=== PATIENT | male | born 1985 | race Caucasian/White ===

== ENCOUNTER 2016-06-25 13:06 | Emergency (ER) | payer MEDICAID ==
[~2016-06-25] VITALS: Ht 185.4 cm; Wt 127.0 kg
[~2016-06-25 13:06] MED LIST: AZIT-21 PO; CEFD300C3 PO; CEFP250T2 PO; CIPR-225 PO; CIPR500T78 PO; CODE-54 PO; CPR500T PO; DOXY-13 PO; DOXY100C2 PO; DOXY100T2 PO; HCPR10FM RC; HYDR1TAB PO; KETO75CA PO; LISI10TA2; NAPR-243 PO; NAPR500T PO; OMEP20CA12; ONDA-42 SL; ONDA8TAB13 PO; OXYC-12 PO; PHEN100T17 PO; PHEN200T27 PO; PRCD5U PO; PRD20T PO; PRD5T PO; PROM25TA14 PO; RT-ALBUINH IH; SUCR1TAB; TRAM50TA2 PO; TRM50T PO; VANC250C4 PO
--- OUTSIDE RECORDS SUMMARY | 2016-06-25 13:12 | XMS REPORT | Continuity of Care Document ---
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 Name Role Phone NO, LOCAL PHYSICIAN PCP Unavailable Insurance Providers Payer Name Policy Number Subscriber Name Relationship Medicaid [place] [id number] Demarco Andrade 19 Self / Same As Patient Advance Directives Directive Response Recorded Date/Time Advance Directives No 12/21/13 8:37pm Health Care Power of Collateral Clerk No 12/21/13 8:37pm Organ Donor No 12/21/13 8:37pm Resuscitation Status Full Code 12/21/13 8:37pm Problems Medical Problems Problem Onset Date Status Upper respiratory infection Unknown Active Forearm pain Unknown Active Forearm pain Unknown Active Medications Medication Dose Route Sig Days/Qty Instructions Order Date Discontinued Date Status Tramadol HCl 1 Tab PO FOUR TIMES DAILY 40 Qty 12/21/08 02/16/11 Discontinued Prednisone 5 Mg PO DIRECTED 78 Qty TAKE 12 PILLS DAY 1, THEN DECREASE BY 1 PILL A DAY UNTIL GONE FOR RASH 10/18/09 02/16/11 Discontinued Azithromycin (Zpak) 0 PO Z-EDER 6 Qty 07/11/10 02/16/11 Discontinued Acetaminophen/Hydrocodone Bitart 1 - 2 Each PO Q4HR PRN 14 Qty 02/16/11 Discontinued Prednisone 5 Mg PO DIRECTED 78 Qty 01/24/11 02/16/11 Discontinued Acetaminophen/Codeine Phosphate 1 Tab PO EVERY 3 HOURS PRN 0 Qty 02/20/11 Discontinued Ciprofloxacin 1 Tab PO TWICE A DAY 03/03/11 12/12/11 Discontinued Ciprofloxacin 2 Tab PO X 1 03/03/11 03/03/11 Discontinued Oxycodone Hcl/Acetaminophen 1 - 2 Each PO 4-6 hours PRN 03/03/1113/05 Discontinued Doxycycline Hyclate 1 Each PO GIVE EVERY 12 HRS ON SCHEDULE 14 Qty 07/0511/24/12 Discontinued Promethazine HCl/Codeine 0 PO EVERY 4HRS 1 Qty 5 - 10 ML 01/06/12 Discontinued Naproxen 1 Each PO TWICE A DAY PRN PAIN 20 Qty 12/21/13 Active Social History Social History Problem Response Recorded Date/Time Alcohol Use Regular Use 12/21/2013 8:37pm Recreational Drug Use No 12/21/2013 8:37pm Smoking Status Current Everyday Smoker 12/21/2013 8:37pm Do you dip or chew tobacco? Yes 12/21/2013 8:37pm Query Response Start Date Stop Date Smoking Status Current Everyday Smoker Hospital Discharge Instructions No hospital discharge instructions. Plan of Care No plan of care. Functional Status No functional status results. Allergies, Adverse Reactions, Alerts Allergen Type Severity Reaction Status Last Updated morphine Adverse Reaction Intermediate Active 12/21/13 Immunizations Name Given Type Date of Pneumonia Vaccine 07/26/11 Historical Tetanus Booster (TDap) Unknown Historical Vital Signs Acute Vital Signs Vital Response Date/Time Temperature (Fahrenheit) 99.0 degrees F (97.6 - 99.5) Temperature (Calculated Celsius) 37.45758 degrees C (36.4 - 37.5) Temperature Source Temporal Pulse Rate (adult) 83 bpm (60 - 90) Respiratory Rate 18 bpm (12 - 24) O2 Sat by Pulse Oximetry 98 % (88 - 100) Blood Pressure 165/96 mm Hg Pain Pain Intensity 7 Height (Feet) 5 feet Height (Inches) 10 inches Height (Calculated Centimeters) 177.454124 cm Weight (Pounds) 255 pounds Weight (Calculated Kilograms) 115.289741 kilograms Calculated BMI 36.58 Results Test Source Date Result Interp. Ref. Range Comments Acetaminophen Screen February 17, 2011 1:30am NEGATIVE - APAP= ACETAMINOPHEN/PARACETAMOL Alanine Aminotransferase (ALT/SGPT) November 26, 2012 5:35am 39 U/L N 30-65 Albumin November 26, 2012 5:35am 3.0 G/DL L 3.4-5.0 Alkaline Phosphatase November 26, 2012 5:35am 120 U/L N 50-136 Miguel Angel Test February 21, 2011 5:20am YES-POS - Puncture site: R Radial arteryAllen's Test: POSITIVE Temperature: 100.3 Room Air: N Liters of O2: 35% Ventilator: Y Amylase Level November 25, 2012 5:50am 22 U/L L 25-115 Arterial Blood Base Excess February 21, 2011 5:20am 1.2 MMOL/L N -2.5- 2.5 Puncture site: R Radial arteryAllen's Test: POSITIVE Temperature: 100.3 Room Air: N Liters of O2: 35% Ventilator: Y Arterial Blood HCO3 February 21, 2011 5:20am 25 MMOL/L N 23-27 Puncture site: R Radial arteryAllen's Test: POSITIVE Temperature: 100.3 Room Air: N Liters of O2: 35% Ventilator: Y Arterial Blood Oxygen Saturation February 21, 2011 5:20am 98 % N 94-100 Puncture site: R Radial arteryAllen's Test: POSITIVE Temperature: 100.3 Room Air: N Liters of O2: 35% Ventilator: Y Arterial Blood Partial Pressure CO2 February 21, 2011 5:20am 38 MMHG N 35 -45 Puncture site: R Radial arteryAllen's Test: POSITIVE Temperature: 100.3 Room Air: N Liters of O2: 35% Ventilator: Y Arterial Blood Partial Pressure O2 February 21, 2011 5:20am 103 MMHG H 79 -93 Puncture site: R Radial arteryAllen's Test: POSITIVE Temperature: 100.3 Room Air: N Liters of O2: 35% Ventilator: Y Arterial Blood Total CO2 February 21, 2011 5:20am 26.1 MMOL/L N 21.0- 31.0 Puncture site: R Radial arteryAllen's Test: POSITIVE Temperature: 100.3 Room Air: N Liters of O2: 35% Ventilator: Y Arterial Blood pH February 21, 2011 5:20am 7.44 H 7.37-7.43 Puncture site: R Radial arteryAllen's Test: POSITIVE Temperature: 100.3 Room Air: N Liters of O2: 35% Ventilator: Y Aspartate Amino Transf (AST/SGOT) November 26, 2012 5:35am 27 U/L N 15-37 BUN/Creatinine Ratio November 26, 2012 5:35am 7 - Band Neutrophils November 24, 2012 5:50pm 11 % - Basophils # (Auto) November 25, 2012 5:50am 0.0 10^3/uL N 0.0-0.1 Basophils (%) (Auto) November 25, 2012 5:50am 0 % N 0-10 Blood Gas Inspired Oxygen February 21, 2011 5:20am 35% - Puncture site : R Radial arteryAllen's Test: POSITIVE Temperature: 100.3 Room Air: N Liters of O2: 35% Ventilator: Y Blood Gas Patient Temperature February 21, 2011 5:20am 100.3 - Puncture site: R Radial arteryAllen's Test: POSITIVE Temperature: 100.3 Room Air: N Liters of O2: 35% Ventilator: Y Blood Gas Puncture Site February 21, 2011 5:20am RT RAD - Puncture site: R Radial arteryAllen's Test: POSITIVE Temperature: 100.3 Room Air: N Liters of O2: 35% Ventilator: Y Blood Gas Ventilator Setting February 21, 2011 5:20am YES - Puncture site: R Radial arteryAllen's Test: POSITIVE Temperature: 100.3 Room Air: N Liters of O2: 35% Ventilator: Y Blood Urea Nitrogen November 26, 2012 5:35am 8 MG/DL N 7-18 [place] Cells November 24, 2012 5:50pm SLIGHT - Calcium Level November 26, 2012 5:35am 8.2 MG/DL L 8.5-10.1 Carbon Dioxide Level November 26, 2012 5:35am 30 MMOL/L N 21-32 Chloride Level November 26, 2012 5:35am 104 MMOL/L N 101-110 Clumped Platelets November 24, 2012 5:50pm OCCASIONAL - Creatinine November 26, 2012 5:35am 1.2 MG/DL N 0.6-1.3 Eosinophils # (Auto) November 25, 2012 5:50am 0.0 10^3/uL N 0.0-0.3 Eosinophils % (Manual) November 24, 2012 5:50pm 1 % - Eosinophils (%) (Auto) November 25, 2012 5:50am 0 % N 0-10 Glucose Level November 26, 2012 5:35am 100 MG/DL N 74-106 Hematocrit November 26, 2012 5:35am 43 % N 40-54 Hemoglobin November 26, 2012 5:35am 14.2 G/DL N 13.3-17.7 Hemoglobin A1c February 17, 2011 5:50am 6.1 % H 4.8-6.0 Lipase November 25, 2012 5:50am 100 U/L N 73-393 Lymphocytes # (Auto) November 25, 2012 5:50am 1.5 X 10^3 N 1.0-4.0 Lymphocytes % (Manual) November 24, 2012 5:50pm 7 % - Lymphocytes (%) (Auto) November 25, 2012 5:50am 8 % L 12-44 Magnesium Level February 27, 2011 6:15am 2.1 MG/DL N 1.8-2.4 Mean Corpuscular Hemoglobin November 26, 2012 5:35am 31 PG N 25-34 Mean Corpuscular Hemoglobin Concent November 26, 2012 5:35am 33 G/DL N 32- 36 Mean Corpuscular Volume November 26, 2012 5:35am 93 FL N 80-99 Mean Platelet Volume November 26, 2012 5:35am 9.7 FL N 7.4-10.4 Monocytes # (Auto) November 25, 2012 5:50am 1.1 X 10^3 H 0.0-1.0 Monocytes % (Manual) November 24, 2012 5:50pm 6 % - Monocytes (%) (Auto) November 25, 2012 5:50am 6 % N 0-12 Neutrophils # (Auto) November 25, 2012 5:50am 15.8 X 10^3 H 1.8-7.8 Neutrophils % (Manual) November 24, 2012 5:50pm 75 % - Neutrophils (%) (Auto) November 25, 2012 5:50am 86 % H 42-75 Platelet Count November 26, 2012 5:35am 333 10^3/uL N 130-400 Poikilocytosis November 24, 2012 5:50pm SLIGHT - Potassium Level November 26, 2012 5:35am 3.9 MMOL/L N 3.6-5.0 Red Blood Count November 26, 2012 5:35am 4.62 10^6/uL N 4.35-5.85 Red Cell Distribution Width November 26, 2012 5:35am 14.2 % N 10.0-14.5 Sodium Level November 26, 2012 5:35am 139 MMOL/L N 135-145 Total Bilirubin November 26, 2012 5:35am 0.3 MG/DL N 0.0-1.0 Total Protein November 26, 2012 5:35am 6.7 G/DL N 6.4-8.2 Ur Tricyclic Antidepressants Screen November 24, 2012 5:55pm NEGATIVE - Urine Amorphous Sediment February 23, 2011 10:05am RARE WANG URATES H - Has specimen been collected/obtained? YSpecimen Description CLEAN CATCH Urine Amphetamines Screen November 24, 2012 5:55pm NEGATIVE - Urine Bacteria November 25, 2012 5:07pm NEGATIVE /HPF - Has specimen been collected/obtained? Y Urine Barbiturates Screen November 24, 2012 5:55pm NEGATIVE - Urine Benzodiazepines Screen November 24, 2012 5:55pm NEGATIVE - Urine Bilirubin November 25, 2012 5:07pm NEGATIVE - Has specimen been collected/obtained? Y Urine Calcium Oxalate Crystals December 23, 2010 3:23am FEW H - Has specimen been collected/obtained? YSpecimen Description CLEAN CATCH Urine Casts November 25, 2012 5:07pm NONE /LPF - Has specimen been collected/obtained? Y Urine Clarity November 25, 2012 5:07pm CLEAR - Has specimen been collected/obtained? Y Urine Cocaine Screen November 24, 2012 5:55pm NEGATIVE - Urine Color November 25, 2012 5:07pm YELLOW - Has specimen been collected /obtained? Y Urine Crystals November 25, 2012 5:07pm NONE /LPF - Has specimen been collected/obtained? Y Urine Culture Indicated November 25, 2012 5:07pm YES - Has specimen been collected/obtained? Y Urine Eosinophils February 23, 2011 10:05am NONE - Urine Glucose (UA) November 25, 2012 5:07pm NEGATIVE - Has specimen been collected/obtained? Y Urine Hyaline Casts November 24, 2012 5:55pm 0-2 /LPF H - Has specimen been collected/obtained? YSpecimen Description CLEAN CATCH Urine Ketones November 25, 2012 5:07pm NEGATIVE - Has specimen been collected/obtained? Y Urine Leukocyte Esterase November 25, 2012 5:07pm 2+ H - Has specimen been collected/obtained? Y Urine Methamphetamines Screen November 24, 2012 5:55pm NEGATIVE - Urine Mucus November 25, 2012 5:07pm TRACE /LPF - Has specimen been collected/obtained? Y Urine Nitrate June 27, 2005 6:32am Negative - Has specimen been collected/obtained? Y Urine Nitrite November 25, 2012 5:07pm NEGATIVE - Has specimen been collected/obtained? Y Urine Opiates Screen November 24, 2012 5:55pm NEGATIVE - Urine Phencyclidine Screen November 24, 2012 5:55pm NEGATIVE - Urine Propoxyphene Screen November 24, 2012 5:55pm NEGATIVE - Urine Protein November 25, 2012 5:07pm NEGATIVE - Has specimen been collected/obtained? Y Urine RBC November 25, 2012 5:07pm NONE /HPF - Has specimen been collected/obtained? Y Urine Random Potassium February 23, 2011 10:05am 13 MMOL/L L 25-125 Urine Random Sodium February 23, 2011 10:05am 29 MMOL/L L 50-200 Urine Specific [place] November 25, 2012 5:07pm 1.015 L - Has specimen been collected/obtained? Y Urine Squamous Epithelial Cells November 25, 2012 5:07pm RARE /HPF - Has specimen been collected/obtained? Y Urine Urobilinogen November 25, 2012 5:07pm NORMAL MG/DL - Has specimen been collected/obtained? Y Urine WBC November 25, 2012 5:07pm 5-10 /HPF H - Has specimen been collected/obtained? Y Urine pH November 25, 2012 5:07pm 6.5 - Has specimen been collected/ obtained? Y Vancomycin Level Trough February 24, 2011 6:08am 18 UG/ML N 15-20 VANCOMYCIN TROUGH THERAPEUTIC LEVELS: 15-20 UG/ML ELEVATED LEVELS : 20-25 UG/ML CRITICAL LEVEL : >25 UG/ML White Blood Count November 26, 2012 5:35am 10.9 10^3/uL N 4.3-11.0 Glucometer February 22, 2011 8:45pm 138 MG/DL H 70-110 Lab Scanned Report March 04, 2011 9:57am Transfusion Reaction Form [id number] - Estimat Glomerular Filtration Rate November 24, 2012 5:50pm > 60 - GFR INTERPRETIVE DATA UNITS FOR ESTIMATED GFR (eGFR): mL/min/1.73 M2 REFERENCE RANGE FOR ESTIMATED GFR (eGFR) eGFR NORMAL eGFR >60 MODERATELY DECREASED eGFR 30-59 SEVERLY DECREASED eGFR 15-29 KIDNEY FAILURE <15 (OR DIALYSIS) Urine Oxycodone Screen November 24, 2012 5:55pm NEGATIVE - Urine Methadone Screen November 24, 2012 5:55pm NEGATIVE - Urine Cannabinoids Screen November 24, 2012 5:55pm NEGATIVE - Urine Buprenorphine November 24, 2012 5:55pm NEGATIVE - Urine RBC (Auto) November 25, 2012 5:07pm NEGATIVE - Has specimen been collected/obtained? Y Blood Culture Peripheral-Rt Hand February 21, 2011 3:00am No growth Ova and Parasites Stool November 24, 2012 9:30pm Gram Stain Sputum-Expectorated February 23, 2011 10:00am Urine Culture Urine-Clean Catch November 25, 2012 5:07pm Procedures No known history of procedures. Encounters Encounter Location Date/Time Departed Emergency Room [facility] 12/21/13 7:43pm Recent Diagnosis
[2016-06-25] MEDS ORDERED: IBUPROFEN 800 MG (MOTRIN) TAB PO STA (13:18)
[2016-06-25] MEDS ORDERED: ONDANSETRON 4 MG (ZOFRAN) ORAL DISSOLVE TAB SL STA (13:18)
[2016-06-25] MEDS ORDERED: METF500T4 (13:25)
--- NOTE | 2016-06-25 13:29 | ED Cough/URI ---
General Chief Complaint: Cough/Cold/Flu Symptoms Stated Complaint: NAUSEA/LOWER BACK PAIN/COUGH Nursing Triage Note: PT CO OF COLD COUGH SINCE MONDAY Source: patient Exam Limitations: no limitations History of Present Illness Time seen by provider: 13:12 Initial Comments 31-year-old male patient presents to the emergency department complains of cough , chest congestion, body aches beginning . Today reports having a fever. Timing/Duration: getting worse, other (06/23/16) Severity/Quality: moderate Prior Episodes/Possible Cause: no prior episodes Modifying Factors: Worse With Coughing Allergies and Home Medications Allergies Coded Allergies: morphine (Verified Adverse Reaction, Intermediate, 12/21/13) MAKES HIM AGGRESSIVE Home Medications Hydrocortisone/Pramoxine 10 Gm Foam #1 10 GM RC Q6H PRN PRN HEMORRHOIDS Prescribed by: JIGAR ANN on 03/09/16 0605 Lisinopril 10 Mg Tablet #30 (Reported) Metformin HCl 500 Mg Tablet #60 (Reported) Omeprazole 20 Mg Capsule. #30 (Reported) Oseltamivir Phosphate 75 Mg Cap #10 75 MG PO BID Prescribed by: EMERSON CARBAJAL on 06/25/16 1350 Sucralfate 1 Gm Tablet #60 (Reported) Constitutional: chillsNo diaphoresis, No dizziness, fever malaise EENTM: ear pain ((ear pain with coughing only)) nose congestion throat painNo eye pain, No mouth pain, No tearing, No throat swelling Respiratory: see HPI coughNo orthopnea, No short of breath, No wheezing Cardiovascular: no symptoms reported Gastrointestinal: No abdominal pain, No constipation, No diarrhea, nauseaNo vomiting Genitourinary: no symptoms reported Musculoskeletal: see HPI other (generalized body aches) Skin: no symptoms reported Psychiatric/Neurological: Headache (occipital headache)Denies Numbness, Denies Paresthesia, Denies Seizure, Denies Tingling, Denies Weakness All Other Systems Reviewed Negative Unless Noted: Yes (Negative excepted noted.) Past Cmecyaj-Psinsi-Elrbgu Hx Patient Social History Alcohol Use: Regular Use Recreational Drug Use: No Smoking Status: Never a Smoker Former Smoker/When Quit: Nov 24, 2005 Recent Foreign Travel: No Contact w/Someone Who Travel: No Recent Infectious Disease Expo: No Recent Hopitalizations: No Immunizations Up To Date Tetanus Booster (TDap): Unknown Date of Pneumonia Vaccine: Jul 26, 2011 Seasonal Allergies Seasonal Allergies: No Surgeries HX Surgeries: Yes (SPLENECTOMY AND LEFT CHEST TUBE SECONDARY TO TRAUMA) Surgeries: Ear Surgery, Orthopedic Respiratory Hx Respiratory Disorders: No Cardiovascular Hx Cardiac Disorders: No Neurological Hx Neurological Disorders: No Reproductive System Hx Reproductive Disorders: No Genitourinary Hx Genitourinary Disorders: Yes Genitourinary Disorders: Bladder Infection Gastrointestinal Hx Gastrointestinal Disorders: Yes (S/P SPLENECTOMY SECONDARY TO TRAUMA) Gastrointestinal Disorders: Hemorrhoids Musculoskeletal Hx Musculoskeletal Disorders: No Endocrine Hx Endocrine Disorders: No HEENT HX ENT Disorders: No Cancer Hx Cancer: No Psychosocial Hx Psychiatric Problems: No Integumentary HX Skin/Integumentary Disorder: No Blood Transfusions Hx Blood Disorders: No Reviewed Nursing Assessment Reviewed/Agree w Nursing PMH: Yes Family Medical History Significant Family History: No Pertinent Family Hx Physical Exam Vital Signs Vital Sign - Last 12Hours 06/25/16 13:10 Temp 101.0 Pulse 130 Resp 18 B/P 133/97 Pulse Ox 99 Capillary Refill : Less Than 3 Seconds General Appearance: WD/WN no apparent distress HEENT: PERRL/EOMI pharyngeal erythema other ((+) nasal congestion and clear drainage. ) Neck: non-tender full range of motion supple lymphadenopathy (R) (anterior cervical.) lymphadenopathy (L) (anterior cervical. ) Respiratory: lungs clear normal breath sounds no respiratory distress Cardiovascular: no murmur tachycardia Gastrointestinal: normal bowel sounds non tender softNo distended Neurologic/Psychiatric: alert normal mood/affect oriented x 3 Skin: normal color warm/dry (increased warmth.) Progress/Results/Core Measures Results/Orders Micro Results Microbiology 06/25/16 Influenza Types A,B Antigen (JOHNNY) - Final, Complete My Orders Orders-EMERSON CARBAJAL Influenza A And B Antigens (06/25/16 13:12) Ibuprofen Tablet (Motrin Tablet) (06/25/16 13:18) Ondansetron Oral Dissolve Tab (Zofran (06/25/16 13:18) Chest Pa/Lat (2 View) (06/25/16 13:19) Vital Signs/I&O Vital Sign - Last 12Hours 06/25/16 13:10 Temp 101.0 Pulse 130 Resp 18 B/P 133/97 Pulse Ox 99 Blood Pressure Mean: 109 Diagnostic Imaging Diagonstic Imaging: Xray Plain Films/CT/US/NM/MRI: chest Comments FINDINGS: Frontal and lateral views of the chest demonstrate clear lungs bilaterally. The heart size is normal. There is no pneumothorax. The osseous structures are normal. IMPRESSION: Negative chest. Dictated on workstation # [id number] Reviewed: Reviewed by Me (radiology report reviewed by me. ) Departure Communication Progress Notes All laboratory and diagnostic findings discussed with the patient. In light of a negative influenza test, patient's symptoms are very suspicious for influenza. Therefore, we will plan for discharge to home with a prescription for Tamiflu. All return precautions were discussed with the patient as described in the discharge instructions of this report. Patient voices understanding and agrees with the treatment plan. Impression Impression: Primary Impression: Influenza-like symptoms Disposition: HOME, SELF-CARE Condition: Improved Departure-Patient Inst. Decision time for Depature: 13:48 Referrals: [facility] (PCP/Family) Primary Care Physician Patient Instructions: Flu, Adult (DC) Add. Discharge Instructions: All discharge instructions reviewed with patient and/or family. Voiced understanding. Medications as instructed. Tylenol extra strength over-the- counter as directed for pain or fever. Ibuprofen 800 mg by mouth every 8 hours as needed for pain or fever. Push fluids. Cool humidifier if needed. Over-the -counter decongestants and antihistamines as instructed. Saline nasal spray and Afrin [id number] as directed for nasal congestion. Follow-up with her family practitioner for recheck if no improvement in symptoms. Return to the emergency department for worsened pain, fever, vomiting, shortness of air, difficulty swallowing, decreased urination, or any other concerns. Scripts Oseltamivir Phosphate (Tamiflu)75 Mg Cap75 Mg PO BID #10 CAP Ref 0 Prov:EMERSON CARBAJAL 06/25/16 EMERSON CARBAJAL Jun 25, 2016 13:29
--- NOTE | 2016-06-25 13:35 | Diagnostic Imaging Report ---
INDICATION: Cough, congestion. COMPARISON: 12/28/15. FINDINGS: Frontal and lateral views of the chest demonstrate clear lungs bilaterally. The heart size is normal. There is no pneumothorax. The osseous structures are normal. IMPRESSION: Negative chest. Dictated by: Dictated on workstation # [id number]
[2016-06-25] MEDS ORDERED: OSLT75C PO (13:50)
[2016-06-25 13:52] VITALS: BP 128/88
[2016-06-25] MEDS ORDERED: ONDA8TAB13 PO (13:56)
[2016-06-25] MEDS ORDERED: BENZ200C51 PO (13:56)
== END 2016-06-25 13:55 | disposition home or self-care (01) ==
LOC: EDUNIT# 13:06 → ER 13:07
DX: J11.1 Influenza due to unidentified influenza virus with other respiratory manifestations (principal); M54.5 Low back pain; Z79.84 Long term (current) use of oral hypoglycemic drugs; Z79.899 Other long term (current) drug therapy
CPT/HCPCS: 71020; 87804; 99282

== ENCOUNTER 2016-09-13 05:57 | Emergency (ER) | payer MEDICAID ==
[~2016-09-13] VITALS: Ht 185.4 cm; Wt 102.1 kg
[~2016-09-13 05:57] MED LIST changes: +BENZ200C51 PO; +METF500T4; +OSLT75C PO
--- NOTE | 2016-09-13 06:27 | ED Neurological Problem ---
General Chief Complaint: General Problems/Pain Stated Complaint: DIZZY,NAUSEA Source: patient, RN notes reviewed Exam Limitations: no limitations History of Present Illness Time seen by provider: 06:18 Initial Comments As above and below. Hasn't felt well since Monday. Feels better laying down , worse when up. Has some left ear discomfort. Not aware of any fever. Can't recall any previous similar episodes. Timing/Duration: other (3 days) Severity: moderate Associated Symptoms: No fever/chills, other (dizzy and nausea) Allergies and Home Medications Allergies Coded Allergies: morphine (Verified Adverse Reaction, Intermediate, 09/13/16) MAKES HIM AGGRESSIVE Home Medications Benzonatate 200 Mg Capsule, 200 MG PO Q8H PRN for COUGH, #30 Ref 0 Prescribed by: EMERSON CARBAJAL on 06/25/16 1356 Meclizine HCl 25 Mg Tablet, 25 MG PO Q6H PRN for DIZZINESS, #20 Ref 0 Prescribed by: YINKA HIDALGO on 09/13/16 0716 Metformin HCl 500 Mg Tablet, #60 (Reported) Constitutional: see HPI, dizziness Gastrointestinal: see HPI, nausea All Other Systems Reviewed Negative Unless Noted: Yes (Negative excepted noted.) Past Eytrfjl-Nvzxfs-Bgcwfr Hx Patient Social History Alcohol Use: Regular Use Recreational Drug Use: No Smoking Status: Former Smoker Former Smoker/When Quit: Nov 24, 2005 Recent Foreign Travel: No Contact w/Someone Who Travel: No Recent Hopitalizations: No Immunizations Up To Date Tetanus Booster (TDap): Unknown Date of Pneumonia Vaccine: Jul 26, 2011 Seasonal Allergies Seasonal Allergies: No Surgeries HX Surgeries: Yes (SPLENECTOMY AND LEFT CHEST TUBE SECONDARY TO TRAUMA) Surgeries: Ear Surgery, Orthopedic Respiratory Hx Respiratory Disorders: No Cardiovascular Hx Cardiac Disorders: No Neurological Hx Neurological Disorders: No Reproductive System Hx Reproductive Disorders: No Genitourinary Hx Genitourinary Disorders: Yes Genitourinary Disorders: Bladder Infection Gastrointestinal Hx Gastrointestinal Disorders: Yes (S/P SPLENECTOMY SECONDARY TO TRAUMA) Gastrointestinal Disorders: Hemorrhoids Musculoskeletal Hx Musculoskeletal Disorders: No Endocrine Hx Endocrine Disorders: No HEENT HX ENT Disorders: No Cancer Hx Cancer: No Psychosocial Hx Psychiatric Problems: No Integumentary HX Skin/Integumentary Disorder: No Blood Transfusions Hx Blood Disorders: No Family Medical History Significant Family History: No Pertinent Family Hx Physical Exam Vital Signs Vital Sign - Last 12Hours 09/13/16 06:18 Temp 98.0 Pulse 98 Resp 14 B/P (MAP) 148/99 Pulse Ox 96 O2 Delivery Room Air Capillary Refill : General Appearance: WD/WN, no apparent distress HEENT: PERRL/EOMI, normal ENT inspection, TMs normal, pharynx normal Neck: normal inspection Respiratory: lungs clear, no respiratory distress Cardiovascular: regular rate, rhythm Neurologic/Psychiatric: no motor/sensory deficits, alert, normal mood/affect, oriented x 3 Crainal Nerves: normal hearing, normal speech, PERRL Motor/Sensory: no motor deficit, no sensory deficit Skin: warm/dry Progress/Results/Core Measures Results/Orders Lab Results Laboratory Tests Test 09/13/16 06:35 Range/Units White Blood Count 9.1 4.3-11.0 10^3/uL Red Blood Count 4.88 4.35-5.85 10^6/uL Hemoglobin 15.0 13.3-17.7 G/DL Hematocrit 45 40-54 % Mean Corpuscular Volume 91 80-99 FL Mean Corpuscular Hemoglobin 31 25-34 PG Mean Corpuscular Hemoglobin Concent 34 32-36 G/DL Red Cell Distribution Width 13.7 10.0-14.5 % Platelet Count 340 130-400 10^3/uL Mean Platelet Volume 10.2 7.4-10.4 FL Neutrophils (%) (Auto) 46 42-75 % Lymphocytes (%) (Auto) 35 12-44 % Monocytes (%) (Auto) 13 H 0-12 % Eosinophils (%) (Auto) 6 0-10 % Basophils (%) (Auto) 0 0-10 % Neutrophils # (Auto) 4.2 1.8-7.8 X 10^3 Lymphocytes # (Auto) 3.2 1.0-4.0 X 10^3 Monocytes # (Auto) 1.1 H 0.0-1.0 X 10^3 Eosinophils # (Auto) 0.5 H 0.0-0.3 10^3/uL Basophils # (Auto) 0.0 0.0-0.1 10^3/uL Sodium Level 138 135-145 MMOL/L Potassium Level 4.1 3.6-5.0 MMOL/L Chloride Level 103 98-107 MMOL/L Carbon Dioxide Level 23 21-32 MMOL/L Anion Gap 12 5-14 MMOL/L Blood Urea Nitrogen 12 7-18 MG/DL Creatinine 0.87 0.60-1.30 MG/DL Estimat Glomerular Filtration Rate > 60 BUN/Creatinine Ratio 14 Glucose Level 175 H 70-105 MG/DL Calcium Level 9.3 8.5-10.1 MG/DL Total Bilirubin 0.3 0.1-1.0 MG/DL Aspartate Amino Transf (AST/SGOT) 55 H 5-34 U/L Alanine Aminotransferase (ALT/SGPT) 77 H 0-55 U/L Alkaline Phosphatase 87 40-136 U/L Total Protein 7.1 6.4-8.2 G/DL Albumin 4.3 3.2-4.5 G/DL My Orders Orders - YINKA HIDALGO DO Cbc With Automated Diff (09/13/16 06:22) Comprehensive Metabolic Panel (09/13/16 06:22) Meclizine Tablet (Antivert Tablet) (09/13/16 06:30) Medications Given in ED Current Medications Medications Dose Ordered Sig/Radha Route Start Time Stop Time Status Last Admin Dose Admin Meclizine HCl 25 mg ONCE ONCE PO 09/13/16 06:30 09/13/16 06:42 DC 09/13/16 06:34 25 MG Vital Signs/I&O Vital Sign - Last 12Hours 09/13/16 09/13/16 06:18 07:24 Temp 98.0 Pulse 98 81 Resp 14 16 B/P (MAP) 148/99 Pulse Ox 96 98 O2 Delivery Room Air Departure Impression Impression: Primary Impression: BPV (benign positional vertigo) Disposition: 01 HOME, SELF-CARE Condition: Stable Departure-Patient Inst. Decision time for Depature: 07:14 Referrals: [facility] (PCP/Family) Primary Care Physician Patient Instructions: Vertigo (a Type of Dizziness) (DC) Add. Discharge Instructions: All discharge instructions reviewed with patient and/or family. Voiced understanding. RECOMMEND FOLLOW UP WITH YOUR PCP REGARDING YOUR ELEVATED BLOOD SUGAR AND TO HAVE YOUR LIVER ENZYMES RECHECKED IN THE NEAR FURTHER. Scripts Meclizine HCl (Meclizine HCl) 25 Mg Tablet 25 MG PO Q6H Y for DIZZINESS, #20 TAB 0 Refills Prov: YINKA HIDALGO DO 09/13/16 Work/School Note: Work Release Form Date Seen in the Emergency Department: Sep 13, 2016 Return to Work: Sep 14, 2016 Restrictions: No Restrictions YINKA HIDALGO DO Sep 13, 2016 06:27
[2016-09-13] MEDS ORDERED: MECLIZINE 25 MG (ANTIVERT) TAB PO ONE (06:30)
[2016-09-13 06:44] LABS: BASOPHILS % (AUTO) 0 % (0-10); EOSINOPHILS # (AUTO) 0.5 10^3/uL (0.0-0.3); EOSINOPHILS % (AUTO) 6 % (0-10); LYMPHOCYTES # (AUTO) 3.2 X 10^3 (1.0-4.0); LYMPHOCYTES % (AUTO) 35 % (12-44); MEAN CORPUSCULAR HEMOGLOBIN 31 PG (25-34); MEAN CORPUSCULAR HGB CONC 34 G/DL (32-36); MEAN CORPUSCULAR VOLUME 91 FL (80-99); MEAN PLATELET VOLUME 10.2 FL (7.4-10.4); MONOCYTES # (AUTO) 1.1 X 10^3 (0.0-1.0); MONOCYTES % (AUTO) 13 % (0-12); NEUTROPHILS # (AUTO) 4.2 X 10^3 (1.8-7.8); NEUTROPHILS % (AUTO) 46 % (42-75); PLATELET COUNT 340 10^3/uL (130-400); RED BLOOD COUNT 4.88 10^6/uL (4.35-5.85); RED CELL DISTRIBUTION WIDTH 13.7 % (10.0-14.5); WHITE BLOOD COUNT 9.1 10^3/uL (4.3-11.0)
[2016-09-13 07:02] LABS: ALANINE AMINOTRANSFERASE 77 U/L (0-55); ALBUMIN 4.3 G/DL (3.2-4.5); ANION GAP 12 MMOL/L (5-14); ASPARTATE AMINO TRANSFERASE 55 U/L (5-34); BILIRUBIN,TOTAL 0.3 MG/DL (0.1-1.0); BLOOD UREA NITROGEN 12 MG/DL (7-18); BUN/CREATININE RATIO 14; CALCIUM 9.3 MG/DL (8.5-10.1); CARBON DIOXIDE 23 MMOL/L (21-32); CHLORIDE 103 MMOL/L (98-107); CREATININE SERUM 0.87 MG/DL (0.60-1.30); GFR ESTIMATED > 60; GLUCOSE 175 MG/DL (70-105); POTASSIUM 4.1 MMOL/L (3.6-5.0); SODIUM 138 MMOL/L (135-145); TOTAL PROTEIN 7.1 G/DL (6.4-8.2)
[2016-09-13] MEDS ORDERED: MECL-106 PO (07:16)
[2016-09-13 07:24] VITALS: BP 139/94
== END 2016-09-13 07:24 | disposition home or self-care (01) ==
LOC: EDUNIT# 05:57 → ER 05:59
DX: H81.12 Benign paroxysmal vertigo, left ear (principal); E11.9 Type 2 diabetes mellitus without complications; Z79.84 Long term (current) use of oral hypoglycemic drugs; Z87.891 Personal history of nicotine dependence
CPT/HCPCS: 36415; 80053; 85025; 99283

== ENCOUNTER 2017-01-02 02:17 | Emergency (ER) | payer MEDICAID ==
[~2017-01-02] VITALS: Ht 185.4 cm; Wt 102.2 kg
[~2017-01-02 02:17] MED LIST changes: +MECL-106 PO
--- NOTE | 2017-01-02 02:41 | ED GU-Male ---
General Chief Complaint: -Male Stated Complaint: POSS BLADDER INFECT Source: patient Exam Limitations: no limitations History of Present Illness Time seen by provider: 02:33 Initial Comments Patient has ER with a chief complaint of approximately one day progressively worsening hesitancy of urine as well as pain and dysuria on micturition. He has no discharge. Says he gets urinary tract infections quite frequently and has been followed by Raffi at [facility] for this. He denies any fevers chills nausea vomiting or sweats or weakness or incontinence of urine. He is having no constipation or diarrhea. Patient states he is sexually active in a monogamous relation with his only. Allergies and Home Medications Allergies Coded Allergies: morphine (Verified Adverse Reaction, Intermediate, 09/13/16) MAKES HIM AGGRESSIVE Home Medications Benzonatate 200 Mg Capsule, 200 MG PO Q8H PRN for COUGH, #30 Ref 0 Prescribed by: EMERSON CARBAJAL on 06/25/16 1356 Meclizine HCl 25 Mg Tablet, 25 MG PO Q6H PRN for DIZZINESS, #20 Ref 0 Prescribed by: YINKA HIDALGO on 09/13/16 0716 Metformin HCl 500 Mg Tablet, #60 (Reported) Sulfamethoxazole/Trimethoprim 1 Each Tablet, 1 EACH PO BID for 10 Days, #19 Ref 0 Prescribed by: FRACISCO LORA on 01/02/17 0308 Constitutional: No chills, No diaphoresis, No fever, No malaise Respiratory: No dyspnea on exertion, No short of breath Cardiovascular: No chest pain, No palpitations Gastrointestinal: No diarrhea, No nausea, No vomiting Genitourinary: burning, denies discharge, dysuria, frequency (hesitancy), denies incontinence Musculoskeletal: No back pain, No joint pain Skin: No pruritus, No rash Psychiatric/Neurological: Denies Headache, Denies Numbness Past Zyhadfj-Ahrwsk-Mungou Hx Patient Social History Alcohol Use: Occasionally Uses Recreational Drug Use: No Smoking Status: Never a Smoker Former Smoker/When Quit: Nov 24, 2005 Recent Foreign Travel: No Contact w/Someone Who Travel: No Recent Hopitalizations: No Immunizations Up To Date Tetanus Booster (TDap): Unknown Date of Pneumonia Vaccine: Jul 26, 2011 Seasonal Allergies Seasonal Allergies: No Surgeries HX Surgeries: Yes (SPLENECTOMY AND LEFT CHEST TUBE SECONDARY TO TRAUMA) Surgeries: Ear Surgery, Orthopedic Respiratory Hx Respiratory Disorders: No Cardiovascular Hx Cardiac Disorders: No Neurological Hx Neurological Disorders: No Reproductive System Hx Reproductive Disorders: No Genitourinary Hx Genitourinary Disorders: Yes Genitourinary Disorders: Bladder Infection Gastrointestinal Hx Gastrointestinal Disorders: Yes (S/P SPLENECTOMY SECONDARY TO TRAUMA) Gastrointestinal Disorders: Hemorrhoids Musculoskeletal Hx Musculoskeletal Disorders: No Endocrine Hx Endocrine Disorders: No HEENT HX ENT Disorders: No Cancer Hx Cancer: No Psychosocial Hx Psychiatric Problems: No Integumentary HX Skin/Integumentary Disorder: No Blood Transfusions Hx Blood Disorders: No Family Medical History Significant Family History: No Pertinent Family Hx Physical Exam Vital Signs Vital Sign - Last 12Hours 01/02/17 02:34 Pulse 64 Resp 18 B/P (MAP) 144/90 Pulse Ox 99 O2 Delivery Room Air Capillary Refill : Less than 3 seconds General Appearance: WD/WN, no apparent distress HEENT: PERRL/EOMI, pharynx normal Neck: non-tender, normal inspection Cardiovascular: normal peripheral pulses, regular rate, rhythm Respiratory: lungs clear, normal breath sounds Gastrointestinal: non tender, soft Back: no CVA tenderness, no vertebral tenderness Extremities: non-tender, normal capillary refill Neurologic/Psychiatric: alert, oriented x 3 Skin: normal color, warm/dry Progress/Results/Core Measures Results/Orders Lab Results Laboratory Tests Test 01/02/17 02:45 Range/Units Urine Color YELLOW Urine Clarity CLEAR Urine pH 6 5-9 Urine Specific [place] 1.020 1.016-1.022 Urine Protein 2+ H NEGATIVE Urine Glucose (UA) 3+ H NEGATIVE Urine Ketones NEGATIVE NEGATIVE Urine Nitrite NEGATIVE NEGATIVE Urine Bilirubin NEGATIVE NEGATIVE Urine Urobilinogen NORMAL NORMAL MG/DL Urine Leukocyte Esterase 3+ H NEGATIVE Urine RBC (Auto) 1+ H NEGATIVE Urine RBC 5-10 H /HPF Urine WBC 25-50 H /HPF Urine Squamous Epithelial Cells 5-10 /HPF Urine Crystals NONE /LPF Urine Bacteria FEW H /HPF Urine Casts NONE /LPF Urine Mucus SMALL H /LPF Urine Culture Indicated YES My Orders Orders - FRACISCO LORA Ua Culture If Indicated (01/02/17 02:35) Urine Culture (01/02/17 02:45) Sulfamethoxazole/Trimet Ds Tab (Bactrim (01/02/17 03:15) Vital Signs/I&O Vital Sign - Last 12Hours 01/02/17 02:34 Pulse 64 Resp 18 B/P (MAP) 144/90 Pulse Ox 99 O2 Delivery Room Air Progress Note : Time: 03:05 Progress Note 2016 he had a staph UTI that was resistant to most beta lactams and Levaquin. We will try Bactrim. Departure Impression Impression: Primary Impression: Urinary tract infection Qualified Codes: N30.01 - Acute cystitis with hematuria Disposition: HOME, SELF-CARE Condition: Stable Departure-Patient Inst. Decision time for Depature: 03:04 Referrals: [facility] (PCP/Family) Primary Care Physician Patient Instructions: Urinary Tract Infection, Adult (DC) Add. Discharge Instructions: Follow-up next 1-2 weeks with your primary care physician for your recurrent UTIs and to follow the culture result. There may be further workup needed to be done if you are having this many urinary tract infections. If your symptoms are not improving by day 3 or 4 then you should follow-up with her primary care physician to determine if you need to be on a different antibiotic. Take your antibiotics as directed with food and you may also use probiotics one capsule twice a day to reduce the risk of loose stools caused by all antibiotics. Drink lots of fluids. All discharge instructions reviewed with patient and/or family. Voiced understanding. Scripts Sulfamethoxazole/Trimethoprim (Bactrim Ds Tablet) 1 Each Tablet 1 EACH PO BID for 10 Days, #19 TAB 0 Refills Prov: FRACISCO LORA 01/02/17 Work/School Note: Work Release Form Date Seen in the Emergency Department: Jan 02, 2017 Return to Work: Jan 03, 2017 Restrictions: No Restrictions Copy Copies To 1: REGI HOLT TITUS J Jan 02, 2017 02:41
[2017-01-02 02:51] LABS: BILIRUBIN,URINE NEGATIVE (NEGATIVE); KETONES,URINE NEGATIVE (NEGATIVE); LEUKOCYTE ESTERASE ,URINE 3+ (NEGATIVE); NITRITE,URINE NEGATIVE (NEGATIVE); PH,URINE 6 (5-9); PROTEIN,URINE 2+ (NEGATIVE); UROBILINOGEN,URINE NORMAL (NORMAL)
[2017-01-02 03:01] LABS: WBC,URINE 25-50 /HPF
[2017-01-02] MEDS ORDERED: SULF1TAB35 PO (03:08)
[2017-01-02] MEDS ORDERED: TRIM/SULFAMETH 160/800 (SEPTRA DS) TAB PO ONE (03:15)
[2017-01-02 03:23] VITALS: BP 144/90
== END 2017-01-02 03:23 | disposition home or self-care (01) ==
LOC: EDUNIT# 02:17 → ER 02:20
DX: N39.0 Urinary tract infection, site not specified (principal); Z79.84 Long term (current) use of oral hypoglycemic drugs; Z90.81 Acquired absence of spleen; Z87.448 Personal history of other diseases of urinary system
CPT/HCPCS: 81000; 87088; 87186; 99283

== ENCOUNTER 2017-02-15 20:32 | Emergency (ER) | payer MEDICAID ==
[~2017-02-15] VITALS: Ht 185.4 cm; Wt 127.0 kg
[~2017-02-15 20:32] MED LIST changes: +SULF1TAB35 PO
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
--- OUTSIDE RECORDS SUMMARY | 2017-02-15 20:37 | XMS REPORT ---
Author Author YINKA MADRIGAL [facility] Address [address] [place] [address] Care Team Providers Care Wastewater Treatment Operator Name Role Phone YINKA MADRIGAL Unavailable PROBLEMS Type Condition ICD9-CM Code [id number] Code Onset Dates Condition Status SNOMED Code Problem Obesity due to excess calories, unspecified obesity severity E66.09 Active 189089070 Problem Hypertension, benign I10 Active 48880050 Problem Essential hypertension I10 Active 56800448 Problem Alcohol use F10.99 Active 994092 Problem FH: hypertension Z82.49 Active 428948261 Problem FH: diabetes mellitus Z83.3 Active 817563852 Problem Uncontrolled type 2 diabetes mellitus without complication, without long-term current use of insulin E11.65 Active 290418117 Problem Other chronic pain G89.29 Active 58269046 Problem Other chronic pain G89.29 Active 50018545 Problem Polydipsia R63.1 Active 33691109 Problem Type 2 diabetes mellitus without complication, without long-term current use of insulin E11.9 Active 494661590 Problem Lumbago with sciatica, left side M54.42 Active 694874595 ALLERGIES Substance Reaction Event Type Date Status Morphine Sulfate Becomes hostile Drug Allergy Apr, Active SOCIAL HISTORY No smoking Hx information available PLAN OF CARE VITAL SIGNS Height 71 in 2016-05-11 Weight 293.2 lbs 2016-05-11 Temperature 99.2 degrees Fahrenheit 2016-05-11 Heart Rate 88 bpm 2016-05-11 Respiratory Rate 20 2016-05-11 BMI 40.89 kg/m2 2016-05-11 Blood pressure systolic 136 mmHg 2016-05-11 Blood pressure diastolic 80 mmHg 2016-05-11 MEDICATIONS Medication Instructions Dosage Frequency Start Date End Date Duration Status Tylenol/Codeine #3 300-30 MG Orally every 6 hrs 1 tablet as needed 6h Apr, Active Ventolin HFA 90 mcg/actuation inhale 2 puff by Inhalation route as needed every 6 hours PRN for cough or wheeze Apr, Active Metformin HCl 500 MG Orally Twice a day 1 tablet with meals 12h Apr, 30 day(s) Active Omeprazole 20 mg Orally Once a day 1 capsules 24h Jan, 30 day(s ) Active Carafate 1 GM Orally Twice a day 1 tablet on an empty stomach 12h Jan, Apr, 30 day(s) Active Promethazine-Codeine 6.25-10 MG/5ML Orally every 6 hrs 5 ml as needed 6h Apr, Active Lisinopril 20 mg Orally Once a day 1 tablet 24h Jan, Active RESULTS No Results PROCEDURES Procedure Date Ordered Related Diagnosis Body Site Office Visit, Est Pt., Level 3 May 11, 2016 IMMUNIZATIONS No Known Immunizations
--- OUTSIDE RECORDS SUMMARY | 2017-02-15 20:39 | XMS REPORT ---
Author Author YINKA MADRIGAL [facility] Address [address] [place] [address] Care Team Providers Care Metal Fabricator Name Role Phone YINKA MADRIGAL Unavailable PROBLEMS Type Condition ICD9-CM Code [id number] Code Onset Dates Condition Status SNOMED Code Problem FH: diabetes mellitus Z83.3 Active 570569060 Problem Hypertension, benign I10 Active 35752559 Problem Obesity due to excess calories, unspecified obesity severity E66.09 Active 544615587 Problem Essential hypertension I10 Active 09761106 Problem Alcohol use F10.99 Active 191839 Problem FH: hypertension Z82.49 Active 145349805 Problem Uncontrolled type 2 diabetes mellitus without complication, without long-term current use of insulin E11.65 Active 652899611 Problem Type 2 diabetes mellitus without complication, without long-term current use of insulin E11.9 Active 648836026 Problem Lumbago with sciatica, left side M54.42 Active 462776571 Problem Polydipsia R63.1 Active 85923002 Problem Other chronic pain G89.29 Active 64593644 Problem Other chronic pain G89.29 Active 30259562 ALLERGIES Substance Reaction Event Type Date Status Morphine Sulfate Becomes hostile Drug Allergy May, Active SOCIAL HISTORY No smoking Hx information available PLAN OF CARE Activity Details Follow Up 4 Weeks Reason:blood sugar and blood pressure VITAL SIGNS Height 71 in 2016-06-02 Weight 290.9 lbs 2016-06-02 Temperature 98.1 degrees Fahrenheit 2016-06-02 Heart Rate 82 bpm 2016-06-02 Respiratory Rate 20 2016-06-02 BMI 40.57 kg/m2 2016-06-02 Blood pressure systolic 154 mmHg 2016-06-02 Blood pressure diastolic 96 mmHg 2016-06-02 MEDICATIONS Medication Instructions Dosage Frequency Start Date End Date Duration Status Metformin HCl 500 MG Orally Twice a day 1 tablet with meals 12h Apr, 30 day(s) Active Omeprazole 20 mg Orally Once a day 1 capsules 24h Jan, 30 day(s ) Active Lisinopril 40 MG Orally Once a day 1 tablet 24h Jan, 30 days Active Tylenol/Codeine #3 300-30 MG Orally every 6 hrs 1 tablet as needed 6h Apr, Active Carafate 1 GM Orally Twice a day 1 tablet on an empty stomach 12h 30 Active Promethazine-Codeine 6.25-10 MG/5ML Orally every 6 hrs 5 ml as needed 6h Apr, Active RESULTS No Results PROCEDURES Procedure Date Ordered Related Diagnosis Body Site Office Visit, Est Pt., Level 3 Jun 02, 2016 IMMUNIZATIONS No Known Immunizations
[2017-02-15] MEDS ORDERED: SUCR1TAB PO (21:41)
[2017-02-15] MEDS ORDERED: LISI40TA PO (21:41)
[2017-02-15] MEDS ORDERED: METF500T PO (21:42)
[2017-02-15 21:51] LABS: BILIRUBIN,URINE NEGATIVE (NEGATIVE); KETONES,URINE NEGATIVE (NEGATIVE); LEUKOCYTE ESTERASE ,URINE 3+ (NEGATIVE); NITRITE,URINE NEGATIVE (NEGATIVE); PH,URINE 6 (5-9); PROTEIN,URINE 2+ (NEGATIVE); UROBILINOGEN,URINE NORMAL (NORMAL)
[2017-02-15 21:57] LABS: WBC,URINE 25-50 /HPF
[2017-02-15 21:58] LABS: SQUAMOUS EPITHELIAL CELL,UR 0-2 /HPF
[2017-02-15] MEDS ORDERED: CIPROFLOXACIN 500 MG (CIPRO) TABLET PO ONE ×2 (23:24→23:45)
--- NOTE | 2017-02-15 23:35 | ED GU-Male ---
General Chief Complaint: -Male Stated Complaint: BLADDER INFECTION Nursing Triage Note: pt reports possible bladder infection. reports stabbing pain after urination starting monday. denies fevers, back pain, or any other symptoms Source: patient Exam Limitations: no limitations History of Present Illness Time seen by provider: 23:05 Initial Comments 31-year-old male patient presents to the emergency department complains of possible bladder infection. Patient reports dysuria, frequency beginning on Monday. Timing/Duration: getting worse, other (3 days) Severity/Quality: burning Location: urethral Prior Genitourinary Problems: similar symptoms Modifying Factors: Worsens With Urinating Allergies and Home Medications Allergies Coded Allergies: morphine (Verified Adverse Reaction, Intermediate, 09/13/16) MAKES HIM AGGRESSIVE Home Medications Lisinopril 40 Mg Tablet, 40 MG PO HS, (Reported) Meclizine HCl 25 Mg Tablet, 25 MG PO Q6H PRN for DIZZINESS, #20 Ref 0 Prescribed by: YINKA HIDALGO on 09/13/16 0716 Metformin HCl 500 Mg Tablet, 500 MG PO BID WITH MEALS, (Reported) Sucralfate 1 Gm Tablet, 1 GM PO BID, (Reported) Constitutional: No chills, No fever Respiratory: No cough, No short of breath Cardiovascular: No chest pain, No palpitations Gastrointestinal: No abdominal pain, No constipation, No diarrhea, No nausea, No vomiting Genitourinary: see HPI, dysuria, frequency, denies flank pain, denies hematuria Musculoskeletal: No back pain Skin: no symptoms reported Psychiatric/Neurological: No Symptoms Reported All Other Systemes Reviewed Negative Unless Noted: Yes (Negative excepted noted.) Past Jicwknv-Tvtbkq-Qdxzze Hx Patient Social History Alcohol Use: Regular Use Number of Drinks Today: AA Alcohol Beverage of Choice: Beer Recreational Drug Use: No Smoking Status: Former Smoker Former Smoker, Quit: May 22, 2005 2nd Hand Smoke Exposure: No Recent Foreign Travel: No Contact w/Someone Who Travel: No Recent Infectious Disease Expo: No Recent Hopitalizations: No Immunizations Up To Date Tetanus Booster (TDap): More than 5yrs Date of Pneumonia Vaccine: Jul 26, 2011 Seasonal Allergies Seasonal Allergies: No Surgeries History of Surgeries: Yes (SPLENECTOMY AND LEFT CHEST TUBE SECONDARY TO TRAUMA) Surgeries: Ear Surgery, Orthopedic Respiratory History of Respiratory Disorde: No Cardiovascular History of Cardiac Disorders: Yes Cardiac Disorders: Hypertension Neurological History of Neurological Disord: No Reproductive System Hx Reproductive Disorders: No Genitourinary Genitourinary Disorders: Bladder Infection Gastrointestinal History of Gastrointestinal Di: Yes (S/P SPLENECTOMY SECONDARY TO TRAUMA) Gastrointestinal Disorders: Hemorrhoids Musculoskeletal History of Musculoskeletal Dis: No Endocrine History of Endocrine Disorders: Yes Endocrine Disorders: Diabetes, Non-Insulin dep HEENT History of HEENT Disorders: No Cancer History of Cancer: No Psychosocial History of Psychiatric Problem: No Integumentary History of Skin or Integumenta: No Blood Transfusions History of Blood Disorders: No Reviewed Nursing Assessment Reviewed/Agree w Nursing PMH: Yes Family Medical History Significant Family History: No Pertinent Family Hx Physical Exam Vital Signs Vital Sign - Last 12Hours 02/15/17 21:31 Temp 98.0 Pulse 82 Resp 18 B/P (MAP) 149/84 Pulse Ox 97 O2 Delivery Room Air Capillary Refill : Less Than 3 Seconds General Appearance: WD/WN, no apparent distress HEENT: PERRL/EOMI, pharynx normal Neck: supple, normal inspection Cardiovascular: regular rate, rhythm, no murmur Respiratory: lungs clear, normal breath sounds, no respiratory distress, no accessory muscle use Gastrointestinal: normal bowel sounds, non tender, soft, no organomegaly, No distended Back: normal inspection, no CVA tenderness Extremities: no pedal edema, normal capillary refill Neurologic/Psychiatric: alert, normal mood/affect, oriented x 3 Skin: normal color, warm/dry Progress/Results/Core Measures Results/Orders Lab Results Laboratory Tests Test 02/15/17 21:42 Range/Units Urine Color YELLOW Urine Clarity SLIGHTLY CLOUDY Urine pH 6 5-9 Urine Specific [place] 1.020 1.016-1.022 Urine Protein 2+ H NEGATIVE Urine Glucose (UA) 1+ H NEGATIVE Urine Ketones NEGATIVE NEGATIVE Urine Nitrite NEGATIVE NEGATIVE Urine Bilirubin NEGATIVE NEGATIVE Urine Urobilinogen NORMAL NORMAL MG/DL Urine Leukocyte Esterase 3+ H NEGATIVE Urine RBC (Auto) 1+ H NEGATIVE Urine RBC 2-5 H /HPF Urine WBC 25-50 H /HPF Urine Squamous Epithelial Cells 0-2 /HPF Urine Crystals NONE /LPF Urine Bacteria TRACE /HPF Urine Casts NONE /LPF Urine Mucus NEGATIVE /LPF Urine Culture Indicated NO My Orders Orders - EMERSON CARBAJAL Ua Culture If Indicated (02/15/17 21:37) Ciprofloxacin Tablet (Cipro Tablet) (02/15/17 23:45) Vital Signs/I&O Vital Sign - Last 12Hours 02/15/17 02/15/17 21:31 23:36 Temp 98.0 98.0 Pulse 82 82 Resp 18 18 B/P (MAP) 149/84 Pulse Ox 97 97 O2 Delivery Room Air Room Air Blood Pressure Mean: 105 Departure Communication (Admissions) Progress Notes Laboratory findings discussed with the patient. Patient was given up-to-date patient instructions on urinary tract infections. Discharge instructions handwritten. Patient to follow-up with his primary care physician as an outpatient for recheck. Impression Impression: Primary Impression: Urinary tract infection Disposition: HOME, SELF-CARE Condition: Improved Departure-Patient Inst. Decision time for Depature: 23:25 Referrals: [facility] (PCP/Family) Primary Care Physician EMERSON CARBAJAL Feb 15, 2017 23:35
[2017-02-15 23:36] VITALS: BP 149/84
== END 2017-02-15 23:36 | disposition home or self-care (01) ==
LOC: EDUNIT# 20:32 → ER 20:33
DX: I10 Essential (primary) hypertension (principal); E11.9 Type 2 diabetes mellitus without complications; Z87.448 Personal history of other diseases of urinary system; Z79.84 Long term (current) use of oral hypoglycemic drugs; Z87.891 Personal history of nicotine dependence; Z90.81 Acquired absence of spleen
CPT/HCPCS: 81000; 99283

== ENCOUNTER 2018-01-18 18:26 | Emergency (ER) | payer SELFPAY ==
[~2018-01-18] VITALS: Ht 182.9 cm; Wt 127.0 kg
[~2018-01-18 18:26] MED LIST changes: +CYCL10TA9 PO; +LISI40TA PO; +METF-397; +METF500T PO; -METF500T4; +NAPR-1071 PO; +NAPR-915 PO; -NAPR500T PO; +SUCR1TAB PO
[2018-01-18] MEDS ORDERED: ACHD5005 PO (18:51)
--- NOTE | 2018-01-18 18:51 | ED Integumentary General ---
General Chief Complaint: Skin/Wound Problems Stated Complaint: BACK PAIN Nursing Triage Note: PT AMB TO ROOM #10 W/O DIFFICULTY. A&OX4. CO CYST ON BACK THAT PT HAS HAD "FOR 5 YEARS" THAT "HURTS SO BAD [HE] COULDNT WALK THIS AM. PT REPORTS HE WAS SEEN AT [facility] THIS AM WHERE THEY SCHEDULED AN APPT TO HAVE CYST OPENED AND REMOVED ON 01/30/18 BY MARICARMEN RIVERA. PT REPORTS HE HAS TRIED TYLENOL AND IBUPROFEN FOR PAIN WITH NO RELIEF. SURROUNDING TISSUE NOTED TO BE INFLAMMED AND WARM TO TOUCH. History of Present Illness Date Seen by Provider: Jan 18, 2018 Time Seen by Provider: 18:35 Initial Comments The patient is a 32 year old male who presents to the emergency room with complaints of a subcutaneous sebaceous cyst in the middle of his back for 5 years. He reports that he was seen at [facility] this morning and he has an appointment to have the cyst removed by Raffi Rivera on 01/30/18. They put him on Bactrim DS BID for 10 days prior to removal. He is needing pain control at this visit. Timing/Duration: other (5 years) Location: torso (back) Possible Cause: no cause identified Associated Symptoms: swelling/mass/lumps Allergies and Home Medications Allergies Coded Allergies: morphine (Verified Adverse Reaction, Intermediate, 09/13/16) MAKES HIM AGGRESSIVE Home Medications Cyclobenzaprine HCl 10 Mg Tablet, 10 MG PO Q8H Prescribed by: TMAERA ALVARENGA on 10/04/17 0554 Hydrocodone Bit/Acetaminophen 1 Tab Tab, 1 EACH PO Q8H PRN for PAIN Prescribed by: LUZ FERNANDEZ on 01/18/18 1851 Lisinopril 40 Mg Tablet, 40 MG PO HS, (Reported) Meclizine HCl 25 Mg Tablet, 25 MG PO Q6H PRN for DIZZINESS Prescribed by: YINKA HIDALGO on 09/13/16 0716 Metformin HCl 500 Mg Tablet, 500 MG PO BID WITH MEALS, (Reported) Naproxen 500 Mg Tablet, 500 MG PO BID Prescribed by: TAMERA ALVARENGA on 10/04/17 0555 Sucralfate 1 Gm Tablet, 1 GM PO BID, (Reported) Patient Home Medication List Home Medication List Reviewed: Yes Review of Systems Review of Systems Constitutional: see HPI; No chills, No fever Skin: lumps (cyst on back) All Other Systems Reviewed Negative Unless Noted: Yes Past Hmhutzp-Mqdgnd-Zocqby Hx Past Med/Social Hx: Reviewed Nursing Past Med/Soc Hx Patient Social History Alcohol Beverage of Choice: Beer Type Used: Cigarettes 2nd Hand Smoke Exposure: No Recent Foreign Travel: No Contact w/Someone Who Travel: No Recent Infectious Disease Expo: No Recent Hopitalizations: No Immunizations Up To Date Tetanus Booster (TDap): More than 5yrs Date of Pneumonia Vaccine: Jul 26, 2011 Seasonal Allergies Seasonal Allergies: No Past Medical History Surgeries: Yes Abdominal, Ear Surgery, Orthopedic Respiratory: Yes (LEFT CHEST TUBES X 2 DUE TO TRAUMA) Cardiac: Yes Hypertension Neurological: No Reproductive Disorders: No Genitourinary: Yes Bladder Infection Gastrointestinal: Yes (S/P SPLENECTOMY SECONDARY TO TRAUMA) Hemorrhoids Musculoskeletal: Yes (LEFT ANKLE FX/ORIF; LEFT FOREARM FX/ORIF) Fractures Endocrine: Yes Diabetes, Non-Insulin dep HEENT: No Cancer: No Psychosocial: No Integumentary: No Blood Disorders: No Family Medical History Reviewed Nursing Family Hx No Pertinent Family Hx Physical Exam Vital Signs Vital Signs - First Documented 01/18/18 18:28 Temp 98.3 Pulse 91 Resp 16 B/P (MAP) 135/81 (99) Pulse Ox 97 O2 Delivery Room Air Capillary Refill : Less Than 3 Seconds General Appearance: WD/WN, no apparent distress Cardiovascular: normal peripheral pulses, regular rate, rhythm, no edema, no gallop, no JVD, no murmur Respiratory: chest non-tender, lungs clear, normal breath sounds, no respiratory distress, no accessory muscle use Back: no CVA tenderness, no vertebral tenderness Neurologic/Psychiatric: alert, normal mood/affect, oriented x 3 Skin: normal color, warm/dry Skin Problem Location: other (back) Skin Problem Character: other (cyst [id number]. Mild erythema. No drainage. No Flucuation. ) Progress/Results/Core Measures Results/Orders Vital Signs/I&O 01/18/18 01/18/18 18:28 18:56 Temp 98.3 98.3 Pulse 91 91 Resp 16 16 B/P (MAP) 135/81 (99) 135/81 (99) Pulse Ox 97 97 O2 Delivery Room Air Blood Pressure Mean: 99 Progress Progress Note : Time: 18:40 Progress Note I Have seen and evaluated the patient. He is on appropriate abx coverage and has an appointment scheduled to have the cyst removed after any antibiotic course. I will be providing pain medication to aid with pain unrelieved by otc pain relief. He agrees with plans for discharge and return precautions were given. Departure Impression Primary Impression: Sebaceous cyst Disposition: HOME, SELF-CARE Condition: Stable/Unchanged Departure-Patient Inst. Decision time for Depature: 18:49 Referrals: [facility] (PCP/Family) Primary Care Physician Patient Instructions: SEBACEOUS CYST Add. Discharge Instructions: Continue antibiotics as previously prescribed. Take medications as directed. Follow up with [facility] as previously scheduled for removal of the cyst. Return back to the emergency room for any worsening symptoms or concerns as needed. All discharge instructions reviewed with patient and/or family. Voiced understanding. Scripts Hydrocodone Bit/Acetaminophen (Hydrocodone/Acetaminophen 5/325mg Tablet) 1 Tab Tab 1 EACH PO Q8H PRN for PAIN, #10 TAB Prov: LUZ FERNANDEZ 01/18/18 LUZ FERNANDEZ Jan 18, 2018 18:51
[2018-01-18 18:56] VITALS: BP 135/81
== END 2018-01-18 18:55 | disposition home or self-care (01) ==
LOC: EDUNIT# 18:26 → ER 18:27
DX: L72.3 Sebaceous cyst (principal); I10 Essential (primary) hypertension; E11.9 Type 2 diabetes mellitus without complications; Z87.19 Personal history of other diseases of the digestive system; Z87.448 Personal history of other diseases of urinary system; Z79.84 Long term (current) use of oral hypoglycemic drugs
CPT/HCPCS: 99282

== ENCOUNTER 2018-02-10 19:40 | Emergency (ER) | payer SELFPAY ==
[~2018-02-10] VITALS: Ht 182.9 cm; Wt 127.2 kg
[~2018-02-10 19:40] MED LIST changes: +ACHD5005 PO
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
--- OUTSIDE RECORDS SUMMARY | 2018-02-10 20:00 | XMS REPORT | Continuity of Care Document ---
Author Author [facility] Address Unknown Phone Unavailable Allergies Active Description Code Type Severity Reaction Onset Reported/Identified Relationship to Patient Clinical Status Yes morphine [id number] Drug Allergy Moderate N/A 09/13/2016 Medications There is no data. Problems Date Dx Coded Attending Type Code Diagnosis Diagnosed By 09/15/2008 465.9 ACUTE UPPER RESPIRATORY INFECTIONS OF UNSPECIFIED SITE 09/15/2008 VINI WILDER APRN 465.9 ACUTE UPPER RESPIRATORY INFECTIONS OF UNSPECIFIED SITE 09/15/2008 VINI WILDER APRN 465.9 ACUTE UPPER RESPIRATORY INFECTIONS OF UNSPECIFIED SITE 12/08/2008 214.0 LIPOMA OF SKIN AND SUBCUTANEOUS TISSUE OF FACE 12/08/2008 VINI WILDER APRN S 214.0 LIPOMA OF SKIN AND SUBCUTANEOUS TISSUE OF FACE 12/08/2008 VINI WILDER APRN 214.0 LIPOMA OF SKIN AND SUBCUTANEOUS TISSUE OF FACE 10/18/2009 Ot 692.6 10/18/2009 Ot 782.1 07/11/2010 Ot 466.0 ACUTE BRONCHITIS 07/11/2010 Ot 786.2 COUGH 12/23/2010 Ot 789.09 ABDOMINAL PAIN, OTHER SPECIFIED SITE 01/24/2011 Ot 692.6 DERMATITIS DUE TO PLANT 01/24/2011 Ot 782.1 NONSPECIF SKIN ERUPT NEC 02/18/2011 Ot 790.29 OTHER ABNORMAL GLUCOSE 02/18/2011 Ot 813.23 FX SHAFT RAD W ULNA-CLOS 02/18/2011 Ot 922.1 CONTUSION OF CHEST WALL 02/18/2011 Ot E000.8 OTHER EXTERNAL CAUSE STATUS 02/18/2011 Ot E814.8 MV ROWENA W PEDES-PERS NEC 02/18/2011 Ot V18.0 FAM HX- DIABETES MELLITUS 03/11/2011 289.59 OTHER DISEASES OF SPLEEN 03/11/2011 782.3 EDEMA 03/11/2011 790.29 ABNORMAL GLUCOSE 03/11/2011 V03.82 PPV23 ( PNEUMOVAX) DX 03/11/2011 V04.81 FLU DX (3 YRS AND ABOVE, IM) 03/11/2011 CHELSI WILDER APRNA S 289.59 OTHER DISEASES OF SPLEEN 03/11/2011 ISAAC WILDER APRNNDA S 782.3 EDEMA 03/11/2011 ISAAC WILDER APRNNDA S 790.29 ABNORMAL GLUCOSE 03/11/2011 ISAAC WILDER APRNNDA S V03.82 PPV23 (PNEUMOVAX) DX 03/11/2011 ISAAC WILDER APRNNDA S V04.81 FLU DX (3 YRS AND ABOVE, IM) 03/11/2011 ISAAC WILDER APRNNDA S 289.59 OTHER DISEASES OF SPLEEN 03/11/2011 ISAAC WILDER APRNNDA S 782.3 EDEMA 03/11/2011 ISAAC WILDER APRNNDA S 790.29 ABNORMAL GLUCOSE 03/11/2011 CHELSI WILDER APRNA S V03.82 PPV23 (PNEUMOVAX) DX 03/11/2011 ISAAC WILDER APRNNDA S V04.81 FLU DX (3 YRS AND ABOVE, IM) 12/12/2011 Ot 719.47 JOINT PAIN- ANKLE 12/12/2011 Ot 845.00 SPRAIN OF ANKLE NOS 12/12/2011 Ot E000.8 OTHER EXTERNAL CAUSE STATUS 12/12/2011 Ot E928.9 ACCIDENT NOS 01/06/2012 Ot 465.9 ACUTE URI NOS 01/06/2012 Ot 786.2 COUGH 10/24/2012 599.0 URINARY TRACT INFECTION 10/24/2012 ISAAC WILDER APRNNDA S 599.0 URINARY TRACT INFECTION 10/24/2012 ISAAC WILDER APRNNDA S 599.0 URINARY TRACT INFECTION 11/27/2012 ISAAC WILDER APRNNDA S V67.59 OTHER FOLLOW-UP EXAMINATION 11/27/2012 ISAAC WILDER APRNNDA S V67.59 OTHER FOLLOW-UP EXAMINATION 07/26/2013 BLANCA BELTRÁN, GAGANDEEP Ibanez Ot 465.9 ACUTE URI NOS 07/26/2013 BLANCA BELTRÁN, GAGANDEEP Ibanez Ot 786.05 SHORTNESS OF BREATH 12/21/2013 PABON, PETER J ACCOUNTANT MANAGER Ot 729.5 PAIN IN LIMB 04/14/2014 EMERSON CHARLTON Ot 599.0 URIN TRACT INFECTION NOS 04/14/2014 EMERSON CHARLTON Ot 786.05 SHORTNESS OF BREATH 04/14/2014 EMERSON CHARLTON Ot 786.52 PAINFUL RESPIRATION 04/23/2014 MEÑO BELCHER, VINI S 786.2 COUGH 04/23/2014 MEÑO BELCHER, VINI S 786.2 COUGH 05/21/2014 LYLE EVANS TAMERA K Ot 578.1 BLOOD IN STOOL 05/21/2014 LYLE EVANS, TAMERA K Ot 599.0 URIN TRACT INFECTION NOS 05/21/2014 TAMERA ALVARENGA DO K Ot 788.1 DYSURIA 07/07/2014 Ot 787.01 NAUSEA WITH VOMITING 07/07/2014 Ot 787.91 DIARRHEA 08/25/2014 YINKA HIDALGO DO Ot 466.0 ACUTE BRONCHITIS 08/25/2014 YINKA HIDALGO DO Ot 599.0 URIN TRACT INFECTION NOS 08/25/2014 YINKA HIDALGO DO Ot 733.6 TIETZE'S DISEASE 08/25/2014 YINKA HIDALGO DO Ot 786.50 CHEST PAIN NOS 08/25/2014 YINKA HIDALGO DO Ot 789.09 ABDOMINAL PAIN, OTHER SPECIFIED SITE 11/17/2014 GAGANDEEP RIOS MD Ot 719.06 JOINT EFFUSION-L/LEG 11/17/2014 GAGANDEEP RIOS MD Ot 959.7 LOWER LEG INJURY NOS 11/17/2014 GAGANDEEP RIOS MD Ot E000.8 OTHER EXTERNAL CAUSE STATUS 11/17/2014 GAGANDEEP RIOS MD Ot E917.4 STAT OB W/O SUB FALL NEC 12/10/2014 JESSICA PABON APRN Ot 786.50 CHEST PAIN NOS 12/10/2014 JESSICA PABON APRN Ot 786.52 PAINFUL RESPIRATION 12/14/2014 EMERSON CHARLTON Ot 599.0 URIN TRACT INFECTION NOS 12/14/2014 EMERSON CHARLTON Ot 788.1 DYSURIA 03/08/2015 Ot J02.9 ACUTE PHARYNGITIS, UNSPECIFIED 03/08/2015 Ot J40 BRONCHITIS, NOT SPECIFIED ACUTE OR CH 03/08/2015 Ot R07.9 CHEST PAIN, UNSPECIFIED 03/08/2015 Ot Z87.891 PERSONAL HISTORY OF NICOTINE DEPENDENCE 04/01/2015 EMERSON CHARLTON Ot F17.211 NICOTINE DEPENDENCE, CIGARETTES, IN DMITRIY 04/01/2015 EMERSON CHARLTON Ot J40 BRONCHITIS, NOT SPECIFIED ACUTE OR CH 05/25/2015 JESSICA PABON APRN Ot M25.532 PAIN IN LEFT WRIST 09/23/2015 ZEE DO ANGELINA Karma Ot N39.0 URINARY TRACT INFECTION, SITE NOT SPECIF 09/23/2015 ZEE DO, ANGELINA L Ot Z87.442 PERSONAL HISTORY OF URINARY CALCULI 12/28/2015 YINKA HIDALGO DO Ot N30.90 CYSTITIS, UNSPECIFIED WITHOUT HEMATURIA 12/28/2015 YINKA HIDALGO DO Ot R11.0 NAUSEA 12/28/2015 ROCKY DO, YINKA Ibanez Ot R42 DIZZINESS AND GIDDINESS 12/28/2015 ROCKY DO, YINKA Ibanez Ot R51 HEADACHE 12/28/2015 YINKA HIDALGO DO Ot R73.9 HYPERGLYCEMIA, UNSPECIFIED 12/29/2015 ROCKY DOYINKA Ot N30.90 CYSTITIS, UNSPECIFIED WITHOUT HEMATURIA 12/29/2015 ROCKY YINKA EVANS Ot R11.0 NAUSEA 12/29/2015 ROCKY DOYINKA Ot R42 DIZZINESS AND GIDDINESS 12/29/2015 ROCKY DO, YINKA Ibanez Ot R51 HEADACHE 12/29/2015 RCOKY DOYINKA Ot R73.9 HYPERGLYCEMIA, UNSPECIFIED 12/29/2015 YINKA HIDALGO DO Ot B95.7 OTH STAPHYLOCOCCUS THE CAUSE OF DISEA 12/29/2015 ROCKY DOYINKA Ot N39.0 URINARY TRACT INFECTION, SITE NOT SPECIF 12/29/2015 ROCKY DO, YINKA Shamar Ot R51 HEADACHE 12/30/2015 ROCKYYINKA SARMIENTO DO Ot B95.7 OTH STAPHYLOCOCCUS THE CAUSE OF DISEA 12/30/2015 ROCKY DOYINKA Ot N39.0 URINARY TRACT INFECTION, SITE NOT SPECIF 12/30/2015 ROCKYGUILLERMINA EVANS YINKA Shamar Ot R51 HEADACHE 03/09/2016 ANILA BELTRÁN, JIGAR Herrera Ot K59.00 CONSTIPATION, UNSPECIFIED 03/09/2016 ANILA BELTRÁN, JIGAR Herrera Ot K64.4 RESIDUAL HEMORRHOIDAL SKIN TAGS 03/10/2016 ANILA BELTRÁN, JIGAR Herrera Ot K59.00 CONSTIPATION, UNSPECIFIED 03/10/2016 ANILA BELTRÁN, JIGAR Herrera Ot K64.4 RESIDUAL HEMORRHOIDAL SKIN TAGS 06/25/2016 EMERSON CHARLTON Ot J11.1 FLU DUE TO UNIDENTIFIED INFLUENZA VIRUS 06/25/2016 EMERSON CHARLTON Ot M54.5 LOW BACK PAIN 06/25/2016 EMERSON CHARLTON Ot R05 COUGH 06/25/2016 EMERSON CHARLTON Ot Z79.84 GROUP HOME (CURRENT) USE OF ORAL HYPOGLYC 06/25/2016 EMERSON CHARLTON Ot Z79.899 OTHER FIRE SERVICES PLUMBER (CURRENT) DRUG THERAPY 06/26/2016 EMERSON CHARLTON Ot J11.1 FLU DUE TO UNIDENTIFIED INFLUENZA VIRUS 06/26/2016 EMERSON CHARLTON Ot M54.5 LOW BACK PAIN 06/26/2016 EMERSON CHARLTON Ot R05 COUGH 06/26/2016 EMERSON CHARLTON Ot Z79.84 FIRE SERVICES PLUMBER (CURRENT) USE OF ORAL HYPOGLYC 06/26/2016 EMERSON CHARLTON Ot Z79.899 OTHER FIRE SERVICES PLUMBER (CURRENT) DRUG THERAPY 06/27/2016 EMERSON CHARLTON Ot J11.1 FLU DUE TO UNIDENTIFIED INFLUENZA VIRUS 06/27/2016 EMERSON CHARLTON Ot M54.5 LOW BACK PAIN 06/27/2016 EMERSON CHARLTON Ot R05 COUGH 06/27/2016 EMERSON CHARLTON Ot Z79.84 GROUP HOME (CURRENT) USE OF ORAL HYPOGLYC 06/27/2016 EMERSON CHARLTON Ot Z79.899 OTHER GROUP HOME (CURRENT) DRUG THERAPY 09/13/2016 YINKA HIDALGO DO Ot E11.9 TYPE 2 DIABETES MELLITUS WITHOUT COMPLIC 09/13/2016 YINKA HIDALGO DO Ot H81.12 BENIGN PAROXYSMAL VERTIGO, LEFT EAR 09/13/2016 YINKA HIDALGO DO Ot R42 DIZZINESS AND GIDDINESS 09/13/2016 YINKA HIDALGO DO, Ot Z79.84 FIRE SERVICES PLUMBER (CURRENT) USE OF ORAL HYPOGLYC 09/13/2016 YINKA HIDALGO DO Ot Z87.891 PERSONAL HISTORY OF NICOTINE DEPENDENCE 09/14/2016 ROCKY EVANSYINKA Ot E11.9 TYPE 2 DIABETES MELLITUS WITHOUT COMPLIC 09/14/2016 ROCKY EVANSYINKA Shamar Ot H81.12 BENIGN PAROXYSMAL VERTIGO, LEFT EAR 09/14/2016 ROCKY EVANSYINKA Ot R42 DIZZINESS AND GIDDINESS 09/14/2016 ROCKY EVANS YINKA Shamar Ot Z79.84 GROUP HOME (CURRENT) USE OF ORAL HYPOGLYC 09/14/2016 ROCKY EVANS YINKA Shamar Ot Z87.891 PERSONAL HISTORY OF NICOTINE DEPENDENCE 09/15/2016 ROCKY EVANSYINKA Ot E11.9 TYPE 2 DIABETES MELLITUS WITHOUT COMPLIC 09/15/2016 ROCKY EVANS YINKA Ibanez Ot H81.12 BENIGN PAROXYSMAL VERTIGO, LEFT EAR 09/15/2016 ROCKY EVANSYINKA Ot R42 DIZZINESS AND GIDDINESS 09/15/2016 ROCKY EVANS YINKA Shamar Ot Z79.84 GROUP HOME (CURRENT) USE OF ORAL HYPOGLYC 09/15/2016 ROCKY EVANSYINKA Ot Z87.891 PERSONAL HISTORY OF NICOTINE DEPENDENCE 01/02/2017 FRACISCO LORA MD Ot N39.0 URINARY TRACT INFECTION, SITE NOT SPECIF 01/02/2017 FRACISCO LORA MD Ot R39.11 HESITANCY OF MICTURITION 01/02/2017 FRACISCO LORA MD Ot Z79.84 FIRE SERVICES PLUMBER (CURRENT) USE OF ORAL HYPOGLYC 01/02/2017 FRACISCO LORA MD Ot Z87.448 PERSONAL HISTORY OF OTHER DISEASES OF UR 01/02/2017 FRACISCO LORA MD Ot 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 01/05/2017 FRACISCO LORA MD Ot N39.0 URINARY TRACT INFECTION, SITE NOT SPECIF 01/05/2017 FRACISCO LORA MD Ot R39.11 HESITANCY OF MICTURITION 01/05/2017 FRACISCO LORA MD Ot Z79.84 FIRE SERVICES PLUMBER (CURRENT) USE OF ORAL HYPOGLYC 01/05/2017 FRACISCO LORA MD Ot Z87.448 PERSONAL HISTORY OF OTHER DISEASES OF UR 01/05/2017 FRACISCO LORA MD Ot 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 02/15/2017 EMERSON CHARLTON Ot E11.9 TYPE 2 DIABETES MELLITUS WITHOUT COMPLIC 02/15/2017 EMERSON CHARLTON Ot I10 ESSENTIAL (PRIMARY) HYPERTENSION 02/15/2017 EMERSON CHARLTON Ot N39.0 URINARY TRACT INFECTION, SITE NOT SPECIF 02/15/2017 EMERSON CHARLTON Ot R30.0 DYSURIA 02/15/2017 EMERSON CHARLTON Ot Z79.84 GROUP HOME (CURRENT) USE OF ORAL HYPOGLYC 02/15/2017 EMERSON CHARLTON Ot Z87.448 PERSONAL HISTORY OF OTHER DISEASES OF UR 02/15/2017 EMERSON CHARLTON Ot Z87.891 PERSONAL HISTORY OF NICOTINE DEPENDENCE 02/15/2017 EMERSON CHARLTON Ot 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 02/21/2017 EMERSON CHARLTON Ot E11.9 TYPE 2 DIABETES MELLITUS WITHOUT COMPLIC 02/21/2017 EMERSON CHARLTON Ot I10 ESSENTIAL (PRIMARY) HYPERTENSION 02/21/2017 EMERSON CHARLTON Ot R30.0 DYSURIA 02/21/2017 EMERSON CHARLTON Ot Z79.84 FIRE SERVICES PLUMBER (CURRENT) USE OF ORAL HYPOGLYC 02/21/2017 EMERSON CHARLTON Ot Z87.448 PERSONAL HISTORY OF OTHER DISEASES OF UR 02/21/2017 EMERSON CHARLTON Ot Z87.891 PERSONAL HISTORY OF NICOTINE DEPENDENCE 02/21/2017 EMERSON CHARLTON Ot 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 10/04/2017 LYLE DO, TAMERA K Ot E11.9 TYPE 2 DIABETES MELLITUS WITHOUT COMPLIC 10/04/2017 LYLE DO, TAMERA K Ot I10 ESSENTIAL (PRIMARY) HYPERTENSION 10/04/2017 LYLE DO, TAMERA K Ot R07.81 PLEURODYNIA 10/04/2017 LYLE DO, TAMERA K Ot R07.89 OTHER CHEST PAIN 10/04/2017 LYLE DO, TAMERA K Ot Z79.84 FIRE SERVICES PLUMBER (CURRENT) USE OF ORAL HYPOGLYC 10/04/2017 LYLE DO, TAMERA K Ot Z87.19 PERSONAL HISTORY OF OTHER DISEASES OF TH 10/04/2017 LYLE DO TAMERA K Ot Z87.448 PERSONAL HISTORY OF OTHER DISEASES OF UR 10/04/2017 LYLE DO, TAMERA K Ot Z87.891 PERSONAL HISTORY OF NICOTINE DEPENDENCE 10/04/2017 LYLE DO TAMERA K Ot Z88.5 ALLERGY STATUS TO NARCOTIC AGENT STATUS 10/04/2017 LYLE GERBER EVANSA K Ot 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 10/09/2017 LYLE , TAMERA K Ot E11.9 TYPE 2 DIABETES MELLITUS WITHOUT COMPLIC 10/09/2017 LYLE DO, TAMERA K Ot I10 ESSENTIAL (PRIMARY) HYPERTENSION 10/09/2017 LYLE DO, TAMERA K Ot R07.81 PLEURODYNIA 10/09/2017 LYLE DO, TAMERA K Ot R07.89 OTHER CHEST PAIN 10/09/2017 LYLE DO, TAMERA K Ot Z79.84 GROUP HOME (CURRENT) USE OF ORAL HYPOGLYC 10/09/2017 LYLE DO TAMERA K Ot Z87.19 PERSONAL HISTORY OF OTHER DISEASES OF TH 10/09/2017 LYLE GERBER EVANSA K Ot Z87.448 PERSONAL HISTORY OF OTHER DISEASES OF UR 10/09/2017 LYLE , TAMERA K Ot Z87.891 PERSONAL HISTORY OF NICOTINE DEPENDENCE 10/09/2017 LYLE GERBER EVANSA K Ot Z88.5 ALLERGY STATUS TO NARCOTIC AGENT STATUS 10/09/2017 LYLE GERBER EVANSA K Ot 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 01/18/2018 BERNOT, LUZ Ot E11.9 TYPE 2 DIABETES MELLITUS WITHOUT COMPLIC 01/18/2018 BERNOT, LUZ Ot I10 ESSENTIAL (PRIMARY) HYPERTENSION 01/18/2018 BERNOT, LUZ Ot L72.3 SEBACEOUS CYST 01/18/2018 BERNOT, LUZ Ot Z79.84 GROUP HOME (CURRENT) USE OF ORAL HYPOGLYC 01/18/2018 BERNOT LUZ Ot Z87.19 PERSONAL HISTORY OF OTHER DISEASES OF TH 01/18/2018 BERNOT LUZ Ot Z87.448 PERSONAL HISTORY OF OTHER DISEASES OF UR 01/24/2018 BERNOT, LUZ Ot E11.9 TYPE 2 DIABETES MELLITUS WITHOUT COMPLIC 01/24/2018 BERNOT, LUZ Ot I10 ESSENTIAL (PRIMARY) HYPERTENSION 01/24/2018 BERNOT, LUZ Ot L72.3 SEBACEOUS CYST 01/24/2018 BERNOT, LUZ Ot Z79.84 GROUP HOME (CURRENT) USE OF ORAL HYPOGLYC 01/24/2018 BERNOT, LUZ Ot Z87.19 PERSONAL HISTORY OF OTHER DISEASES OF 01/24/2018 LUZ FERNANDEZ Ot Z87.448 PERSONAL HISTORY OF OTHER DISEASES OF UR Procedures Code [place] [address] THERAPUTIC INJ SQ/IM 10/24/2012 J2550 PHENERGAN INJECTION UP TO 50 MG 10/24/2012 83044 UA W/ CULTURE IF INDICATED 10/24/2012 16061 CULTURE URINE 10/25/2012 33853 OXIMETRY 04/23/2014 47920 UA W/ CULTURE IF INDICATED 04/23/2014 03697 A1C (IN-HOUSE) 04/23/2014 74436 CULTURE URINE 04/24/2014 85764 UA W/ CULTURE IF INDICATED 04/28/2014 98637 GC/CHLAM URINE (STATE) 04/28/2014 23359 CULTURE URINE 04/29/2014 Results Test Result Range Complete urinalysis with reflex to culture - 12/28/15 06:28 Urine color determination YELLOW NRG Urine clarity determination SLIGHTLY CLOUDY NRG Urine pH measurement by test strip 5 5-9 Specific gravity of urine by test strip 1.025 1.016- 1.022 Urine protein assay by test strip, semi-quantitative 2+ NEGATIVE Urine glucose detection by automated test strip 2+ NEGATIVE Erythrocytes detection in urine sediment by light microscopy 2+ NEGATIVE Urine ketones detection by automated test strip NEGATIVE NEGATIVE Urine nitrite detection by test strip NEGATIVE NEGATIVE Urine total bilirubin detection by test strip NEGATIVE NEGATIVE Urine urobilinogen measurement by automated test strip (mass/volume) NORMAL NORMAL Urine leukocyte esterase detection by dipstick 3+ NEGATIVE Automated urine sediment erythrocyte count by microscopy (number/high power field) [HPF] NRG Automated urine sediment leukocyte count by microscopy (number/high power field ) [HPF] NRG Bacteria detection in urine sediment by light microscopy FEW NRG Squamous epithelial cells detection in urine sediment by light microscopy 2-5 NRG Crystals detection in urine sediment by light microscopy NONE NRG Casts detection in urine sediment by light microscopy NONE NRG Mucus detection in urine sediment by light microscopy MODERATE NRG Complete urinalysis with reflex to culture YES NRG Urine drug screening test - 12/28/15 06:28 Urine acetaminophen detection by screening method POSITIVE NEGATIVE Urine phencyclidine detection by screening method NEGATIVE NEGATIVE Urine benzodiazepines detection by screening method NEGATIVE NEGATIVE Urine cocaine detection NEGATIVE NEGATIVE Urine amphetamines detection by screening method NEGATIVE NEGATIVE Urine methamphetamine detection by screening method NEGATIVE NEGATIVE Urine cannabinoids detection by screening method NEGATIVE NEGATIVE Urine opiates detection by screening method NEGATIVE NEGATIVE Urine barbiturates detection NEGATIVE NEGATIVE Screening urine tricyclic antidepressants detection NEGATIVE NEGATIVE Urine methadone detection by screening method NEGATIVE NEGATIVE Bacterial urine culture - 12/28/15 06:28 Bacterial urine culture [id number] NRG COLONY COUNT <10,000 NRG URINE CULTURE RESULTS <10,000/ML NRG Chlamydia trachomatis DNA detection by probe and signal amplification method - 12/28/15 06:28 Chlamydia trachomatis DNA detection by probe and target amplification method Negative Negative Urine Neisseria gonorrhoeae DNA assay - 12/28/15 06:28 Gonorrhea amp DNA-urine Negative Negative Influenza virus A and B antigen detection - 12/28/15 06:31 FLU RESULT NEGATIVE FOR INFLUENZA A AND B ANTIGENS BY IA NRG Complete blood count (CBC) with automated white blood cell (WBC) differential - 12/28/15 06:41 Blood leukocytes automated count (number/volume) 6.2 10*3/uL 4.3-11.0 Blood erythrocytes automated count (number/volume) 5.08 10*6/uL 4.35-5.85 Venous blood hemoglobin measurement (mass/volume) 15.7 g/dL 13.3-17.7 Blood hematocrit (volume fraction) 47 % 40-54 Automated erythrocyte mean corpuscular volume 93 [foz_us] 80-99 Automated erythrocyte mean corpuscular hemoglobin (mass per erythrocyte) 31 pg 25-34 Automated erythrocyte mean corpuscular hemoglobin concentration measurement ( mass/volume) 33 g/dL 32-36 Automated erythrocyte distribution width ratio 13.9 % 10.0-14.5 Automated blood platelet count (count/volume) 304 10*3/uL 130-400 Automated blood platelet mean volume measurement 10.4 [foz_us] 7.4-10.4 Automated blood neutrophils/100 leukocytes 45 % 42-75 Automated blood lymphocytes/100 leukocytes 29 % 12-44 Blood monocytes/100 leukocytes 24 % 0-12 Automated blood eosinophils/100 leukocytes 1 % 0-10 Automated blood basophils/100 leukocytes 1 % 0-10 Blood neutrophils automated count (number/volume) 2.8 10*3 1.8-7.8 Blood lymphocytes automated count (number/volume) 1.8 10*3 1.0-4.0 Blood monocytes automated count (number/volume) 1.5 10*3 0.0-1.0 Automated eosinophil count 0.1 10*3/uL 0.0-0.3 Automated blood basophil count (count/volume) 0.0 10*3/uL 0.0-0.1 Comprehensive metabolic panel - 12/28/15 06:41 Serum or plasma sodium measurement (moles/volume) 136 mmol/L 135-145 Serum or plasma potassium measurement (moles/volume) 4.2 mmol/L 3.6-5.0 Serum or plasma chloride measurement (moles/volume) 105 mmol/L 98-107 Carbon dioxide 23 mmol/L 21-32 Serum or plasma anion gap determination (moles/volume) 8 mmol/L 5-14 Serum or plasma urea nitrogen measurement (mass/volume) 11 mg/dL 7-18 Serum or plasma creatinine measurement (mass/volume) 0.94 mg/dL 0.60-1.30 Serum or plasma urea nitrogen/creatinine mass ratio 12 NRG Serum or plasma creatinine measurement with calculation of estimated glomerular filtration rate > NRG Serum or plasma glucose measurement (mass/volume) 204 mg/dL 70-105 Serum or plasma calcium measurement (mass/volume) 8.6 mg/dL 8.5-10.1 Serum or plasma total bilirubin measurement (mass/volume) 0.3 mg/dL 0.1-1.0 Serum or plasma alkaline phosphatase measurement (enzymatic activity/volume) 105 U/L 40-136 Serum or plasma aspartate aminotransferase measurement (enzymatic activity/ volume) 162 U/L 5-34 Serum or plasma alanine aminotransferase measurement (enzymatic activity/volume ) 162 U/L 0-55 Serum or plasma protein measurement (mass/volume) 6.8 g/dL 6.4-8.2 Serum or plasma albumin measurement (mass/volume) 4.0 g/dL 3.2-4.5 Magnesium - 12/28/15 06:41 Magnesium 2.1 mg/dL 1.8-2.4 Lipase - 12/28/15 06:41 Lipase 25 U/L 8-78 Blood manual differential performed detection - 12/28/15 06:41 Blood monocytes/100 leukocytes 29 % NRG Manual blood segmented neutrophils/100 leukocytes 49 % NRG Blood band neutrophils/100 leukocytes 2 % NRG Manual blood lymphocytes/100 leukocytes 12 % NRG Manual eosinophils/100 leukocytes in nose 0 % NRG Manual blood basophils/100 leukocytes 0 % NRG Blood lymphocytes variant/100 leukocytes 8 % NRG Blood erythrocyte morphology finding identification NORMAL NRG Blood toxic granules detection by light microscopy 1+ NRG Serum or plasma acetaminophen measurement (mass/volume) - 12/28/15 06:41 Serum or plasma acetaminophen measurement (mass/volume) < ug/mL 10-30 Hemoglobin A1c - 12/28/15 06:41 Hemoglobin A1c 7.8 % 4.5-6.2 Tick identification panel - 12/28/15 06:41 Serum Ehrlichia chaffeensis IgG antibody detection 1:16 <1:16 Serum Ehrlichia chaffeensis IgM antibody detection <1:10 <1:10 Serum Rickettsia rickettsii IgG antibody assay (units/volume) <1:16 <1:16 [place] spotted fever panel <1:10 <1:10 Francisella tularensis antibody assay <1:20 NRG Borrelia burgdorferi (Lyme disease) antibody 0.22 0.00- 0.90 Complete blood count (CBC) with automated white blood cell (WBC) differential - 12/29/15 21:25 Blood leukocytes automated count (number/volume) 6.3 10*3/uL 4.3-11.0 Blood erythrocytes automated count (number/volume) 5.03 10*6/uL 4.35-5.85 Venous blood hemoglobin measurement (mass/volume) 15.6 g/dL 13.3-17.7 Blood hematocrit (volume fraction) 47 % 40-54 Automated erythrocyte mean corpuscular volume 93 [foz_us] 80-99 Automated erythrocyte mean corpuscular hemoglobin (mass per erythrocyte) 31 pg 25-34 Automated erythrocyte mean corpuscular hemoglobin concentration measurement ( mass/volume) 33 g/dL 32-36 Automated erythrocyte distribution width ratio 14.1 % 10.0-14.5 Automated blood platelet count (count/volume) 283 10*3/uL 130-400 Automated blood platelet mean volume measurement 10.4 [foz_us] 7.4-10.4 Automated blood neutrophils/100 leukocytes 27 % 42-75 Automated blood lymphocytes/100 leukocytes 55 % 12-44 Blood monocytes/100 leukocytes 15 % 0-12 Automated blood eosinophils/100 leukocytes 2 % 0-10 Automated blood basophils/100 leukocytes 1 % 0-10 Blood neutrophils automated count (number/volume) 1.7 10*3 1.8-7.8 Blood lymphocytes automated count (number/volume) 3.5 10*3 1.0-4.0 Blood monocytes automated count (number/volume) 1.0 10*3 0.0-1.0 Automated eosinophil count 0.1 10*3/uL 0.0-0.3 Automated blood basophil count (count/volume) 0.0 10*3/uL 0.0-0.1 Comprehensive metabolic panel - 12/29/15 21:25 Serum or plasma sodium measurement (moles/volume) 137 mmol/L 135-145 Serum or plasma potassium measurement (moles/volume) 4.4 mmol/L 3.6-5.0 Serum or plasma chloride measurement (moles/volume) 107 mmol/L 98-107 Carbon dioxide 17 mmol/L 21-32 Serum or plasma anion gap determination (moles/volume) 13 mmol/L 5-14 Serum or plasma urea nitrogen measurement (mass/volume) 9 mg/dL 7-18 Serum or plasma creatinine measurement (mass/volume) 0.91 mg/dL 0.60-1.30 Serum or plasma urea nitrogen/creatinine mass ratio 10 NRG Serum or plasma creatinine measurement with calculation of estimated glomerular filtration rate > NRG Serum or plasma glucose measurement (mass/volume) 124 mg/dL 70-105 Serum or plasma calcium measurement (mass/volume) 9.1 mg/dL 8.5-10.1 Serum or plasma total bilirubin measurement (mass/volume) 0.3 mg/dL 0.1-1.0 Serum or plasma alkaline phosphatase measurement (enzymatic activity/volume) 93 U/L 40-136 Serum or plasma aspartate aminotransferase measurement (enzymatic activity/ volume) 137 U/L 5-34 Serum or plasma alanine aminotransferase measurement (enzymatic activity/volume ) 170 U/L 0-55 Serum or plasma protein measurement (mass/volume) 6.8 g/dL 6.4-8.2 Serum or plasma albumin measurement (mass/volume) 4.0 g/dL 3.2-4.5 Magnesium - 12/29/15 21:25 Magnesium 1.9 mg/dL 1.8-2.4 Complete urinalysis with reflex to culture - 12/29/15 21:50 Urine color determination YELLOW NRG Urine clarity determination CLEAR NRG Urine pH measurement by test strip 5 5-9 Specific gravity of urine by test strip 1.025 1.016- 1.022 Urine protein assay by test strip, semi-quantitative 1+ NEGATIVE Urine glucose detection by automated test strip NEGATIVE NEGATIVE Erythrocytes detection in urine sediment by light microscopy 1+ NEGATIVE Urine ketones detection by automated test strip NEGATIVE NEGATIVE Urine nitrite detection by test strip NEGATIVE NEGATIVE Urine total bilirubin detection by test strip NEGATIVE NEGATIVE Urine urobilinogen measurement by automated test strip (mass/volume) NORMAL NORMAL Urine leukocyte esterase detection by dipstick 3+ NEGATIVE Automated urine sediment erythrocyte count by microscopy (number/high power field) [HPF] NRG Automated urine sediment leukocyte count by microscopy (number/high power field ) [HPF] NRG Bacteria detection in urine sediment by light microscopy FEW NRG Squamous epithelial cells detection in urine sediment by light microscopy 2-5 NRG Crystals detection in urine sediment by light microscopy NONE NRG Casts detection in urine sediment by light microscopy NONE NRG Mucus detection in urine sediment by light microscopy SMALL NRG Complete urinalysis with reflex to culture YES NRG Bacterial urine culture - 12/29/15 21:50 URINE CULTURE RESULTS <10,000/ML NRG CBC With Differential/Platelet - 03/17/16 09:37 WBC 9.9 x10E3/uL 3.4-10.8 RBC 5.02 x10E6/uL 4.14-5.80 Hemoglobin 15.6 g/dL 12.6-17.7 Hematocrit 46.2 % 37.5-51.0 MCV 92 fL 79-97 MCH 31.1 pg 26.6-33.0 MCHC 33.8 g/dL 31.5-35.7 RDW 13.7 % 12.3-15.4 Platelets 390 x10E3/uL 150-379 Neutrophils 41 % Lymphs 44 % Monocytes 11 % Eos 2 % Basos 1 % Neutrophils (Absolute) 4.1 x10E3/uL 1.4-7.0 Lymphs (Absolute) 4.4 x10E3/uL 0.7-3.1 Monocytes(Absolute) 1.0 x10E3/uL 0.1-0.9 Eos (Absolute) 0.2 x10E3/uL 0.0-0.4 Baso (Absolute) 0.1 x10E3/uL 0.0-0.2 Immature Granulocytes 1 % Immature Grans (Abs) 0.1 x10E3/uL 0.0-0.1 Comp. Metabolic Panel (14) - 03/17/16 09:37 Glucose, Serum 170 mg/dL 65-99 BUN 9 mg/dL 6-20 Creatinine, Serum 0.79 mg/dL 0.76-1.27 eGFR If NonAfricn Am 121 mL/min/1.73 >59 eGFR If Africn Am 140 mL/min/1.73 >59 BUN/Creatinine Ratio 11 8-19 Sodium, Serum 143 mmol/L 136-144 Potassium, Serum 4.6 mmol/L 3.5-5.2 Chloride, Serum 101 mmol/L 97-106 Carbon Dioxide, Total 23 mmol/L 18-29 Calcium, Serum 9.0 mg/dL 8.7-10.2 Protein, Total, Serum 6.7 g/dL 6.0-8.5 Albumin, Serum 4.0 g/dL 3.5-5.5 Globulin, Total 2.7 g/dL 1.5-4.5 A/G Ratio 1.5 1.1-2.5 Bilirubin, Total 0.4 mg/dL 0.0-1.2 Alkaline Phosphatase, S 99 IU/L 39-117 AST (SGOT) 31 IU/L 0-40 ALT (SGPT) 40 IU/L 0-44 Lipid Panel - 03/17/16 09:37 Cholesterol, Total 176 mg/dL 100-199 Triglycerides 136 mg/dL 0-149 HDL Cholesterol 52 mg/dL >39 VLDL Cholesterol Palomo 27 mg/dL 5-40 LDL Cholesterol Calc 97 mg/dL 0-99 Influenza virus A and B antigen detection - 06/25/16 13:10 FLU RESULT NEGATIVE FOR INFLUENZA A AND B ANTIGENS BY [facility] Complete blood count (CBC) with automated white blood cell (WBC) differential - 09/13/16 06:35 Blood leukocytes automated count (number/volume) 9.1 10*3/uL 4.3-11.0 Blood erythrocytes automated count (number/volume) 4.88 10*6/uL 4.35-5.85 Venous blood hemoglobin measurement (mass/volume) 15.0 g/dL 13.3-17.7 Blood hematocrit (volume fraction) 45 % 40-54 Automated erythrocyte mean corpuscular volume 91 [foz_us] 80-99 Automated erythrocyte mean corpuscular hemoglobin (mass per erythrocyte) 31 pg 25-34 Automated erythrocyte mean corpuscular hemoglobin concentration measurement ( mass/volume) 34 g/dL 32-36 Automated erythrocyte distribution width ratio 13.7 % 10.0-14.5 Automated blood platelet count (count/volume) 340 10*3/uL 130-400 Automated blood platelet mean volume measurement 10.2 [foz_us] 7.4-10.4 Automated blood neutrophils/100 leukocytes 46 % 42-75 Automated blood lymphocytes/100 leukocytes 35 % 12-44 Blood monocytes/100 leukocytes 13 % 0-12 Automated blood eosinophils/100 leukocytes 6 % 0-10 Automated blood basophils/100 leukocytes 0 % 0-10 Blood neutrophils automated count (number/volume) 4.2 10*3 1.8-7.8 Blood lymphocytes automated count (number/volume) 3.2 10*3 1.0-4.0 Blood monocytes automated count (number/volume) 1.1 10*3 0.0-1.0 Automated eosinophil count 0.5 10*3/uL 0.0-0.3 Automated blood basophil count (count/volume) 0.0 10*3/uL 0.0-0.1 Comprehensive metabolic panel - 09/13/16 06:35 Serum or plasma sodium measurement (moles/volume) 138 mmol/L 135-145 Serum or plasma potassium measurement (moles/volume) 4.1 mmol/L 3.6-5.0 Serum or plasma chloride measurement (moles/volume) 103 mmol/L 98-107 Carbon dioxide 23 mmol/L 21-32 Serum or plasma anion gap determination (moles/volume) 12 mmol/L 5-14 Serum or plasma urea nitrogen measurement (mass/volume) 12 mg/dL 7-18 Serum or plasma creatinine measurement (mass/volume) 0.87 mg/dL 0.60-1.30 Serum or plasma urea nitrogen/creatinine mass ratio 14 NRG Serum or plasma creatinine measurement with calculation of estimated glomerular filtration rate > NRG Serum or plasma glucose measurement (mass/volume) 175 mg/dL 70-105 Serum or plasma calcium measurement (mass/volume) 9.3 mg/dL 8.5-10.1 Serum or plasma total bilirubin measurement (mass/volume) 0.3 mg/dL 0.1-1.0 Serum or plasma alkaline phosphatase measurement (enzymatic activity/volume) 87 U/L 40-136 Serum or plasma aspartate aminotransferase measurement (enzymatic activity/ volume) 55 U/L 5-34 Serum or plasma alanine aminotransferase measurement (enzymatic activity/volume ) 77 U/L 0-55 Serum or plasma protein measurement (mass/volume) 7.1 g/dL 6.4-8.2 Serum or plasma albumin measurement (mass/volume) 4.3 g/dL 3.2-4.5 Microalb/Creat Ratio, [facility] - 09/29/16 10:29 Creatinine, Urine 123.5 mg/dL Not Estab. Microalbumin, Urine 21.3 ug/mL Not Estab. Microalb/Creat Ratio 17.2 mg/g creat 0.0-30.0 Complete urinalysis with reflex to culture - 01/02/17 02:45 Urine color determination YELLOW NRG Urine clarity determination CLEAR NRG Urine pH measurement by test strip 6 5-9 Specific gravity of urine by test strip 1.020 1.016- 1.022 Urine protein assay by test strip, semi-quantitative 2+ NEGATIVE Urine glucose detection by automated test strip 3+ NEGATIVE Erythrocytes detection in urine sediment by light microscopy 1+ NEGATIVE Urine ketones detection by automated test strip NEGATIVE NEGATIVE Urine nitrite detection by test strip NEGATIVE NEGATIVE Urine total bilirubin detection by test strip NEGATIVE NEGATIVE Urine urobilinogen measurement by automated test strip (mass/volume) NORMAL NORMAL Urine leukocyte esterase detection by dipstick 3+ NEGATIVE Automated urine sediment erythrocyte count by microscopy (number/high power field) [HPF] NRG Automated urine sediment leukocyte count by microscopy (number/high power field ) [HPF] NRG Bacteria detection in urine sediment by light microscopy FEW NRG Squamous epithelial cells detection in urine sediment by light microscopy 5-10 NRG Crystals detection in urine sediment by light microscopy NONE NRG Casts detection in urine sediment by light microscopy NONE NRG Mucus detection in urine sediment by light microscopy SMALL NRG Complete urinalysis with reflex to culture YES NRG Bacterial urine culture - 01/02/17 02:45 Bacterial urine culture [id number] NRG COLONY COUNT <10,000 NRG FTX;REPORTABLE SENSITIVITY REPORTED 01/05/17 8:45 NRG FREE TEXT ENTRY 3 MIXED GRAM POSITIVE ANTHONY 10-100,000/ML NR Bacterial susceptibility panel - 01/02/17 02:45 Gentamicin susceptibility test by minimum inhibitory concentration < = NRG Trimethoprim/sulfamethoxazole susceptibility test by minimum inhibitoryconcentration <= NRG Ampicillin susceptibility test by minimum inhibitory concentration > = NRG Tobramycin susceptibility test by minimum inhibitory concentration < = NRG Cefazolin susceptibility test by minimum inhibitory concentration > = NRG Ceftriaxone susceptibility test by minimum inhibitory concentration <= NRG Ampicillin/sulbactam susceptibility test by minimum inhibitory concentration 8 NRG Piperacillin/tazobactam susceptibility test by minimum inhibitory concentration <= NRG Ciprofloxacin susceptibility test by minimum inhibitory concentration <= NRG Meropenem susceptibility test by minimum inhibitory concentration < = NRG Nitrofurantoin susceptibility test by minimum inhibitory concentration R NRG Aztreonam susceptibility test by minimum inhibitory concentration < = NRG Complete urinalysis with reflex to culture - 02/15/17 21:42 Urine color determination YELLOW NRG Urine clarity determination SLIGHTLY CLOUDY NRG Urine pH measurement by test strip 6 5-9 Specific gravity of urine by test strip 1.020 1.016- 1.022 Urine protein assay by test strip, semi-quantitative 2+ NEGATIVE Urine glucose detection by automated test strip 1+ NEGATIVE Erythrocytes detection in urine sediment by light microscopy 1+ NEGATIVE Urine ketones detection by automated test strip NEGATIVE NEGATIVE Urine nitrite detection by test strip NEGATIVE NEGATIVE Urine total bilirubin detection by test strip NEGATIVE NEGATIVE Urine urobilinogen measurement by automated test strip (mass/volume) NORMAL NORMAL Urine leukocyte esterase detection by dipstick 3+ NEGATIVE Automated urine sediment erythrocyte count by microscopy (number/high power field) [HPF] NRG Automated urine sediment leukocyte count by microscopy (number/high power field ) [HPF] NRG Bacteria detection in urine sediment by light microscopy TRACE NRG Squamous epithelial cells detection in urine sediment by light microscopy 0-2 NRG Crystals detection in urine sediment by light microscopy NONE NRG Casts detection in urine sediment by light microscopy NONE NRG Mucus detection in urine sediment by light microscopy NEGATIVE NRG Complete urinalysis with reflex to culture NO NRG CULTURE, URINE - 03/05/17 16:27 Urine Culture, Routine Final report NRG Result 1 NRG Urine Culture, Routine - 03/05/17 16:27 Urine Culture, Routine Note Encounters ACCT No. Visit Date/Time Discharge Status Pt. Type Provider Facility Loc./Unit Complaint [id number] 04/23/2014 14:03:00 04/23/2014 23:59:59 CLS Outpatient VINI WILDER APRN [id number] 04/23/2014 14:03:00 04/23/2014 23:59:59 CLS Outpatient VINI WILDER APRN [id number] 10/24/2012 17:53:00 Document Registration [id number] 03/18/2016 08:07:00 Document Registration [id number] 01/18/2018 18:27:00 01/18/2018 18:55:00 DIS Emergency LUZ FERNANDEZ [facility] ER BACK PAIN [id number] 10/04/2017 04:55:00 10/04/2017 05:59:00 DIS Emergency TAMERA ALVARENGA DO [facility] ER RIB PAIN [id number] 02/15/2017 20:33:00 02/15/2017 23:36:00 DIS Emergency EMERSON CHARLTON [facility] ER BLADDER INFECTION [id number] 01/02/2017 02:20:00 01/02/2017 03:23:00 DIS Emergency FRACISCO LORA MD [facility] ER POSS BLADDER INFECT [id number] 09/13/2016 05:59:00 09/13/2016 07:24:00 DIS Emergency YINKA HIDALGO DO [facility] ER DIZZY,NAUSEA [id number] 06/25/2016 13:07:00 06/25/2016 13:55:00 DIS Emergency EMERSON CHARLTON [facility] ER NAUSEA/LOWER BACK PAIN /COUGH [id number] 03/09/2016 05:31:00 03/09/2016 06:11:00 DIS Emergency JIGAR HIGH MD [facility] ER HEMMOROIDS [id number] 12/29/2015 21:02:00 12/29/2015 23:47:00 DIS Emergency YINKA HIDALGO DO [facility] ER BLADDER INFECTION/VOMITING /HEADACHE [id number] 12/28/2015 05:55:00 12/28/2015 08:59:00 DIS Emergency YINKA HIDALGO DO [facility] ER DIZZY, HEADACHE, N/V [id number] 09/23/2015 06:00:00 09/23/2015 07:35:00 DIS Emergency ANGELINA ZEE DO [facility] ER GROIN PAIN [id number] 05/25/2015 19:47:00 05/25/2015 21:28:00 DIS Emergency PABON, PETER J ACCOUNTANT MANAGER [facility] ER L WRIST PAIN [id number] 04/01/2015 18:23:00 04/01/2015 19:56:00 DIS Emergency EMERSON CHARLTON [facility] ER CONGESTION,COUGH [id number] 12/14/2014 10:59:00 12/14/2014 12:04:00 DIS Emergency EMERSON CHARLTON [facility] ER BLADDER INFECTION [id number] 12/10/2014 18:13:00 12/10/2014 19:15:00 DIS Emergency JESSICA PABON ACCOUNTANT MANAGER [facility] ER R RIB PAIN [id number] 11/17/2014 05:44:00 11/17/2014 06:05:00 DIS Emergency GAGANDEEP RIOS MD [facility] ER L KNEE INJ [id number] 08/25/2014 07:03:00 08/25/2014 08:38:00 DIS Emergency YINKA HIDALGO DO [facility] ER RIGHT SIDE/BACK/RIB PAIN [id number] 05/20/2014 23:25:00 05/21/2014 01:13:00 DIS Emergency TAMERA ALVARENGA DO [facility] ER BLOOD IN STOOL [id number] 04/14/2014 18:08:00 04/14/2014 20:36:00 DIS Emergency EMERSON CHARLTON [facility] ER SOA [id number] 12/21/2013 19:43:00 12/21/2013 20:57:00 DIS Emergency JESSICA PABON APRN [facility] ER L ARM PAIN [id number] 07/26/2013 03:42:00 07/26/2013 04:15:00 DIS Emergency GAGANDEEP RIOS MD [facility] ER SOA [id number] 11/24/2012 21:15:00 11/26/2012 14:40:00 DIS Inpatient [id number] 02/10/2018 19:41:00 ACT Emergency GAGANDEEP RIOS MD [facility] ER ABD PAIN [id number] 03/10/2015 19:02:00 Document Registration [id number] 07/07/2014 15:03:00 Document Registration [id number] 01/06/2012 18:48:00 Document Registration [id number] 12/12/2011 17:45:00 Document Registration [id number] 02/16/2011 14:30:00 Document Registration [id number] 01/24/2011 11:44:00 Document Registration [id number] 12/23/2010 03:16:00 Document Registration [id number] 07/11/2010 09:56:00 Document Registration [id number] 10/18/2009 20:35:00 Document Registration [id number] 11/08/2017 18:40:00 11/08/2017 23:59:59 [facility] Outpatient YINKA MADRIGAL APRN [facility] [id number] 03/05/2017 15:40:00 Document Registration [id number] 03/08/2017 00:08:00 Document Registration [id number] 10/01/2016 11:06:00 Document Registration
[2018-02-10 20:57] VITALS: BP 151/85
[2018-02-10] MEDS ORDERED: NS IV 1000 ML 1,000 ML IV STA (21:11)
[2018-02-10] MEDS ORDERED: KETOROLAC 30 MG/ML VIAL IVP STA (21:11)
[2018-02-10] MEDS ORDERED: ONDANSETRON 4 MG/2 ML (SDV) Z0FRAN IVP ONE (21:15)
[2018-02-10 21:16] LABS: BILIRUBIN,URINE NEGATIVE (NEGATIVE); CLARITY,URINE VERY CLOUDY; COLOR,URINE YELLOW; GLUCOSE, URINE (UA) NEGATIVE (NEGATIVE); KETONES,URINE NEGATIVE (NEGATIVE); LEUKOCYTE ESTERASE ,URINE 2+ (NEGATIVE); NITRITE,URINE POSITIVE (NEGATIVE); PH,URINE 5 (5-9); PROTEIN,URINE 3+ (NEGATIVE); UROBILINOGEN,URINE NORMAL (NORMAL)
--- NOTE | 2018-02-10 21:18 | ED Abdominal Pain ---
General Chief Complaint: Abdominal/GI Problems Stated Complaint: ABD PAIN Nursing Triage Note: pt presents to er with complaint of abd pain that started yesterday. states it worsened today. states it hurts to poop and holman when he urinates. Sepsis Screen: No Definite Risk Source of Information: Patient Exam Limitations: No Limitations History of Present Illness Date Seen by Provider: Feb 10, 2018 Time Seen by Provider: 21:05 Initial Comments Here with report of lower abdominal pain that is been going on since yesterday but worse today. Does report pain with defecation and states he is only passing a small amount. He also reports that he is having some burning with urination. Does have history of kidney stones. Had diarrhea earlier this week and that hasn't changed to decreased bowel movements. Denies blood in his urine or stool. Denies fever or chills. Did have nausea and 1 episode of vomiting and still has some nausea. Timing/Duration: 1-2 Days Severity/Quality: Moderate, Aching Location: Suprapubic Radiation: RLQ, LLQ Activities at Onset: None Modifying Factors: Worsens With Defecating Associated Symptoms: No Back Pain, No Chest Pain, No Fever/Chills; Nausea/ Vomiting; No Weakness Allergies and Home Medications Allergies Coded Allergies: morphine (Verified Adverse Reaction, Intermediate, 09/13/16) MAKES HIM AGGRESSIVE Home Medications Cyclobenzaprine HCl 10 Mg Tablet, 10 MG PO Q8H Prescribed by: TAMERA ALVARENGA on 10/04/17 0554 Hydrocodone Bit/Acetaminophen 1 Tab Tab, 1 EACH PO Q8H PRN for PAIN Prescribed by: LUZ FERNANDEZ on 01/18/18 1851 Lisinopril 40 Mg Tablet, 40 MG PO HS, (Reported) Meclizine HCl 25 Mg Tablet, 25 MG PO Q6H PRN for DIZZINESS Prescribed by: YINKA HIDALGO on 09/13/16 0716 Metformin HCl 500 Mg Tablet, 500 MG PO BID WITH MEALS, (Reported) Naproxen 500 Mg Tablet, 500 MG PO BID Prescribed by: TAMERA ALVARENGA on 10/04/17 0555 Sucralfate 1 Gm Tablet, 1 GM PO BID, (Reported) Patient Home Medication List Home Medication List Reviewed: Yes Review of Systems Review of Systems Constitutional: see HPI EENTM: No Symptoms Reported Respiratory: No Symptoms Reported Cardiovascular: No Symptoms Reported Gastrointestinal: Abdominal Pain, Nausea, Vomiting Genitourinary: See HPI, Burning; Denies Frequency Musculoskeletal: no symptoms reported All Other Systems Reviewed Negative Unless Noted: Yes Past Imyxbpl-Klcufg-Yqzobk Hx Past Med/Social Hx: Reviewed Nursing Past Med/Soc Hx Patient Social History Alcohol Use: Denies Use Number of Drinks Today: AA Alcohol Beverage of Choice: Beer Recreational Drug Use: No Smoking Status: Former Smoker Type Used: Cigarettes Former Smoker, Quit: May 22, 2005 2nd Hand Smoke Exposure: No Recent Foreign Travel: No Contact w/Someone Who Travel: No Recent Infectious Disease Expo: No Recent Hopitalizations: No Immunizations Up To Date Tetanus Booster (TDap): More than 5yrs Date of Pneumonia Vaccine: Jul 26, 2011 Seasonal Allergies Seasonal Allergies: No Past Medical History Surgeries: Yes Abdominal, Ear Surgery, Orthopedic Respiratory: Yes (LEFT CHEST TUBES X 2 DUE TO TRAUMA) Cardiac: Yes Hypertension Neurological: No Reproductive Disorders: No Genitourinary: Yes Bladder Infection Gastrointestinal: Yes (S/P SPLENECTOMY SECONDARY TO TRAUMA) Hemorrhoids Musculoskeletal: Yes (LEFT ANKLE FX/ORIF; LEFT FOREARM FX/ORIF) Fractures Endocrine: Yes Diabetes, Non-Insulin dep HEENT: No Cancer: No Psychosocial: No Integumentary: No Blood Disorders: No Family Medical History Reviewed Nursing Family Hx No Pertinent Family Hx Physical Exam Vital Signs Vital Signs - First Documented 02/10/18 20:57 Temp 98.5 Pulse 80 Resp 20 B/P (MAP) 151/85 (107) Pulse Ox 96 O2 Delivery Room Air Capillary Refill : Less Than 3 Seconds Height/Weight/BMI Height: 6'0" Weight: 280lbs. 6.0oz. 127.007333vf; 34.30 BMI Method:Stated General Appearance: WD/WN, no apparent distress HEENT: PERRL/EOMI, pharynx normal Neck: full range of motion, supple Respiratory: lungs clear, normal breath sounds Cardiovascular: regular rate, rhythm, no murmur Peripheral Pulses: 2+ Dorsalis Pedis (R), 2+ Left Dors-Pedis (L), 2+ Radial Pulses (R), 2+ Radial Pulses (L) Gastrointestinal: soft, tenderness (suprapubic) Extremities: non-tender, normal inspection Back: normal inspection, no CVA tenderness, no vertebral tenderness Neurologic/Psychiatric: alert, oriented x 3 Skin: normal color, warm/dry Progress/Results/Core Measures Results/Orders Lab Results Laboratory Tests Test 02/10/18 21:05 02/10/18 21:18 Range/Units Urine Color YELLOW Urine Clarity VERY CLOUDY H Urine pH 5 5-9 Urine Specific Malone 1.025 H 1.016-1.022 Urine Protein 3+ H NEGATIVE Urine Glucose (UA) NEGATIVE NEGATIVE Urine Ketones NEGATIVE NEGATIVE Urine Nitrite POSITIVE H NEGATIVE Urine Bilirubin NEGATIVE NEGATIVE Urine Urobilinogen NORMAL NORMAL MG/DL Urine Leukocyte Esterase 2+ H NEGATIVE Urine RBC (Auto) 4+ H NEGATIVE Urine RBC 10-25 H /HPF Urine WBC >100 H /HPF Urine Squamous Epithelial Cells 2-5 /HPF Urine Renal Epithelial Cells NONE /HPF Urine Crystals NONE /LPF Urine Bacteria LARGE H /HPF Urine Casts NONE /LPF Urine Mucus SMALL H /LPF Urine Culture Indicated YES White Blood Count 13.3 H 4.3-11.0 10^3/uL Red Blood Count 4.34 L 4.35-5.85 10^6/uL Hemoglobin 13.6 13.3-17.7 G/DL Hematocrit 40 40-54 % Mean Corpuscular Volume 92 80-99 FL Mean Corpuscular Hemoglobin 31 25-34 PG Mean Corpuscular Hemoglobin Concent 34 32-36 G/DL Red Cell Distribution Width 13.6 10.0-14.5 % Platelet Count 375 130-400 10^3/uL Mean Platelet Volume 11.2 H 7.4-10.4 FL Neutrophils (%) (Auto) 63 42-75 % Lymphocytes (%) (Auto) 23 12-44 % Monocytes (%) (Auto) 11 0-12 % Eosinophils (%) (Auto) 2 0-10 % Basophils (%) (Auto) 0 0-10 % Neutrophils # (Auto) 8.4 H 1.8-7.8 X 10^3 Lymphocytes # (Auto) 3.1 1.0-4.0 X 10^3 Monocytes # (Auto) 1.5 H 0.0-1.0 X 10^3 Eosinophils # (Auto) 0.3 0.0-0.3 10^3/uL Basophils # (Auto) 0.0 0.0-0.1 10^3/uL Sodium Level 135 135-145 MMOL/L Potassium Level 6.2 H 3.6-5.0 MMOL/L Chloride Level 103 98-107 MMOL/L Carbon Dioxide Level 21 21-32 MMOL/L Anion Gap 11 5-14 MMOL/L Blood Urea Nitrogen 11 7-18 MG/DL Creatinine 0.88 0.60-1.30 MG/DL Estimat Glomerular Filtration Rate > 60 BUN/Creatinine Ratio 13 Glucose Level 185 H 70-105 MG/DL Calcium Level 9.7 8.5-10.1 MG/DL Corrected Calcium 9.7 8.5-10.1 MG/DL Total Bilirubin 0.2 0.1-1.0 MG/DL Aspartate Amino Transf (AST/SGOT) 36 H 5-34 U/L Alanine Aminotransferase (ALT/SGPT) 31 0-55 U/L Alkaline Phosphatase 73 40-136 U/L Total Protein 8.2 6.4-8.2 GM/DL Albumin 4.0 3.2-4.5 GM/DL My Orders Orders - GAGANDEEP RIOS MD Cbc With Automated Diff (02/10/18 21:11) Comprehensive Metabolic Panel (02/10/18 21:11) Ua Culture If Indicated (02/10/18 21:11) Ondansetron Injection (Zofran Injectio (02/10/18 21:15) Ns Iv 1000 Ml (Sodium Chloride 0.9%) (02/10/18 21:11) Ketorolac Injection (Toradol Injection) (02/10/18 21:11) Urine Culture (02/10/18 21:05) Medications Given in ED Current Medications Medications Dose Ordered Sig/Radha Route Start Time Stop Time Status Last Admin Dose Admin Ondansetron HCl 4 mg ONCE ONCE IVP 02/10/18 21:15 02/10/18 21:16 DC 02/10/18 21:50 4 MG Vital Signs/I&O 02/10/18 20:57 Temp 98.5 Pulse 80 Resp 20 B/P (MAP) 151/85 (107) Pulse Ox 96 O2 Delivery Room Air Blood Pressure Mean: 107 Progress Progress Note : Progress Note Seen and evaluated. IV, labs and UA ordered. Normal saline 1 L bolus. Zofran 4 mg IV and Toradol 30 mg IV ordered. Anticipate CT abdomen and pelvis. Monitor patient. 2200: UTI noted. Rocephin 1 g IV ordered. Patient feeling better. Discharged home after with return precautions. Patient verbalize understanding instructions and agreement with plan. Departure Impression Primary Impression: UTI (urinary tract infection) Qualified Codes: N30.00 - Acute cystitis without hematuria Disposition: HOME, SELF-CARE Condition: Improved Departure-Patient Inst. Decision time for Depature: 22:09 Referrals: [facility] (PCP/Family) Primary Care Physician Patient Instructions: Urinary Tract Infection, Adult (DC) Add. Discharge Instructions: All discharge instructions reviewed with patient and/or family. Voiced understanding. Drink plenty of fluids. Follow up with your Dr. in a few days for recheck. Return for worse pain, fever, vomiting, weakness, breathing problems or other concerns as needed. You may continue naproxen/Naprosyn per package directions. You may take Tylenol/acetaminophen 1000 mg every 8 hours as needed for pain as well. Scripts Cephalexin (Cephalexin) 500 Mg Tablet 500 MG PO BID, #12 TAB 0 Refills Prov: GAGANDEEP RIOS MD 02/10/18 GAGANDEEP RIOS MD Feb 10, 2018 21:18
[2018-02-10 21:43] LABS: BACTERIA,URINE LARGE /HPF; WBC,URINE >100 /HPF
[2018-02-10 21:45] LABS: BASOPHILS % (AUTO) 0 % (0-10); EOSINOPHILS # (AUTO) 0.3 10^3/uL (0.0-0.3); EOSINOPHILS % (AUTO) 2 % (0-10); HEMATOCRIT 40 % (40-54); HEMOGLOBIN 13.6 G/DL (13.3-17.7); LYMPHOCYTES # (AUTO) 3.1 X 10^3 (1.0-4.0); LYMPHOCYTES % (AUTO) 23 % (12-44); MEAN CORPUSCULAR HEMOGLOBIN 31 PG (25-34); MEAN CORPUSCULAR HGB CONC 34 G/DL (32-36); MEAN CORPUSCULAR VOLUME 92 FL (80-99); MEAN PLATELET VOLUME 11.2 FL (7.4-10.4); MONOCYTES # (AUTO) 1.5 X 10^3 (0.0-1.0); MONOCYTES % (AUTO) 11 % (0-12); NEUTROPHILS # (AUTO) 8.4 X 10^3 (1.8-7.8); NEUTROPHILS % (AUTO) 63 % (42-75); PLATELET COUNT 375 10^3/uL (130-400); RED BLOOD COUNT 4.34 10^6/uL (4.35-5.85); RED CELL DISTRIBUTION WIDTH 13.6 % (10.0-14.5); WHITE BLOOD COUNT 13.3 10^3/uL (4.3-11.0)
[2018-02-10 22:02] LABS: ALANINE AMINOTRANSFERASE 31 U/L (0-55); ALKALINE PHOSPHATASE 73 U/L (40-136); BILIRUBIN,TOTAL 0.2 MG/DL (0.1-1.0); BUN/CREATININE RATIO 13; CALCIUM 9.7 MG/DL (8.5-10.1); CARBON DIOXIDE 21 MMOL/L (21-32); CHLORIDE 103 MMOL/L (98-107); CREATININE SERUM 0.88 MG/DL (0.60-1.30); GFR ESTIMATED > 60; GLUCOSE 185 MG/DL (70-105); POTASSIUM 6.2 MMOL/L (3.6-5.0); SODIUM 135 MMOL/L (135-145); TOTAL PROTEIN 8.2 GM/DL (6.4-8.2)
[2018-02-10] MEDS ORDERED: CEPH500T PO (22:11)
[2018-02-10] MEDS ORDERED: cefTRIAXone FOR IV USE 1,000 MG in NS (IVPB) 50 ML IV ONE (22:15)
== END 2018-02-10 23:01 | disposition home or self-care (01) ==
LOC: EDUNIT# 19:40 → ER 19:41
DX: N39.0 Urinary tract infection, site not specified (principal); I10 Essential (primary) hypertension; E11.9 Type 2 diabetes mellitus without complications; Z87.19 Personal history of other diseases of the digestive system; Z90.81 Acquired absence of spleen; Z87.448 Personal history of other diseases of urinary system; Z88.5 Allergy status to narcotic agent; Z79.84 Long term (current) use of oral hypoglycemic drugs; Z87.891 Personal history of nicotine dependence
CPT/HCPCS: 36415; 80053; 81000; 85025; 87077; 87088; 87186; 96361; 96365; 96375; 99282

== ENCOUNTER 2018-02-17 18:50 | Emergency (ER) | payer SELFPAY ==
[~2018-02-17] VITALS: Ht 182.9 cm; Wt 127.0 kg
[~2018-02-17 18:50] MED LIST changes: +CEPH500T PO
[2018-02-17 19:27] LABS: BILIRUBIN,URINE NEGATIVE (NEGATIVE); CLARITY,URINE BLOODY; COLOR,URINE RED; GLUCOSE, URINE (UA) NEGATIVE (NEGATIVE); KETONES,URINE NEGATIVE (NEGATIVE); LEUKOCYTE ESTERASE ,URINE 3+ (NEGATIVE); NITRITE,URINE POSITIVE (NEGATIVE); PH,URINE 6.5 (5-9); PROTEIN,URINE 4+ (NEGATIVE); UROBILINOGEN,URINE NORMAL (NORMAL)
[2018-02-17 19:42] LABS: BACTERIA,URINE TRACE /HPF; RBC,URINE TNTC /HPF; WBC,URINE 25-50 /HPF
[2018-02-17] MEDS ORDERED: KETOROLAC 30 MG/ML VIAL IVP ONE (19:45)
[2018-02-17] MEDS ORDERED: AZITHROMYCIN 250 MG TAB (ZITHROMAX) PO SCH (19:45)
[2018-02-17] MEDS ORDERED: cefTRIAXone FOR IV USE 1,000 MG in NS (IVPB) 50 ML IV ONE (19:45)
[2018-02-17] MEDS ORDERED: NS IV 1000 ML 1,000 ML IV SCH (19:45)
--- NOTE | 2018-02-17 19:46 | ED GU-Male ---
General Chief Complaint: -Male Stated Complaint: "BLADDER INFECTION" Nursing Triage Note: Pt c/o hematuria that began today. Pt vomited at 1750 this evening. Pt states pain began in L flank area a couple of days ago and is now radiating to the groin area. Pt has hx of kidney stones. Source: patient Exam Limitations: no limitations History of Present Illness Date Seen by Provider: Feb 17, 2018 Time Seen by Provider: 19:44 Initial Comments To ER per private vehicle with reports of left-sided low back pain that began about 4 days ago. He has since developed some hematuria, burning on urination and the pain has wrapped around to the left side of the low abdomen. He has a history of kidney stones and is concerned he may have another. Timing/Duration: week Severity/Quality: moderate Location: left flank Radiation: none Activities at Onset: none Associated Symptoms: dysuria (no) Allergies and Home Medications Allergies Coded Allergies: morphine (Verified Adverse Reaction, Intermediate, 09/13/16) MAKES HIM AGGRESSIVE Home Medications Cephalexin 500 Mg Tablet, 500 MG PO BID Prescribed by: GAGANDEEP RIOS on 02/10/18 2211 Cyclobenzaprine HCl 10 Mg Tablet, 10 MG PO Q8H Prescribed by: TAMERA ALVARENGA on 10/04/17 0554 Hydrocodone Bit/Acetaminophen 1 Tab Tab, 1 EACH PO Q8H PRN for PAIN Prescribed by: LUZ FERNANDEZ on 01/18/18 1851 Lisinopril 40 Mg Tablet, 40 MG PO HS, (Reported) Meclizine HCl 25 Mg Tablet, 25 MG PO Q6H PRN for DIZZINESS Prescribed by: YINKA HIDALGO on 09/13/16 0716 Metformin HCl 500 Mg Tablet, 500 MG PO BID WITH MEALS, (Reported) Naproxen 500 Mg Tablet, 500 MG PO BID Prescribed by: TAMERA ALVARENGA on 10/04/17 0555 Sucralfate 1 Gm Tablet, 1 GM PO BID, (Reported) Sulfamethoxazole/Trimethoprim 1 Each Tablet, 1 EACH PO BID Prescribed by: JESSICA PABON on 02/17/182009 Patient Home Medication List Home Medication List Reviewed: Yes Review of Systems Review of Systems Constitutional: see HPI; No chills, No fever EENTM: see HPI Respiratory: no symptoms reported Cardiovascular: no symptoms reported Genitourinary: see HPI, burning Musculoskeletal: no symptoms reported Skin: no symptoms reported Psychiatric/Neurological: No Symptoms Reported Endocrine: No Symptoms Reported Past Vqpfqnu-Osyliz-Gjjtyj Hx Patient Social History Alcohol Use: Denies Use Number of Drinks Today: AA Alcohol Beverage of Choice: Beer Recreational Drug Use: No Type Used: Cigarettes Former Smoker, Quit: May 22, 2005 2nd Hand Smoke Exposure: No Recent Foreign Travel: No Contact w/Someone Who Travel: No Recent Infectious Disease Expo: No Recent Hopitalizations: No Immunizations Up To Date Tetanus Booster (TDap): More than 5yrs Date of Pneumonia Vaccine: Jul 26, 2011 Seasonal Allergies Seasonal Allergies: No Past Medical History Surgeries: Yes Abdominal, Ear Surgery, Orthopedic Respiratory: Yes (LEFT CHEST TUBES X 2 DUE TO TRAUMA) Cardiac: Yes Hypertension Neurological: No Reproductive Disorders: No Genitourinary: Yes Bladder Infection Gastrointestinal: Yes (S/P SPLENECTOMY SECONDARY TO TRAUMA) Hemorrhoids Musculoskeletal: Yes (LEFT ANKLE FX/ORIF; LEFT FOREARM FX/ORIF) Fractures Endocrine: Yes Diabetes, Non-Insulin dep HEENT: No Cancer: No Psychosocial: No Integumentary: No Blood Disorders: No Adverse Reaction/Blood Tranf: No Family Medical History No Pertinent Family Hx Physical Exam Vital Signs Vital Signs - First Documented 02/17/18 19:06 Temp 99.1 Pulse 87 Resp 14 B/P (MAP) 147/94 (111) Pulse Ox 97 O2 Delivery Room Air Capillary Refill : Less Than 3 Seconds Height, Weight, BMI Height: 6'0" Weight: 280lbs. 6.0oz. 127.445512az; 34.30 BMI Method:Stated General Appearance: WD/WN, no apparent distress HEENT: PERRL/EOMI, normal ENT inspection Neck: non-tender, full range of motion Respiratory: no respiratory distress, no accessory muscle use Gastrointestinal: normal bowel sounds, non tender Extremities: normal range of motion, non-tender Neurologic/Psychiatric: alert, normal mood/affect, oriented x 3 Skin: normal color, warm/dry Progress/Results/Core Measures Suspected Sepsis Recent Fever Within 48 Hours: No Infection Criteria Present: None New/Unexplained Altered Menta: No Sepsis Screen: No Definite Risk SIRS Temperature:99.1 Pulse: 87 Respiratory Rate: 14 Laboratory Tests 02/17/18 19:55: White Blood Count 16.1H Blood Pressure 147 /94 Mean: 111 Laboratory Tests 9/29/18 19:55: Creatinine 0.93, Platelet Count 447H Results/Orders Lab Results Laboratory Tests Test 02/17/18 19:06 02/17/18 19:55 Range/Units Urine Color RED H Urine Clarity BLOODY H Urine pH 6.5 5-9 Urine Specific Fraser 1.015 L 1.016-1.022 Urine Protein 4+ NEGATIVE Urine Glucose (UA) NEGATIVE NEGATIVE Urine Ketones NEGATIVE NEGATIVE Urine Nitrite POSITIVE H NEGATIVE Urine Bilirubin NEGATIVE NEGATIVE Urine Urobilinogen NORMAL NORMAL MG/DL Urine Leukocyte Esterase 3+ H NEGATIVE Urine RBC (Auto) 5+ H NEGATIVE Urine RBC TNTC H /HPF Urine WBC 25-50 H /HPF Urine Crystals NONE /LPF Urine Bacteria TRACE /HPF Urine Casts NONE /LPF Urine Mucus NEGATIVE /LPF Urine Culture Indicated YES White Blood Count 16.1 H 4.3-11.0 10^3/uL Red Blood Count 4.78 4.35-5.85 10^6/uL Hemoglobin 14.5 13.3-17.7 G/DL Hematocrit 44 40-54 % Mean Corpuscular Volume 91 80-99 FL Mean Corpuscular Hemoglobin 30 25-34 PG Mean Corpuscular Hemoglobin Concent 33 32-36 G/DL Red Cell Distribution Width 13.9 10.0-14.5 % Platelet Count 447 H 130-400 10^3/uL Mean Platelet Volume 9.8 7.4-10.4 FL Neutrophils (%) (Auto) 66 42-75 % Lymphocytes (%) (Auto) 24 12-44 % Monocytes (%) (Auto) 8 0-12 % Eosinophils (%) (Auto) 2 0-10 % Basophils (%) (Auto) 0 0-10 % Neutrophils # (Auto) 10.6 H 1.8-7.8 X 10^3 Lymphocytes # (Auto) 3.8 1.0-4.0 X 10^3 Monocytes # (Auto) 1.4 H 0.0-1.0 X 10^3 Eosinophils # (Auto) 0.3 0.0-0.3 10^3/uL Basophils # (Auto) 0.0 0.0-0.1 10^3/uL Neutrophils % (Manual) 68 % Lymphocytes % (Manual) 27 % Monocytes % (Manual) 4 % Eosinophils % (Manual) 1 % Basophils % (Manual) 0 % Band Neutrophils 0 % Blood Morphology Comment NORMAL Sodium Level 137 135-145 MMOL/L Potassium Level 4.1 3.6-5.0 MMOL/L Chloride Level 105 98-107 MMOL/L Carbon Dioxide Level 19 L 21-32 MMOL/L Anion Gap 13 5-14 MMOL/L Blood Urea Nitrogen 11 7-18 MG/DL Creatinine 0.93 0.60-1.30 MG/DL Estimat Glomerular Filtration Rate > 60 BUN/Creatinine Ratio 12 Glucose Level 163 H 70-105 MG/DL Calcium Level 10.0 8.5-10.1 MG/DL My Orders Orders - JESSICA PABON APRN Ua Culture If Indicated (02/17/18 19:18) Neis Guillermo Dna Urine Test (02/17/18 19:18) Chlamydia Trachomatis Urine (02/17/18 19:18) Ct Abd/Pelvis Wo(Kidney Stone) (02/17/18 19:19) Cbc With Automated Diff (02/17/18 19:19) Basic Metabolic Panel (02/17/18 19:19) Iv Heplock-Insert (Order) (02/17/18 19:32) Ketorolac Injection (Toradol Injection) (02/17/18 19:45) Ns Iv 1000 Ml (Sodium Chloride 0.9%) (02/17/18 19:45) Urine Culture (02/17/18 19:06) Ceftriaxone For Iv Use (Rocephin For I (02/17/18 19:45) Azithromycin Tablet (Zithromax Tablet) (02/17/18 19:45) Manual Differential (02/17/18 19:55) Phenazopyridine Tablet (Pyridium Tablet) (02/17/18 20:45) Medications Given in ED Current Medications Medications Dose Ordered Sig/Radha Route Start Time Stop Time Status Last Admin Dose Admin Ceftriaxone Sodium 1000 mg/ Sodium Chloride 50 ml @ 100 mls/hr ONCE ONCE IV 02/17/18 19:45 02/17/18 20:14 DC 02/17/18 20:22 100 MLS/HR Ketorolac Tromethamine 30 mg ONCE ONCE IVP 02/17/18 19:45 02/17/18 19:46 DC 02/17/18 20:20 30 MG Vital Signs/I&O 02/17/18 19:06 Temp 99.1 Pulse 87 Resp 14 B/P (MAP) 147/94 (111) Pulse Ox 97 O2 Delivery Room Air Capillary Refill : Less Than 3 Seconds Blood Pressure Mean: 111 Departure Impression Primary Impression: Urinary tract infection Disposition: 01 HOME, SELF-CARE Condition: Stable Departure-Patient Inst. Decision time for Depature: 20:08 Referrals: YINKA MADRIGAL (PCP/Family) Primary Care Physician Patient Instructions: Urinary Tract Infection, Adult (DC) Add. Discharge Instructions: 1. Antibiotics as directed 2. Return to ER for any concerns 3. Follow-up with your doctor next week. We have tested U for gonorrhea and chlamydia. The medications given in the emergency room tonight will take care of this if you do test positive. 2. All discharge instructions reviewed with patient and/or family. Voiced understanding. Scripts Sulfamethoxazole/Trimethoprim (Bactrim Ds Tablet) 1 Each Tablet 1 EACH PO BID, #20 TAB Prov: JESSICA PABON APRN 02/17/18 JESSICA PABON APRN Feb 17, 2018 19:46
[2018-02-17 20:02] LABS: BASOPHILS % (AUTO) 0 % (0-10); EOSINOPHILS # (AUTO) 0.3 10^3/uL (0.0-0.3); EOSINOPHILS % (AUTO) 2 % (0-10); HEMATOCRIT 44 % (40-54); HEMOGLOBIN 14.5 G/DL (13.3-17.7); LYMPHOCYTES # (AUTO) 3.8 X 10^3 (1.0-4.0); LYMPHOCYTES % (AUTO) 24 % (12-44); MEAN CORPUSCULAR HEMOGLOBIN 30 PG (25-34); MEAN CORPUSCULAR HGB CONC 33 G/DL (32-36); MEAN CORPUSCULAR VOLUME 91 FL (80-99); MEAN PLATELET VOLUME 9.8 FL (7.4-10.4); MONOCYTES # (AUTO) 1.4 X 10^3 (0.0-1.0); MONOCYTES % (AUTO) 8 % (0-12); NEUTROPHILS # (AUTO) 10.6 X 10^3 (1.8-7.8); NEUTROPHILS % (AUTO) 66 % (42-75); PLATELET COUNT 447 10^3/uL (130-400); RED BLOOD COUNT 4.78 10^6/uL (4.35-5.85); RED CELL DISTRIBUTION WIDTH 13.9 % (10.0-14.5); WHITE BLOOD COUNT 16.1 10^3/uL (4.3-11.0)
[2018-02-17] MEDS ORDERED: SULF1TAB35 PO (20:10)
[2018-02-17 20:20] LABS: BUN/CREATININE RATIO 12; CARBON DIOXIDE 19 MMOL/L (21-32); CHLORIDE 105 MMOL/L (98-107); CREATININE SERUM 0.93 MG/DL (0.60-1.30); GFR ESTIMATED > 60; GLUCOSE 163 MG/DL (70-105); POTASSIUM 4.1 MMOL/L (3.6-5.0); SODIUM 137 MMOL/L (135-145)
[2018-02-17 20:23] LABS: BAND NEUTROPHILS 0 %; BASOPHILS % (MANUAL) 0 %; EOSINOPHILS % (MANUAL) 1 %; LYMPHOCYTES % (MANUAL) 27 %; MONOCYTES % (MANUAL) 4 %; NEUTROPHILS % (MANUAL) 68 %; RBC MORPH NORMAL
--- NOTE | 2018-02-17 20:27 | Diagnostic Imaging Report ---
PROCEDURE: CT urinary tract, rule out kidney stone. TECHNIQUE: Multiple contiguous axial images were obtained through the abdomen and pelvis without the use of intravenous contrast. INDICATION: Groin pain and hematuria with history of renal stones. COMPARISON: Prior examination from December 28, 2015 FINDINGS: The lung bases appear clear without infiltrate or effusion. Hepatic steatosis is present without focal intrahepatic abnormality. The gallbladder is nondistended. There is no radiodense gallstone. There is no biliary dilatation. The pancreas appears unremarkable. The spleen appears absent with some soft tissue nodules in the left upper quadrant, unchanged from prior examination, most likely reflecting small splenules. There is no adrenal mass. There is no evidence of an intrarenal calculus. There is no significant hydronephrosis. There is some very slight prominence demonstrated of the right ureter which could reflect a recently passed stone but there is no current stone evident within the ureters. There does, however, appear to be an abnormally thickened appearance of the urinary bladder wall which can be seen in the setting of a cystitis. Small and large bowel are normal in caliber without evidence of obstruction. There is no focal abnormal bowel thickening. The appendix appears normal There is no focal inflammation within the omentum or mesentery. There is no free air, free fluid or abscess. There are no pathologically enlarged lymph nodes. There are small fat-containing inguinal hernias. There are calcifications within the prostate. The aorta is normal in caliber. There is no acute or suspicious osseous abnormality demonstrated. IMPRESSION: 1. There is no current evidence of a radiodense stone within the kidneys or within the collecting system. There is minimal prominence of the right ureter which may be physiologic but a recently passed stone cannot be excluded. There does however appear to be abnormally thickened appearance of the urinary bladder wall which may reflect cystitis. Correlation with urinalysis appreciated. 2. Small bilateral fat containing inguinal wall hernias. 3. Hepatic steatosis. 4. No focal inflammation within the omentum or mesentery. There is no free fluid. Dictated by: Dictated on workstation # [id number]
[2018-02-17] MEDS ORDERED: PHENAZOPYRIDINE 100 MG (PYRIDIUM) TABLET PO ONE (20:45)
[2018-02-17 20:59] VITALS: BP 147/94
== END 2018-02-17 20:59 | disposition home or self-care (01) ==
LOC: EDUNIT# 18:50 → ER 18:51
DX: N39.0 Urinary tract infection, site not specified (principal); I10 Essential (primary) hypertension; E11.9 Type 2 diabetes mellitus without complications; Z90.81 Acquired absence of spleen; Z87.19 Personal history of other diseases of the digestive system; Z88.5 Allergy status to narcotic agent; Z87.442 Personal history of urinary calculi; Z79.84 Long term (current) use of oral hypoglycemic drugs; Z87.891 Personal history of nicotine dependence
CPT/HCPCS: 36415; 74176; 80048; 81000; 85007; 85027; 87077; 87088; 87186; 87491; 87591

== ENCOUNTER 2018-03-16 22:13 | Emergency (ER) | payer SELFPAY ==
[~2018-03-16] VITALS: Ht 182.9 cm; Wt 129.3 kg
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
--- OUTSIDE RECORDS SUMMARY | 2018-03-16 22:20 | XMS REPORT ---
Author Author YINKA MADRIGAL Organization [facility] Address [address] [place] [address] Care Team Providers Care Ball Warper Tender Name Role Phone YINKA MADRIGAL Unavailable PROBLEMS Type Condition ICD9-CM Code HCR35-FJ Code Onset Dates Condition Status SNOMED Code Problem Obesity due to excess calories, unspecified obesity severity E66.09 Active 135955027 Problem Polydipsia R63.1 Active 01059654 Problem Hypertension, benign I10 Active 29123608 Problem Essential hypertension I10 Active 39563211 Problem Alcohol use F10.99 Active 603479 Problem FH: hypertension Z82.49 Active 110181978 Problem FH: diabetes mellitus Z83.3 Active 897112045 Problem Controlled type 2 diabetes mellitus without complication, without long -term current use of insulin E11.9 Active 799812515 Problem Uncontrolled type 2 diabetes mellitus without complication, without long-term current use of insulin E11.65 Active 493388656 Problem Other chronic pain G89.29 Active 75458029 Problem Lumbago with sciatica, left side M54.42 Active 956857657 Problem Type 2 diabetes mellitus without complication, without long-term current use of insulin E11.9 Active 182949309 Problem Other chronic pain G89.29 Active 68959929 ALLERGIES Substance Reaction Event Type Date Status Morphine Sulfate Becomes hostile Drug Allergy Jan, Active ENCOUNTERS Encounter Location Date Diagnosis [facility] [id number], [place] [address] Mar, [facility] [address], [place] [address] Feb, [facility] [address], [place] [address] Jan, Sebaceous cyst L72.3 [facility] [id number], [place] [address] 15 Jan, 2018 [facility] [address] [address] 15 Jan, 2018 Abscess of back L02.212 [place] [address] [address] 9[address] 13 Jan, 2018 Sebaceous cyst L72.3 [place] [address] 8[address]- 2593 11 Jan, 2018 Essential hypertension I10 and Sebaceous cyst L72.3 [facility] [place] [address] [address] Jan, Cellulitis of back except buttock L03.312 [place] [address] 9[address]18- 9047 Dec, Sebaceous cyst L72.3 [place] [address] 60[address] Oct, Acute suppurative otitis media of left ear without spontaneous rupture of tympanic membrane, recurrence not specified H66.002 and Type 2 diabetes mellitus without complication, without long-term current use of insulin E11.9 [place] [address] [address] Jun, [place] [address] [address] Jun, [place] [address] [address]35- 9569 Jun, Acute pain of left shoulder M25.512 [place] [address] 69[address]- 2143 May, Acute pain of left shoulder M25.512 [place] [address] 71412- 7001 Apr, Acute pain of left shoulder M25.512 [facility] [address] [address] Mar, Acute non-recurrent frontal sinusitis J01.10 [place] [address] [id number] [place] [address] 57755- 4371 Mar, Controlled type 2 diabetes mellitus without complication, without long-term current use of insulin E11.9 [place] [address] [address] [id number] [place] [address] 78328- 5857 Mar, Acute pain of left shoulder M25.512 [facility] [place] [address] [address] [id number] [place] [address]87 Feb, [facility] [place] [address] [address] Feb, Burning with urination R30.0 and Acute cystitis N30.00 [place] [address] 82552- 9623 Feb, Acute pain of left shoulder M25.512 [place] [address] 7[address]12- 9214 Jan, Acute pain of left shoulder M25.512 [place] [address] 69224- 4314 Dec, Acute pain of left shoulder M25.512 [place] [address] [id number] [place] [address] 11126- 4601 Nov, Essential hypertension I10 and Type 2 diabetes mellitus without complication, without long-term current use of insulin E11.9 [facility] [place] [address] [place] [address] [id number] [place] [address]80 -8908 Nov, Viral rash B09 [facility] [place] [address] 28[address] Nov, Acute pain of left shoulder M25.512 and Cervicalgia M54.2 [place] [address] [place] [id number] [place] [address] 58227- 2418 Oct, Type 2 diabetes mellitus without complication, without long- term current use of insulin E11.9 [facility] [id number] [place] [address]797 [address]9678 Oct, Sore throat J02.9 and Strep throat J02.0 [place] [address] [address] [id number] [place] [address] 39706- 5147 September, Type 2 diabetes mellitus without complication, without long- term current use of insulin E11.9 and Low back pain M54.5 [place] [address] [id number] [place] [address] 39337- 1345 Aug, Uncontrolled type 2 diabetes mellitus without complication, without long-term current use of insulin E11.65 [place] [address] [place] [address] [id number] [place] [address] 13108- 0228 Aug, Dysuria R30.0 [place] [address] [place] [id number] [place] [address] 32532- 9840 Jul, Dysuria R30.0 [place] [address] [place] [address] [id number] [place] [address] 19727- 8163 Jul, Uncontrolled type 2 diabetes mellitus without complication, without long-term current use of insulin E11.65 [place] [address] [address] [id number] [place] [address] 26832- 3948 Jun, Lumbago with sciatica, left side M54.42 ; Essential hypertension I10 ; Other chronic pain G89.29 and Type 2 diabetes mellitus without complication, without long-term current use of insulin E11.9 [place] [address] [place] [address] 79071- 5448 May, Essential hypertension I10 and Type 2 diabetes mellitus without complication, without long-term current use of insulin E11.9 [facility] [id number] [place] [address] 48900 -5902 Apr, Lumbago with sciatica, left side M54.42 and Other chronic pain G89.29 [place] [address] [id number] [place] [address] 00282- 4120 08 Apr, 2016 Polyuria R35.8 ; Polydipsia R63.1 ; Family history of diabetes mellitus Z83.3 and Essential hypertension I10 [facility] [id number] [place] [address] 74168- 1520 Mar, [facility] [id number] [place] [address] 82768- 4855 Feb, Coughing R05 and Hypertension, benign I10 [facility] [address] [address] 164[address] Feb, Hypertension, benign I10 [place] [address] [address]- [address] 29 Jan, 2016 Epigastric pain R10.13 and Hypertension, benign I10 [facility] [id number] [place] [address] 97209 [address]0135 Jan, Essential hypertension I10 ; Other chest pain R07.89 and Gastroesophageal reflux disease, esophagitis presence not specified K21.9 [place] [address] [address] [id number] [place] [address] 16092- 5804 Apr, Essential hypertension I10 ; Cough R05 ; Obesity due to excess calories, unspecified obesity severity E66.09 ; FH: diabetes mellitus Z83.3 ; FH: hypertension Z82.49 and Alcohol use F10.99 [facility] [id number] [place] [address]4492 Mar, Cough R05 [facility] [id number] [place] [address] 08745- 1808 14 Aug, 2014 [place] [address] 17304- 1680 Aug, [facility] [id number] [place] [address] 41539- 5209 Apr, [facility] [id number] [place] [address] 94680- 0853 Apr, [facility] [address] [id number] [place] [address] Apr, [facility] [place] [facility] [address] [id number] [place] [address] 79[address] Apr, [facility] [place] [facility] [address] [id number] [place] [address]- 1044 Apr, [facility] [place] [facility] [address] [id number] [place] [address]- 7185 Apr, [facility] [place] [facility] [address] [id number] [place] [address]- 2425 Apr, [facility] [place] [facility] [address] [id number] [place] [address]- 3766 Apr, [facility] [address] [id number] [place] [address]- 4921 Apr, [facility] [place] [facility] [address] [id number] [place] [address]- 8677 Apr, [facility] [place] [facility] [address] [id number] [place] [address]- 0668 Nov, [facility] [place] [facility] [address] [id number] [place] [address]- 8705 Oct, [facility] [place] [facility] [address] [id number] [place] [address] 3964 Oct, [facility] [place] [facility] [address] [id number] [address] Mar, [facility] [place] [facility] [address] [id number] [place] [address]- 6026 Mar, [facility] [place] [facility] [address] [id number] [place] [address]- 4219 Feb, [facility] [place] [facility] [address] [id number] [place] [address]- 3787 Feb, [facility] [place] [facility] [address] [id number] [place] [address] 6657 Nov, IMMUNIZATIONS No Known Immunizations SOCIAL HISTORY Never Assessed REASON FOR VISIT wound packing to center of back. [email or web address] PLAN OF CARE VITAL SIGNS Height 71 in 2018-02-03 Weight 277.0 lbs 2018-02-03 Temperature 97.9 degrees Fahrenheit 2018-02-03 Heart Rate 80 bpm 2018-02-03 Respiratory Rate 20 2018-02-03 BMI 38.63 kg/m2 2018-02-03 Blood pressure systolic 130 mmHg 2018-02-03 Blood pressure diastolic 80 mmHg 2018-02-03 MEDICATIONS Medication Instructions Dosage Frequency Start Date End Date Duration Status Carafate 1 GM Orally Twice a day 1 tablet on an empty stomach 12h 30 Not-Taking [facility] 5-325 MG Orally every 6 hrs 1 tablet as needed 6h Jan, Active Metformin HCl 500 mg 2 tablets 12h Active Lisinopril 40 mg Orally Once a [...]
--- OUTSIDE RECORDS SUMMARY | 2018-03-16 22:20 | XMS REPORT ---
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 Phone ALEX PENNY Unavailable PROBLEMS Type Condition ICD9-CM Code VWA98-VD Code Onset Dates Condition Status SNOMED Code Problem Obesity due to excess calories, unspecified obesity severity E66.09 Active 804903066 Problem Polydipsia R63.1 Active 44600537 Problem Hypertension, benign I10 Active 63164505 Problem Essential hypertension I10 Active 88248613 Problem Alcohol use F10.99 Active 479396 Problem FH: hypertension Z82.49 Active 405092692 Problem FH: diabetes mellitus Z83.3 Active 682727783 Problem Controlled type 2 diabetes mellitus without complication, without long -term current use of insulin E11.9 Active 897322837 Problem Uncontrolled type 2 diabetes mellitus without complication, without long-term current use of insulin E11.65 Active 407614567 Problem Other chronic pain G89.29 Active 64890295 Problem Lumbago with sciatica, left side M54.42 Active 494483965 Problem Type 2 diabetes mellitus without complication, without long-term current use of insulin E11.9 Active 929999249 Problem Other chronic pain G89.29 Active 97020438 ALLERGIES Substance Reaction Event Type Date Status Morphine Sulfate Becomes hostile Drug Allergy Jan, Active ENCOUNTERS Encounter Location Date Diagnosis [facility] [place] [address], [place] [address] Jan, Sebaceous cyst L72.3 [facility] [id number] [place] [address]206 Jan, [facility] [address] [place] [address] 48409 -2849 Jan, Abscess of back L02.212 [facility] [place] [id number] [place] [address] 53596- 8501 13 Jan, 2018 Sebaceous cyst L72.3 [place] [address] 8[address]11- 9566 11 Jan, 2018 Essential hypertension I10 and Sebaceous cyst L72.3 [facility] [address] 30[address] Jan, Cellulitis of back except buttock L03.312 [place] [address] 08780- 9536 Dec, Sebaceous cyst L72.3 [place] [address] 98675- 4776 Oct, Acute suppurative otitis media of left ear without spontaneous rupture of tympanic membrane, recurrence not specified H66.002 and Type 2 diabetes mellitus without complication, without long-term current use of insulin E11.9 [place] [id number] [place] [address] 80561- 3298 07 Jun, 2017 [place] [address] [address]82- [address] Jun, [place] [id number] [place] [address] 04950- 2838 Jun, Acute pain of left shoulder M25.512 [place] [id number] [place] [address] 64085- 4028 May, Acute pain of left shoulder M25.512 [place] [id number] [place] [address] 71834- 9056 Apr, Acute pain of left shoulder M25.512 [facility] [id number] [place] [address] 12018 -6338 Mar, Acute non-recurrent frontal sinusitis J01.10 [place] [id number] [place] [address] 60401- 5825 Mar, Controlled type 2 diabetes mellitus without complication, without long-term current use of insulin E11.9 [place] [id number] [place] [address] 66094- 0062 Mar, Acute pain of left shoulder M25.512 [facility] [place] [id number] [place] [address] 69153 -9019 Feb, [facility] [place] [address] 25655 -8746 Feb, Burning with urination R30.0 and Acute cystitis N30.00 [place] [address] 08519- 3830 Feb, Acute pain of left shoulder M25.512 [place] [address] 81748- 8675 Jan, Acute pain of left shoulder M25.512 [place] [address] 53315- 6936 Dec, Acute pain of left shoulder M25.512 [place] [address] 34120- 6002 Nov, Essential hypertension I10 and Type 2 diabetes mellitus without complication, without long-term current use of insulin E11.9 [facility] [place] [address] 51749 -6215 Nov, Viral rash B09 [facility] [place] [address] 99225 -4481 Nov, Acute pain of left shoulder M25.512 and Cervicalgia M54.2 [place] [address] 28454- 1508 Oct, Type 2 diabetes mellitus without complication, without long- term current use of insulin E11.9 [facility] [place] [id number] [place] [address] 93732 -1151 Oct, Sore throat J02.9 and Strep throat J02.0 [place] [id number] [place] [address] 62964- 3598 September, Type 2 diabetes mellitus without complication, without long- term current use of insulin E11.9 and Low back pain M54.5 [place] [id number] [place] [address] 09859- 7275 Aug, Uncontrolled type 2 diabetes mellitus without complication, without long-term current use of insulin E11.65 [place] [id number] [place] [address] 90441- 0444 Aug, Dysuria R30.0 [place] [address] 51377- 2716 Jul, Dysuria R30.0 [place] [address] 87552- 3519 Jul, Uncontrolled type 2 diabetes mellitus without complication, without long-term current use of insulin E11.65 [place] [id number] [place] [address] 21108- 1269 Jun, Lumbago with sciatica, left side M54.42 ; Essential hypertension I10 ; Other chronic pain G89.29 and Type 2 diabetes mellitus without complication, without long-term current use of insulin E11.9 [place] [id number] [place] [address] 09549- 9977 May, Essential hypertension I10 and Type 2 diabetes mellitus without complication, without long-term current use of insulin E11.9 [facility] [address] [place] [address] 40079 -4287 Apr, Lumbago with sciatica, left side M54.42 and Other chronic pain G89.29 [place] [id number] [place] [address] 68711- 8643 Apr, Polyuria R35.8 ; Polydipsia R63.1 ; Family history of diabetes mellitus Z83.3 and Essential hypertension I10 [place] [address] [place] [address]- 9787 10 Mar, 2016 [facility] [place] [id number] [place] [address] 08609- 0741 Feb, Coughing R05 and Hypertension, benign I10 [facility] [place] [id number] [place] [address] 17420- 3470 27 Feb, 2016 Hypertension, benign I10 [facility] [place] [address] 05672- 4008 29 Jan, 2016 Epigastric pain R10.13 and Hypertension, benign I10 [facility] [address] 57997 -3784 26 Jan, 2016 Essential hypertension I10 ; Other chest pain R07.89 and Gastroesophageal reflux disease, esophagitis presence not specified K21.9 [facility] [place] [address] 17814- 8087 04 Apr, 2015 Essential hypertension I10 ; Cough R05 ; Obesity due to excess calories, unspecified obesity severity E66.09 ; FH: diabetes mellitus Z83.3 ; FH: hypertension Z82.49 and Alcohol use F10.99 [facility] [id number] [place] [address] 60284 -9742 Mar, Cough R05 [facility] [place] [id number] [place] [address] 60602- 9849 14 Aug, 2014 [facility] [place] [id number] [place] [address] 98101- 7913 Aug, [facility] [place] [id number] [place] [address] 52910- 7698 Apr, [facility] [place] [address] 51526- 6890 Apr, [facility] [place] [id number] [place] [address] 84614- 6242 09 Apr, 2014 [facility] [place] [address] 56547- 8711 Apr, [facility] [place] [address] [facility] [id number], [place] [address]- 1546 Apr, [facility] [place] [address] [facility] [id number], [place] [address]- 2546 Apr, [facility] [place] [address] [facility] [id number], [place] [address] 2546 Apr, [facility] [place] [address] [facility] [id number], [place] [address]- 2546 Apr, [facility] [place] [address] [facility] [id number], [place] [address]- 4246 Apr, [facility] [place] [address] [facility] [id number], [place] [address]- 0996 Apr, [facility] [place] [id number], [place] [address]- 8788 Nov, [facility] [place] [address] [facility] [id number], [place] [address]- 0088 Oct, [facility] [place] [address] [facility] [id number], [place] [address]- 0724 Oct, [facility] [place] [address] [facility] [id number], [place] [address]- 2079 Mar, [facility] [place] [id number], [place] [address]- 5882 Mar, [facility] [place] [address] [facility] [id number], [place] [address] 2543 Feb, [facility] [place] [address] [facility] [id number], [place] [address]- 0616 Feb, [facility] [place] [id number] [address]- 1134 Nov, IMMUNIZATIONS No Known Immunizations SOCIAL HISTORY Never Assessed REASON FOR VISIT cyst on back that has been there for 5-6 years. been bothering him since this past . saw gabe peña last . was started on antibiotics et is still taking them. then he went to the ER et was given pain medication. appt to get it removed on 01/30. ermias PLAN OF CARE Activity Details Follow Up prn Reason: VITAL SIGNS Height 71 in 2018-01-20 Weight 278.6 lbs 2018-01-20 Temperature 98.0 degrees Fahrenheit 2018-01-20 Heart Rate 88 bpm 2018-01-20 Respiratory Rate 20 2018-01-20 BMI 38.85 kg/m2 2018-01-20 Blood pressure systolic 136 mmHg 2018-01-20 Blood pressure diastolic 84 mmHg 2018-01-20 MEDICATIONS Medication Instructions Dosage Frequency Start Date End Date Duration Status Lisinopril 40 mg Orally Once a day 1 tablet 24h Jan, 30 days Active Carafate 1 GM Orally Twice a day 1 tablet on an empty stomach 12h 30 Not-Taking Metformin HCl 500 mg TAKE TWO TABLETS BY MOUTH TWICE DAILY 90 days Active Strong 5-325 MG 1 tablet as needed Active Bactrim DS 800-160 MG Orally Twice a day 1 tablet 12h 30 Dec, 2017 Jan, 10 day(s) Active RESULTS No Results PROCEDURES [...]
--- OUTSIDE RECORDS SUMMARY | 2018-03-16 22:20 | XMS REPORT ---
Author Author YINKA MADRIGAL Organization 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 Name Role Phone YINKA MADRIGAL Unavailable PROBLEMS Type Condition ICD9-CM Code LNE09-EA Code Onset Dates Condition Status SNOMED Code Problem Obesity due to excess calories, unspecified obesity severity E66.09 Active 062693777 Problem Polydipsia R63.1 Active 65083330 Problem Hypertension, benign I10 Active 58071517 Problem Essential hypertension I10 Active 72121874 Problem Alcohol use F10.99 Active 131252 Problem FH: hypertension Z82.49 Active 110027676 Problem FH: diabetes mellitus Z83.3 Active 781025533 Problem Controlled type 2 diabetes mellitus without complication, without long -term current use of insulin E11.9 Active 551516111 Problem Uncontrolled type 2 diabetes mellitus without complication, without long-term current use of insulin E11.65 Active 730096698 Problem Other chronic pain G89.29 Active 23596557 Problem Lumbago with sciatica, left side M54.42 Active 287233287 Problem Type 2 diabetes mellitus without complication, without long-term current use of insulin E11.9 Active 403499516 Problem Other chronic pain G89.29 Active 08442096 ALLERGIES Substance Reaction Event Type Date Status Morphine Sulfate Becomes hostile Drug Allergy Jan, Active ENCOUNTERS Encounter Location Date Diagnosis [facility] [id number] [place] [address] 54765- 2653 17 Jan, 2018 Sebaceous cyst L72.3 [facility] [id number] [place] [address] 64281 -5524 Jan, [facility] [id number] [place] [address] 07718 -5052 Jan, Abscess of back L02.212 [facility] [id number] [place] [address] 61814- 3785 Jan, Sebaceous cyst L72.3 [place] [id number] [place] [address] 93416- 4632 Jan, Essential hypertension I10 and Sebaceous cyst L72.3 [facility] [id number] [place] [address] 70929 -7554 Jan, Cellulitis of back except buttock L03.312 [place] [address] 59585- 4353 Dec, Sebaceous cyst L72.3 [place] [address] 52203- 9717 Oct, Acute suppurative otitis media of left ear without spontaneous rupture of tympanic membrane, recurrence not specified H66.002 and Type 2 diabetes mellitus without complication, without long-term current use of insulin E11.9 [place] [id number] [place] [address] 81476- 3123 Jun, [place] [id number] [place] [address] 07223- 9213 Jun, [place] [id number] [place] [address] 44661- 3910 Jun, Acute pain of left shoulder M25.512 [place] [id number] [place] [address] 47128- 6035 May, Acute pain of left shoulder M25.512 [place] [id number] [place] [address] 99668- 3234 Apr, Acute pain of left shoulder M25.512 [facility] [id number] [place] [address] 35226 -4818 Mar, Acute non-recurrent frontal sinusitis J01.10 [place] [id number] [place] [address] 04230- 3725 Mar, Controlled type 2 diabetes mellitus without complication, without long-term current use of insulin E11.9 [place] [id number] [place] [address] 00708- 1659 Mar, Acute pain of left shoulder M25.512 [facility] [place] [id number] [place] [address] 64208 -4215 Feb, [facility] [place] [address] 64106 -8209 Feb, Burning with urination R30.0 and Acute cystitis N30.00 [place] [address] 93172- 6254 Feb, Acute pain of left shoulder M25.512 [place] [address] 08374- 8392 Jan, Acute pain of left shoulder M25.512 [place] [address] 59947- 5058 Dec, Acute pain of left shoulder M25.512 [place] [address] 02292- 9362 Nov, Essential hypertension I10 and Type 2 diabetes mellitus without complication, without long-term current use of insulin E11.9 [facility] [place] [address] 20573 -7758 Nov, Viral rash B09 [facility] [place] [address] 48805 -5702 Nov, Acute pain of left shoulder M25.512 and Cervicalgia M54.2 [place] [address] 20888- 0589 Oct, Type 2 diabetes mellitus without complication, without long- term current use of insulin E11.9 [facility] [place] [address] 75733 -1401 Oct, Sore throat J02.9 and Strep throat J02.0 [place] [id number] [place] [address] 16627- 1380 September, Type 2 diabetes mellitus without complication, without long- term current use of insulin E11.9 and Low back pain M54.5 [place] [id number] [place] [address] 69788- 1422 Aug, Uncontrolled type 2 diabetes mellitus without complication, without long-term current use of insulin E11.65 [place] [id number] [place] [address] 56683- 8917 Aug, Dysuria R30.0 [place] [address] 95507- 1848 Jul, Dysuria R30.0 [place] [id number] [place] [address] 17447- 2043 Jul, Uncontrolled type 2 diabetes mellitus without complication, without long-term current use of insulin E11.65 [place] [id number] [place] [address] 71053- 7860 Jun, Lumbago with sciatica, left side M54.42 ; Essential hypertension I10 ; Other chronic pain G89.29 and Type 2 diabetes mellitus without complication, without long-term current use of insulin E11.9 [place] [id number] [place] [address] 00455- 8917 May, Essential hypertension I10 and Type 2 diabetes mellitus without complication, without long-term current use of insulin E11.9 [facility] [id number] [place] [address] 79565 -9772 Apr, Lumbago with sciatica, left side M54.42 and Other chronic pain G89.29 [place] [id number] [place] [address] 77408- 4690 Apr, Polyuria R35.8 ; Polydipsia R63.1 ; Family history of diabetes mellitus Z83.3 and Essential hypertension I10 [place] [address] 14218- 8037 Mar, [facility] [id number] [place] [address] 76622- 7597 Feb, Coughing R05 and Hypertension, benign I10 [facility] [id number] [place] [address] 81063- 3126 27 Feb, 2016 Hypertension, benign I10 [facility] [address] 10521- 0924 29 Jan, 2016 Epigastric pain R10.13 and Hypertension, benign I10 [facility] [id number] [place] [address] 31818 -7226 26 Jan, 2016 Essential hypertension I10 ; Other chest pain R07.89 and Gastroesophageal reflux disease, esophagitis presence not specified K21.9 [facility] [id number] [place] [address] 89792- 7199 04 Apr, 2015 Essential hypertension I10 ; Cough R05 ; Obesity due to excess calories, unspecified obesity severity E66.09 ; FH: diabetes mellitus Z83.3 ; FH: hypertension Z82.49 and Alcohol use F10.99 [facility] [id number] [place] [address] 23744 -7436 Mar, Cough R05 [facility] [id number] [place] [address] 35456- 4516 14 Aug, 2014 [facility] [id number] [place] [address] 26506- 2850 Aug, [facility] [id number] [place] [address] 57479- 1843 Apr, [facility] [id number] [place] [address] 18568- 5192 Apr, [facility] [id number] [place] [address] 71527- 4077 Apr, [facility] [id number] [place] [address] 18897- 8750 Apr, [facility] [address] [id number] [address] 2546 Apr, [facility] [address] [facility] [id number] [address] 2546 Apr, [facility] [address] [facility] [id number] [place] [address]- 2546 Apr, [facility] [address] [facility] [id number] [address] 2546 Apr, [facility] [address] [id number] [place] [address] 254 Apr, [facility] [address] [id number] [place] [address] 2546 Apr, [facility] [address] [place] [id number] [address] 2541 Nov, [facility] [address] [facility] [id number] [place] [address] 2546 Oct, [facility] [address] [facility] [id number] [place] [address] 2545 Oct, [facility] [address] [address] [id number] [address]- 6028 Mar, [facility] [address] [id number] [address]- 2546 Mar, [facility] [address] [id number] [address]- 1826 Feb, [facility] [address] [facility] [id number] [place] [address]- 1790 Feb, [facility] [address] [place] [address] [id number] [address]- 1252 Nov, IMMUNIZATIONS No Known Immunizations SOCIAL HISTORY Never Assessed REASON FOR VISIT Cyst removal, In the middle of his back on his spine. PT reports that he was on allen the other weekend and had to go to [facility] due to not being able to walk. PT notes they attempted to drain it which caused more swelling. Pt had to go back on Monday to have it removed. -[facility] PLAN OF CARE Activity Details Follow Up 2 days Reason:wound repacking. VITAL SIGNS Height 71 in 2018-01-30 Weight 291.7 lbs 2018-01-30 Temperature 98.5 degrees Fahrenheit 2018-01-30 Heart Rate 76 bpm 2018-01-30 Respiratory Rate 20 2018-01-30 BMI 40.68 kg/m2 2018-01-30 MEDICATIONS Medication Instructions Dosage Frequency Start Date End Date Duration Status Lisinopril 40 mg Orally Once a day 1 tablet 24h Jan, 30 days Active [place] 5-325 MG Orally every 6 hrs 1 tablet as needed 6h Jan, Active Carafate 1 GM Orally Twice a day 1 tablet on an empty stomach 12h 30 Not-Taking Metformin HCl 500 mg 2 tablets 12h Active RESULTS No Results PROCEDURES No Known [...]
--- OUTSIDE RECORDS SUMMARY | 2018-03-16 22:21 | XMS REPORT ---
Author Author GEORGIANA MESSER Organization [facility] Address [address] [place] [address] Care Team Providers Care Environmental Engineering Aide Name Role Phone GEORGIANA MESSER Unavailable PROBLEMS Type Condition ICD9-CM Code JWW44-UR Code Onset Dates Condition Status SNOMED Code Problem Obesity due to excess calories, unspecified obesity severity E66.09 Active 635763570 Problem Polydipsia R63.1 Active 77387216 Problem Hypertension, benign I10 Active 50957424 Problem Essential hypertension I10 Active 45737211 Problem Alcohol use F10.99 Active 607180 Problem FH: hypertension Z82.49 Active 979360435 Problem FH: diabetes mellitus Z83.3 Active 219349167 Problem Controlled type 2 diabetes mellitus without complication, without long -term current use of insulin E11.9 Active 617010383 Problem Uncontrolled type 2 diabetes mellitus without complication, without long-term current use of insulin E11.65 Active 420624862 Problem Other chronic pain G89.29 Active 72260820 Problem Lumbago with sciatica, left side M54.42 Active 406498329 Problem Type 2 diabetes mellitus without complication, without long-term current use of insulin E11.9 Active 591368929 Problem Other chronic pain G89.29 Active 67100454 ALLERGIES Substance Reaction Event Type Date Status Morphine Sulfate Becomes hostile Drug Allergy Dec, Active ENCOUNTERS Encounter Location Date Diagnosis [facility] [id number] [place] [address] 59743- 9637 17 Jan, 2018 Sebaceous cyst L72.3 [facility] [id number] [place] [address] 39397 -9285 Jan, [facility] [id number] [place] [address] 89743 -1849 15 Jan, 2018 Abscess of back L02.212 [facility] [address] 04787- 6593 13 Jan, 2018 Sebaceous cyst L72.3 [place] [address] 62382- 2360 11 Jan, 2018 Essential hypertension I10 and Sebaceous cyst L72.3 [facility] [address] 83734 -3265 Jan, Cellulitis of back except buttock L03.312 [place] [address] 06306- 3241 Dec, Sebaceous cyst L72.3 [place] [address] 14101- 3796 Oct, Acute suppurative otitis media of left ear without spontaneous rupture of tympanic membrane, recurrence not specified H66.002 and Type 2 diabetes mellitus without complication, without long-term current use of insulin E11.9 [place] [address] 82326- 3675 Jun, [place] [address] 51954- 8565 Jun, [place] [address] 79626- 4673 Jun, Acute pain of left shoulder M25.512 [place] [address] 70661- 0793 May, Acute pain of left shoulder M25.512 [place] [id number] [place] [address] 03978- 8319 Apr, Acute pain of left shoulder M25.512 [facility] [address] 27130 -8543 Mar, Acute non-recurrent frontal sinusitis J01.10 [place] [address] 74783- 7038 Mar, Controlled type 2 diabetes mellitus without complication, without long-term current use of insulin E11.9 [place] [id number] [place] [address] 79511- 5444 Mar, Acute pain of left shoulder M25.512 [facility] [place] [id number] [place] [address] 91593 -0816 18 Feb, 2017 [facility] [place] [address] 76218 -3890 Feb, Burning with urination R30.0 and Acute cystitis N30.00 [place] [address] 27864- 4998 Feb, Acute pain of left shoulder M25.512 [place] [address] 42813- 5889 Jan, Acute pain of left shoulder M25.512 [place] [address] 43603- 0163 Dec, Acute pain of left shoulder M25.512 [place] [address] 65224- 6119 Nov, Essential hypertension I10 and Type 2 diabetes mellitus without complication, without long-term current use of insulin E11.9 [facility] [place] [id number] [place] [address] 39206 -2987 Nov, Viral rash B09 [facility] [place] [address] 58980 -5929 Nov, Acute pain of left shoulder M25.512 and Cervicalgia M54.2 [place] [address] 14826- 0211 Oct, Type 2 diabetes mellitus without complication, without long- term current use of insulin E11.9 [facility] [place] [id number] [place] [address] 08804 -4042 Oct, Sore throat J02.9 and Strep throat J02.0 [place] [address] [place] [address] 45666- 1960 September, Type 2 diabetes mellitus without complication, without long- term current use of insulin E11.9 and Low back pain M54.5 [place] [id number] [place] [address] 82067- 4641 Aug, Uncontrolled type 2 diabetes mellitus without complication, without long-term current use of insulin E11.65 [place] [id number] [place] [address] 04673- 6508 Aug, Dysuria R30.0 [place] [id number] [place] [address] 24135- 6993 Jul, Dysuria R30.0 [place] [id number] [place] [address] 99298- 9163 Jul, Uncontrolled type 2 diabetes mellitus without complication, without long-term current use of insulin E11.65 [place] [id number] [place] [address] 07653- 8446 Jun, Lumbago with sciatica, left side M54.42 ; Essential hypertension I10 ; Other chronic pain G89.29 and Type 2 diabetes mellitus without complication, without long-term current use of insulin E11.9 [place] [id number] [place] [address] 30236- 7039 May, Essential hypertension I10 and Type 2 diabetes mellitus without complication, without long-term current use of insulin E11.9 [facility] [address] [place] [address] 32531 -8005 Apr, Lumbago with sciatica, left side M54.42 and Other chronic pain G89.29 [place] [id number] [place] [address] 58337- 5761 Apr, Polyuria R35.8 ; Polydipsia R63.1 ; Family history of diabetes mellitus Z83.3 and Essential hypertension I10 [place] [id number] [place] [address] 43060- 6776 Mar, [facility] [id number] [place] [address] 10242- 3502 Feb, Coughing R05 and Hypertension, benign I10 [facility] [id number] [place] [address] 52299- 8521 27 Feb, 2016 Hypertension, benign I10 [facility] [id number] [place] [address] 05111- 6766 29 Jan, 2016 Epigastric pain R10.13 and Hypertension, benign I10 [facility] [id number] [place] [address] 45963 -2287 26 Jan, 2016 Essential hypertension I10 ; Other chest pain R07.89 and Gastroesophageal reflux disease, esophagitis presence not specified K21.9 [facility] [id number] [place] [address] 67956- 9275 04 Apr, 2015 Essential hypertension I10 ; Cough R05 ; Obesity due to excess calories, unspecified obesity severity E66.09 ; FH: diabetes mellitus Z83.3 ; FH: hypertension Z82.49 and Alcohol use F10.99 [facility] [id number] [place] [address] 12345 -1364 Mar, Cough R05 [facility] [id number] [place] [address] 29100- 0778 14 Aug, 2014 [facility] [id number] [place] [address] 50422- 6688 Aug, [facility] [id number] [place] [address] 37480- 2280 Apr, [facility] [address] 96632- 1906 Apr, [facility] [id number] [place] [address] 26429- 8127 Apr, [facility] [id number] [place] [address] 34051- 1292 Apr, [facility] [address] [facility] [id number], [place] [address]- 0453 Apr, [facility] [address] [facility] [id number], [place] [address]- 9586 Apr, [facility] [address] [facility] [id number], [place] [address]- 9887 Apr, [facility] [address] [facility] [id number], [place] [address]- 1648 Apr, [facility] [address] [facility] [id number], [place] [address]- 2406 Apr, [facility] [address] [facility] [id number], [place] [address]- 7111 Apr, [facility] [address] [facility] [id number], [place] [address]- 7610 Nov, [facility] [address] [facility] [id number], [place] [address]- 6723 Oct, [facility] [address] [facility] [id number], [place] [address]- 1315 Oct, [facility] [address] [id number], [place] [address]- 2675 Mar, [facility] [address] [id number], [place] [address]- 3948 Mar, [facility] [address] [facility] [id number], [place] [address]- 1737 Feb, [facility] [address] [facility] [id number][place]- 3895 Feb, [facility] [address] [facility] [id number], [place] [address]- 5632 Nov, IMMUNIZATIONS No Known Immunizations SOCIAL HISTORY Never Assessed REASON FOR VISIT bruising and knot on back, PT denies known injury but reports that it appeared 5 years ago and the pain just recently started gettign worse to the point he struggles to get up -[facility] PLAN OF CARE Activity Details Follow Up prn Reason: VITAL SIGNS Height 71 in 2018-01-18 Weight 283.3 lbs 2018-01-18 Temperature 98.4 degrees Fahrenheit 2018-01-18 Heart Rate 100 bpm 2018-01-18 Respiratory Rate 20 2018-01-18 Oximetry 97 % 2018-01-18 BMI 39.51 kg/m2 2018-01-18 Blood pressure systolic 152 mmHg 2018-01-18 Blood pressure diastolic 90 mmHg 2018-01-18 MEDICATIONS Medication Instructions Dosage Frequency Start Date End Date Duration Status Carafate 1 GM Orally Twice a day 1 tablet on an empty stomach 12h 30 Active Bactrim DS 800-160 MG Orally Twice a day 1 tablet 12h 30 Dec, 2017 Jan, 10 day(s) Active Lisinopril 40 mg Orally Once a day 1 tablet 24h 26 Jan, 2016 30 days Active Metformin HCl 500 mg TAKE [...]
--- OUTSIDE RECORDS SUMMARY | 2018-03-16 22:29 | XMS REPORT | Continuity of Care Document ---
Author Author [facility] Address Unknown Phone Unavailable Allergies Active Description Code Type Severity Reaction Onset Reported/Identified Relationship to Patient Clinical Status Yes morphine [id number] Drug Allergy Moderate N/A 09/13/2016 Medications There [...] SHORTNESS OF BREATH 12/21/2013 PABON, PETER J PROGRAM PROPOSALS COORDINATOR Ot 729.5 PAIN IN LIMB 04/14/2014 EMERSON [...] R42 DIZZINESS AND GIDDINESS 12/28/2015 ROCKY DO, YNIKA Ibanez Ot R51 HEADACHE 12/28/2015 YINKA HIDALGO DO Ot R73.9 HYPERGLYCEMIA, UNSPECIFIED 12/29/2015 ROCKY DOYINKA Ot N30.90 CYSTITIS, UNSPECIFIED WITHOUT HEMATURIA 12/29/2015 ROCKY YINKA EVANS Ot R11.0 NAUSEA 12/29/2015 ROCKY DOYINKA Ot R42 DIZZINESS AND GIDDINESS 12/29/2015 ROCKY DO, YINKA Ibanez Ot R51 HEADACHE 12/29/2015 ROCKY DOYINKA Ot R73.9 HYPERGLYCEMIA, UNSPECIFIED 12/29/2015 YINKA [...] R05 COUGH 06/25/2016 EMERSON CHARLTON Ot Z79.84 [facility] (CURRENT) USE OF ORAL HYPOGLYC 06/25/2016 EMERSON CHARLTON Ot Z79.899 OTHER OUTSOLE TACKER (CURRENT) DRUG THERAPY 06/26/2016 EMERSON CHARLTON Ot J11.1 FLU DUE TO UNIDENTIFIED INFLUENZA VIRUS 06/26/2016 EMERSON CHARLTON Ot M54.5 LOW BACK PAIN 06/26/2016 EMERSON CHARLTON Ot R05 COUGH 06/26/2016 EMERSON CHARLTON Ot Z79.84 OUTSOLE TACKER (CURRENT) USE OF ORAL HYPOGLYC 06/26/2016 EMERSON CHARLTON Ot Z79.899 OTHER OUTSOLE TACKER (CURRENT) DRUG THERAPY 06/27/2016 EMERSON CHARLTON Ot J11.1 FLU DUE TO UNIDENTIFIED INFLUENZA VIRUS 06/27/2016 EMERSON CHARLTON Ot M54.5 LOW BACK PAIN 06/27/2016 EMERSON CHARLTON Ot R05 COUGH 06/27/2016 EMERSON CHARLTON Ot Z79.84 [facility] (CURRENT) USE OF ORAL HYPOGLYC 06/27/2016 EMERSON CHARLTON Ot Z79.899 OTHER [facility] (CURRENT) DRUG THERAPY 09/13/2016 YINKA HIDALGO DO Ot E11.9 TYPE 2 DIABETES MELLITUS WITHOUT COMPLIC 09/13/2016 YINKA HIDALGO DO Ot H81.12 BENIGN PAROXYSMAL VERTIGO, LEFT EAR 09/13/2016 YINKA HIDALGO DO Ot R42 DIZZINESS AND GIDDINESS 09/13/2016 YINKA HIDALGO DO, Ot Z79.84 OUTSOLE TACKER (CURRENT) USE OF ORAL HYPOGLYC 09/13/2016 YINKA HIDALGO DO Ot Z87.891 PERSONAL HISTORY OF NICOTINE DEPENDENCE 09/14/2016 ROCKY EVANSYINKA Ot E11.9 TYPE 2 DIABETES MELLITUS WITHOUT COMPLIC 09/14/2016 ROCKY EVANSYINKA Shamar Ot H81.12 BENIGN PAROXYSMAL VERTIGO, LEFT EAR 09/14/2016 ROCKY EVANSYINKA Ot R42 DIZZINESS AND GIDDINESS 09/14/2016 ROCKY EVANS YINKA Shamar Ot Z79.84 [facility] (CURRENT) USE OF ORAL HYPOGLYC 09/14/2016 ROCKY EVANS YINKA Shamar Ot Z87.891 PERSONAL HISTORY OF NICOTINE DEPENDENCE 09/15/2016 ROCKY EVANSYINKA Ot E11.9 TYPE 2 DIABETES MELLITUS WITHOUT COMPLIC 09/15/2016 ROCKY EVANS YINKA Ibanez Ot H81.12 BENIGN PAROXYSMAL VERTIGO, LEFT EAR 09/15/2016 ROCKY EVANSYINKA Ot R42 DIZZINESS AND GIDDINESS 09/15/2016 ROCKY EVANS YINKA Shamar Ot Z79.84 [facility] (CURRENT) USE OF ORAL HYPOGLYC 09/15/2016 ROCKY EVANSYINKA Ot Z87.891 PERSONAL HISTORY OF NICOTINE DEPENDENCE 01/02/2017 FRACISCO LORA MD Ot N39.0 URINARY TRACT INFECTION, SITE NOT SPECIF 01/02/2017 FRACISCO LORA MD Ot R39.11 HESITANCY OF MICTURITION 01/02/2017 FRACISCO LORA MD Ot Z79.84 OUTSOLE TACKER (CURRENT) USE OF ORAL HYPOGLYC 01/02/2017 FRACISCO LORA MD Ot Z87.448 PERSONAL HISTORY OF OTHER DISEASES OF UR 01/02/2017 FRACISCO LORA MD Ot 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 01/05/2017 FRACISCO LORA MD Ot N39.0 URINARY TRACT INFECTION, SITE NOT SPECIF 01/05/2017 FRACISCO LORA MD Ot R39.11 HESITANCY OF MICTURITION 01/05/2017 FRACISCO LORA MD Ot Z79.84 OUTSOLE TACKER (CURRENT) USE OF ORAL HYPOGLYC 01/05/2017 FRACISCO [...] R30.0 DYSURIA 02/15/2017 EMERSON CHARLTON Ot Z79.84 [facility] (CURRENT) USE OF ORAL HYPOGLYC 02/15/2017 EMERSON [...] R30.0 DYSURIA 02/21/2017 EMERSON CHARLTON Ot Z79.84 OUTSOLE TACKER (CURRENT) USE OF ORAL HYPOGLYC 02/21/2017 EMERSON [...] 10/04/2017 LYLE DO, TAMERA K Ot Z79.84 OUTSOLE TACKER (CURRENT) USE OF ORAL HYPOGLYC 10/04/2017 LYLE [...] 10/09/2017 LYLE DO, TAMERA K Ot Z79.84 [facility] (CURRENT) USE OF ORAL HYPOGLYC 10/09/2017 LYLE [...] Ot I10 ESSENTIAL (PRIMARY) HYPERTENSION 01/18/2018 BERNOT, ULZ Ot L72.3 SEBACEOUS CYST 01/18/2018 BERNOT, LUZ Ot Z79.84 [facility] (CURRENT) USE OF ORAL HYPOGLYC 01/18/2018 BERNOT LUZ Ot Z87.19 PERSONAL HISTORY OF OTHER DISEASES OF TH 01/18/2018 BERNOT LUZ Ot Z87.448 PERSONAL HISTORY OF OTHER DISEASES OF UR 01/24/2018 BERNOT, LUZ Ot E11.9 TYPE 2 DIABETES MELLITUS WITHOUT COMPLIC 01/24/2018 BERNOT, LUZ Ot I10 ESSENTIAL (PRIMARY) HYPERTENSION 01/24/2018 BERNOT, LUZ Ot L72.3 SEBACEOUS CYST 01/24/2018 BERNOT, LUZ Ot Z79.84 [facility] (CURRENT) USE OF ORAL HYPOGLYC 01/24/2018 BERNOT, LUZ Ot Z87.19 PERSONAL HISTORY OF OTHER DISEASES OF 01/24/2018 LUZ FERNANDEZ Ot Z87.448 PERSONAL HISTORY OF OTHER DISEASES OF UR 02/12/2018 GAGANDEEP RIOS MD, Ot E11.9 TYPE 2 DIABETES MELLITUS WITHOUT COMPLIC 02/12/2018 GAGANDEEP RIOS MD Ot I10 ESSENTIAL (PRIMARY) HYPERTENSION 02/12/2018 GAGANDEEP RIOS MD Ot N39.0 URINARY TRACT INFECTION, SITE NOT SPECIF 02/12/2018 GAGANDEEP RIOS MD Ot R10.31 RIGHT LOWER QUADRANT PAIN 02/12/2018 GAGANDEEP RIOS MD Ot Z79.84 [facility] (CURRENT) USE OF ORAL HYPOGLYC 02/12/2018 GAGANDEEP RIOS MD Ot Z87.19 PERSONAL HISTORY OF OTHER DISEASES OF TH 02/12/2018 GAGANDEEP RIOS MD, Ot Z87.448 PERSONAL HISTORY OF OTHER DISEASES OF UR 02/12/2018 GAGANDEEP RIOS MD Ot Z87.891 PERSONAL HISTORY OF NICOTINE DEPENDENCE 02/12/2018 GAGANDEEP RIOS MD, Ot Z88.5 ALLERGY STATUS TO NARCOTIC AGENT STATUS 02/12/2018 GAGANDEEP RIOS MD Ot 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 02/16/2018 GAGANEDEP RIOS MD Ot E11.9 TYPE 2 DIABETES MELLITUS WITHOUT COMPLIC 02/16/2018 GAGANDEEP RIOS MD Ot I10 ESSENTIAL (PRIMARY) HYPERTENSION 02/16/2018 GAGANDEEP RIOS MD Ot N39.0 URINARY TRACT INFECTION, SITE NOT SPECIF 02/16/2018 GAGANDEEP RIOS MD Ot R10.31 RIGHT LOWER QUADRANT PAIN 02/16/2018 GAGANDEEP RIOS MD Ot Z79.84 [facility] (CURRENT) USE OF ORAL HYPOGLYC 02/16/2018 GAGANDEEP RIOS MD Ot Z87.19 PERSONAL HISTORY OF OTHER DISEASES OF TH 02/16/2018 GAGANDEEP RIOS MD, Ot Z87.448 PERSONAL HISTORY OF OTHER DISEASES OF UR 02/16/2018 GAGANDEEP RIOS MD Ot Z87.891 PERSONAL HISTORY OF NICOTINE DEPENDENCE 02/16/2018 GAGANDEEP RIOS MD Ot Z88.5 ALLERGY STATUS TO NARCOTIC AGENT STATUS 02/16/2018 GAGANDEEP RIOS MD Ot 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 02/19/2018 JESSICA PABON APRN Ot E11.9 TYPE 2 DIABETES MELLITUS WITHOUT COMPLIC 02/19/2018 JESSICA PABON APRN Ot I10 ESSENTIAL (PRIMARY) HYPERTENSION 02/19/2018 JESSICA PABON APRN Ot M54.5 LOW BACK PAIN 02/19/2018 JESSICA PABON APRN Ot N39.0 URINARY TRACT INFECTION, SITE NOT SPECIF 02/19/2018 JESSICA PABON APRN Ot Z79.84 [facility] (CURRENT) USE OF ORAL HYPOGLYC 02/19/2018 JESSICA PABON APRN Ot Z87.19 PERSONAL HISTORY OF OTHER DISEASES OF TH 02/19/2018 JESSICA PABON APRN Ot Z87.442 PERSONAL HISTORY OF URINARY CALCULI 02/19/2018 JESSICA PABON APRN Ot Z87.891 PERSONAL HISTORY OF NICOTINE DEPENDENCE 02/19/2018 JESSICA PABON APRN Ot Z88.5 ALLERGY STATUS TO NARCOTIC AGENT STATUS 02/19/2018 JESSICA PABON APRN Ot 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..] rickettsii IgG antibody assay (units/volume) <1:16 <1:16 [place] spotted fever panel <1:10 <1:10 Francisella tularensis [...] FOR INFLUENZA A AND B ANTIGENS BY [facility] Complete blood count (CBC) with automated white [...] measurement (mass/volume) 4.3 g/dL 3.2-4.5 Microalb/Creat Ratio, Rand Ur - 09/29/16 10:29 Creatinine, Urine 123.5 [...] culture - 01/02/17 02:45 Bacterial urine culture [id number] NRG COLONY COUNT <10,000 NRG FTX;REPORTABLE SENSITIVITY REPORTED 01/05/17 8:45 NRG FREE TEXT ENTRY 3 MIXED GRAM POSITIVE ANTHONY 10-100,000/ML NRG Bacterial susceptibility panel - 01/02/17 02:45 Gentamicin [...] - 03/05/17 16:27 Urine Culture, Routine Note Complete urinalysis with reflex to culture - 02/10/18 21:05 Urine color determination YELLOW NRG Urine clarity determination VERY CLOUDY NRG Urine pH measurement by test strip 5 5-9 Specific gravity of urine by test strip 1.025 1.016- 1.022 Urine protein assay by test strip, semi-quantitative 3+ NEGATIVE Urine glucose detection by automated test strip NEGATIVE NEGATIVE Erythrocytes detection in urine sediment by light microscopy 4+ NEGATIVE Urine ketones detection by automated test strip NEGATIVE NEGATIVE Urine nitrite detection by test strip POSITIVE NEGATIVE Urine total bilirubin detection by test strip NEGATIVE NEGATIVE Urine urobilinogen measurement by automated test strip (mass/volume) NORMAL NORMAL Urine leukocyte esterase detection by dipstick 2+ NEGATIVE Automated urine sediment erythrocyte count by microscopy (number/high power field) [HPF] NRG Automated urine sediment leukocyte count by microscopy (number/high power field ) > [HPF] NRG Bacteria detection in urine sediment by light microscopy LARGE NRG Squamous epithelial cells detection in urine sediment by light microscopy 2-5 NRG Crystals detection in urine sediment by light microscopy NONE NRG Casts detection in urine sediment by light microscopy NONE NRG Mucus detection in urine sediment by light microscopy SMALL NRG Complete urinalysis with reflex to culture YES NRG Renal epithelial cells detection in urine sediment by light microscopy NONE NRG Bacterial urine culture - 02/10/18 21:05 Bacterial urine culture [id number] NRG COLONY COUNT >100,000/ML NRG FTX;REPORTABLE RML SENT FINAL REPORT 02/12 11:05 NRG RML Sensitivity Panel - 02/10/18 21:05 Gentamicin susceptibility test by minimum inhibitory concentration < = NRG Trimethoprim/sulfamethoxazole susceptibility test by minimum inhibitoryconcentration <= NRG Levofloxacin susceptibility test by minimum inhibitory concentration <= NRG Ampicillin susceptibility test by minimum inhibitory concentration R NRG Cefazolin susceptibility test by minimum inhibitory concentration 2 NRG Ceftriaxone susceptibility test by minimum inhibitory concentration <= NRG Ciprofloxacin susceptibility test by minimum inhibitory concentration <= NRG Meropenem susceptibility test by minimum inhibitory concentration < = NRG Nitrofurantoin susceptibility test by minimum inhibitory concentration > NRG Amoxicillin and clavulanate potassium susc JOHNNY <= NRG Complete blood count (CBC) with automated white blood cell (WBC) differential - 02/10/18 21:18 Blood leukocytes automated count (number/volume) 13.3 10*3/uL 4.3-11.0 Blood erythrocytes automated count (number/volume) 4.34 10*6/uL 4.35-5.85 Venous blood hemoglobin measurement (mass/volume) 13.6 g/dL 13.3-17.7 Blood hematocrit (volume fraction) 40 % 40-54 Automated erythrocyte mean corpuscular volume 92 [foz_us] 80-99 Automated erythrocyte mean corpuscular hemoglobin (mass per erythrocyte) 31 pg 25-34 Automated erythrocyte mean corpuscular hemoglobin concentration measurement ( mass/volume) 34 g/dL 32-36 Automated erythrocyte distribution width ratio 13.6 % 10.0-14.5 Automated blood platelet count (count/volume) 375 10*3/uL 130-400 Automated blood platelet mean volume measurement 11.2 [foz_us] 7.4-10.4 Automated blood neutrophils/100 leukocytes 63 % 42-75 Automated blood lymphocytes/100 leukocytes 23 % 12-44 Blood monocytes/100 leukocytes 11 % 0-12 Automated blood eosinophils/100 leukocytes 2 % 0-10 Automated blood basophils/100 leukocytes 0 % 0-10 Blood neutrophils automated count (number/volume) 8.4 10*3 1.8-7.8 Blood lymphocytes automated count (number/volume) 3.1 10*3 1.0-4.0 Blood monocytes automated count (number/volume) 1.5 10*3 0.0-1.0 Automated eosinophil count 0.3 10*3/uL 0.0-0.3 Automated blood basophil count (count/volume) 0.0 10*3/uL 0.0-0.1 Comprehensive metabolic panel - 02/10/18 21:18 Serum or plasma sodium measurement (moles/volume) 135 mmol/L 135-145 Serum or plasma potassium measurement (moles/volume) 6.2 mmol/L 3.6-5.0 Serum or plasma chloride measurement (moles/volume) 103 mmol/L 98-107 Carbon dioxide 21 mmol/L 21-32 Serum or plasma anion gap determination (moles/volume) 11 mmol/L 5-14 Serum or plasma urea nitrogen measurement (mass/volume) 11 mg/dL 7-18 Serum or plasma creatinine measurement (mass/volume) 0.88 mg/dL 0.60-1.30 Serum or plasma urea nitrogen/creatinine mass ratio 13 NRG Serum or plasma creatinine measurement with calculation of estimated glomerular filtration rate > NRG Serum or plasma glucose measurement (mass/volume) 185 mg/dL 70-105 Serum or plasma calcium measurement (mass/volume) 9.7 mg/dL 8.5-10.1 Serum or plasma total bilirubin measurement (mass/volume) 0.2 mg/dL 0.1-1.0 Serum or plasma alkaline phosphatase measurement (enzymatic activity/volume) 73 U/L 40-136 Serum or plasma aspartate aminotransferase measurement (enzymatic activity/ volume) 36 U/L 5-34 Serum or plasma alanine aminotransferase measurement (enzymatic activity/volume ) 31 U/L 0-55 Serum or plasma protein measurement (mass/volume) 8.2 g/dL 6.4-8.2 Serum or plasma albumin measurement (mass/volume) 4.0 g/dL 3.2-4.5 CALCIUM CORRECTED 9.7 mg/dL 8.5-10.1 Complete urinalysis with reflex to culture - 02/17/18 19:06 Urine color determination RED NRG Urine clarity determination BLOODY NRG Urine pH measurement by test strip 6.5 5-9 Specific gravity of urine by test strip 1.015 1.016- 1.022 Urine protein assay by test strip, semi-quantitative 4+ NEGATIVE Urine glucose detection by automated test strip NEGATIVE NEGATIVE Erythrocytes detection in urine sediment by light microscopy 5+ NEGATIVE Urine ketones detection by automated test strip NEGATIVE NEGATIVE Urine nitrite detection by test strip POSITIVE NEGATIVE Urine total bilirubin detection by test strip NEGATIVE NEGATIVE Urine urobilinogen measurement by automated test strip (mass/volume) NORMAL NORMAL Urine leukocyte esterase detection by dipstick 3+ NEGATIVE Automated urine sediment erythrocyte count by microscopy (number/high power field) TNTC NRG Automated urine sediment leukocyte count by microscopy (number/high power field ) [HPF] NRG Bacteria detection in urine sediment by light microscopy TRACE NRG Crystals detection in urine sediment by light microscopy NONE NRG Casts detection in urine sediment by light microscopy NONE NRG Mucus detection in urine sediment by light microscopy NEGATIVE NRG Complete urinalysis with reflex to culture YES NRG Bacterial urine culture - 02/17/18 19:06 Bacterial urine culture [id number] NRG COLONY COUNT >100,000/ML NRG FTX;REPORTABLE FINAL REPORT WITH SENSITIVITY REPORTED NRG FREE TEXT ENTRY 2 02/19/18 12:05 NRG RML Sensitivity Panel - 02/17/18 19:06 Gentamicin susceptibility test by minimum inhibitory concentration < = NRG Trimethoprim/sulfamethoxazole susceptibility test by minimum inhibitoryconcentration <= NRG Levofloxacin susceptibility test by minimum inhibitory concentration <= NRG Ampicillin susceptibility test by minimum inhibitory concentration R NRG Cefazolin susceptibility test by minimum inhibitory concentration 2 NRG Ceftriaxone susceptibility test by minimum inhibitory concentration <= NRG Ciprofloxacin susceptibility test by minimum inhibitory concentration <= NRG Meropenem susceptibility test by minimum inhibitory concentration < = NRG Nitrofurantoin susceptibility test by minimum inhibitory concentration > NRG Amoxicillin and clavulanate potassium susc JOHNNY <= NRG Chlamydia DNA amp probe, urine - 02/17/18 19:10 Chlamydia DNA amp probe, urine Detected Not Detected Urine Neisseria gonorrhoeae DNA assay - 02/17/18 19:10 Gonorrhea amp DNA-urine Not Detected Not Detected Complete blood count (CBC) with automated white blood cell (WBC) differential - 02/17/18 19:55 Blood leukocytes automated count (number/volume) 16.1 10*3/uL 4.3-11.0 Blood erythrocytes automated count (number/volume) 4.78 10*6/uL 4.35-5.85 Venous blood hemoglobin measurement (mass/volume) 14.5 g/dL 13.3-17.7 Blood hematocrit (volume fraction) 44 % 40-54 Automated erythrocyte mean corpuscular volume 91 [foz_us] 80-99 Automated erythrocyte mean corpuscular hemoglobin (mass per erythrocyte) 30 pg 25-34 Automated erythrocyte mean corpuscular hemoglobin concentration measurement ( mass/volume) 33 g/dL 32-36 Automated erythrocyte distribution width ratio 13.9 % 10.0-14.5 Automated blood platelet count (count/volume) 447 10*3/uL 130-400 Automated blood platelet mean volume measurement 9.8 [foz_us] 7.4-10.4 Automated blood neutrophils/100 leukocytes 66 % 42-75 Automated blood lymphocytes/100 leukocytes 24 % 12-44 Blood monocytes/100 leukocytes 8 % 0-12 Automated blood eosinophils/100 leukocytes 2 % 0-10 Automated blood basophils/100 leukocytes 0 % 0-10 Blood neutrophils automated count (number/volume) 10.6 10*3 1.8-7.8 Blood lymphocytes automated count (number/volume) 3.8 10*3 1.0-4.0 Blood monocytes automated count (number/volume) 1.4 10*3 0.0-1.0 Automated eosinophil count 0.3 10*3/uL 0.0-0.3 Automated blood basophil count (count/volume) 0.0 10*3/uL 0.0-0.1 Whole blood basic metabolic panel - 02/17/18 19:55 Serum or plasma sodium measurement (moles/volume) 137 mmol/L 135-145 Serum or plasma potassium measurement (moles/volume) 4.1 mmol/L 3.6-5.0 Serum or plasma chloride measurement (moles/volume) 105 mmol/L 98-107 Carbon dioxide 19 mmol/L 21-32 Serum or plasma anion gap determination (moles/volume) 13 mmol/L 5-14 Serum or plasma urea nitrogen measurement (mass/volume) 11 mg/dL 7-18 Serum or plasma creatinine measurement (mass/volume) 0.93 mg/dL 0.60-1.30 Serum or plasma urea nitrogen/creatinine mass ratio 12 NRG Serum or plasma creatinine measurement with calculation of estimated glomerular filtration rate > NRG Serum or plasma glucose measurement (mass/volume) 163 mg/dL 70-105 Serum or plasma calcium measurement (mass/volume) 10.0 mg/dL 8.5-10.1 Blood manual differential performed detection - 02/17/18 19:55 Blood monocytes/100 leukocytes 4 % NRG Manual blood segmented neutrophils/100 leukocytes 68 % NRG Blood band neutrophils/100 leukocytes 0 % NRG Manual blood lymphocytes/100 leukocytes 27 % NRG Manual eosinophils/100 leukocytes in nose 1 % NRG Manual blood basophils/100 leukocytes 0 % NRG Blood erythrocyte morphology finding identification NORMAL NRG Encounters ACCT No. Visit Date/Time Discharge Status Pt. Type Provider Facility Loc./Unit Complaint [id number] 04/23/2014 14:03:00 04/23/2014 23:59:59 CLS Outpatient ISAAC WILDER APRNNDTorin Garcia [id number] 04/23/2014 14:03:00 04/23/2014 23:59:59 CLS Outpatient MEÑO MIGUELNCHELSITorin Garcia [id number] 10/24/2012 17:53:00 Document Registration [id number] 03/18/2016 08:07:00 Document Registration [id number] 02/17/2018 18:51:00 02/17/2018 20:59:00 DIS Outpatient JESSICA PABON APRN [facility] ER "BLADDER INFECTION" [id number] 02/10/2018 19:41:00 02/10/2018 23:01:00 DIS Outpatient GAGANDEEP RIOS MD [facility] ER ABD PAIN [id number] 01/18/2018 18:27:00 01/18/2018 18:55:00 DIS Emergency LUZ FERNANDEZ [facility] ER BACK PAIN [id number] 10/04/2017 04:55:00 10/04/2017 05:59:00 DIS Emergency TAMERA ALVARENGA DO [facility] ER RIB PAIN [id number] 02/15/2017 20:33:00 02/15/2017 23:36:00 DIS Emergency EMERSON CHARLTON [facility] ER BLADDER INFECTION [id number] 01/02/2017 02:20:00 01/02/2017 03:23:00 DIS Emergency FRACISCO LORA MD [facility] ER POSS BLADDER INFECT [id number] 09/13/2016 05:59:00 09/13/2016 07:24:00 DIS Emergency YINKA HIDALGO DO [facility] ER DIZZY,NAUSEA [id number] 06/25/2016 13:07:00 06/25/2016 13:55:00 DIS Emergency EMERSON CHARLTON [facility] ER NAUSEA/LOWER BACK PAIN /COUGH [id number] 03/09/2016 05:31:00 03/09/2016 06:11:00 DIS Emergency JIGAR HIGH MD [facility] ER HEMMOROIDS [id number] 12/29/2015 21:02:00 12/29/2015 23:47:00 DIS Emergency YINKA HIDALGO DO [facility] ER BLADDER INFECTION/VOMITING /HEADACHE [id number] 12/28/2015 05:55:00 12/28/2015 08:59:00 DIS Emergency YINKA HIDALGO DO [facility] ER DIZZY, HEADACHE, N/V [id number] 09/23/2015 06:00:00 09/23/2015 07:35:00 DIS Emergency ANGELINA ZEE DO [facility] ER GROIN PAIN [id number] 05/25/2015 19:47:00 05/25/2015 21:28:00 DIS Emergency JESSICA PABON APRN [facility] ER L WRIST PAIN [id number] 04/01/2015 18:23:00 04/01/2015 19:56:00 DIS Emergency EMERSON CHARLTON [facility] ER CONGESTION,COUGH [id number] 12/14/2014 10:59:00 12/14/2014 12:04:00 DIS Emergency EMERSON CHARLTON [facility] ER BLADDER INFECTION [id number] 12/10/2014 18:13:00 12/10/2014 19:15:00 DIS Emergency JESSICA PABON APRN [facility] ER R RIB PAIN [id number] 11/17/2014 05:44:00 11/17/2014 06:05:00 DIS Emergency GAGANDEEP RIOS MD [facility] ER L KNEE INJ [id number] 08/25/2014 07:03:00 08/25/2014 08:38:00 DIS Emergency YINKA HIDALGO DO [facility] ER RIGHT SIDE/BACK/RIB PAIN [id number] 05/20/2014 23:25:00 05/21/2014 01:13:00 DIS Emergency TAMERA ALVARENGA DO [facility] ER BLOOD IN STOOL [id number] 04/14/2014 18:08:00 04/14/2014 20:36:00 DIS Emergency EMERSON CHARLTON [facility] ER SOA [id number] 12/21/2013 19:43:00 12/21/2013 20:57:00 DIS Emergency JESSICA PABON APRN [facility] ER L ARM PAIN [id number] 07/26/2013 03:42:00 07/26/2013 04:15:00 DIS Emergency BLANCA BELTRÁN, GAGANDEEP Ibanez [facility] ER SOA [id number] 11/24/2012 21:15:00 11/26/2012 14:40:00 DIS Inpatient [id number] 03/10/2015 19:02:00 Document Registration [id number] 07/07/2014 15:03:00 Document Registration [id number] 01/06/2012 18:48:00 Document Registration [id number] 12/12/2011 17:45:00 Document Registration [id number] 02/16/2011 14:30:00 Document Registration [id number] 01/24/2011 11:44:00 Document Registration [id number] 12/23/2010 03:16:00 Document Registration [id number] 07/11/2010 09:56:00 Document Registration [id number] 10/18/2009 20:35:00 Document Registration [id number] 11/08/2017 18:40:00 11/08/2017 23:59:59 [facility] Outpatient YINKA MADRIGAL APRN [facility] [id number] 03/05/2017 15:40:00 Document Registration [id number] 03/08/2017 00:08:00 Document Registration [id number] 10/01/2016 11:06:00 Document Registration
--- NOTE | 2018-03-16 22:48 | ED Cough/URI ---
General Chief Complaint: Cough/Cold/Flu Symptoms Stated Complaint: NAUSEA/HEADACHE/BODY ACHES Nursing Triage Note: nonproductive cough, bodyache, n/vx1 Source: patient Exam Limitations: no limitations History of Present Illness Date Seen by Provider: Mar 16, 2018 Time Seen by Provider: 23:30 Initial Comments PT ARRIVES VIA POV--STATES HE LEFT WORK EARLY ( [employer] ) AND CAME HERE STATES HE BEGAN GETTING SICK TODAY C/O HEADACHE C/O FEELING "DROWSY AND WOOZY" C/O "REALLY BAD COUGH" WITH OCCASIONAL YELLOW/GREEN SPUTUM NO SHORTNESS OF BREATH OR CHEST PAIN/PAINFUL BREATHING, BUT OCCASIONALLY HAS WHEEZING C/O NASAL CONGESTION C/O BODY ACHES C/O NAUSEA AND VOMITED X 1 STATES HE HAS NOT HAD FEVER TODAY, BUT FOR THE LAST COUPLE OF WEEKS HE HAS BEEN HAVING SUBJECTIVE FEVERS AT NIGHT AND WILL TAKE A TYLENOL AND WHEN IT COMES DOWN , HE WILL START HAVING SWEATS STATES ALL OF HIS FAMILY HAS BEEN PASSING THIS AROUND--STATES " I STARTED IT, AND PASSED IT AROUND TO EVERYONE AND NOW I'VE GOT IT BACK AGAIN" STATES HE HAD EXACT SAME SYMPTOMS 3 WEEKS AGO, AND CAME TO ER AND WAS GIVEN RX FOR ANTIBIOTIC--STATES THOSE SYMPTOMS WENT AWAY AND CAME BACK TODAY. STATES HE ALSO HAD A KIDNEY STONE AT THAT TIME--ON REVIEW OF OLD CHART, PT WAS DX WITH UTI AND PLACED ON BACTRIM--NO KIDNEY STONE AT THAT TIME AND NO C/O COLD SYMPTOMS HAS NOT FOLLOWED UP WITH ANYONE SINCE ER VISIT. STATES HE HAS AN APPOINTMENT 06/08 WITH [employer] [facility] ESTELITA MADRIGAL AT [facility] STATES HE TOOK [address] TODAY AT 1330 OTHERWISE HAS NOT TAKEN ANYTHING FOR SYMPTOMS PCP: [facility] Allergies and Home Medications Allergies Coded Allergies: morphine (Verified Adverse Reaction, Intermediate, 09/13/16) MAKES HIM AGGRESSIVE Home Medications Lisinopril 40 Mg Tablet, 40 MG PO HS, (Reported) Metformin HCl 500 Mg Tablet, 500 MG PO BID WITH MEALS, (Reported) Patient Home Medication List Home Medication List Reviewed: Yes Review of Systems Review of Systems Constitutional: see HPI, diaphoresis, dizziness, fever, malaise, weakness EENTM: see HPI, nose congestion Respiratory: see HPI, cough; No short of breath; wheezing (OCCASIONAL) Cardiovascular: no symptoms reported; No chest pain Gastrointestinal: see HPI; No abdominal pain; nausea, vomiting Genitourinary: no symptoms reported Musculoskeletal: see HPI (BODY ACHES) Skin: no symptoms reported Psychiatric/Neurological: See HPI, Headache Past Citjdfy-Ebmwgq-Oafjaz Hx Patient Social History Alcohol Use: Regular Use Number of Drinks Today: AA Alcohol Beverage of Choice: Beer Recreational Drug Use: No Type Used: Cigarettes, Smokeless Tobacco Former Smoker, Quit: May 22, 2005 2nd Hand Smoke Exposure: No Recent Foreign Travel: No Contact w/Someone Who Travel: No Recent Infectious Disease Expo: No Recent Hopitalizations: No Immunizations Up To Date Tetanus Booster (TDap): More than 5yrs Date of Pneumonia Vaccine: Jul 26, 2011 Seasonal Allergies Seasonal Allergies: No Past Medical History Surgeries: Yes (spleenectomy) Abdominal, Ear Surgery, Orthopedic Respiratory: No Cardiac: Yes Hypertension Neurological: No Reproductive Disorders: No Genitourinary: Yes Bladder Infection Gastrointestinal: Yes Hemorrhoids Musculoskeletal: Yes (LEFT ANKLE FX/ORIF; LEFT FOREARM FX/ORIF) Fractures Endocrine: Yes Diabetes, Non-Insulin dep HEENT: No Cancer: No Psychosocial: No Integumentary: No Blood Disorders: No Adverse Reaction/Blood Tranf: No Family Medical History No Pertinent Family Hx Physical Exam Vital Signs - First Documented 03/16/18 22:20 Temp 98.6 Pulse 95 Resp 16 B/P (MAP) 147/83 (104) Pulse Ox 97 O2 Delivery Room Air Capillary Refill : Less Than 3 Seconds Height: 6'0" Weight: 285lbs. 0oz. 129.714674sc; 34.30 BMI Method:Stated General Appearance: WD/WN, no apparent distress HEENT: PERRL/EOMI, other (NASAL MUCOSAL EDEMA AND CLEAR POST NASAL DRAINAGE. 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 tested, no motor/sensory deficits, alert, normal mood/affect, oriented x 3 Skin: normal color, warm/dry Progress/Results/Core Measures Suspected Sepsis Recent Fever Within 48 Hours: No Infection Criteria Present: None New/Unexplained Altered Menta: No Sepsis Screen: No Definite Risk SIRS Temperature:98.6 Pulse: 95 Respiratory Rate: 16 Blood Pressure 147 /83 Mean: 104 Results/Orders Micro Results Microbiology 03/16/18 Influenza Types A,B Antigen (JOHNNY) - Final, Complete My Orders Orders - TAMERA ALVARENGA DO Influenza A And B Antigens (03/16/18 22:30) Chest Pa/Lat (2 View) (03/16/18 22:40) Vital Signs/I&O 03/16/18 22:20 Temp 98.6 Pulse 95 Resp 16 B/P (MAP) 147/83 (104) Pulse Ox 97 O2 Delivery Room Air Capillary Refill : Less Than 3 Seconds Blood Pressure Mean: 104 Progress Note : Progress Note NO COUGH AT ANY TIME DURING ER STAY Diagnostic Imaging Comments CXR--NO ACUTE PROCESS, PENDING RADIOLOGIST REVIEW Reviewed: Reviewed by Me Departure Impression Primary Impression: Upper respiratory infection Additional Impression: Bronchitis Disposition: 01 HOME, SELF-CARE Condition: Stable Departure-Patient Inst. Referrals: [facility] (PCP) Primary Care Physician YINKA MADRIGAL (Family) Primary Care Physician Patient Instructions: Acute Bronchitis, Adult (DC), Bacterial Upper Respiratory Infection, Adult (DC) Add. Discharge Instructions: LOTS OF CLEAR LIQUIDS YOU MAY TAKE TYLENOL ( ACETOMINOPHEN ) 1 GRAM, MOTRIN ( IBUPROFEN) 800 MG 4 TIMES A DAY FOR PAIN OR FEVER FOLLOW UP WITH [facility] NEXT WEEK SCHEDULED. All discharge instructions reviewed with patient and/or family. Voiced understanding. Scripts Benzonatate (TESSALON PERLES) 100 Mg Capsule 1-2 TAB PO TID for Cough, #30 CAP Prov: TAMERA ALVARENGA DO 03/16/18 Guaifenesin/Dextromethorphan (Mucinex Dm ER 1,200-60 mg Tab) 1 Each Tbmp.12hr 1 EACH PO BID for 10 Days, #20 EA Prov: TAMERA ALVARENGA DO 03/16/18 Doxycycline Monohydrate (Doxycycline Monohydrate) 100 Mg Capsule 100 MG PO BID, #20 CAP Prov: TAMERA ALVARENGA DO 03/16/18 TAMERA ALVARENGA DO Mar 16, 2018 22:48
[2018-03-16] MEDS ORDERED: BENZ100C18 PO (23:11)
[2018-03-16] MEDS ORDERED: GUAI1TBM19 PO (23:11)
[2018-03-16] MEDS ORDERED: DOXY100C42 PO (23:11)
[2018-03-16] MEDS ORDERED: RX-DOXYCYCLINE 100 MG (VIBRAMYCIN) TAB PPK#2 PO STA (23:15)
[2018-03-16 23:20] VITALS: BP 147/83
--- NOTE | 2018-03-17 06:15 | Diagnostic Imaging Report ---
Indication: Dyspnea with cough and congestion for one week. Comparison: 10/04/2017. Discussion: Two views of the chest were obtained. Normal heart size. No focal consolidation, pleural fluid, or pneumothorax. No osseous abnormality. Impression: 1. Stable negative chest. Dictated by: Dictated on workstation # [id number]
== END 2018-03-16 23:20 | disposition home or self-care (01) ==
LOC: EDUNIT# 22:13 → ER 22:15
DX: J06.9 Acute upper respiratory infection, unspecified (principal); J40 Bronchitis, not specified as acute or chronic; I10 Essential (primary) hypertension; E11.9 Type 2 diabetes mellitus without complications; Z90.81 Acquired absence of spleen; Z87.448 Personal history of other diseases of urinary system; Z87.19 Personal history of other diseases of the digestive system; Z87.442 Personal history of urinary calculi; Z88.5 Allergy status to narcotic agent; Z79.84 Long term (current) use of oral hypoglycemic drugs; Z87.891 Personal history of nicotine dependence
CPT/HCPCS: 71046; 87804

== ENCOUNTER 2018-04-16 23:31 | Emergency (ER) | payer SELFPAY ==
[~2018-04-16] VITALS: Ht 182.9 cm; Wt 129.3 kg
[~2018-04-16 23:31] MED LIST changes: +BENZ100C18 PO; +DOXY100C42 PO; +GUAI1TBM19 PO
[2018-04-17 00:24] LABS: BILIRUBIN,URINE NEGATIVE (NEGATIVE); CLARITY,URINE VERY CLOUDY; COLOR,URINE YELLOW; GLUCOSE, URINE (UA) 1+ (NEGATIVE); KETONES,URINE NEGATIVE (NEGATIVE); LEUKOCYTE ESTERASE ,URINE 3+ (NEGATIVE); NITRITE,URINE POSITIVE (NEGATIVE); PH,URINE 7 (5-9); PROTEIN,URINE 1+ (NEGATIVE); UROBILINOGEN,URINE NORMAL (NORMAL)
[2018-04-17 00:30] LABS: BASOPHILS % (AUTO) 0 % (0-10); EOSINOPHILS # (AUTO) 0.4 10^3/uL (0.0-0.3); EOSINOPHILS % (AUTO) 3 % (0-10); HEMATOCRIT 41 % (40-54); HEMOGLOBIN 13.3 G/DL (13.3-17.7); LYMPHOCYTES # (AUTO) 4.1 X 10^3 (1.0-4.0); LYMPHOCYTES % (AUTO) 30 % (12-44); MEAN CORPUSCULAR HEMOGLOBIN 30 PG (25-34); MEAN CORPUSCULAR HGB CONC 32 G/DL (32-36); MEAN CORPUSCULAR VOLUME 93 FL (80-99); MEAN PLATELET VOLUME 9.8 FL (7.4-10.4); MONOCYTES # (AUTO) 1.5 X 10^3 (0.0-1.0); MONOCYTES % (AUTO) 11 % (0-12); NEUTROPHILS # (AUTO) 7.7 X 10^3 (1.8-7.8); NEUTROPHILS % (AUTO) 56 % (42-75); PLATELET COUNT 391 10^3/uL (130-400); RED BLOOD COUNT 4.45 10^6/uL (4.35-5.85); RED CELL DISTRIBUTION WIDTH 14.7 % (10.0-14.5); WHITE BLOOD COUNT 13.6 10^3/uL (4.3-11.0)
[2018-04-17 00:33] LABS: BACTERIA,URINE LARGE /HPF; SQUAMOUS EPITHELIAL CELL,UR 0-2 /HPF; WBC,URINE TNTC /HPF
[2018-04-17 00:38] LABS: AMPHETAMINE SCREEN, URINE NEGATIVE (NEGATIVE); BARBITURATE SCREEN URINE NEGATIVE (NEGATIVE); BENZODIAZEPINES SCREEN URINE NEGATIVE (NEGATIVE); CANNABINOID SCREEN, URINE NEGATIVE (NEGATIVE); COCAINE SCREEN URINE NEGATIVE (NEGATIVE); METHADONE STAT NEGATIVE (NEGATIVE); METHAMPHETAMINE SCREEN URINE S NEGATIVE (NEGATIVE); OPIATE SCREEN URINE NEGATIVE (NEGATIVE); OXYCODONE STAT NEGATIVE (NEGATIVE); PROPOXYPHENE STAT NEGATIVE (NEGATIVE); TRICYCLIC ANTIDEPRESSANTS SCRE NEGATIVE (NEGATIVE)
[2018-04-17 00:48] LABS: ALANINE AMINOTRANSFERASE 36 U/L (0-55); ALBUMIN 4.5 GM/DL (3.2-4.5); ALKALINE PHOSPHATASE 71 U/L (40-136); AMYLASE 31 U/L (25-125); BILIRUBIN,TOTAL 0.3 MG/DL (0.1-1.0); BUN/CREATININE RATIO 14; CALCIUM 9.9 MG/DL (8.5-10.1); CARBON DIOXIDE 24 MMOL/L (21-32); CHLORIDE 105 MMOL/L (98-107); CREATININE SERUM 0.91 MG/DL (0.60-1.30); GFR ESTIMATED > 60; GLUCOSE 204 MG/DL (70-105); LIPASE 28 U/L (8-78); SODIUM 142 MMOL/L (135-145); TOTAL PROTEIN 7.7 GM/DL (6.4-8.2)
--- NOTE | 2018-04-17 01:09 | ED GU-Male ---
General Chief Complaint: -Male Stated Complaint: ABD PAIN Nursing Triage Note: AMBULATORY TO ED WITH TESTICULAR PAIN. Source: patient History of Present Illness Date Seen by Provider: Apr 17, 2018 Time Seen by Provider: 00:05 Initial Comments C/O RIGHT TESTICULAR PAIN FOR 1 1/2 - 2 WEEKS PAIN OCCASIONALLY RADIATES TO RIGHT GROIN AND RLQ HAD TEMP OF 99.1 ON 04/12/18, AND NAUSEA, BUT NONE SINCE HAD DIARRHEA FROM MONDAY UNTIL TUESDAY 04/10-04/14. HAD NORMAL BM TODAY HAS HAD SOME PAIN/ BURNING ON URINATION, HESITANCY, URGENCY AND FREQUENCY, SMALL AMOUNTS NO PENILE DISCHARGE. TREATED FOR UTI THE END OF WITH BACTRIM. HAS HISTORY OF UTI'S AND KIDNEY STONES. DENIES HISTORY OF SIMILAR SYMPTOMS NO DIFFERENT TODAY HAS NOT SOUGHT CARE UNTIL TONIGHT HAS NOT TAKEN ANYTHING FOR SYMPTOMS PT WITH MULTIPLE ER VISITS. PCP: [facility] Allergies and Home Medications Allergies Coded Allergies: morphine (Verified Adverse Reaction, Intermediate, 09/13/16) MAKES HIM AGGRESSIVE Home Medications Benzonatate 100 Mg Capsule, 1-2 TAB PO TID Prescribed by: TAMERA ALVARENGA on 03/16/182310 Ciprofloxacin HCl 500 Mg Tablet, 500 MG PO BID Prescribed by: TAMERA ALVARENGA on 04/17/18 0136 Doxycycline Monohydrate 100 Mg Capsule, 100 MG PO BID Prescribed by: TAMERA ALVARENGA on 03/16/182310 Guaifenesin/Dextromethorphan 1 Each Tbmp.12hr, 1 EACH PO BID Prescribed by: TAMERA ALVARENGA on 03/16/182310 Lisinopril 40 Mg Tablet, 40 MG PO HS, (Reported) Metformin HCl 500 Mg Tablet, 500 MG PO BID WITH MEALS, (Reported) Patient Home Medication List Home Medication List Reviewed: Yes Review of Systems Review of Systems Constitutional: see HPI Respiratory: no symptoms reported Cardiovascular: no symptoms reported Gastrointestinal: see HPI, abdominal pain, diarrhea, nausea Genitourinary: see HPI Musculoskeletal: no symptoms reported Skin: no symptoms reported Psychiatric/Neurological: No Symptoms Reported Endocrine: No Symptoms Reported Past Mrkluxe-Ulgmok-Bvhmhw Hx Patient Social History Alcohol Use: Regular Use Number of Drinks Today: AA Alcohol Beverage of Choice: Beer Recreational Drug Use: No Smoking Status: Former Smoker Type Used: Cigarettes, Smokeless Tobacco Former Smoker, Quit: May 22, 2007 2nd Hand Smoke Exposure: No Recent Foreign Travel: No Contact w/Someone Who Travel: No Recent Infectious Disease Expo: No Recent Hopitalizations: No Immunizations Up To Date Tetanus Booster (TDap): More than 5yrs Date of Pneumonia Vaccine: Jul 26, 2011 Seasonal Allergies Seasonal Allergies: No Past Medical History Surgeries: Yes (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 ) Abdominal, Ear Surgery, Orthopedic Respiratory: Yes (LEFT CHEST TUBES X 2 SECONDARY TO TRAUMA) Cardiac: Yes Hypertension Neurological: No Reproductive Disorders: No Sexually Transmitted Disease: No HIV/AIDS: No Genitourinary: Yes Bladder Infection, Kidney Stones Gastrointestinal: Yes (SPELECTOMY SECONDARY TO TRAUMA. FATTY LIVER) Liver Disease/Jaundice, Hemorrhoids Musculoskeletal: Yes (LEFT ANKLE FX/ORIF; LEFT FOREARM FX/ORIF) Fractures Endocrine: Yes (OBESITY) Diabetes, Non-Insulin dep HEENT: No Cancer: No Psychosocial: No Integumentary: No Blood Disorders: No Adverse Reaction/Blood Tranf: No Family Medical History No Pertinent Family Hx Physical Exam Vital Signs Vital Signs - First Documented 04/17/18 00:00 Temp 98.6 Pulse 88 Resp 19 B/P (MAP) 153/100 (117) O2 Delivery Room Air Capillary Refill : Less Than 3 Seconds Height, Weight, BMI Height: 6'0" Weight: 285lbs. 0oz. 129.282328il; 34.30 BMI Method:Stated General Appearance: no apparent distress, obese, other (DIRTY/UNKEMPT, MALODOROUS. WALKS UPRIGHT AND MOVES WITHOUT DIFFICULTY. THEN LAYS COMPLETELY OUTSTRETCHED WITH LEGS CROSSED AT ANKLES. DOES NOT APPEAR TO BE IN ANY DISCOMFORT WHATSOEVER. 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 nml as tested, no motor/sensory deficits, alert, normal mood/affect, oriented x 3 Skin: normal color, warm/dry, tattoos/piercings (TATTOOS) Progress/Results/Core Measures Suspected Sepsis Recent Fever Within 48 Hours: No Infection Criteria Present: Suspected New Infection New/Unexplained Altered Menta: No Sepsis Screen: No Definite Risk SIRS Temperature:98.6 Pulse: 88 Respiratory Rate: 19 Laboratory Tests 04/17/18 00:20: White Blood Count 13.6H Blood Pressure 153 /100 Mean: 117 Laboratory Tests 04/17/18 00:20: Creatinine 0.91, Platelet Count 391, Total Bilirubin 0.3 Results/Orders Lab Results Laboratory Tests Test 04/17/18 00:10 04/17/18 00:20 04/17/18 00:48 Range/Units Urine Color YELLOW Urine Clarity VERY CLOUDY H Urine pH 7 5-9 Urine Specific [place] 1.015 L 1.016-1.022 Urine Protein 1+ H NEGATIVE Urine Glucose (UA) 1+ H NEGATIVE Urine Ketones NEGATIVE NEGATIVE Urine Nitrite POSITIVE H NEGATIVE Urine Bilirubin NEGATIVE NEGATIVE Urine Urobilinogen NORMAL NORMAL MG/DL Urine Leukocyte Esterase 3+ H NEGATIVE Urine RBC (Auto) 2+ H NEGATIVE Urine RBC 2-5 H /HPF Urine WBC TNTC H /HPF Urine Squamous Epithelial Cells 0-2 /HPF Urine Crystals N /LPF Urine Bacteria LARGE H /HPF Urine Casts NONE /LPF Urine Mucus NEGATIVE /LPF Urine Culture Indicated YES Urine Opiates Screen NEGATIVE NEGATIVE Urine Oxycodone Screen NEGATIVE NEGATIVE Urine Methadone Screen NEGATIVE NEGATIVE Urine Propoxyphene Screen NEGATIVE NEGATIVE Urine Barbiturates Screen NEGATIVE NEGATIVE Ur Tricyclic Antidepressants Screen NEGATIVE NEGATIVE Urine Phencyclidine Screen NEGATIVE NEGATIVE Urine Amphetamines Screen NEGATIVE NEGATIVE Urine Methamphetamines Screen NEGATIVE NEGATIVE Urine Benzodiazepines Screen NEGATIVE NEGATIVE Urine Cocaine Screen NEGATIVE NEGATIVE Urine Cannabinoids Screen NEGATIVE NEGATIVE White Blood Count 13.6 H 4.3-11.0 10^3/uL Red Blood Count 4.45 4.35-5.85 10^6/uL Hemoglobin 13.3 13.3-17.7 G/DL Hematocrit 41 40-54 % Mean Corpuscular Volume 93 80-99 FL Mean Corpuscular Hemoglobin 30 25-34 PG Mean Corpuscular Hemoglobin Concent 32 32-36 G/DL Red Cell Distribution Width 14.7 H 10.0-14.5 % Platelet Count 391 130-400 10^3/uL Mean Platelet Volume 9.8 7.4-10.4 FL Neutrophils (%) (Auto) 56 42-75 % Lymphocytes (%) (Auto) 30 12-44 % Monocytes (%) (Auto) 11 0-12 % Eosinophils (%) (Auto) 3 0-10 % Basophils (%) (Auto) 0 0-10 % Neutrophils # (Auto) 7.7 1.8-7.8 X 10^3 Lymphocytes # (Auto) 4.1 H 1.0-4.0 X 10^3 Monocytes # (Auto) 1.5 H 0.0-1.0 X 10^3 Eosinophils # (Auto) 0.4 H 0.0-0.3 10^3/uL Basophils # (Auto) 0.0 0.0-0.1 10^3/uL Sodium Level 142 135-145 MMOL/L Potassium Level 4.0 3.6-5.0 MMOL/L Chloride Level 105 98-107 MMOL/L Carbon Dioxide Level 24 21-32 MMOL/L Anion Gap 13 5-14 MMOL/L Blood Urea Nitrogen 13 7-18 MG/DL Creatinine 0.91 0.60-1.30 MG/DL Estimat Glomerular Filtration Rate > 60 BUN/Creatinine Ratio 14 Glucose Level 204 H 70-105 MG/DL Calcium Level 9.9 8.5-10.1 MG/DL Corrected Calcium 9.5 8.5-10.1 MG/DL Total Bilirubin 0.3 0.1-1.0 MG/DL Aspartate Amino Transf (AST/SGOT) 22 5-34 U/L Alanine Aminotransferase (ALT/SGPT) 36 0-55 U/L Alkaline Phosphatase 71 40-136 U/L Total Protein 7.7 6.4-8.2 GM/DL Albumin 4.5 3.2-4.5 GM/DL Amylase Level 31 25-125 U/L Lipase 28 8-78 U/L My Orders Orders - LYLEGERBERA K DO Saline Lock/Iv-Start (04/17/18 00:06) Amylase (04/17/18 00:06) Cbc With Automated Diff (04/17/18 00:06) Comprehensive Metabolic Panel (04/17/18 00:06) Drug Screen Stat (Urine) (04/17/18 00:06) Lipase (04/17/18 00:06) Ua Culture If Indicated (04/17/18 00:06) Ct Abd/Pelvis Wo(Kidney Stone) (04/17/18 00:06) Abdomen/Kub 1view (04/17/18 00:06) Genital Culture (04/17/18 00:08) Neisseria Gonorrhea Swab (04/17/18 00:08) Chlam Dna Probe (04/17/18 00:08) Urine Culture (04/17/18 00:10) Ceftriaxone For Iv Use (Rocephin For I (04/17/18 01:15) Azithromycin Tablet (Zithromax Tablet) (04/17/18 01:15) Ketorolac Injection (Toradol Injection) (04/17/18 01:15) Medications Given in ED Current Medications Medications Dose Ordered Sig/Radha Route Start Time Stop Time Status Last Admin Dose Admin Azithromycin 1,000 mg ONCE ONCE PO 04/17/18 01:15 04/17/18 01:16 DC 04/17/18 01:12 1,000 MG Ceftriaxone Sodium 1000 mg/ Sodium Chloride 50 ml @ 100 mls/hr ONCE ONCE IV 04/17/18 01:15 04/17/18 01:44 04/17/18 01:12 100 MLS/HR Ketorolac Tromethamine 30 mg ONCE ONCE IVP 04/17/18 01:15 04/17/18 01:16 DC 04/17/18 01:12 30 MG Vital Signs/I&O 04/17/18 00:00 Temp 98.6 Pulse 88 Resp 19 B/P (MAP) 153/100 (117) O2 Delivery Room Air Capillary Refill : Less Than 3 Seconds Blood Pressure Mean: 117 Progress Note : Progress Note NO ULTRASOUND SERVICES AVAILABLE AFTER HOURS. Diagnostic Imaging Comments KUB--NO ACUTE PROCESS, PENDING RADIOLOGIST REVIEW CT ABDOMEN/PELVIS--MARKED FATTY LIVER. NON-OBSTRUCTING 3-4 MM STONE IN LEFT KIDNEY WITH NO RIGHT STONE OR HYDRONEPHROSIS; MILDLY THICKENED URINARY BLADDER WALL UP TO 9 MM--CORRELATE WITH SIGNS OF UTI. PER [facility] VIA FAX AT 0132 Reviewed: Reviewed by Me Departure Impression Primary Impression: Right epididymitis Additional Impressions: UTI (urinary tract infection) NIDDM Disposition: HOME, SELF-CARE Condition: Stable Departure-Patient Inst. Referrals: [facility]IEL[facility] (PCP) Primary Care Physician YINKA MADRIGAL (Family) Primary Care Physician Patient Instructions: Diabetes Type 2 (DC), Epididymitis (DC), Urinary Tract Infection, Adult (DC) Add. Discharge Instructions: LOTS OF CLEAR LIQUIDS--NO COFFEE, POP OR TEA TYLENOL AND MOTRIN NEEDED FOR PAIN OR FEVER FOLLOW UP WITH [facility] IN 2-3 DAYS FOR FURTHER CARE All discharge instructions reviewed with patient and/or family. Voiced understanding. Scripts Ciprofloxacin HCl (Cipro) 500 Mg Tablet 500 MG PO BID, #20 TAB Prov: TAMERA ALVARENGA DO 04/17/18 TAMERA ALVARENGA DO Apr 17, 2018 01:09
[2018-04-17] MEDS ORDERED: KETOROLAC 30 MG/ML VIAL IVP ONE (01:15)
[2018-04-17] MEDS ORDERED: cefTRIAXone FOR IV USE 1,000 MG in NS (IVPB) 50 ML IV ONE (01:15)
[2018-04-17] MEDS ORDERED: AZITHROMYCIN 250 MG TAB (ZITHROMAX) PO ONE (01:15)
[2018-04-17] MEDS ORDERED: CIPR-225 PO (01:36)
[2018-04-17 01:42] VITALS: BP 153/100
--- NOTE | 2018-04-17 07:12 | Diagnostic Imaging Report ---
PROCEDURE: CT urinary tract, rule out kidney stone. TECHNIQUE: Multiple contiguous axial images were obtained through the abdomen and pelvis without the use of intravenous contrast. INDICATION: Right groin pain. History of kidney stones and splenectomy. COMPARISON: CT abdomen and pelvis 02/17/2018. FINDINGS: The lung bases are clear. Diffuse fatty infiltration of the liver. Splenectomy. A 0.3 cm nonobstructing calyceal tip renal stone in the lower pole of the left kidney. No other renal stones within either kidney or the ureters. No hydronephrosis. Diffuse bladder wall thickening versus underdistention. Enlarged prostate containing multiple calcifications. The gallbladder, pancreas, adrenals and appendix are negative. No free intraperitoneal air or fluid. No lymphadenopathy. No evidence of bowel obstruction. Osseous structures are intact. IMPRESSION: 1. Hepatic steatosis. 2. 0.3 cm nonobstructing calyceal tip renal stone in lower pole of the left kidney. No ureteral stones or hydronephrosis. 3. Diffuse bladder wall thickening versus underdistention. There are marked calcifications in the enlarged prostate. Dictated by: Dictated on workstation # [id number]
--- NOTE | 2018-04-17 07:33 | Diagnostic Imaging Report ---
EXAM: ABDOMEN/KUB 1VIEW INDICATION: Abdominal pain. COMPARISON: CT abdomen without contrast 04/17/2018. FINDINGS: Nonspecific bowel gas pattern. No large stool burden. No free intraperitoneal air. No acute osseous findings. IMPRESSION: No acute radiographic findings in the abdomen. Dictated by: Dictated on workstation # [id number]
== END 2018-04-17 01:43 | disposition home or self-care (01) ==
LOC: EDUNIT# 23:31 → ER 23:33
DX: N45.1 Epididymitis (principal); N39.0 Urinary tract infection, site not specified; E11.9 Type 2 diabetes mellitus without complications; I10 Essential (primary) hypertension; E66.9 Obesity, unspecified; Z68.34 Body mass index [BMI] 34.0-34.9, adult; Z87.19 Personal history of other diseases of the digestive system; Z87.442 Personal history of urinary calculi; Z79.84 Long term (current) use of oral hypoglycemic drugs; Z87.891 Personal history of nicotine dependence; Z98.890 Other specified postprocedural states; Z90.81 Acquired absence of spleen
CPT/HCPCS: 36415; 74018; 74176; 80053; 80306; 81000; 82150; 83690; 85025; 87070; 87077; 87088; 87205; 87491; 87591

== ENCOUNTER 2018-06-19 20:01 | Emergency (ER) | payer OTHER, MEDICAID ==
[~2018-06-19] VITALS: Ht 182.9 cm; Wt 127.0 kg
[2018-06-19] MEDS ORDERED: KETOROLAC 30 MG/ML VIAL IVP STA (20:56)
[2018-06-19] MEDS ORDERED: NS IV 1000 ML 1,000 ML IV SCH ×2 (20:56→21:30)
[2018-06-19] MEDS ORDERED: ONDANSETRON 4 MG/2 ML (SDV) Z0FRAN IVP ONE (21:00)
[2018-06-19 21:02] LABS: BASOPHILS % (AUTO) 0 % (0-10); EOSINOPHILS # (AUTO) 0.1 10^3/uL (0.0-0.3); EOSINOPHILS % (AUTO) 0 % (0-10); HEMATOCRIT 46 % (40-54); HEMOGLOBIN 15.5 G/DL (13.3-17.7); LYMPHOCYTES # (AUTO) 2.5 X 10^3 (1.0-4.0); LYMPHOCYTES % (AUTO) 14 % (12-44); MEAN CORPUSCULAR HEMOGLOBIN 31 PG (25-34); MEAN CORPUSCULAR HGB CONC 34 G/DL (32-36); MEAN CORPUSCULAR VOLUME 90 FL (80-99); MEAN PLATELET VOLUME 10.3 FL (7.4-10.4); MONOCYTES # (AUTO) 1.6 X 10^3 (0.0-1.0); MONOCYTES % (AUTO) 9 % (0-12); NEUTROPHILS # (AUTO) 13.6 X 10^3 (1.8-7.8); NEUTROPHILS % (AUTO) 77 % (42-75); PLATELET COUNT 331 10^3/uL (130-400); RED CELL DISTRIBUTION WIDTH 13.8 % (10.0-14.5); WHITE BLOOD COUNT 17.8 10^3/uL (4.3-11.0)
[2018-06-19 21:21] LABS: ALANINE AMINOTRANSFERASE 36 U/L (0-55); ALBUMIN 4.4 GM/DL (3.2-4.5); ALKALINE PHOSPHATASE 87 U/L (40-136); BILIRUBIN,TOTAL 0.3 MG/DL (0.1-1.0); BUN/CREATININE RATIO 12; CALCIUM 9.9 MG/DL (8.5-10.1); CARBON DIOXIDE 21 MMOL/L (21-32); CHLORIDE 99 MMOL/L (98-107); CREATININE SERUM 1.22 MG/DL (0.60-1.30); GFR ESTIMATED > 60; GLUCOSE 255 MG/DL (70-105); LIPASE 33 U/L (8-78); POTASSIUM 3.7 MMOL/L (3.6-5.0); SODIUM 135 MMOL/L (135-145); TOTAL PROTEIN 8.1 GM/DL (6.4-8.2)
[2018-06-19] MEDS ORDERED: RX-ONDANSETRON 4 MG ODT (ZOFRAN) PPK #4 PO STA (21:29)
[2018-06-19] MEDS ORDERED: ONDA8TAB13 PO (21:29)
[2018-06-19] MEDS ORDERED: AMOX500C2 PO (21:29)
--- NOTE | 2018-06-19 21:29 | ED EENT ---
History of Present Illness General Chief Complaint: sore throat, fever, cough, nausea and vomiting Stated Complaint: LIGHTHEADED,SORE THROAT,FEVER Nursing Triage Note: Sore throat, fever, cough, nausea, vomiting, diarrhea beginning today. Source: patient, family Exam Limitations: no limitations History of Present Illness Date Seen by Provider: Jun 19, 2018 Time Seen by Provider: 20:55 Initial Comments 33-year-old male patient presents to the emergency department with sore throat, fever of 101F, cough, rhinorrhea, nausea, vomiting, and diarrhea beginning today. Patient did take Tylenol at 1700 with improvement in fever and body aches. Timing/Duration: abrupt Location: throat Prearrival Treatment: over the counter meds (Tylenol at 1700 today.) Modifying Factors: Improves With Other (improved with Tylenol.) Allergies and Home Medications Allergies Coded Allergies: morphine (Verified Adverse Reaction, Intermediate, 09/13/16) MAKES HIM AGGRESSIVE Home Medications Amoxicillin 500 Mg Capsule, 1,000 MG PO TID Prescribed by: EMERSON CARBAJAL on 06/19/182128 Benzonatate 100 Mg Capsule, 1-2 TAB PO TID Prescribed by: TAMERA ALVARENGA on 03/16/182310 Ciprofloxacin HCl 500 Mg Tablet, 500 MG PO BID Prescribed by: TAMERA ALVARENGA on 04/17/18135 Doxycycline Monohydrate 100 Mg Capsule, 100 MG PO BID Prescribed by: TAMERA ALVARENGA on 03/16/182310 Guaifenesin/Dextromethorphan 1 Each Tbmp.12hr, 1 EACH PO BID Prescribed by: TAMERA ALVARENGA on 03/16/182310 Lisinopril 40 Mg Tablet, 40 MG PO HS, (Reported) Metformin HCl 500 Mg Tablet, 500 MG PO BID WITH MEALS, (Reported) Ondansetron 8 Mg Tab.rapdis, 8 MG PO Q6H PRN for NAUSEA/VOMITING Prescribed by: EMERSON CARBAJAL on 06/19/182128 Patient Home Medication List Home Medication List Reviewed: Yes Review of Systems Review of Systems Constitutional: see HPI, chills, fever, malaise Eyes: No Symptoms Reported Ears: Denies Pain, Denies Tinnitus Nose: congestion; denies pain; clear discharge Mouth: no symptoms reported Throat: see HPI, pain; denies swelling, denies neck stiffness, denies hoarse, denies aphonia, denies muffled; painful swallowing; denies difficulty with fluids Respiratory: see HPI, cough; No phlegm, No short of breath, No stridor, No wheezing Cardiovascular: no symptoms reported Gastrointestinal: No abdominal pain, No constipation; diarrhea; No hematemesis ; loss of appetite; No melena; nausea, vomiting Musculoskeletal: other (generalized body aches) Skin: no symptoms reported Neurological: No Symptoms Reported All Other Systems Reviewed Negative Unless Noted: Yes (Negative excepted noted.) Past Rivzltt-Wpolwz-Anpugn Hx Past Med/Social Hx: Reviewed Nursing Past Med/Soc Hx Patient Social History Alcohol Beverage of Choice: Beer Type Used: Cigarettes, Smokeless Tobacco Former Smoker, Quit: May 22, 2007 2nd Hand Smoke Exposure: No Recent Foreign Travel: No Contact w/Someone Who Travel: No Recent Hopitalizations: No Immunizations Up To Date Tetanus Booster (TDap): More than 5yrs Date of Pneumonia Vaccine: Jul 26, 2011 Seasonal Allergies Seasonal Allergies: No Past Medical History Surgeries: Yes Abdominal, Ear Surgery, Orthopedic Respiratory: Yes (LEFT CHEST TUBES X 2 SECONDARY TO TRAUMA) Cardiac: Yes Hypertension Neurological: No Reproductive Disorders: No Sexually Transmitted Disease: No HIV/AIDS: No Genitourinary: Yes Bladder Infection, Kidney Stones Gastrointestinal: Yes (SPELECTOMY SECONDARY TO TRAUMA. FATTY LIVER) Liver Disease/Jaundice, Hemorrhoids Musculoskeletal: Yes (LEFT ANKLE FX/ORIF; LEFT FOREARM FX/ORIF) Fractures Endocrine: Yes (OBESITY) Diabetes, Non-Insulin dep HEENT: No Cancer: No Psychosocial: No Integumentary: No Blood Disorders: No Adverse Reaction/Blood Tranf: No Family Medical History Reviewed Nursing Family Hx No Pertinent Family Hx Physical Exam Vital Signs Vital Signs - First Documented 06/19/18 20:35 Temp 100.1 Pulse 121 Resp 29 B/P (MAP) 146/95 (112) Pulse Ox 97 O2 Delivery Room Air Height, Weight, BMI Height: 6'0" Weight: 285lbs. 0oz. 129.583406uv; 34.30 BMI Method:Stated General Appearance: WD/WN, no apparent distress Eyes: bilateral eye normal inspection, bilateral eye PERRL, bilateral eye EOMI Ears: bilateral ear auricle normal, bilateral ear canal normal, bilateral ear TM normal Nose: No sinus tenderness; other (positive sinus congestion and rhinorrhea.) Mouth/Throat: No excessive drooling, No tonsillar exudate; tonsillar swelling; No trismus, No uvula swelling; other (positive pharyngeal erythema) Neck: non-tender, full range of motion, supple, lymphadenopathy (R), lymphadenopathy (L) Cardiovascular: normal peripheral pulses, no edema, no murmur, tachycardia Respiratory: lungs clear, normal breath sounds, no respiratory distress, no accessory muscle use Gastrointestinal: normal bowel sounds, non tender, soft, no organomegaly; No distended Neurologic/Psychiatric: alert, normal mood/affect, oriented x 3 Skin: normal color, warm/dry Progress/Results/Core Measures Results/Orders Lab Results Laboratory Tests Test 06/19/18 20:50 06/19/18 20:56 Range/Units White Blood Count 17.8 H 4.3-11.0 10^3/uL Red Blood Count 5.09 4.35-5.85 10^6/uL Hemoglobin 15.5 13.3-17.7 G/DL Hematocrit 46 40-54 % Mean Corpuscular Volume 90 80-99 FL Mean Corpuscular Hemoglobin 31 25-34 PG Mean Corpuscular Hemoglobin Concent 34 32-36 G/DL Red Cell Distribution Width 13.8 10.0-14.5 % Platelet Count 331 130-400 10^3/uL Mean Platelet Volume 10.3 7.4-10.4 FL Neutrophils (%) (Auto) 77 H 42-75 % Lymphocytes (%) (Auto) 14 12-44 % Monocytes (%) (Auto) 9 0-12 % Eosinophils (%) (Auto) 0 0-10 % Basophils (%) (Auto) 0 0-10 % Neutrophils # (Auto) 13.6 H 1.8-7.8 X 10^3 Lymphocytes # (Auto) 2.5 1.0-4.0 X 10^3 Monocytes # (Auto) 1.6 H 0.0-1.0 X 10^3 Eosinophils # (Auto) 0.1 0.0-0.3 10^3/uL Basophils # (Auto) 0.0 0.0-0.1 10^3/uL Neutrophils % (Manual) 78 % Lymphocytes % (Manual) 12 % Monocytes % (Manual) 7 % Eosinophils % (Manual) 1 % Reactive Lymphocytes 2 % Sodium Level 135 135-145 MMOL/L Potassium Level 3.7 3.6-5.0 MMOL/L Chloride Level 99 98-107 MMOL/L Carbon Dioxide Level 21 21-32 MMOL/L Anion Gap 15 H 5-14 MMOL/L Blood Urea Nitrogen 15 7-18 MG/DL Creatinine 1.22 0.60-1.30 MG/DL Estimat Glomerular Filtration Rate > 60 BUN/Creatinine Ratio 12 Glucose Level 255 H 70-105 MG/DL Calcium Level 9.9 8.5-10.1 MG/DL Corrected Calcium 9.6 8.5-10.1 MG/DL Total Bilirubin 0.3 0.1-1.0 MG/DL Aspartate Amino Transf (AST/SGOT) 27 5-34 U/L Alanine Aminotransferase (ALT/SGPT) 36 0-55 U/L Alkaline Phosphatase 87 40-136 U/L Total Protein 8.1 6.4-8.2 GM/DL Albumin 4.4 3.2-4.5 GM/DL Lipase 33 8-78 U/L Group A Streptococcus Screen POSITIVE H NEGATIVE Micro Results Microbiology 06/19/18 Influenza Types A,B Antigen (JOHNNY) - Final, Complete My Orders Orders - EMERSON CARBAJAL Rapid Strep A Screen (06/19/18 20:50) Influenza A And B Antigens (06/19/18 20:50) Saline Lock/Iv-Start (06/19/18 20:56) Cbc With Automated Diff (06/19/18 20:56) Comprehensive Metabolic Panel (06/19/18 20:56) Lipase (06/19/18 20:56) Saline Lock/Iv-Start (06/19/18 20:56) Ns Iv 1000 Ml (Sodium Chloride 0.9%) (06/19/18 20:56) Ondansetron Injection (Zofran Injectio (06/19/18 21:00) Ketorolac Injection (Toradol Injection) (06/19/18 20:56) Manual Differential (06/19/18 20:50) Ceftriaxone For Iv Use (Rocephin For I (06/19/18 21:30) Rx-Ondansetron Po (Rx-Zofran Po) (06/19/18 21:29) Saline Lock/Iv-Start (06/19/18 21:30) Ns Iv 1000 Ml (Sodium Chloride 0.9%) (06/19/18 21:30) Medications Given in ED Current Medications Medications Dose Ordered Sig/Radha Route Start Time Stop Time Status Last Admin Dose Admin Ceftriaxone Sodium 1000 mg/ Sodium Chloride 60 ml @ 100 mls/hr ONCE ONCE IV 06/19/18 21:30 06/19/18 22:05 DC 06/19/18 21:56 100 MLS/HR Ondansetron HCl 4 mg ONCE ONCE IVP 06/19/18 21:00 06/19/18 21:01 DC 06/19/18 21:12 4 MG Vital Signs/I&O 06/19/18 06/19/18 06/19/18 20:35 20:35 22:59 Temp 100.1 99.8 Pulse 121 109 Resp 29 20 B/P (MAP) 146/95 (112) 146/92 (110) Pulse Ox 97 97 O2 Delivery Room Air Room Air Room Air Departure Communication (Admissions) All laboratory and diagnostic findings discussed with the patient. Patient reports feeling much better with IV fluids and medications. Plan for discharge to home. Patient was given Rocephin 1 g IV prior to discharge. Impression Primary Impression: Strep throat Additional Impression: Nausea, vomiting, and diarrhea Disposition: HOME, SELF-CARE Condition: Improved Departure-Patient Inst. Decision time for Depature: 21:27 Referrals: [facility] (PCP) Primary Care Physician YINKA MADRIGAL (Family) Primary Care Physician Patient Instructions: Nausea and Vomiting, Adult (DC), Strep Throat (DC) Add. Discharge Instructions: Medications as instructed. Tylenol Extra Strength 1000 mg by mouth every 6 hours as needed for pain or fever. Ibuprofen 800 mg by mouth every 8 hours as needed for pain or fever. Push fluids. Throat lozenges and sprays over-the- counter as needed for throat pain. All up with her family practitioner for recheck as an outpatient if needed. Return the emergency department for worsened symptoms or any other concerns. Scripts Ondansetron (Ondansetron Odt) 8 Mg Tab.rapdis 8 MG PO Q6H PRN for NAUSEA/VOMITING, #10 TAB 0 Refills Prov: EMERSON CARBAJAL 06/19/18 Amoxicillin (Amoxicillin) 500 Mg Capsule 1000 MG PO TID, #60 CAP 0 Refills Prov: EMERSON CARBAJAL 06/19/18 Work/School Note: Work Release Form Date Seen in the Emergency Department: Jun 19, 2018 Return to Work: Jun 21, 2018 Restrictions: Return-No Fever (24hrs), Return-No Vomiting(24hrs) EMERSON CARBAJAL Jun 19, 2018 21:29
[2018-06-19] MEDS ORDERED: cefTRIAXone FOR IV USE 1,000 MG in NS (IVPB) 50 ML IV ONE (21:30)
[2018-06-19 21:55] LABS: EOSINOPHILS % (MANUAL) 1 %; LYMPHOCYTES % (MANUAL) 12 %; MONOCYTES % (MANUAL) 7 %; NEUTROPHILS % (MANUAL) 78 %; REACTIVE LYMPHOCYTES 2 %
[2018-06-19 22:59] VITALS: BP 146/92
== END 2018-06-19 22:59 | disposition home or self-care (01) ==
LOC: EDUNIT# 20:01 → ER 20:03
DX: J02.0 Streptococcal pharyngitis (principal); R11.2 Nausea with vomiting, unspecified; R19.7 Diarrhea, unspecified; I10 Essential (primary) hypertension; E11.9 Type 2 diabetes mellitus without complications; E66.9 Obesity, unspecified; Z68.34 Body mass index [BMI] 34.0-34.9, adult; Z87.448 Personal history of other diseases of urinary system; Z87.442 Personal history of urinary calculi; Z87.19 Personal history of other diseases of the digestive system; Z90.81 Acquired absence of spleen; Z88.5 Allergy status to narcotic agent; Z79.84 Long term (current) use of oral hypoglycemic drugs; Z87.891 Personal history of nicotine dependence; Z98.890 Other specified postprocedural states
CPT/HCPCS: 36415; 80053; 83690; 85007; 85027; 87040; 87430; 87804

== ENCOUNTER 2019-06-09 19:53 | Emergency (ER) | payer BC, MEDICAID, OTHER ==
[~2019-06-09] VITALS: Ht 185.4 cm; Wt 131.8 kg
[~2019-06-09 19:53] MED LIST changes: +AMOX500C2 PO; +OMEP-280; -OMEP20CA12; -VANC250C4 PO; +VANC250C5 PO
[2019-06-09] MEDS ORDERED: ACETAMINOPHEN 500 MG TAB (TYLENOL) PO STA (20:20)
[2019-06-09] MEDS ORDERED: KETOROLAC 30 MG/ML VIAL IVP STA (20:20)
[2019-06-09] MEDS ORDERED: LACTATED RINGERS 1,000 ML IV ONE (20:20)
[2019-06-09 20:22] LABS: BASOPHILS % (AUTO) 0 % (0-10); EOSINOPHILS # (AUTO) 0.3 10^3/uL (0.0-0.3); EOSINOPHILS % (AUTO) 3 % (0-10); HEMATOCRIT 44 % (40-54); HEMOGLOBIN 14.4 G/DL (13.3-17.7); LYMPHOCYTES # (AUTO) 1.7 X 10^3 (1.0-4.0); LYMPHOCYTES % (AUTO) 18 % (12-44); MEAN CORPUSCULAR HEMOGLOBIN 30 PG (25-34); MEAN CORPUSCULAR HGB CONC 33 G/DL (32-36); MEAN CORPUSCULAR VOLUME 92 FL (80-99); MEAN PLATELET VOLUME 10.5 FL (7.4-10.4); MONOCYTES # (AUTO) 0.9 X 10^3 (0.0-1.0); MONOCYTES % (AUTO) 9 % (0-12); NEUTROPHILS # (AUTO) 6.5 X 10^3 (1.8-7.8); NEUTROPHILS % (AUTO) 69 % (42-75); PLATELET COUNT 351 10^3/uL (130-400); RED CELL DISTRIBUTION WIDTH 13.6 % (10.0-14.5); WHITE BLOOD COUNT 9.3 10^3/uL (4.3-11.0)
[2019-06-09 20:23] LABS: BILIRUBIN,URINE NEGATIVE (NEGATIVE); CLARITY,URINE SL CLOUDY; COLOR,URINE YELLOW; GLUCOSE, URINE (UA) 3+ (NEGATIVE); KETONES,URINE NEGATIVE (NEGATIVE); LEUKOCYTE ESTERASE ,URINE 1+ (NEGATIVE); NITRITE,URINE NEGATIVE (NEGATIVE); PH,URINE 5.5 (5-9); PROTEIN,URINE NEGATIVE (NEGATIVE)
[2019-06-09] MEDS ORDERED: ONDANSETRON 4 MG/2 ML (SDV) Z0FRAN ONE (20:26)
--- NOTE | 2019-06-09 20:28 | ED Cough/URI ---
General Chief Complaint: General Problems/Pain Stated Complaint: ABD,BACK PAIN, Nursing Triage Note: Pt ambulatory to rm 5 with multiple complaints. Pt reports R shoulder and neck pain with sudden onset. Pt denies injury. Pt reports abdominal pain, headache, nausea, and burning with urination that began this afternoon. Sepsis Screen: No Definite Risk Source: patient Exam Limitations: no limitations History of Present Illness Date Seen by Provider: Jun 09, 2019 Time Seen by Provider: 20:13 Initial Comments Here with fever, chills, body aches, cough, runny nose and lower abdominal pain as well as headache that has been going on for 12 hours. Does endorse dysuria a nd burning with urination. Timing/Duration: this morning Severity/Quality: mild, dry cough Prior Episodes/Possible Cause: occasional episodes Modifying Factors: Improves With Rest Associated Symptoms: cough, fever/chills, muscle aches, nasal congestion, nasal drainage, sore throat Allergies and Home Medications Allergies Coded Allergies: morphine (Verified Adverse Reaction, Intermediate, 09/13/16) MAKES HIM AGGRESSIVE Home Medications Amoxicillin 500 Mg Capsule, 1,000 MG PO TID Prescribed by: EMERSON CARBAJAL on 06/19/182128 Benzonatate 100 Mg Capsule, 1-2 TAB PO TID Prescribed by: TAMERA ALVARENGA on 03/16/182310 Ciprofloxacin HCl 500 Mg Tablet, 500 MG PO BID Prescribed by: TAMERA ALVARENGA on 04/17/18 013 Doxycycline Monohydrate 100 Mg Capsule, 100 MG PO BID Prescribed by: TAMERA ALVARENGA on 03/16/182310 Guaifenesin/Dextromethorphan 1 Each Tbmp.12hr, 1 EACH PO BID Prescribed by: TAMERA ALVARENGA on 03/16/182310 Lisinopril 40 Mg Tablet, 40 MG PO HS, (Reported) Metformin HCl 500 Mg Tablet, 500 MG PO BID WITH MEALS, (Reported) Ondansetron 8 Mg Tab.rapdis, 8 MG PO Q6H PRN for NAUSEA/VOMITING Prescribed by: EMERSON CARBAJAL on 06/19/182128 Patient Home Medication List Home Medication List Reviewed: Yes Review of Systems Review of Systems Constitutional: see HPI, chills, fever EENTM: see HPI Respiratory: cough; No short of breath Cardiovascular: No chest pain, No edema Gastrointestinal: abdominal pain, nausea; No vomiting Genitourinary: dysuria Musculoskeletal: joint pain (especially in the shoulders and back), muscle pain Skin: no symptoms reported Psychiatric/Neurological: No Symptoms Reported All Other Systems Reviewed Negative Unless Noted: Yes Past Zzwdmjo-Dexlpu-Etminr Hx Past Med/Social Hx: Reviewed Nursing Past Med/Soc Hx Patient Social History Alcohol Use: Occasionally Uses Number of Drinks Today: AA Alcohol Beverage of Choice: Beer Recreational Drug Use: No Type Used: Smokeless Tobacco Former Smoker, Quit: May 22, 2007 2nd Hand Smoke Exposure: No Recent Foreign Travel: No Contact w/Someone Who Travel: No Recent Infectious Disease Expo: No Recent Hopitalizations: No Immunizations Up To Date Tetanus Booster (TDap): More than 5yrs Date of Pneumonia Vaccine: Jul 26, 2011 Seasonal Allergies Seasonal Allergies: No Past Medical History Surgeries: Yes Abdominal, Ear Surgery, Orthopedic Respiratory: Yes (LEFT CHEST TUBES X 2 SECONDARY TO TRAUMA) Cardiac: Yes Hypertension Neurological: No Reproductive Disorders: No Sexually Transmitted Disease: No HIV/AIDS: No Genitourinary: Yes Bladder Infection, Kidney Stones Gastrointestinal: Yes (SPELECTOMY SECONDARY TO TRAUMA. FATTY LIVER) Liver Disease/Jaundice, Hemorrhoids Musculoskeletal: Yes (LEFT ANKLE FX/ORIF; LEFT FOREARM FX/ORIF) Fractures Endocrine: Yes (OBESITY) Diabetes, Non-Insulin dep HEENT: No Cancer: No Psychosocial: No Integumentary: No Blood Disorders: No Adverse Reaction/Blood Tranf: No Family Medical History Reviewed Nursing Family Hx No Pertinent Family Hx Physical Exam Vital Signs - First Documented 06/09/19 19:59 Temp 37.3 Pulse 100 Resp 15 B/P (MAP) 150/110 (123) Pulse Ox 98 O2 Delivery Room Air Capillary Refill : Less Than 3 Seconds Height: 6'0" Weight: 280lbs. 0oz. 127.170747tf; 38.00 BMI Method:Stated General Appearance: WD/WN, no apparent distress, severe distress HEENT: PERRL/EOMI, pharyngeal erythema, other (bilateral nasal congestion) Neck: full range of motion, supple, normal inspection Respiratory: lungs clear, normal breath sounds Cardiovascular: no murmur, tachycardia Gastrointestinal: soft, tenderness (suprapubic and bilateral lower quadrants) Extremities: non-tender, normal inspection Neurologic/Psychiatric: alert, oriented x 3 Skin: normal color, warm/dry Progress/Results/Core Measures Suspected Sepsis Recent Fever Within 48 Hours: No Infection Criteria Present: None New/Unexplained Altered Menta: No Sepsis Screen: No Definite Risk SIRS Temperature: Pulse: 100 Respiratory Rate: 15 Laboratory Tests 06/09/19 20:05: White Blood Count 9.3 Blood Pressure 150 /110 Mean: 123 Laboratory Tests 06/09/19 20:05: Creatinine 1.11, Platelet Count 351, Total Bilirubin 0.2 Results/Orders Lab Results Laboratory Tests Test 06/09/19 20:05 06/09/19 20:10 Range/Units White Blood Count 9.3 4.3-11.0 10^3/uL Red Blood Count 4.75 4.35-5.85 10^6/uL Hemoglobin 14.4 13.3-17.7 G/DL Hematocrit 44 40-54 % Mean Corpuscular Volume 92 80-99 FL Mean Corpuscular Hemoglobin 30 25-34 PG Mean Corpuscular Hemoglobin Concent 33 32-36 G/DL Red Cell Distribution Width 13.6 10.0-14.5 % Platelet Count 351 130-400 10^3/uL Mean Platelet Volume 10.5 H 7.4-10.4 FL Neutrophils (%) (Auto) 69 42-75 % Lymphocytes (%) (Auto) 18 12-44 % Monocytes (%) (Auto) 9 0-12 % Eosinophils (%) (Auto) 3 0-10 % Basophils (%) (Auto) 0 0-10 % Neutrophils # (Auto) 6.5 1.8-7.8 X 10^3 Lymphocytes # (Auto) 1.7 1.0-4.0 X 10^3 Monocytes # (Auto) 0.9 0.0-1.0 X 10^3 Eosinophils # (Auto) 0.3 0.0-0.3 10^3/uL Basophils # (Auto) 0.0 0.0-0.1 10^3/uL Sodium Level 135 135-145 MMOL/L Potassium Level 3.9 3.6-5.0 MMOL/L Chloride Level 102 98-107 MMOL/L Carbon Dioxide Level 19 L 21-32 MMOL/L Anion Gap 14 5-14 MMOL/L Blood Urea Nitrogen 9 7-18 MG/DL Creatinine 1.11 0.60-1.30 MG/DL Estimat Glomerular Filtration Rate > 60 BUN/Creatinine Ratio 8 Glucose Level 331 H 70-105 MG/DL Calcium Level 9.2 8.5-10.1 MG/DL Corrected Calcium 9.0 8.5-10.1 MG/DL Total Bilirubin 0.2 0.1-1.0 MG/DL Aspartate Amino Transf (AST/SGOT) 24 5-34 U/L Alanine Aminotransferase (ALT/SGPT) 45 0-55 U/L Alkaline Phosphatase 107 40-136 U/L Total Protein 7.6 6.4-8.2 GM/DL Albumin 4.3 3.2-4.5 GM/DL Urine Color YELLOW Urine Clarity SL CLOUDY Urine pH 5.5 5-9 Urine Specific [place] 1.020 1.016-1.022 Urine Protein NEGATIVE NEGATIVE Urine Glucose (UA) 3+ H NEGATIVE Urine Ketones NEGATIVE NEGATIVE Urine Nitrite NEGATIVE NEGATIVE Urine Bilirubin NEGATIVE NEGATIVE Urine Urobilinogen 0.2 < = 1.0 MG/DL Urine Leukocyte Esterase 1+ H NEGATIVE Urine RBC (Auto) TRACE-I NEGATIVE Urine RBC 0-2 /HPF Urine WBC 10-25 H /HPF Urine Squamous Epithelial Cells RARE /HPF Urine Crystals NONE /LPF Urine Bacteria FEW H /HPF Urine Casts NONE /LPF Urine Mucus NEGATIVE /LPF Urine Culture Indicated YES Micro Results Microbiology 06/09/19 Influenza Types A,B Antigen (JOHNNY) - Final, Complete My Orders Orders - GAGANDEEP RIOS MD Ondansetron Injection (Zofran Injectio (06/09/19 20:30) Ondansetron Injection (Zofran Injectio (06/09/19 20:26) Ceftriaxone For Iv Use (Rocephin For I (06/09/19 21:45) Medications Given in ED Current Medications Medications Dose Ordered Sig/Radha Route Start Time Stop Time Status Last Admin Dose Admin Ceftriaxone Sodium 1000 mg/ Sterile Water 10 ml @ 200 mls/hr ONCE ONCE IV 06/09/19 21:45 06/09/19 21:47 DC 06/09/19 21:45 200 MLS/HR Lactated Ringer's 1,000 ml @ 0 mls/hr Q0M ONCE IV 06/09/19 20:20 06/09/19 20:22 DC 06/09/19 20:27 999 MLS/HR Ondansetron HCl 8 mg ONCE ONCE IVP 06/09/19 20:30 06/09/19 20:31 DC 06/09/19 20:30 8 MG Vital Signs/I&O 06/09/19 19:59 Temp 37.3 Pulse 100 Resp 15 B/P (MAP) 150/110 (123) Pulse Ox 98 O2 Delivery Room Air Capillary Refill : Less Than 3 Seconds Blood Pressure Mean: 123 Progress Note : Progress Note Seen and evaluated. IV, labs, UA, LR 1 L bolus, influenza screen, Tylenol 1 g by mouth and Toradol 30 mg IV ordered. Monitor patient. 2149: Patient was found to have urinary tract infection. Flu negative. Rocephin 1 g IV given after looking at historical records in noting, Enterococcus faecalis that is resistant to first generation cephalosporins but sensitive to third generation cephalosporins. Discharged home with return precautions. Patient verbalize understanding of instructions and agreement with plan. Overall is feeling better currently. Departure Impression Primary Impression: UTI (urinary tract infection) Qualified Codes: N30.00 - Acute cystitis without hematuria Additional Impression: Hyperglycemia Disposition: HOME, SELF-CARE Condition: Improved Departure-Patient Inst. Decision time for Depature: 21:52 Referrals: [facility] [place] (PCP) Primary Care Physician YINKA MADRIGAL (Family) Primary Care Physician Patient Instructions: Hyperglycemia, Adult (DC), Urinary Tract Infection, Adult (DC) Add. Discharge Instructions: All discharge instructions reviewed with patient and/or family. Voiced understanding. Take medications as directed. Follow-up with your doctor in 2-3 days for recheck and further evaluation. Discussed with them regarding her diabetes as well. You may take Tylenol/acetaminophen 1000 mg every 8 hours as needed for fever or pain. You may take ibuprofen 600 mg every 8 hours as needed for fever or pain. Drink plenty of fluids. Scripts Ondansetron (Ondansetron Odt) 4 Mg Tab.rapdis 4 MG PO Q6H PRN for NAUSEA/VOMITING, #8 TAB 0 Refills Prov: GAGANDEEP RIOS MD 06/09/19 Cefdinir (Cefdinir) 300 Mg Capsule 300 MG PO BID, #12 CAP 0 Refills Prov: GAGANDEEP RIOS MD 06/09/19 Copy Copies To 1: REGI HOLT TIMOTHY D MD Jun 09, 2019 20:28
[2019-06-09] MEDS ORDERED: ONDANSETRON 4 MG/2 ML (SDV) Z0FRAN IVP ONE (20:30)
[2019-06-09 20:33] LABS: BACTERIA,URINE FEW /HPF; RBC,URINE 0-2 /HPF; SQUAMOUS EPITHELIAL CELL,UR RARE /HPF
[2019-06-09 20:39] LABS: ALANINE AMINOTRANSFERASE 45 U/L (0-55); ALBUMIN 4.3 GM/DL (3.2-4.5); ALKALINE PHOSPHATASE 107 U/L (40-136); BILIRUBIN,TOTAL 0.2 MG/DL (0.1-1.0); BUN/CREATININE RATIO 8; CALCIUM 9.2 MG/DL (8.5-10.1); CARBON DIOXIDE 19 MMOL/L (21-32); CHLORIDE 102 MMOL/L (98-107); CREATININE SERUM 1.11 MG/DL (0.60-1.30); GFR ESTIMATED > 60; GLUCOSE 331 MG/DL (70-105); POTASSIUM 3.9 MMOL/L (3.6-5.0); SODIUM 135 MMOL/L (135-145); TOTAL PROTEIN 7.6 GM/DL (6.4-8.2)
--- NOTE | 2019-06-09 21:02 | NUR ---
Report given to TALAT Mendieta.
[2019-06-09] MEDS ORDERED: cefTRIAXone FOR IV USE 1,000 MG in WATER (STERILE) FOR INJECTION 10 ML IV ONE (21:45)
[2019-06-09] MEDS ORDERED: CEFD300C3 PO (21:54)
[2019-06-09] MEDS ORDERED: ONDA4TAB11 PO (21:54)
[2019-06-09 22:15] VITALS: BP 132/68
== END 2019-06-09 22:17 | disposition home or self-care (01) ==
LOC: EDUNIT# 19:53 → ER 19:55
DX: N39.0 Urinary tract infection, site not specified (principal); E11.65 Type 2 diabetes mellitus with hyperglycemia; I10 Essential (primary) hypertension; E66.9 Obesity, unspecified; Z90.81 Acquired absence of spleen; Z87.442 Personal history of urinary calculi; Z88.5 Allergy status to narcotic agent; Z79.84 Long term (current) use of oral hypoglycemic drugs; Z87.891 Personal history of nicotine dependence; Z68.38 Body mass index [BMI] 38.0-38.9, adult
CPT/HCPCS: 36415; 80053; 81000; 85025; 87088; 87804; 96361; 96374; 96375

== ENCOUNTER 2019-06-11 07:55 | Emergency (ER) | payer BC ==
[~2019-06-11] VITALS: Ht 175 cm; Wt 131.8 kg
[~2019-06-11 07:55] MED LIST changes: +ONDA4TAB11 PO
[2019-06-11 08:27] LABS: BASOPHILS % (AUTO) 0 % (0-10); EOSINOPHILS % (AUTO) 0 % (0-10); HEMATOCRIT 45 % (40-54); HEMOGLOBIN 14.6 G/DL (13.3-17.7); LYMPHOCYTES % (AUTO) 25 % (12-44); MEAN CORPUSCULAR HEMOGLOBIN 30 PG (25-34); MEAN CORPUSCULAR HGB CONC 33 G/DL (32-36); MEAN CORPUSCULAR VOLUME 93 FL (80-99); MEAN PLATELET VOLUME 10.6 FL (7.4-10.4); MONOCYTES # (AUTO) 1.5 X 10^3 (0.0-1.0); MONOCYTES % (AUTO) 18 % (0-12); NEUTROPHILS # (AUTO) 4.6 X 10^3 (1.8-7.8); NEUTROPHILS % (AUTO) 57 % (42-75); PLATELET COUNT 300 10^3/uL (130-400); WHITE BLOOD COUNT 8.2 10^3/uL (4.3-11.0)
--- NOTE | 2019-06-11 08:32 | Diagnostic Imaging Report ---
PROCEDURE: CT head wo r/o stroke. TECHNIQUE: Multiple contiguous axial images were obtained through the brain without the use of intravenous contrast. Auto Exposure Controls were utilized during the CT exam to meet ALARA standards for radiation dose reduction. INDICATION: Left-sided weakness. Correlation is made with prior head CT from 12/28/2015. FINDINGS: Ventricles and sulci are within normal limits. No sulcal effacement or midline shift is identified. No acute intra-axial or extra-axial hemorrhage is detected. Cisterns are patent. The visualized paranasal sinuses are clear. IMPRESSION: No acute intracranial process is detected. Dictated by: Dictated on workstation # [id number]
[2019-06-11 08:33] LABS: FIBRIN DEGRADATION PRODUCTS 1.46 UG/ML (0.00-0.49); PROTHROMBIN TIME PATIENT 14.1 SEC (12.2-14.7)
[2019-06-11 08:40] LABS: ALANINE AMINOTRANSFERASE 51 U/L (0-55); ALBUMIN 4.2 GM/DL (3.2-4.5); ALKALINE PHOSPHATASE 94 U/L (40-136); BILIRUBIN,TOTAL 0.3 MG/DL (0.1-1.0); BUN/CREATININE RATIO 10; CALCIUM 9.4 MG/DL (8.5-10.1); CARBON DIOXIDE 23 MMOL/L (21-32); CHLORIDE 100 MMOL/L (98-107); CREATININE SERUM 1.26 MG/DL (0.60-1.30); GFR ESTIMATED > 60; GLUCOSE 323 MG/DL (70-105); SODIUM 134 MMOL/L (135-145); TOTAL PROTEIN 7.6 GM/DL (6.4-8.2)
[2019-06-11] MEDS ORDERED: IOHEXOL 350 MG/ML 100 ML (OMNIPAQUE 350) VIAL IV ONE (08:45)
[2019-06-11] MEDS ORDERED: CATHETER FLUSH 10 ML SYR IV PRN (08:45)
[2019-06-11] MEDS ORDERED: NS 100 ML (IVPB) BAG IV ONE (08:45)
[2019-06-11] MEDS ORDERED: HOLD METFORMIN - RECEIVED CONTRAST 20 ML VIAL IV SCH (08:45)
[2019-06-11 08:58] LABS: BAND NEUTROPHILS 0 %; BASOPHILS % (MANUAL) 0 %; EOSINOPHILS % (MANUAL) 0 %; LYMPHOCYTES % (MANUAL) 27 %; MONOCYTES % (MANUAL) 16 %; NEUTROPHILS % (MANUAL) 57 %
[2019-06-11 08:59] LABS: ANISOCYTOSIS SLIGHT
--- NOTE | 2019-06-11 09:08 | Diagnostic Imaging Report ---
CLINICAL INDICATION: Patient with left-sided weakness, stroke-like symptoms. EXAMS: 1. Head CT with IV contrast. Auto Exposure Controls were utilized during the CT exam to meet ALARA standards for radiation dose reduction. 2. CT angiogram of the head and neck performed with 100 cc of Omnipaque 350 IV contrast. Sagittal and coronal MIP reformations were created for better visualization of vascular anatomy. COMPARISON: Head CT without contrast dated 06/11/2019. FINDINGS: HEAD CT: There is no evidence of acute cerebral infarct, intracranial hemorrhage, or gross mass effect. There is no abnormal IV contrast enhancement. The brain parenchymal volume appears appropriate for patient's age. There is normal waite-white matter distinction. There is no significant midline shift or herniation. There is no evidence of hydrocephalus. The basal cisterns are unremarkable. The skull, extracranial soft tissue, and orbits are unremarkable. There is mild mucosal thickening involving both maxillary sinuses, ethmoid sinus, and sphenoid sinus. The temporal bones show no significant abnormality. CT ANGIOGRAM: There is streak artifact obscuring the upper chest and lower neck region due to patient body habitus. There is decreased contrast bolus within the right subclavian vein and superior vena cava which also causes streak artifact obscuring the adjacent regions. A three vessel aortic arch is seen. The right subclavian artery is markedly obscured with some appearance of contrast within it. The brachiocephalic artery is also markedly obscured with some appearance of contrast within it. The mid and distal left subclavian artery is markedly obscured. The proximal left subclavian artery grossly shows contrast within it. The bilateral common carotid arteries are partially obscured but appear grossly patent. The bilateral cervical ICA and bilateral ECA are patent. There is significant artifact involving the petrous and cavernous bilateral ICA regions but these vessels appear patent. The paraclinoid and supraclinoid bilateral ICA are patent. The proximal and mid portions of the bilateral cervical vertebral arteries are significantly obscured by streak artifact. The remainder of the visualized mid and distal cervical vertebral arteries are patent. The intradural bilateral vertebral arteries, basilar artery, bilateral superior cerebellar arteries, and bilateral [employer] are patent. The bilateral MCAs and their distal branches are patent. The bilateral ACAs and their distal branches are patent. The dural venous sinuses are grossly patent. There is no significant neck soft tissue abnormality. The visualized upper lung brooks are clear. The cervical spine is grossly unremarkable as visualized. IMPRESSION: 1. Stable and unremarkable CT scan of the brain with no acute finding. There is no abnormal IV contrast enhancement. 2. There is very limited visualization of the ruby of [place], neck, and aortic arch structures due to patient body habitus and streak artifact limiting vascular anatomical detail. Etiologies such as subtle dissections or minor stenoses may be missed. There is no large vessel occlusion or significant stenosis seen. There is no vascular aneurysm. There is no gross dissection flap seen as visualized. 3. The results of this report were discussed with Dr. Kenny De Jesus via the telephone on 06/11/2019 at 0900 hours. Dictated by: Dictated on workstation # [id number]
[2019-06-11 09:10] LABS: BILIRUBIN,URINE NEGATIVE (NEGATIVE); CLARITY,URINE CLEAR; GLUCOSE, URINE (UA) 3+ (NEGATIVE); KETONES,URINE NEGATIVE (NEGATIVE); LEUKOCYTE ESTERASE ,URINE NEGATIVE (NEGATIVE); NITRITE,URINE NEGATIVE (NEGATIVE); PH,URINE 5.5 (5-9); PROTEIN,URINE TRACE (NEGATIVE)
[2019-06-11 09:14] LABS: COLOR,URINE YELLOW
[2019-06-11 09:17] LABS: BACTERIA,URINE NEGATIVE /HPF; RBC,URINE 0-2 /HPF; SQUAMOUS EPITHELIAL CELL,UR RARE /HPF; WBC,URINE 25-50 /HPF
[2019-06-11] MEDS ORDERED: NS IV 1000 ML 1,000 ML IV ONE (09:21)
[2019-06-11 09:22] LABS: AMPHETAMINE SCREEN, URINE NEGATIVE (NEGATIVE); BARBITURATE SCREEN URINE NEGATIVE (NEGATIVE); BENZODIAZEPINES SCREEN URINE NEGATIVE (NEGATIVE); CANNABINOID SCREEN, URINE NEGATIVE (NEGATIVE); COCAINE SCREEN URINE NEGATIVE (NEGATIVE); METHADONE STAT NEGATIVE (NEGATIVE); METHAMPHETAMINE SCREEN URINE S NEGATIVE (NEGATIVE); OPIATE SCREEN URINE NEGATIVE (NEGATIVE); OXYCODONE STAT NEGATIVE (NEGATIVE); PROPOXYPHENE STAT NEGATIVE (NEGATIVE); TRICYCLIC ANTIDEPRESSANTS SCRE NEGATIVE (NEGATIVE)
[2019-06-11] MEDS ORDERED: cefTRIAXone FOR IV USE 1,000 MG in WATER (STERILE) FOR INJECTION 10 ML IV ONE (09:30)
[2019-06-11] MEDS ORDERED: ONDANSETRON 4 MG/2 ML (SDV) Z0FRAN IVP ONE (09:30)
[2019-06-11] MEDS ORDERED: ACETAMINOPHEN 500 MG TAB (TYLENOL) PO ONE (09:30)
[2019-06-11] MEDS ORDERED: KETOROLAC 30 MG/ML VIAL IVP ONE (09:30)
--- NOTE | 2019-06-11 09:53 | Diagnostic Imaging Report ---
Indication: Fever Portable chest 9:39 AM Heart size and pulmonary vascularity are normal. Lungs are clear. There are no effusions or pneumothoraces. IMPRESSION: Negative chest Dictated by: Dictated on workstation # [id number]
--- NOTE | 2019-06-11 10:43 | NUR ---
CURRENT TEMP 99.9 PT STATES SWEATING A LITTLE
--- NOTE | 2019-06-11 11:12 | ED Neurological Problem ---
General Chief Complaint: Fever-Adult/Adol Stated Complaint: SLURRED SPEECH;FEVER;LEFT SIDE NUMBNESS Nursing Triage Note: PT AMBULATED TO ROOM 3 PT CO OF FEVER, AND NUMBNESS TO L SIDE. PT STATES WAS SEEN IN ED ON MONDAY BUT DID NOT GET MEDS FILLED. PT IS ABLE TO AMBULATE. PT IS ABLE TO ASSIST IN REMOVAL OF CLOTHING, PT STATES HAS BEEN SLEEPING ALOT. PT TEMP 39.0 AXILLARY. STATES NUMBNESS STARTED YESTERDAY AT ABOUT 3:00PM. LAST KNOWN WELL TIME 1500 06/10/2019 Nursing Sepsis Screen: Possible Severe Sepsis Risk Source: patient, old records Exam Limitations: no limitations History of Present Illness Date Seen by Provider: Jun 11, 2019 Time Seen by Provider: 08:00 Initial Comments This 34-year-old man presents to the emergency room with primary complaint of left-sided weakness but he is also febrile, diaphoretic and tachycardic. He was seen in this ER 2 days ago and found to have urinary tract infection. He was pr escribed antibiotics but did not start them. He has been sleeping most of the time since the prior visit. Stroke activation was paged as patient did have detectable weakness on the left side. He scored 2 points on the NIH stroke scale for weakness in the left arm and leg. He does not have significant cough. There is no vomiting or diarrhea. Patient's last known well time was about 00:30 according to the patient. His believes last known well time was actually more like 15:00 yesterday. Allergies and Home Medications Allergies Coded Allergies: morphine (Verified Adverse Reaction, Intermediate, 09/13/16) MAKES HIM AGGRESSIVE Home Medications Amoxicillin 500 Mg Capsule, 1,000 MG PO TID Prescribed by: EMERSON CARBAJAL on 06/19/182128 Benzonatate 100 Mg Capsule, 1-2 TAB PO TID Prescribed by: TAMERA ALVARENGA on 03/16/18 231 Cefdinir 300 Mg Capsule, 300 MG PO BID Prescribed by: GAGANDEEP RIOS on 06/09/192153 Ciprofloxacin HCl 500 Mg Tablet, 500 MG PO BID Prescribed by: TAMERA ALVARENGA on 04/17/18 0136 Doxycycline Monohydrate 100 Mg Capsule, 100 MG PO BID Prescribed by: TAMERA ALVARENGA on 03/16/18 231 Guaifenesin/Dextromethorphan 1 Each Tbmp.12hr, 1 EACH PO BID Prescribed by: TAMERA ALVARENGA on 03/16/18 2311 Lisinopril 40 Mg Tablet, 40 MG PO HS, (Reported) Metformin HCl 500 Mg Tablet, 500 MG PO BID WITH MEALS, (Reported) Ondansetron 8 Mg Tab.rapdis, 8 MG PO Q6H PRN for NAUSEA/VOMITING Prescribed by: EMERSON CARBAJAL on 06/19/182128 Ondansetron 4 Mg Tab.rapdis, 4 MG PO Q6H PRN for NAUSEA/VOMITING Prescribed by: GAGANDEEP RIOS on 06/09/19 215 Oseltamivir Phosphate 75 Mg Cap, 75 MG PO BID Prescribed by: KENNY DE JESUS on 06/11/19 1113 Patient Home Medication List Home Medication List Reviewed: Yes Review of Systems Review of Systems Constitutional: see HPI Eyes: No Symptoms Reported Ears, Nose, Mouth, Throat: no symptoms reported Respiratory: no symptoms reported Cardiovascular: no symptoms reported Gastrointestinal: no symptoms reported Genitourinary: see HPI Musculoskeletal: no symptoms reported Skin: no symptoms reported Psychiatric/Neurological: See HPI Endocrine: No Symptoms Reported Hematologic/Lymphatic: No Symptoms Reported Past Nmcgwzy-Osroyb-Zfbjvy Hx Past Med/Social Hx: Reviewed Nursing Past Med/Soc Hx Patient Social History Alcohol Beverage of Choice: Beer Type Used: Smokeless Tobacco Former Smoker, Quit: May 22, 2007 2nd Hand Smoke Exposure: No Recent Foreign Travel: No Contact w/Someone Who Travel: No Recent Infectious Disease Expo: No Recent Hopitalizations: No Physical Abuse: No Sexual Abuse: No Immunizations Up To Date Tetanus Booster (TDap): More than 5yrs Date of Pneumonia Vaccine: Jul 26, 2011 Seasonal Allergies Seasonal Allergies: No Past Medical History Surgeries: Yes Abdominal, Ear Surgery, Orthopedic Respiratory: Yes (LEFT CHEST TUBES X 2 SECONDARY TO TRAUMA) Cardiac: Yes Hypertension Neurological: No Reproductive Disorders: No Sexually Transmitted Disease: No HIV/AIDS: No Genitourinary: Yes Bladder Infection, Kidney Stones Gastrointestinal: Yes (SPELECTOMY SECONDARY TO TRAUMA. FATTY LIVER) Liver Disease/Jaundice, Hemorrhoids Musculoskeletal: Yes (LEFT ANKLE FX/ORIF; LEFT FOREARM FX/ORIF) Fractures Endocrine: Yes (OBESITY) Diabetes, Non-Insulin dep HEENT: No Cancer: No Psychosocial: No Integumentary: No Blood Disorders: No Adverse Reaction/Blood Tranf: No Family Medical History No Pertinent Family Hx Physical Exam Vital Signs Vital Signs - First Documented 06/11/19 08:50 Temp 39.0 Pulse 122 Resp 28 B/P (MAP) 136/89 (105) Pulse Ox 95 O2 Delivery Room Air Capillary Refill : Less Than 3 Seconds Height, Weight, BMI Height: 6'0" Weight: 280lbs. 0oz. 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, alert, normal mood/affect, oriented x 3, motor weakness (Subtle left arm and leg weakness) Crainal Nerves: normal hearing, normal speech, PERRL Coordination/Gait: normal finger to nose Motor/Sensory: no sensory deficit Skin: normal color, diaphoresis Stroke NIH Stroke Scale Assessment Select: Initial Level of Consciousness: 0=Alert (0), Level of Consciousness- Questions: 0=Answers both month/age (0), LOC Commands: 0=Performs both tasks (0), Visual Alves: 0=No visual loss (0), Facial Movement (Facial Paresis): 0=Normal symmetrical mnt (0), Motor Function-Arms Right: 0=No drift (0), Motor Function-Arms Left: 1=Drift (1), Motor Function-Legs Right: 0=No drift (0), Motor Function-Legs Left: 1=Drift (1), Limb Ataxia: 0=Absent (0), Sensory: 0=Normal:no loss (0), Best Language: 0=No aphasia (0), Dysarthria: 0=Normal (0), Extinction & Inattention: 0=No abnormality (0), Total: 2 Focused Exam Lactate Level 06/11/19 08:00: Lactic Acid Level 2.10*H 06/11/19 10:07: Lactic Acid Level 0.86 Lactic Acid Level Laboratory Tests Test 06/11/19 08:00 06/11/19 10:07 Lactic Acid Level 2.10 MMOL/L (0.50-2.00) *H 0.86 MMOL/L (0.50-2.00) Progress/Results/Core Measures Results/Orders Lab Results Laboratory Tests Test 06/11/19 08:00 06/11/19 09:00 06/11/19 10:07 Range/Units White Blood Count 8.2 4.3-11.0 10^3/uL Red Blood Count 4.84 4.35-5.85 10^6/uL Hemoglobin 14.6 13.3-17.7 G/DL Hematocrit 45 40-54 % Mean Corpuscular Volume 93 80-99 FL Mean Corpuscular Hemoglobin 30 25-34 PG Mean Corpuscular Hemoglobin Concent 33 32-36 G/DL Red Cell Distribution Width 14.0 10.0-14.5 % Platelet Count 300 130-400 10^3/uL Mean Platelet Volume 10.6 H 7.4-10.4 FL Neutrophils (%) (Auto) 57 42-75 % Lymphocytes (%) (Auto) 25 12-44 % Monocytes (%) (Auto) 18 H 0-12 % Eosinophils (%) (Auto) 0 0-10 % Basophils (%) (Auto) 0 0-10 % Neutrophils # (Auto) 4.6 1.8-7.8 X 10^3 Lymphocytes # (Auto) 2.0 1.0-4.0 X 10^3 Monocytes # (Auto) 1.5 H 0.0-1.0 X 10^3 Eosinophils # (Auto) 0.0 0.0-0.3 10^3/uL Basophils # (Auto) 0.0 0.0-0.1 10^3/uL Neutrophils % (Manual) 57 % Lymphocytes % (Manual) 27 % Monocytes % (Manual) 16 % Eosinophils % (Manual) 0 % Basophils % (Manual) 0 % Band Neutrophils 0 % Anisocytosis SLIGHT Prothrombin Time 14.1 12.2-14.7 SEC INR Comment 1.0 0.8-1.4 Activated Partial Thromboplast Time 31 24-35 SEC D-Dimer 1.46 H 0.00-0.49 UG/ML Sodium Level 134 L 135-145 MMOL/L Potassium Level 4.0 3.6-5.0 MMOL/L Chloride Level 100 98-107 MMOL/L Carbon Dioxide Level 23 21-32 MMOL/L Anion Gap 11 5-14 MMOL/L Blood Urea Nitrogen 13 7-18 MG/DL Creatinine 1.26 0.60-1.30 MG/DL Estimat Glomerular Filtration Rate > 60 BUN/Creatinine Ratio 10 Glucose Level 323 H 70-105 MG/DL Lactic Acid Level 2.10 *H 0.86 0.50-2.00 MMOL/L Calcium Level 9.4 8.5-10.1 MG/DL Corrected Calcium 9.2 8.5-10.1 MG/DL Total Bilirubin 0.3 0.1-1.0 MG/DL Aspartate Amino Transf (AST/SGOT) 49 H 5-34 U/L Alanine Aminotransferase (ALT/SGPT) 51 0-55 U/L Alkaline Phosphatase 94 40-136 U/L Troponin I < 0.028 <0.028 NG/ML C-Reactive Protein High Sensitivity 9.92 H 0.00-0.50 MG/DL Total Protein 7.6 6.4-8.2 GM/DL Albumin 4.2 3.2-4.5 GM/DL Urine Color YELLOW Urine Clarity CLEAR Urine pH 5.5 5-9 Urine Specific Parker 1.010 L 1.016-1.022 Urine Protein TRACE NEGATIVE Urine Glucose (UA) 3+ H NEGATIVE Urine Ketones NEGATIVE NEGATIVE Urine Nitrite NEGATIVE NEGATIVE Urine Bilirubin NEGATIVE NEGATIVE Urine Urobilinogen 0.2 < = 1.0 MG/DL Urine Leukocyte Esterase NEGATIVE NEGATIVE Urine RBC (Auto) TRACE-I NEGATIVE Urine RBC 0-2 /HPF Urine WBC 25-50 H /HPF Urine Squamous Epithelial Cells RARE /HPF Urine Crystals NONE /LPF Urine Bacteria NEGATIVE /HPF Urine Casts NONE /LPF Urine Mucus NEGATIVE /LPF Urine Culture Indicated CULTURE PENDING Urine Opiates Screen NEGATIVE NEGATIVE Urine Oxycodone Screen NEGATIVE NEGATIVE Urine Methadone Screen NEGATIVE NEGATIVE Urine Propoxyphene Screen NEGATIVE NEGATIVE Urine Barbiturates Screen NEGATIVE NEGATIVE Ur Tricyclic Antidepressants Screen NEGATIVE NEGATIVE Urine Phencyclidine Screen NEGATIVE NEGATIVE Urine Amphetamines Screen NEGATIVE NEGATIVE Urine Methamphetamines Screen NEGATIVE NEGATIVE Urine Benzodiazepines Screen NEGATIVE NEGATIVE Urine Cocaine Screen NEGATIVE NEGATIVE Urine Cannabinoids Screen NEGATIVE NEGATIVE Micro Results Microbiology 06/11/19 Influenza Types A,B Antigen (JOHNNY) - Final, Complete My Orders Orders - KENNY HIGH MD Cbc With Automated Diff (06/11/19 08:15) Comprehensive Metabolic Panel (06/11/19 08:15) Blood Culture (06/11/19 08:15) Urinalysis (06/11/19 08:15) Urine Culture (06/11/19 08:15) Protime With Inr (06/11/19 08:15) Partial Thromboplastin Time (06/11/19 08:15) Chest 1 View, Ap/Pa Only (06/11/19 08:15) Ed Iv/Invasive Line Start (06/11/19 08:15) Ed Iv/Invasive Line Start (06/11/19 08:15) Vital Signs Adult Sepsis Patie Q15M (06/11/19 08:15) O2 (06/11/19 08:15) Remove Rings In Anticipation O (06/11/19 08:15) Lactic Acid Analyzer (06/11/19 08:15) Influenza A And B Antigens (06/11/19 08:15) Hs C Reactive Protein (06/11/19 08:15) Drug Screen Stat (Urine) (06/11/19 08:15) Fibrin Degradation Products (06/11/19 08:15) Troponin I (06/11/19 08:15) Ekg Tracing (06/11/19 08:15) Nothing By Mouth (06/11/19 Lunch) Accucheck Stat ONCE (06/11/19 08:15) Vital Signs Stroke Patient Q15M (06/11/19 08:15) Ct Head Wo-R/O Stroke (06/11/19 08:15) Intake & Output 06,14,22 (06/11/19 08:15) Monitor-Rhythm Ecg Trace Only (06/11/19 08:15) Dysphagia Screening Tool (06/11/19 08:15) Lipid Panel (06/12/19 06:00) Ct Angio Head/Neck (06/11/19 08:17) Manual Differential (06/11/19 08:00) Iohexol Injection (Omnipaque 350 Mg/Ml 1 (06/11/19 08:45) Received Contrast (Hold Metformin- Contr (06/11/19 08:45) Sodium Chloride Flush (Catheter Flush Sy (06/11/19 08:45) Ns (Ivpb) (Sodium Chloride 0.9% Ivpb Bag (06/11/19 08:45) Acetaminophen Tablet (Tylenol Tablet) (06/11/19 09:30) Ketorolac Injection (Toradol Injection) (06/11/19 09:30) Ondansetron Injection (Zofran Injectio (06/11/19 09:30) Ns Iv 1000 Ml (Sodium Chloride 0.9%) (06/11/19 09:21) Ceftriaxone For Iv Use (Rocephin For I (06/11/19 09:30) Medications Given in ED Current Medications Medications Dose Ordered Sig/Radha Route Start Time Stop Time Status Last Admin Dose Admin Acetaminophen 1,000 mg ONCE ONCE PO 06/11/19 09:30 06/11/19 09:31 DC 06/11/19 09:36 1,000 MG Ceftriaxone Sodium 1000 mg/ Sterile Water 10 ml @ 200 mls/hr ONCE ONCE IV 06/11/19 09:30 06/11/19 09:32 DC 06/11/19 09:36 200 MLS/HR Iohexol 75 ml ONCE ONCE IV 06/11/19 08:45 06/11/19 08:46 DC 06/11/19 08:47 75 ML Ketorolac Tromethamine 15 mg ONCE ONCE IVP 06/11/19 09:30 06/11/19 09:31 DC 06/11/19 09:36 15 MG Ondansetron HCl 8 mg ONCE ONCE IVP 06/11/19 09:30 06/11/19 09:31 DC 06/11/19 09:35 8 MG Sodium Chloride 10 ml NEEDED PRN IV 06/11/19 08:45 06/11/19 11:33 DC 06/11/19 08:47 10 ML Sodium Chloride 100 ml ONCE ONCE IV 06/11/19 08:45 06/11/19 08:46 DC 06/11/19 08:47 80 ML Sodium Chloride 1,000 ml @ 0 mls/hr Q0M ONCE IV 06/11/19 09:21 06/11/19 09:22 DC 06/11/19 09:37 1,000 MLS/HR Vital Signs/I&O 06/11/19 06/11/19 08:50 11:29 Temp 39.0 39.0 Pulse 122 93 Resp 28 20 B/P (MAP) 136/89 (105) 128/64 (105) Pulse Ox 95 95 O2 Delivery Room Air Blood Pressure Mean: 105 iStat Bedside Lab Testing Sodium (Na): 133.00 Potassium (K): 4.10 Chloride (CI): 99.00 TCO2: 26.00 Glucose (Glu): 303.00 Urea Nitrogen (BUN)/Urea: 16.00 Creatinine (Crea): 1.00 Anion Gap*: 12.00 Progress Progress Note : Progress Note Patient had subtle weakness of his left arm and leg upon arrival. Although a subtle, it was clearly different than the right. Stroke activation was paged. NIH stroke score was 2 due to 1 point in each of the left extremities. CT scan revealed no intracranial hemorrhage. This was followed by CT angiogram which likewise showed no specific pathology, specifically no large vessel thrombus. Patient was found to have influenza and a urinary tract infection. He was treated with IV fluids, Tylenol, Toradol, Zofran and Rocephin. He had excellent improvement in his symptoms. Weakness resolved prior to departure. Compliance with medications was stressed with the patient. Diagnostic Imaging Diagonstic Imaging: CT Plain Films/CT/US/NM/MRI: head Comments CT head viewed by me and report reviewed. Discussed with the radiologist. See report below: NAME: KAREN MILAN [facility] REC#: [id number] PT STATUS: DEP ER : 1985 PHYSICIAN: KENNY IHGH MD ADMIT DATE: 06/11/19/ER Signed Date of Exam:06/11/19 CT HEAD WO-R/O STROKE PROCEDURE: CT head wo r/o stroke. TECHNIQUE: Multiple contiguous axial images were obtained through the brain without the use of intravenous contrast. Auto Exposure Controls were utilized during the CT exam to meet ALARA standards for radiation dose reduction. INDICATION: Left-sided weakness. Correlation is made with prior head CT from 12/28/2015. FINDINGS: Ventricles and sulci are within normal limits. No sulcal effacement or midline shift is identified. No acute intra-axial or extra-axial hemorrhage is detected. Cisterns are patent. The visualized paranasal sinuses are clear. IMPRESSION: No acute intracranial process is detected. Dictated by: Dictated on workstation # [id number] Dict: 06/11/19 0829 Trans: 06/11/19 1559 [id number] Interpreted by: NEEL PATEL MD Electronically signed by: NEEL PATEL MD 06/11/19 1559 Diagonstic Imaging: Xray Plain Films/CT/US/NM/MRI: chest Comments NAME: KAREN MILAN [facility] REC#: [id number] PT STATUS: [facility] ER : 1985 PHYSICIAN: KENNY HIGH MD ADMIT DATE: 06/11/19/ER Signed Date of Exam:06/11/19 CHEST 1 VIEW, AP/PA ONLY Indication: Fever Portable chest 9:39 AM Heart size and pulmonary vascularity are normal. Lungs are clear. There are no effusions or pneumothoraces. IMPRESSION: Negative chest Dictated by: Dictated on workstation # [id number] Dict: 06/11/19 0950 Trans: 06/11/19 0951 TB [id number] Interpreted by: GAGANDEEP SAUCEDO MD Electronically signed by: GAGANDEEP SAUCEDO MD 06/11/19 0951 Diagonstic Imaging: CT Plain Films/CT/US/NM/MRI: other (Angiogram head and neck) Comments CT angiogram head and neck discussed with the radiologist and report reviewed. See report below: NAME: KAREN MILAN [facility] REC#: [id number] PT STATUS: [facility] ER : 1985 PHYSICIAN: KENNY HIGH MD ADMIT DATE: 06/11/19/ER Signed Date of Exam:06/11/19 CT ANGIO HEAD/NECK CLINICAL INDICATION: Patient with left-sided weakness, stroke-like symptoms. EXAMS: 1. Head CT with IV contrast. Auto Exposure Controls were utilized during the CT exam to meet ALARA standards for radiation dose reduction. 2. CT angiogram of the head and neck performed with 100 cc of Omnipaque 350 IV contrast. Sagittal and coronal MIP reformations were created for better visualization of vascular anatomy. COMPARISON: Head CT without contrast dated 06/11/2019. FINDINGS: HEAD CT: There is no evidence of acute cerebral infarct, intracranial hemorrhage, or gross mass effect. There is no abnormal IV contrast enhancement. The brain parenchymal volume appears appropriate for patient's age. There is normal waite-white matter distinction. There is no significant midline shift or herniation. There is no evidence of hydrocephalus. The basal cisterns are unremarkable. The skull, extracranial soft tissue, and orbits are unremarkable. There is mild mucosal thickening involving both maxillary sinuses, ethmoid sinus, and sphenoid sinus. The temporal bones show no significant abnormality. CT ANGIOGRAM: There is streak artifact obscuring the upper chest and lower neck region due to patient body habitus. There is decreased contrast bolus within the right subclavian vein and superior vena cava which also causes streak artifact obscuring the adjacent regions. A three vessel aortic arch is seen. The right subclavian artery is markedly obscured with some appearance of contrast within it. The brachiocephalic artery is also markedly obscured with some appearance of contrast within it. The mid and distal left subclavian artery is markedly obscured. The proximal left subclavian artery grossly shows contrast within it. The bilateral common carotid arteries are partially obscured but appear grossly patent. The bilateral cervical ICA and bilateral ECA are patent. There is significant artifact involving the petrous and cavernous bilateral ICA regions but these vessels appear patent. The paraclinoid and supraclinoid bilateral ICA are patent. The proximal and mid portions of the bilateral cervical vertebral arteries are significantly obscured by streak artifact. The remainder of the visualized mid and distal cervical vertebral arteries are patent. The intradural bilateral vertebral arteries, basilar artery, bilateral superior cerebellar arteries, and bilateral BALL WORKER are patent. The bilateral MCAs and their distal branches are patent. The bilateral ACAs and their distal branches are patent. The dural venous sinuses are grossly patent. There is no significant neck soft tissue abnormality. The visualized upper lung alves are clear. The cervical spine is grossly unremarkable as visualized. IMPRESSION: 1. Stable and unremarkable CT scan of the brain with no acute finding. There is no abnormal IV contrast enhancement. 2. There is very limited visualization of the [place], neck, and aortic arch structures due to patient body habitus and streak artifact limiting vascular anatomical detail. Etiologies such as subtle dissections or minor stenoses may be missed. There is no large vessel occlusion or significant stenosis seen. There is no vascular aneurysm. There is no gross dissection flap seen as visualized. 3. The results of this report were discussed with Dr. Kenny De Jesus via the telephone on 06/11/2019 at 0900 hours. Dictated by: Dictated on workstation # [id number] Dict: 06/11/19 0848 Trans: 06/11/19 1207 [id number] Interpreted by: ROLAND BACH MD Electronically signed by: ROLAND BACH MD 06/11/19 1207 Departure Impression Primary Impression: Influenza A Additional Impressions: Urinary tract infection Qualified Codes: N39.0 - Urinary tract infection, site not specified Left-sided weakness Hyperglycemia Disposition: HOME, SELF-CARE Condition: Improved Departure-Patient Inst. Decision time for Depature: 11:10 Referrals: [facility] [place] (PCP) Primary Care Physician YINKA MADRIGAL (Family) Primary Care Physician Patient Instructions: Flu, Adult (DC), Urinary Tract Infections in Adults Add. Discharge Instructions: Drink plenty of clear liquids. You may take ibuprofen up to 600 mg every 6 hours and Tylenol (acetaminophen) up to 1000 mg every 6 hours for fever or pain. Start Tamiflu as soon as possible and complete the entire 10 doses. Complete your antibiotics as prescribed and follow-up on urine culture results with your primary care provider on or Monday. Monitor your blood sugars closely. Continue your prior medications as previously prescribed. Eat a low carbohydrate low sugar diet. Return to the emergency room if you have worsening symptoms despite these measures. All discharge instructions reviewed with patient and/or family. Voiced understanding. Scripts Oseltamivir Phosphate (Tamiflu) 75 Mg Cap 75 MG PO BID, #10 CAP Prov: KENNY HIGH MD 06/11/19 Work/School Note: Work Release Form Date Seen in the Emergency Department: Jun 11, 2019 Return to Work: Jun 13, 2019 Restrictions: Return-No Fever (24hrs) Other Restrictions Listed Below: May not return until fever free without medicines for 24 hours Copy Copies To 1: REGI HOLT JOSHUA T MD Jun 11, 2019 11:12
[2019-06-11] MEDS ORDERED: OSLT75C PO (11:13)
[2019-06-11 11:29] VITALS: BP 128/64
== END 2019-06-11 11:33 | disposition home or self-care (01) ==
LOC: EDUNIT# 07:55 → ER 07:57
DX: J10.1 Influenza due to other identified influenza virus with other respiratory manifestations (principal); N39.0 Urinary tract infection, site not specified; R53.1 Weakness; E11.65 Type 2 diabetes mellitus with hyperglycemia; I10 Essential (primary) hypertension; E66.9 Obesity, unspecified; Z87.442 Personal history of urinary calculi; Z90.81 Acquired absence of spleen; Z88.5 Allergy status to narcotic agent; Z68.41 Body mass index [BMI] 40.0-44.9, adult; Z79.84 Long term (current) use of oral hypoglycemic drugs; Z87.891 Personal history of nicotine dependence
CPT/HCPCS: 36415; 70450; 70496; 70498; 71045; 80053; 80306; 81000; 83605; 84484; 85007; 85027; 85379; 85610; 85730; 86141; 87040; 87077; 87088; 87804; 93005; 93041; 96361; 96374; 96375

== ENCOUNTER 2019-09-20 21:42 | Emergency (ER) | payer BC ==
[~2019-09-20] VITALS: Ht 182.8 cm; Wt 131.4 kg
[~2019-09-20 21:42] MED LIST changes: -MECL-106 PO; +MECL-149 PO; -OMEP-280; +OMEP20CA18
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
--- OUTSIDE RECORDS SUMMARY | 2019-09-20 21:50 | XMS REPORT ---
Author Author Demarco FARIA Organization [facility] Address Unknown Care Team Providers Care Vp Integrity Name Role Phone JEREMIAH FARIA Unavailable PROBLEMS Type Condition ICD9-CM Code FNJ67-SL Code Onset Dates Condition S tatus SNOMED Code Problem FH: hypertension Z82.49 Active 160 077613 Problem Obesity due to excess calories, unspecified obesity severi ty E66.09 Active 635639421 Problem FH: diabetes mellitus Z83.3 Active 741553754 Problem Hypertension, benign I10 Active 05417638 Problem Polydipsia R63.1 Active 86974308 Problem Lumbago with sciatica, left side M54.42 Active 161670974 Problem Controlled type 2 diabetes m ellitus without complication, without long- term current use of insulin E11.9 Active 288088527 Problem Essential hypertension I10 Active 15138381 Problem Nephrolithiasis N20.0 Active 9557 0007 Problem Alcohol use F10.99 Active 764977 Problem Other chronic pain G89.29 Active 8 6024517 Problem Type 2 diabetes mellitus wit hout complication, without long-term current use of insulin E11.9 Active 780632386 Problem Other chronic pain G89.29 Active 8 2905934 Problem Uncontrolled type 2 diabetes mellitus without complication, without long-term current use of insulin E11.65 Active 239537425 ALLERGIES No Information ENCOUNTERS Encounter Location Date Diagnosis [facility] [address] [facility] [id number] [address] [place] [address] Dec, Folliculitis L73.9 [facility] [address] [facility] [id number] [address] [place] [id number] September, [facility] [address] [facility] [id number] [address] [place] [address] September, [facility] [address] [facility] [id number] [address] [place] [address] Aug, [facility] [address] [facility] [id number] [address] [place] [address] Jul, [facility] [address] [facility] [id number] [address] [place] [address] Jun, Other chronic pain G89.29 [facility] [address] [facility] [id number] [address] [place] [address] Jun, Other chronic pain G89.29 [facility] [address] [facility] [id number] [address] [place] [address] Jun, [facility] [address] [facility] [id number] [address] [place] [address] May, [facility] [address] [facility] [id number] [address] [place] [address] Apr, [facility] [address] [place] [id number] [address] [place] [address] Mar, Essential hypertension I10 ; Type 2 diabetes mellitus without complication, without long-term current use of insulin E11.9 and Nephrolithiasis N20.0 [place] [address] [place] [id number] [address] [place] [address] Mar, Controlled type 2 diabetes m ellitus without complication, without long-term current use of insulin E11.9 and Bronchitis J40 [place] [address] [place] [id number] [address] [place] [address] Feb, [facility] [address] [facility] [id number] [address] [place] [address] 17 Jan, 2018 Sebaceous cyst L72.3 [facility] [address] [place] [id number] [address] [place] [address] Jan, [facility] [address] [place] [id number] [address] [place] [address] Jan, Abscess of back L02.212 [place] [address] [place] [id number] [address] [place] [address] Jan, Sebaceous cyst L72.3 [facility] [address] [facility] [id number] [address] [place] [address] Jan, Essential hypertension I10 a nd Sebaceous cyst L72.3 [facility] [address] [place] [id number] [address] [place] [address] Jan, Cellulitis of back except bu ttock L03.312 [place] [address] [place] [id number] [address] [place] [address] Dec, Sebaceous cyst L72.3 [place] [address] [place] [id number] [address] [place] [address] Oct, Acute suppurative otitis med ia of left ear without spontaneous rupture of tympanic membrane, recurrence not specified H66.002 and Type 2 diabetes mellitus without complication, without long-term current use of insulin E11.9 [place] [id number] [place] [address] Jun, [place] [address] [place] [id number] [address] [place] [address] Jun, [place] [address] [address] Jun, Acute pain of left shoulder M25.512 [place] [id number] [place] [address] May, Acute pain of left shoulder M25.512 [place] [address] [place] [id number] [address] [place] [address] Apr, Acute pain of left shoulder M25.512 [facility] WALK IN [facility] [address] [place] [id number] [address] [place] [address] Mar, Acute non-recurrent frontal sinusitis J01.10 [place] [address] [place] [id number] [address] [place] [address] Mar, Controlled type 2 diabetes m ellitus without complication, without long-term current use of insulin E11.9 [facility] [address] [id number] [address] [place] [address] Mar, Acute pain of left shoulder M25.512 [facility] WALK IN [place] [address] [facility] [id number] [address] [place] [address] 18 Feb, 2017 [facility] WALK IN [place] [address] [facility] [id number] [address] [place] [address] Feb, Burning with urination R30.0 and Acute cystitis N30.00 [place] [address] [facility] [id number] [address] [place] [address] Feb, Acute pain of left shoulder M25.512 [place] [address] [facility] [id number] [address] [place] [address] Jan, Acute pain of left shoulder M25.512 [place] [address] [facility] [id number] [address] [place] [address] Dec, Acute pain of left shoulder M25.512 [place] [address] [facility] [id number] [address] [place] [address] Nov, Essential hypertension I10 a nd Type 2 diabetes mellitus without complication, without long-term current use of insulin E11.9 [facility] WALK IN [place] [address] [facility] [id number] [address] [place] [address] Nov, Viral rash B09 [facility] WALK IN [place] [address] [facility] [id number] [address] [place] [address] Nov, Acute pain of left shoulder M25.512 and Cervicalgia M54.2 [place] [address] [facility] [id number] [address] [place] [address] Oct, Type 2 diabetes mellitus wit hout complication, without long-term current use of insulin E11.9 [facility] WALK IN [place] [address] [facility] [id number] [address] [place] [address] Oct, Sore throat J02.9 and Strep throat J02.0 [place] [address] [place] [id number] [address] [place] [address] September, Type 2 diabetes mellitus wit hout complication, without long-term current use of insulin E11.9 and Low back pain M54.5 [facility] [address] [address] Aug, Uncontrolled type 2 diabetes mellitus without complication, without long-term current use of insulin E11.65 [place] [address] [address] Aug, Dysuria R30.0 [place] [address] [address] Jul, Dysuria R30.0 [place] [address] [address] Jul, Uncontrolled type 2 diabetes mellitus without complication, without long-term current use of insulin E11.65 [place] [address] [address] Jun, Lumbago with sciatica, left side M54.42 ; Essential hypertension I10 ; Other chronic pain G89.29 and Type 2 diabetes mellitus without complication, without long-term current use of insulin E11.9 [place] [address] [address] May, Essential hypertension I10 a nd Type 2 diabetes mellitus without complication, without long-term current use of insulin E11.9 [facility] [address] [place] [id number] [address] [place] [address] Apr, Lumbago with sciatica, left side M54.42 and Other chronic pain G89.29 [place] [address] [address] Apr, Polyuria R35.8 ; Polydipsia R63.1 ; Family history of diabetes mellitus Z83.3 and Essential hypertension I10 [place] [address] [place] [address] Mar, [facility] [address] [address] Feb, Coughing R05 and Hypertensio n, benign I10 [facility] [address] [place] [id number] [address] [place] [address] Feb, Hypertension, benign I10 [facility] [address] [place] [id number] [place] [address] 29 Jan, 2016 Epigastric pain R10.13 and H ypertension, benign I10 [facility] WALK IN [facility] [address] [address] 26 Jan, 2016 Essential hypertension I10 ; Other chest pain R07.89 and Gastroesophageal reflux disease, esophagitis presence not specified K21.9 [facility] [address] [address] Apr, Essential hypertension I10 ; Cough R05 ; Obesity due to excess calories, unspecified obesity severity E66.09 ; FH: diabetes mellitus Z83.3 ; FH: hypertension Z82.49 and Alcohol use F10.99 [facility] IN [facility] [address] [address] Mar, Cough R05 [facility] [address] [address] 14 Aug, 2014 [facility] [address] [address] Aug, [facility] [address] [address] Apr, [facility] [address] [address] Apr, [facility] [address] [place] [id number] [address] [place] [address] Apr, [facility] [address] [address] Apr, [facility] [address] [id number] [address] [place] [address] Apr, [facility] [address] [id number] [address] [place] [address] Apr, [facility] [address] [id number] [address] [place] [address] Apr, [facility] [address] [id number] [address] [place] [address] Apr, [facility] [address] [id number] [address] [place] [address] Apr, [facility] [address] [id number] [address] [place] [address] Apr, [facility] [address] [id number] [address] [place] [address] Nov, [facility] [address] [id number] [address] [place] [address] Oct, [facility] [address] [id number] [address] [place] [address] Oct, [facility] [address] [id number] [address] [place] [address] Mar, [facility] [address] [id number] [address] [place] [address] Mar, [facility] [address] [id number] [address] [place] [address] Feb, [facility] [address] [id number] [address] [place] [address] Feb, [facility] [address] [id number] [address] [place] [address] Nov, IMMUNIZATIONS No Known Immunizations SOCIAL HISTORY [...] - Cyst infection/addie sukumar 01/2018 Hospitalization History [facility] ER - UTI 03/2018
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
--- OUTSIDE RECORDS SUMMARY | 2019-09-20 21:50 | XMS REPORT ---
Author Author Demarco MADRIGAL Organization [facility] Address [address] [place] [address] Care Team Providers Care Customer Services Supervisor Name Role Phone YINKA MADRIGAL Unavailable PROBLEMS Type Condition ICD9-CM Code OVH57-PG Code Onset Dates Condition S tatus SNOMED Code Problem FH: hypertension Z82.49 Active 160 754787 Problem Obesity due to excess calories, unspecified obesity severi ty E66.09 Active 283477913 Problem FH: diabetes mellitus Z83.3 Active 932782796 Problem Hypertension, benign I10 Active 33505101 Problem Polydipsia R63.1 Active 52098110 Problem Lumbago with sciatica, left side M54.42 Active 225915284 Problem Controlled type 2 diabetes m ellitus without complication, without long- term current use of insulin E11.9 Active 096406087 Problem Essential hypertension I10 Active 00312331 Problem Nephrolithiasis N20.0 Active 9557 0007 Problem Alcohol use F10.99 Active 703804 Problem Other chronic pain G89.29 Active 8 6932360 Problem Type 2 diabetes mellitus wit hout complication, without long-term current use of insulin E11.9 Active 934538559 Problem Other chronic pain G89.29 Active 8 6643008 Problem Uncontrolled type 2 diabetes mellitus without complication, without long-term current use of insulin E11.65 Active [id number] ALLERGIES No Information ENCOUNTERS Encounter Location Date Diagnosis [facility] [address] [facility] [id number] [address] [place] [address] Dec, Folliculitis L73.9 [facility] [address] [facility] [id number] [address] [place] [phone] 14 Sep, 2018 [facility] [address] [facility] [id number] [address] [place] [id number] September, [facility] [address] [facility] [id number] [address] [place] [phone] Aug, [facility] [address] [facility] [id number] [address] [place] [phone] Jul, [facility] [address] [facility] [id number] [address] [place] [address] Jun, Other chronic pain G89.29 [facility] [address] [place] [id number] [address] [place] [address] Jun, Other chronic pain G89.29 [facility] [address] [facility] [id number] [address] [place] [address] Jun, [facility] [address] [place] [id number] [place] [phone] May, [facility] [address] [address] Apr, [facility] [address] [address] Mar, Essential hypertension I10 ; Type 2 diabetes mellitus without complication, without long-term current use of insulin E11.9 and Nephrolithiasis N20.0 [place] [address] [place] [id number] [address] [place] [address] Mar, Controlled type 2 diabetes m ellitus without complication, without long-term current use of insulin E11.9 and Bronchitis J40 [place] [id number] [place] [address] Feb, [facility] [address] [place] [id number] [address] [place] [address] 17 Jan, 2018 Sebaceous cyst L72.3 [facility] [address] [address] Jan, [facility] [address] [place] [id number] [address] [place] [address] Jan, Abscess of back L02.212 [place] [address] [place] [address] 13 Jan, 2018 Sebaceous cyst L72.3 [facility] [address] [place] [id number] [address] [place] [id number] 11 Jan, 2018 Essential hypertension I10 a nd Sebaceous cyst L72.3 [facility] [address] [place] [id number] [address] [place] [address] Jan, Cellulitis of back except bu ttock L03.312 [facility] [address] [place] [id number] [address] [place] [address] Dec, Sebaceous cyst L72.3 [place] [address] [address] Oct, Acute suppurative otitis med ia of left ear without spontaneous rupture of tympanic membrane, recurrence not specified H66.002 and Type 2 diabetes mellitus without complication, without long-term current use of insulin E11.9 [place] [address] [id number] 07 Jun, 2017 [facility] [address] [address] Jun, [place] [address] [address] Jun, Acute pain of left shoulder M25.512 [place] [address] [address] May, Acute pain of left shoulder M25.512 [place] [address] [place] [id number] [place] [address] Apr, Acute pain of left shoulder M25.512 [facility] [address] [place] [id number] [place] [address] Mar, Acute non-recurrent frontal sinusitis J01.10 [place] [address] [address] Mar, Controlled type 2 diabetes m ellitus without complication, without long-term current use of insulin E11.9 [place] [id number] [facility] [id number] [address] [place] [address] Mar, Acute pain of left shoulder M25.512 [facility] [place] [id number] [facility] [id number] [address] [place] [id number] Feb, [facility] [place] [address] [facility] [id number] [address] [place] [address] Feb, Burning with urination R30.0 and Acute cystitis N30.00 [place] [address] [facility] [id number] [address] [place] [address] Feb, Acute pain of left shoulder M25.512 [place] [address] [place] [id number] [address] [place] [address] Jan, Acute pain of left shoulder M25.512 [place] [address] [facility] [id number] [address] [place] [address] Dec, Acute pain of left shoulder M25.512 [place] [address] [facility] [id number] [address] [place] [address] Nov, Essential hypertension I10 a nd Type 2 diabetes mellitus without complication, without long-term current use of insulin E11.9 [facility] [place] [address] [place] [id number] [address] [place] [address] Nov, Viral rash B09 [facility] [place] [address] [facility] [id number] [address] [place] [address] Nov, Acute pain of left shoulder M25.512 and Cervicalgia M54.2 [place] [address] [place] [id number] [address] [place] [address] Oct, Type 2 diabetes mellitus wit hout complication, without long-term current use of insulin E11.9 [facility] [place] [id number] [facility] [id number] [address] [place] [address] Oct, Sore throat J02.9 and Strep throat J02.0 [place] [address] [place] [id number] [address] [place] [address] September, Type 2 diabetes mellitus wit hout complication, without long-term current use of insulin E11.9 and Low back pain M54.5 [place] [address] [place] [id number] [address] [place] [address] Aug, Uncontrolled type 2 diabetes mellitus without complication, without long-term current use of insulin E11.65 [place] [address] [place] [id number] [address] [place] [address] Aug, Dysuria R30.0 [place] [address] [address] Jul, Dysuria R30.0 [place] [address] [address] Jul, Uncontrolled type 2 diabetes mellitus without complication, without long-term current use of insulin E11.65 [place] [address] [place] [id number] [address] [place] [address] Jun, Lumbago with sciatica, left side M54.42 ; Essential hypertension I10 ; Other chronic pain G89.29 and Type 2 diabetes mellitus without complication, without long-term current use of insulin E11.9 [place] [address] [place] [id number] [address] [place] [address] May, Essential hypertension I10 a nd Type 2 diabetes mellitus without complication, without long-term current use of insulin E11.9 [facility] [address] [place] [id number] [address] [place] [address] Apr, Lumbago with sciatica, left side M54.42 and Other chronic pain G89.29 [place] [address] [place] [id number] [address] [place] [phone] Apr, Polyuria R35.8 ; Polydipsia R63.1 ; Family history of diabetes mellitus Z83.3 and Essential hypertension I10 [place] [address] [place] [id number] [address] [place] [address] Mar, [facility] [address] [place] [id number] [address] [place] [phone] Feb, Coughing R05 and Hypertensio n, benign I10 [facility] [address] [place] [id number] [address] [place] [address] Feb, Hypertension, benign I10 [facility] [address] [place] [id number] [place] [address] 29 Jan, 2016 Epigastric pain R10.13 and H ypertension, benign I10 [facility] [address] [place] [id number] [place] [address] 26 Jan, 2016 Essential hypertension I10 ; Other chest pain R07.89 and Gastroesophageal reflux disease, esophagitis presence not specified K21.9 [facility] [address] [address] Apr, Essential hypertension I10 ; Cough R05 ; Obesity due to excess calories, unspecified obesity severity E66.09 ; FH: diabetes mellitus Z83.3 ; FH: hypertension Z82.49 and Alcohol use F10.99 [facility] [address] [place] [id number] [address] [place] [address] Mar, Cough R05 [facility] [address] [place] [id number] [address] [place] [id number] 14 Aug, 2014 [facility] [address] [address] Aug, [facility] [address] [place] [id number] [address] [place] [address] Apr, [facility] [address] [id number] Apr, [facility] [address] [place] [id number] [address] [place] [address] Apr, [facility] [address] [id number] [address] [place] [id number] Apr, [facility] [address] [id number] [address] [place] [address] Apr, [facility] [address] [id number] [address] [place] [id number] Apr, [facility] [address] [id number] [address] [place] [phone] Apr, [facility] [address] [id number] [address] [place] [address] Apr, [facility] [address] [id number] [address] [place] [address] Apr, [facility] [address] [id number] [address] [place] [phone] Apr, [facility] [address] [id number] [address] [place] [phone] Nov, [facility] [address] [id number] [address] [place] [phone] Oct, [facility] [address] [id number] [address] [place] [phone] Oct, [facility] [address] [id number] [address] [place] [phone] Mar, [facility] [address] [id number] [address] [place] [phone] Mar, [facility] [address] [id number] [address] [place] [phone] Feb, [facility] [address] [id number] [address] [place] [phone] Feb, [facility] [address] [id number] [address] [place] [phone] Nov, IMMUNIZATIONS No Known Immunizations SOCIAL HISTORY Never Assessed REASON FOR VISIT Controlled refill PLAN OF CARE VITAL SIGNS MEDICATIONS Medication Instructions Dosage Frequency Start Date End Date Duration S tatus Cade 5-325 MG Orally every 6 hrs 1 tablet as needed 6h 25 Jul, 201 9 Active RESULTS No Results PROCEDURES No Known [...] - Cyst infection/addie sukumar 01/2018 Hospitalization History [facility] - UTI 03/2018
--- OUTSIDE RECORDS SUMMARY | 2019-09-20 21:51 | XMS REPORT ---
Author Author Demarco MADRIGAL Organization [facility] Address [address] [place] [address] Care Team Providers Care Strategic Intelligence Officer Name Role Phone YINKA MADRIGAL Unavailable PROBLEMS Type Condition ICD9-CM Code [id number] Code Onset Dates Condition S tatus SNOMED Code Problem Hypertension, benign I10 Active 09234952 Problem Lumbago with sciatica, left side M54.42 Active 010712739 Problem Polydipsia R63.1 Active 36118935 Problem Nephrolithiasis N20.0 Active 9557 0007 Problem Controlled type 2 diabetes m ellitus without complication, without long- term current use of insulin E11.9 Active 437954329 Problem Type 2 diabetes mellitus wit hout complication, without long-term current use of insulin E11.9 Active 335766387 Problem Other chronic pain G89.29 Active 8 0705805 Problem Uncontrolled type 2 diabetes mellitus without complication, without long-term current use of insulin E11.65 Active 316359478 Problem Other chronic pain G89.29 Active 8 3907316 Problem FH: diabetes mellitus Z83.3 Active 173115723 Problem Obesity due to excess calories, unspecified obesity severi ty E66.09 Active 852643956 Problem Alcohol use F10.99 Active 469494 Problem FH: hypertension Z82.49 Active 160 853135 Problem Essential hypertension I10 Active 96550311 ALLERGIES Substance Reaction Event Type Date Status Morphine Sulfate Becomes hostile Drug Allergy Mar, Active ENCOUNTERS Encounter Location Date Diagnosis [facility] [address] [facility] [id number] [address] [place] [phone] Apr, [facility] [address] [facility] [id number] [address] [place] [address] Mar, Essential hypertension I10 ; Type 2 diabetes mellitus without complication, without long-term current use of insulin E11.9 and Nephrolithiasis N20.0 [facility] [address] [address] Mar, Controlled type 2 diabetes m ellitus without complication, without long-term current use of insulin E11.9 and Bronchitis J40 [place] [address] [id number] [place] [address] Feb, [place] [address] [address] 17 Jan, 2018 Sebaceous cyst L72.3 [facility] [address] [address] 15 Jan, 2018 [facility] [place] [address] [address] 15 Jan, 2018 Abscess of back L02.212 [place] [address] [address] 13 Jan, 2018 Sebaceous cyst L72.3 [place] [address] [address] Jan, Essential hypertension I10 a nd Sebaceous cyst L72.3 [facility] [place] [address] [address] Jan, Cellulitis of back except bu ttock L03.312 [place] [address] [address] Dec, Sebaceous cyst L72.3 [place] [address] [address] Oct, Acute suppurative otitis med ia of left ear without spontaneous rupture of tympanic membrane, recurrence not specified H66.002 and Type 2 diabetes mellitus without complication, without long-term current use of insulin E11.9 [place] [address] [address] Jun, [place] [address] [address] Jun, [facility] [address] [facility] [id number] [address] [place] [address] Jun, Acute pain of left shoulder M25.512 [facility] [address] [facility] [id number] [address] [place] [address] May, Acute pain of left shoulder M25.512 [facility] [address] [facility] [id number] [address] [place] [address] Apr, Acute pain of left shoulder M25.512 [facility] [address] [facility] [id number] [address] [place] [address] Mar, Acute non-recurrent frontal sinusitis J01.10 [place] [address] [address] [place] [id number] [place] [phone] Mar, Controlled type 2 diabetes m ellitus without complication, without long-term current use of insulin E11.9 [place] [address] [facility] [id number] [address] [place] [address] Mar, Acute pain of left shoulder M25.512 [facility] [address] [facility] [id number] [address] [place] [address] Feb, [facility] [address] [place] [id number] [place] [address] Feb, Burning with urination R30.0 and Acute cystitis N30.00 [place] [address] [address] [facility] [id number] [address] [place] [address] Feb, Acute pain of left shoulder M25.512 [place] [address] [facility] [id number] [address] [place] [address] Jan, Acute pain of left shoulder M25.512 [place] [address] [facility] [id number] [address] [place] [address] Dec, Acute pain of left shoulder M25.512 [place] [address] [facility] [id number] [address] [place] [address] Nov, Essential hypertension I10 a nd Type 2 diabetes mellitus without complication, without long-term current use of insulin E11.9 [facility] [address] [place] [id number] [address] [place] [address] Nov, Viral rash B09 [facility] [address] [facility] [id number] [address] [place] [address] Nov, Acute pain of left shoulder M25.512 and Cervicalgia M54.2 [place] [address] [address] [place] [id number] [address] [place] [address] Oct, Type 2 diabetes mellitus wit hout complication, without long-term current use of insulin E11.9 [facility] [address] [place] [id number] [address] [place] [address] Oct, Sore throat J02.9 and Strep throat J02.0 [place] [address] [address] September, Type 2 diabetes mellitus wit hout complication, without long-term current use of insulin E11.9 and Low back pain M54.5 [place] [address] [place] [id number] [address] [place] [address] Aug, Uncontrolled type 2 diabetes mellitus without complication, without long-term current use of insulin E11.65 [place] [address] [place] [id number] [address] [place] [address] Aug, Dysuria R30.0 [place] [address] [place] [id number] [address] [place] [address] Jul, Dysuria R30.0 [place] [address] [place] [id number] [address] [place] [address] Jul, Uncontrolled type 2 diabetes mellitus without complication, without long-term current use of insulin E11.65 [place] [address] [place] [id number] [address] [place] [address] Jun, Lumbago with sciatica, left side M54.42 ; Essential hypertension I10 ; Other chronic pain G89.29 and Type 2 diabetes mellitus without complication, without long-term current use of insulin E11.9 [place] [address] [address] 12 May, 2016 Essential hypertension I10 a nd Type 2 diabetes mellitus without complication, without long-term current use of insulin E11.9 [facility] [place] [address] [address] Apr, Lumbago with sciatica, left side M54.42 and Other chronic pain G89.29 [place] [address] [address] 08 Apr, 2016 Polyuria R35.8 ; Polydipsia R63.1 ; Family history of diabetes mellitus Z83.3 and Essential hypertension I10 [place] [address] [address] Mar, [place] [address] [address] Feb, Coughing R05 and Hypertensio n, benign I10 [place] [address] [address] Feb, Hypertension, benign I10 [place] [address] [address] Jan, Epigastric pain R10.13 and H ypertension, benign I10 [facility] [place] [address] [address] Jan, Essential hypertension I10 ; Other chest pain R07.89 and Gastroesophageal reflux disease, esophagitis presence not specified K21.9 [place] [address] [address] 04 Apr, 2015 Essential hypertension I10 ; Cough R05 ; Obesity due to excess calories, unspecified obesity severity E66.09 ; FH: diabetes mellitus Z83.3 ; FH: hypertension Z82.49 and Alcohol use F10.99 [facility] [address] [id number] [address] [place] [address], [place] [address] Mar, Cough R05 [facility] [address] [id number] [address] [place] [address], [place] [id number] 14 Aug, 2014 [facility] [address] [id number] [address] [place] [address], [place] [address] 13 Aug, 2014 [facility] [address] [id number] [address] [place] [address], [place] [address] Apr, [facility] [address] [id number] [address] [place] [address], [place] [id number] Apr, [facility] [address] [id number] [address] [place] [address], [place] [address] Apr, [facility] [address] [id number] [address] [place] [address], [place] [address] Apr, [facility] [address] [id number] [address] [place] [address], [place] [id number] Apr, [facility] [address] [id number] [address] [place] [address], [place] [id number] Apr, [facility] [address] [id number] [address] [place] [address], [place] [address] Apr, [facility] [address] [id number] [address] [place] [address], [place] [address] Apr, [facility] [address] [id number] [address] [place] [address], [place] [address] Apr, [facility] [address] [id number] [address] [place] [address], [place] [id number] Apr, [facility] [address] [id number] [address] [place] [address], [place] [address] Nov, [facility] [address] [id number] [address] [place] [address], [place] [id number] Oct, [facility] [address] [id number] [address] [place] [phone] Oct, [facility] [address] [facility] [id number] [address] [place] [phone] Mar, [facility] [address] [facility] [id number] [address] [place] [phone] Mar, [facility] [address] [facility] [id number] [address] [place] [address] Feb, [facility] [address] [id number] [address] [place] [phone] Feb, [facility] [address] [facility] [id number] [address] [place] [phone] Nov, IMMUNIZATIONS No Known Immunizations SOCIAL HISTORY Never Assessed REASON FOR VISIT Medication f/u- PT went to the ER 04/16/18 due to urination pain and was unable to urinate a lot. PT states they q-tipped and treated him IV antibiotics and pre scribed a stronger antibitoics to take at home -Tony SIDHU, PT notes they did a CT scan during the ER visit and saw a kidney stone along with an infection. - Torin gipson MA PLAN OF CARE Activity Details Follow Up 2 Months Reason: VITAL SIGNS Height 71 in 2018-04-20 Weight 276.8 lbs 2018-04-20 Temperature 98.4 degrees Fahrenheit 2018-04-20 Heart Rate 90 bpm 2018-04-20 Respiratory Rate 20 2018-04-20 Oximetry 98 % 2018-04-20 BMI 38.6 kg/m2 2018-04-20 Blood pressure systolic 128 mmHg 2018-04-20 Blood pressure diastolic 70 mmHg 2018-04-20 MEDICATIONS Medication Instructions Dosage Frequency Start Date End Date Duration S tatus [place] 5-325 MG Orally every 6 hrs 1 tablet as needed 6h 11 Jan, 8 Active Metformin HCl 500 mg 2 tablets 12h A ctive Chlorthalidone 25 MG Orally Once a day 1 tablet in the morning with food 24h Mar, 30 day(s) Active Ciprofloxacin HCl 500 MG Orally every 12 hrs for 10 days 1 tablet Mar, 10 day(s) Active RESULTS No Results PROCEDURES [...] - Cyst infection/addie sukumar 01/[address] [facility] ER - UTI 03/2018
--- OUTSIDE RECORDS SUMMARY | 2019-09-20 21:51 | XMS REPORT ---
Author Author Demarco Atwood Doctor Organization [facility] Address Unknown Phone Unavailable Care Team Providers Care Kiln Stoker Name Role Phone Migration, Doctor Unavailable Unavailable PROBLEMS Type Condition ICD9-CM Code NKZ94-SC Code Onset Dates Condition S tatus SNOMED Code Problem FH: hypertension Z82.49 Active 160 228032 Problem Obesity due to excess calories, unspecified obesity severi ty E66.09 Active 967536727 Problem FH: diabetes mellitus Z83.3 Active 629785522 Problem Hypertension, benign I10 Active 30952449 Problem Polydipsia R63.1 Active 40051760 Problem Lumbago with sciatica, left side M54.42 Active 076338697 Problem Controlled type 2 diabetes m ellitus without complication, without long- term current use of insulin E11.9 Active 241900348 Problem Essential hypertension I10 Active 75334662 Problem Nephrolithiasis N20.0 Active 9557 0007 Problem Alcohol use F10.99 Active 528653 Problem Other chronic pain G89.29 Active 8 7158517 Problem Type 2 diabetes mellitus wit hout complication, without long-term current use of insulin E11.9 Active 978050116 Problem Other chronic pain G89.29 Active 8 5177299 Problem Uncontrolled type 2 diabetes mellitus without complication, without long-term current use of insulin E11.65 Active 849102420 ALLERGIES No Information ENCOUNTERS Encounter Location Date Diagnosis [facility] [address] [facility] [id number] [address] [place] [phone] Oct, [facility] [address] [facility] [id number] [address] [place] [phone] September, [facility] [address] [facility] [id number] [address] [place] [phone] September, [facility] [address] [facility] [id number] [address] [place] [phone] Aug, [facility] [address] [id number] [address] [place] [phone] Jul, [facility] [address] [id number] [address] [place] [phone] Jun, Other chronic pain G89.29 [facility] [address] [id number] [address] [place] [phone] Jun, Other chronic pain G89.29 [facility] [address] [facility] [id number] [address] [place] [phone] Jun, [facility] [address] [id number] [address] [place] [phone] May, [facility] [address] [facility] [id number] [address] [place] [phone] Apr, [facility] [address] [facility] [id number] [address] [place] [phone] Mar, Essential hypertension I10 ; Type 2 diabetes mellitus without complication, without long-term current use of insulin E11.9 and Nephrolithiasis N20.0 [facility] [address] [facility] [id number] [address] [place] [phone] Mar, Controlled type 2 diabetes m ellitus without complication, without long-term current use of insulin E11.9 and Bronchitis J40 [place] [address] [address] [facility] [id number] [address] [place] [phone] Feb, [facility] [address] [facility] [id number] [address] [place] [phone] 17 Jan, 2018 Sebaceous cyst L72.3 [facility] [address] [facility] [id number] [address] [place] [phone] Jan, [facility] [address] [facility] [id number] [address] [place] [id number] 15 Jan, 2018 Abscess of back L02.212 [facility] [address] [facility] [id number] [address] [place] [phone] 13 Jan, 2018 Sebaceous cyst L72.3 [place] [address] [address] [facility] [id number] [address] [place] [phone] Jan, Essential hypertension I10 a nd Sebaceous cyst L72.3 [facility] WALK IN [facility] [address] [facility] [id number] [address] [place] [phone] Jan, Cellulitis of back except bu ttock L03.312 [place] [address] [address] [facility] [id number] [address] [place] [phone] Dec, Sebaceous cyst L72.3 [place] [address] [address] [facility] [id number] [address] [place] [phone] Oct, Acute suppurative otitis med ia of left ear without spontaneous rupture of tympanic membrane, recurrence not specified H66.002 and Type 2 diabetes mellitus without complication, without long-term current use of insulin E11.9 [place] [address] [address] [place] [id number] [address] [place] [phone] Jun, [place] [address] [address] [place] [id number] [address] [place] [phone] Jun, [place] [address] [address] [place] [id number] [address] [place] [phone] Jun, Acute pain of left shoulder M25.512 [place] [address] [address] [place] [id number] [address] [place] [phone] May, Acute pain of left shoulder M25.512 [place] [address] [address] [facility] [id number] [address] [place] [phone] Apr, Acute pain of left shoulder M25.512 [facility] WALK IN [facility] [address] [facility] [id number] [address] [place] [phone] Mar, Acute non-recurrent frontal sinusitis J01.10 [place] [address] [address] [facility] [id number] [address] [place] [phone] Mar, Controlled type 2 diabetes m ellitus without complication, without long-term current use of insulin E11.9 [place] [address] [address] [place] [id number] [address] [place] [phone] Mar, Acute pain of left shoulder M25.512 [facility] WALK IN [facility] [address] [place] [id number] [place] [phone] 18 Feb, 2017 [facility] WALK IN [place] [address] [place] [id number] [place] [phone] 15 Feb, 2017 Burning with urination R30.0 and Acute cystitis N30.00 [facility] [address] [phone] Feb, Acute pain of left shoulder M25.512 [place] [address] [id number] 06 Jan, 2017 Acute pain of left shoulder M25.512 [place] [address] [address] Dec, Acute pain of left shoulder M25.512 [place] [address] [address] Nov, Essential hypertension I10 a nd Type 2 diabetes mellitus without complication, without long-term current use of insulin E11.9 [facility] WALK IN [place] [address] [id number] Nov, Viral rash B09 [facility] WALK IN [place] [address] [phone] Nov, Acute pain of left shoulder M25.512 and Cervicalgia M54.2 [place] [address] [address] [place] [id number] [place] [phone] Oct, Type 2 diabetes mellitus wit hout complication, without long-term current use of insulin E11.9 [facility] WALK IN [facility] [address] [place] [id number] [address] [place] [phone] Oct, Sore throat J02.9 and Strep throat J02.0 [place] [address] [phone] September, Type 2 diabetes mellitus wit hout complication, without long-term current use of insulin E11.9 and Low back pain M54.5 [place] [address] [id number] Aug, Uncontrolled type 2 diabetes mellitus without complication, without long-term current use of insulin E11.65 [place] [address] [phone] Aug, Dysuria R30.0 [place] [address] [address] Jul, Dysuria R30.0 [place] [address] [address] Jul, Uncontrolled type 2 diabetes mellitus without complication, without long-term current use of insulin E11.65 [place] [address] [address] Jun, Lumbago with sciatica, left side M54.42 ; Essential hypertension I10 ; Other chronic pain G89.29 and Type 2 diabetes mellitus without complication, without long-term current use of insulin E11.9 [place] [address] [address] May, Essential hypertension I10 a nd Type 2 diabetes mellitus without complication, without long-term current use of insulin E11.9 [facility] [address] [address] Apr, Lumbago with sciatica, left side M54.42 and Other chronic pain G89.29 [place] [address] [address] Apr, Polyuria R35.8 ; Polydipsia R63.1 ; Family history of diabetes mellitus Z83.3 and Essential hypertension I10 [place] [address] [phone] Mar, [place] [address] [address] [facility] [id number] [address] [place] [phone] Feb, Coughing R05 and Hypertensio n, benign I10 [facility] [address] [facility] [id number] [address] [place] [phone] Feb, Hypertension, benign I10 [facility] [address] [facility] [id number] [address] [place] [phone] 29 Jan, 2016 Epigastric pain R10.13 and H ypertension, benign I10 [facility] WALK IN [facility] [address] [facility] [id number] [address] [place] [phone] 26 Jan, 2016 Essential hypertension I10 ; Other chest pain R07.89 and Gastroesophageal reflux disease, esophagitis presence not specified K21.9 [facility] [address] [facility] [id number] [address] [place] [phone] Apr, Essential hypertension I10 ; Cough R05 ; Obesity due to excess calories, unspecified obesity severity E66.09 ; FH: diabetes mellitus Z83.3 ; FH: hypertension Z82.49 and Alcohol use F10.99 [facility] WALK IN [facility] [address] [facility] [id number] [address] [place] [phone] Mar, Cough R05 [facility] [address] [facility] [id number] [address] [place] [phone] 14 Aug, 2014 [facility] [address] [facility] [id number] [address] [place] [phone] Aug, [facility] [address] [place] [id number] [address] [place] [phone] Apr, [facility] [address] [facility] [id number] [address] [place] [phone] Apr, [facility] [address] [place] [id number] [address] [place] [phone] Apr, [facility] [address] [place] [id number] [address] [place] [phone] Apr, [facility] [address] [id number] [address] [place] [phone] Apr, [facility] [address] [id number] [address] [place] [phone] Apr, [facility] [address] [id number] [address] [place] [phone] Apr, [facility] [address] [id number] [address] [place] [phone] Apr, [facility] [address] [id number] [address] [place] [phone] Apr, [facility] [address] [id number] [address] [place] [phone] Apr, [facility] [address] [id number] [address] [place] [phone] Nov, [facility] [address] [id number] [address] [place] [phone] Oct, [facility] [address] [id number] [address] [place] [phone] Oct, [facility] [address] [id number] [address] [place] [phone] Mar, [facility] [address] [id number] [address] [place] [id number] Mar, [facility] [address] [id number] [address] [place] [id number] Feb, [facility] [address] [id number] [address] [place] [phone] Feb, [facility] [address] [id number] [address] [place] [phone] Nov, IMMUNIZATIONS No Known Immunizations SOCIAL HISTORY Never Assessed REASON FOR VISIT EMR[facility] PLAN OF CARE VITAL SIGNS MEDICATIONS Unknown [...]
--- OUTSIDE RECORDS SUMMARY | 2019-09-20 21:51 | XMS REPORT ---
Author Author Demarco MADRIGAL Organization [facility] Address [address] [place] [address] Care Team Providers Care Hot Walker Name Role Phone YINKA MADRIGAL Unavailable PROBLEMS Type Condition ICD9-CM Code RAT59-QM Code Onset Dates Condition S tatus SNOMED Code Problem Hypertension, benign I10 Active 85103002 Problem Lumbago with sciatica, left side M54.42 Active 329931646 Problem Polydipsia R63.1 Active 51159598 Problem Nephrolithiasis N20.0 Active 9557 0007 Problem Controlled type 2 diabetes m ellitus without complication, without long- term current use of insulin E11.9 Active 439298159 Problem Type 2 diabetes mellitus wit hout complication, without long-term current use of insulin E11.9 Active 433503532 Problem Other chronic pain G89.29 Active 8 1582643 Problem Uncontrolled type 2 diabetes mellitus without complication, without long-term current use of insulin E11.65 Active 885941979 Problem Other chronic pain G89.29 Active 8 5209374 Problem FH: diabetes mellitus Z83.3 Active 356286961 Problem Obesity due to excess calories, unspecified obesity severi ty E66.09 Active 376105302 Problem Alcohol use F10.99 Active 599079 Problem FH: hypertension Z82.49 Active 160 868107 Problem Essential hypertension I10 Active 27850382 ALLERGIES No Information ENCOUNTERS Encounter Location Date Diagnosis [facility] [address] [facility] [id number] [address] [place] [address] Apr, [facility] [address] [facility] [id number] [address] [place] [address] Mar, Essential hypertension I10 ; Type 2 diabetes mellitus without complication, without long-term current use of insulin E11.9 and Nephrolithiasis N20.0 [facility] [address] [facility] [id number] [address] [place] [address] Mar, Controlled type 2 diabetes m ellitus without complication, without long-term current use of insulin E11.9 and Bronchitis J40 [place] [id number] [facility] [id number] [address] [place] [address] Feb, [facility] [address] [facility] [id number] [address] [place] [address] 17 Jan, 2018 Sebaceous cyst L72.3 [facility] [address] [place] [id number] [address] [place] [address] 15 Jan, 2018 [facility] WALK IN [facility] [address] [facility] [id number] [address] [place] [address] 15 Jan, 2018 Abscess of back L02.212 [place] [address] [place] [id number] [place] [address] 13 Jan, 2018 Sebaceous cyst L72.3 [place] [address] [place] [id number] [address] [place] [address] Jan, Essential hypertension I10 a nd Sebaceous cyst L72.3 [facility] WALK IN [facility] [address] [facility] [id number] [address] [place] [address] Jan, Cellulitis of back except bu ttock L03.312 [place] [address] [place] [id number] [address] [place] [address] Dec, Sebaceous cyst L72.3 [place] [address] [place] [id number] [address] [place] [address] Oct, Acute suppurative otitis med ia of left ear without spontaneous rupture of tympanic membrane, recurrence not specified H66.002 and Type 2 diabetes mellitus without complication, without long-term current use of insulin E11.9 [place] [address] [place] [id number] [address] [place] [address] Jun, [place] [address] [place] [id number] [address] [place] [address] Jun, [place] [address] [place] [address] Jun, Acute pain of left shoulder M25.512 [place] [address] [place] [id number] [address] [place] [address] May, Acute pain of left shoulder M25.512 [place] [address] [place] [id number] [address] [place] [address] Apr, Acute pain of left shoulder M25.512 [facility] WALK IN [facility] [address] [place] [id number] [place] [address] Mar, Acute non-recurrent frontal sinusitis J01.10 [place] [address] [address] Mar, Controlled type 2 diabetes m ellitus without complication, without long-term current use of insulin E11.9 [place] [address] [address] Mar, Acute pain of left shoulder M25.512 [facility] WALK IN [facility] [address] [address] Feb, [facility] WALK IN [facility] [address] [address] Feb, Burning with urination R30.0 and Acute cystitis N30.00 [place] [address] [place] [id number] [place] [address] Feb, Acute pain of left shoulder M25.512 [place] [address] [place] [id number] [place] [address] Jan, Acute pain of left shoulder M25.512 [place] [address] [place] [id number] [place] [address] Dec, Acute pain of left shoulder M25.512 [place] [address] [place] [id number] [address] [place] [address] Nov, Essential hypertension I10 a nd Type 2 diabetes mellitus without complication, without long-term current use of insulin E11.9 [facility] [place] W[facility] IN [facility] [address] [facility] [id number] [address] [place] [address] Nov, Viral rash B09 [facility] WALK IN [facility] [address] [facility] [id number] [address] [place] [address] Nov, Acute pain of left shoulder M25.512 and Cervicalgia M54.2 [place] [address] [place] [id number] [address] [place] [address] Oct, Type 2 diabetes mellitus wit hout complication, without long-term current use of insulin E11.9 [facility] WALK IN [facility] [address] [facility] [id number] [address] [place] [address] Oct, Sore throat J02.9 and Strep throat J02.0 [place] [address] [place] [id number] [address] [place] [address] September, Type 2 diabetes mellitus wit hout complication, without long-term current use of insulin E11.9 and Low back pain M54.5 [place] [address] [place] [id number] [address] [place] [address] Aug, Uncontrolled type 2 diabetes mellitus without complication, without long-term current use of insulin E11.65 [place] [address] [place] [id number] [address] [place] [address] Aug, Dysuria R30.0 [place] [address] [place] [id number] [address] [place] [address] Jul, Dysuria R30.0 [place] [address] [place] [id number] [address] [place] [address] Jul, Uncontrolled type 2 diabetes mellitus without complication, without long-term current use of insulin E11.65 [place] [address] [facility] [id number] [address] [place] [address] Jun, Lumbago with sciatica, left side M54.42 ; Essential hypertension I10 ; Other chronic pain G89.29 and Type 2 diabetes mellitus without complication, without long-term current use of insulin E11.9 [place] [address] [address] 12 May, 2016 Essential hypertension I10 a nd Type 2 diabetes mellitus without complication, without long-term current use of insulin E11.9 [facility] WALK IN [facility] [address] [address] Apr, Lumbago with sciatica, left side M54.42 and Other chronic pain G89.29 [place] [address] [address] 08 Apr, 2016 Polyuria R35.8 ; Polydipsia R63.1 ; Family history of diabetes mellitus Z83.3 and Essential hypertension I10 [place] [address] [address] Mar, [place] [address] [address] Feb, Coughing R05 and Hypertensio n, benign I10 [place] [address] [address] Feb, Hypertension, benign I10 [place] [address] [address] Jan, Epigastric pain R10.13 and H ypertension, benign I10 [facility] [address] [address] Jan, Essential hypertension I10 ; Other chest pain R07.89 and Gastroesophageal reflux disease, esophagitis presence not specified K21.9 [place] [address] [address] Apr, Essential hypertension I10 ; Cough R05 ; Obesity due to excess calories, unspecified obesity severity E66.09 ; FH: diabetes mellitus Z83.3 ; FH: hypertension Z82.49 and Alcohol use F10.99 [facility] [address] [address] Mar, Cough R05 [facility] [address] [id number] [address] [place] [address], [place] [address] 14 Aug, 2014 [facility] [address] [id number] [address] [place] [address], [place] [address] 13 Aug, 2014 [facility] [address] [id number] [address] [place] [address], [place] [address] Apr, [facility] [address] [id number] [address] [place] [address], [place] [address] Apr, [facility] [address] [id number] [address] [place] [address], [place] [address] Apr, [facility] [address] [id number] [address] [place] [address], [place] [address] Apr, [facility] [address] [id number] [address] [place] [address], [place] [address] Apr, [facility] [address] [id number] [address] [place] [address], [place] [address] Apr, [facility] [address] [id number] [address] [place] [address], [place] [address] Apr, [facility] [address] [id number] [address] [place] [address], [place] [address] Apr, [facility] [address] [id number] [address] [place] [address], [place] [address] Apr, [facility] [address] [id number] [address] [place] [address] Apr, [facility] [address] [id number] [address] [place] [address], [place] [address] Nov, [facility] [address] [id number] [address] [place] [address], [place] [address] 08 Oct, 2012 [facility] [address] [id number] [address] [place] [address], [place] [address] Oct, [facility] [address] [facility] [id number] [address] [place] [address] Mar, [facility] [address] [facility] [id number] [address] [place] [address] Mar, [facility] [address] [facility] [id number] [address] [place] [address] Feb, [facility] [address] [facility] [id number] [address] [place] [address] Feb, [facility] [address] [facility] [id number] [address] [place] [address] Nov, IMMUNIZATIONS No Known Immunizations SOCIAL HISTORY Never Assessed REASON FOR VISIT Controlled Med Refill PLAN OF CARE VITAL SIGNS MEDICATIONS Medication Instructions Dosage Frequency Start Date End Date Duration S luli [place] 5-325 MG Orally every 6 hrs 1 tablet as needed 6h Apr, 201 8 Active RESULTS No Results PROCEDURES No Known [...] - Cyst infection/addie sukumar 01/2018 Hospitalization History [facility] ER - UTI 03/2018
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
--- OUTSIDE RECORDS SUMMARY | 2019-09-20 21:51 | XMS REPORT ---
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 Name Role Phone Migration, Doctor Unavailable Unavailable PROBLEMS Type Condition ICD9-CM Code HVI47-UI Code Onset Dates Condition S tatus SNOMED Code Problem FH: hypertension Z82.49 Active 160 608552 Problem Obesity due to excess calories, unspecified obesity severi ty E66.09 Active 696434367 Problem FH: diabetes mellitus Z83.3 Active 472942304 Problem Hypertension, benign I10 Active 89669799 Problem Polydipsia R63.1 Active 53405518 Problem Lumbago with sciatica, left side M54.42 Active 579665401 Problem Controlled type 2 diabetes m ellitus without complication, without long- term current use of insulin E11.9 Active 527366375 Problem Essential hypertension I10 Active 82940021 Problem Nephrolithiasis N20.0 Active 9557 0007 Problem Alcohol use F10.99 Active 739506 Problem Other chronic pain G89.29 Active 8 4776910 Problem Type 2 diabetes mellitus wit hout complication, without long-term current use of insulin E11.9 Active 136599867 Problem Other chronic pain G89.29 Active 8 3225137 Problem Uncontrolled type 2 diabetes mellitus without complication, without long-term current use of insulin E11.65 Active 713439773 ALLERGIES No Information ENCOUNTERS Encounter Location Date Diagnosis [facility] [address] [facility] [id number] [address] [place] [phone] Jul, [facility] [address] [facility] [id number] [address] [place] [phone] Jun, Other chronic pain G89.29 [facility] [address] [facility] [id number] [address] [place] [phone] Jun, Other chronic pain G89.29 [place] [id number] [facility] [id number] [address] [place] [phone] Jun, [facility] [address] [facility] [id number] [address] [place] [phone] May, [facility] [address] [facility] [id number] [address] [place] [phone] Apr, [facility] [address] [facility] [id number] [address] [place] [phone] Mar, Essential hypertension I10 ; Type 2 diabetes mellitus without complication, without long-term current use of insulin E11.9 and Nephrolithiasis N20.0 [place] [address] [facility] [id number] [address] [place] [phone] Mar, Controlled type 2 diabetes m ellitus without complication, without long-term current use of insulin E11.9 and Bronchitis J40 [place] [address] [facility] [id number] [address] [place] [phone] Feb, [facility] [address] [facility] [id number] [address] [place] [phone] 17 Jan, 2018 Sebaceous cyst L72.3 [facility] [address] [facility] [id number] [address] [place] [phone] 15 Jan, 2018 [facility] [address] [facility] [id number] [address] [place] [phone] 15 Jan, 2018 Abscess of back L02.212 [place] [address] [facility] [id number] [address] [place] [phone] 13 Jan, 2018 Sebaceous cyst L72.3 [facility] [address] [facility] [id number] [address] [place] [phone] 11 Jan, 2018 Essential hypertension I10 a nd Sebaceous cyst L72.3 [facility] [address] [facility] [id number] [address] [place] [phone] Jan, Cellulitis of back except bu ttock L03.312 [facility] [address] [facility] [id number] [address] [place] [phone] Dec, Sebaceous cyst L72.3 [place] [address] [id number] [address] [place] [phone] Oct, Acute suppurative otitis med ia of left ear without spontaneous rupture of tympanic membrane, recurrence not specified H66.002 and Type 2 diabetes mellitus without complication, without long-term current use of insulin E11.9 [place] [address] [facility] [id number] [address] [place] [phone] Jun, [place] [address] [facility] [id number] [address] [place] [phone] Jun, [place] [address] [facility] [id number] [address] [place] [phone] Jun, Acute pain of left shoulder M25.512 [place] [address] [place] [id number] [address] [place] [phone] May, Acute pain of left shoulder M25.512 [place] [address] [place] [id number] [address] [place] [phone] Apr, Acute pain of left shoulder M25.512 [facility] [place] [address] [address] [place] [id number] [address] [place] [id number] Mar, Acute non-recurrent frontal sinusitis J01.10 [place] [address] [facility] [id number] [address] [place] [phone] Mar, Controlled type 2 diabetes m ellitus without complication, without long-term current use of insulin E11.9 [place] [address] [facility] [id number] [address] [place] [phone] Mar, Acute pain of left shoulder M25.512 [facility] [place] [address] [facility] [id number] [address] [place] [phone] Feb, [facility] [place] [address] [facility] [id number] [address] [place] [phone] Feb, Burning with urination R30.0 and Acute cystitis N30.00 [place] [address] [facility] [id number] [address] [place] [phone] Feb, Acute pain of left shoulder M25.512 [facility] [address] [place] [id number] [address] [place] [phone] Jan, Acute pain of left shoulder M25.512 [facility] [address] [facility] [id number] [address] [place] [phone] Dec, Acute pain of left shoulder M25.512 [facility] [address] [place] [id number] [address] [place] [phone] Nov, Essential hypertension I10 a nd Type 2 diabetes mellitus without complication, without long-term current use of insulin E11.9 [facility] [place] [address] [phone] Nov, Viral rash B09 [facility] [place] [address] [address] Nov, Acute pain of left shoulder M25.512 and Cervicalgia M54.2 [place] [id number] [place] [phone] Oct, Type 2 diabetes mellitus wit hout complication, without long-term current use of insulin E11.9 [facility] [place] [id number] [place] [id number] [address] [place] [phone] Oct, Sore throat J02.9 and Strep throat J02.0 [place] [address] [place] [id number] [address] [place] [phone] September, Type 2 diabetes mellitus wit hout complication, without long-term current use of insulin E11.9 and Low back pain M54.5 [place] [address] [place] [id number] [place] [phone] Aug, Uncontrolled type 2 diabetes mellitus without complication, without long-term current use of insulin E11.65 [place] [address] [place] [id number] [address] [place] [phone] Aug, Dysuria R30.0 [place] [address] [phone] Jul, Dysuria R30.0 [place] [address] [address] 09 Jul, 2016 Uncontrolled type 2 diabetes mellitus without complication, without long-term current use of insulin E11.65 [place] [address] [address] 09 Jun, 2016 Lumbago with sciatica, left side M54.42 ; Essential hypertension I10 ; Other chronic pain G89.29 and Type 2 diabetes mellitus without complication, without long-term current use of insulin E11.9 [place] [address] [phone] May, Essential hypertension I10 a nd Type 2 diabetes mellitus without complication, without long-term current use of insulin E11.9 [facility] [place] [address] [address] Apr, Lumbago with sciatica, left side M54.42 and Other chronic pain G89.29 [place] [address] [address] Apr, Polyuria R35.8 ; Polydipsia R63.1 ; Family history of diabetes mellitus Z83.3 and Essential hypertension I10 [place] [address] [phone] Mar, [place] [address] [phone] Feb, Coughing R05 and Hypertensio n, benign I10 [place] [address] [phone] Feb, Hypertension, benign I10 [place] [address] [address] Jan, Epigastric pain R10.13 and H ypertension, benign I10 [facility] [address] [id number] [address] [place] [phone] 26 Jan, 2016 Essential hypertension I10 ; Other chest pain R07.89 and Gastroesophageal reflux disease, esophagitis presence not specified K21.9 [facility] [address] [id number] [address] [place] [phone] Apr, Essential hypertension I10 ; Cough R05 ; Obesity due to excess calories, unspecified obesity severity E66.09 ; FH: diabetes mellitus Z83.3 ; FH: hypertension Z82.49 and Alcohol use F10.99 [facility] [address] [id number] [address] [place] [phone] Mar, Cough R05 [facility] [address] [id number] [address] [place] [phone] Aug, [facility] [address] [id number] [address] [place] [phone] Aug, [facility] [address] [id number] [address] [place] [phone] Apr, [facility] [address] [id number] [address] [place] [phone] Apr, [facility] [address] [id number] [address] [place] [phone] Apr, [facility] [address] [id number] [address] [place] [phone] Apr, [facility] [address] [id number] [address] [place] [phone] Apr, [facility] [address] [id number] [address] [place] [phone] Apr, [facility] [address] [id number] [address] [place] [phone] Apr, [facility] [address] [id number] [address] [place] [phone] Apr, [facility] [address] [id number] [address] [place] [phone] Apr, [facility] [address] [id number] [address] [place] [phone] Apr, [facility] [address] [id number] [address] [place] [phone] Nov, [facility] [address] [id number] [address] [place] [phone] Oct, [facility] [address] [id number] [address] [place] [phone] Oct, [facility] [address] [id number] [address] [place] [phone] Mar, [facility] [address] [id number] [address] [place] [phone] Mar, [facility] [address] [id number] [address] [place] [phone] Feb, [facility] [address] [id number] [address] [place] [phone] Feb, [facility] [address] [id number] [address] [place] [phone] Nov, IMMUNIZATIONS No Known Immunizations SOCIAL HISTORY Never Assessed REASON FOR VISIT [facility] [place] VITAL SIGNS MEDICATIONS Medication Instructions Dosage Frequency Start Date End Date Duration S tatus Bactrim DS 800-160 mg 1 tablet by Oral r oute 2 times per day for 10 day(s) voucher Oct, Active PredniSONE 10 mg 1 Tablet 2 times per day for 5 days Take at 8 am and noon. Do not take after 3 pm Apr, Active Levaquin 750 mg 1 tablet by Oral route 1 time per day for 3 days Apr, Active Ventolin HFA 90 mcg/actuation inhale 2 p uff by Inhalation route as needed every 6 hours PRN for cough or wheeze Apr, Active RESULTS No Results PROCEDURES No Known [...] - Cyst infection/addie sukumar 01/2018 Hospitalization History [facility] - UTI 03/2018
--- OUTSIDE RECORDS SUMMARY | 2019-09-20 21:51 | XMS REPORT ---
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 Name Role Phone Migration, Doctor Unavailable Unavailable PROBLEMS Type Condition ICD9-CM Code QXL43-HF Code Onset Dates Condition S tatus SNOMED Code Problem FH: hypertension Z82.49 Active 160 890317 Problem Obesity due to excess calories, unspecified obesity severi ty E66.09 Active 147774270 Problem FH: diabetes mellitus Z83.3 Active 702519144 Problem Hypertension, benign I10 Active 33096250 Problem Polydipsia R63.1 Active 79726716 Problem Lumbago with sciatica, left side M54.42 Active 486943658 Problem Controlled type 2 diabetes m ellitus without complication, without long- term current use of insulin E11.9 Active 214086699 Problem Essential hypertension I10 Active 91592975 Problem Nephrolithiasis N20.0 Active 9557 0007 Problem Alcohol use F10.99 Active 740802 Problem Other chronic pain G89.29 Active 8 1787177 Problem Type 2 diabetes mellitus wit hout complication, without long-term current use of insulin E11.9 Active 266866242 Problem Other chronic pain G89.29 Active 8 1545110 Problem Uncontrolled type 2 diabetes mellitus without complication, without long-term current use of insulin E11.65 Active 780045043 ALLERGIES No Information ENCOUNTERS Encounter Location Date Diagnosis [facility] [address] [facility] [id number] [address] [place] [phone] Jul, [facility] [address] [facility] [id number] [address] [place] [phone] Jul, [facility] [address] [facility] [id number] [address] [place] [id number] Jun, Other chronic pain G89.29 [facility] [address] [facility] [id number] [address] [place] [address] Jun, Other chronic pain G89.29 [place] [address] [place] [id number] [address] [place] [id number] 11 Jun, 2018 [place] [address] [address] May, [place] [address] [address] Apr, [place] [address] [address] Mar, Essential hypertension I10 ; Type 2 diabetes mellitus without complication, without long-term current use of insulin E11.9 and Nephrolithiasis N20.0 [place] [address] [address] Mar, Controlled type 2 diabetes m ellitus without complication, without long-term current use of insulin E11.9 and Bronchitis J40 [place] [address] [phone] Feb, [place] [address] [id number] 17 Jan, 2018 Sebaceous cyst L72.3 [facility] [address] [address] 15 Jan, 2018 [facility] N [address] [address] 15 Jan, 2018 Abscess of back L02.212 [place] [address] [place] [id number] [address] [place] [id number] 13 Jan, 2018 Sebaceous cyst L72.3 [place] [address] [place] [id number] [address] [place] [id number] 11 Jan, 2018 Essential hypertension I10 a nd Sebaceous cyst L72.3 [facility] [address] [place] [id number] [address] [place] [id number] Jan, Cellulitis of back except bu ttock L03.312 [place] [address] [place] [id number] [address] [place] [id number] Dec, Sebaceous cyst L72.3 [place] [address] [place] [id number] [address] [place] [id number] Oct, Acute suppurative otitis med ia of left ear without spontaneous rupture of tympanic membrane, recurrence not specified H66.002 and Type 2 diabetes mellitus without complication, without long-term current use of insulin E11.9 [place] [address] [place] [id number] [address] [place] [phone] Jun, [place] [address] [place] [id number] [address] [place] [id number] Jun, [place] [address] [place] [id number] [place] [address] Jun, Acute pain of left shoulder M25.512 [place] [address] [address] May, Acute pain of left shoulder M25.512 [place] [address] [place] [id number] [address] [place] [id number] Apr, Acute pain of left shoulder M25.512 [facility] [place] [id number] [place] [phone] Mar, Acute non-recurrent frontal sinusitis J01.10 [place] [address] [place] [id number] [address] [place] [id number] Mar, Controlled type 2 diabetes m ellitus without complication, without long-term current use of insulin E11.9 [place] [address] [place] [id number] [address] [place] [phone] Mar, Acute pain of left shoulder M25.512 [facility] [address] [place] [id number] [address] [place] [id number] Feb, [facility] [address] [place] [id number] [address] [place] [id number] Feb, Burning with urination R30.0 and Acute cystitis N30.00 [place] [address] [facility] [id number] [address] [place] [id number] Feb, Acute pain of left shoulder M25.512 [place] [address] [facility] [id number] [address] [place] [phone] Jan, Acute pain of left shoulder M25.512 [place] [address] [facility] [id number] [address] [place] [address] Dec, Acute pain of left shoulder M25.512 [place] [address] [facility] [id number] [address] [place] [address] Nov, Essential hypertension I10 a nd Type 2 diabetes mellitus without complication, without long-term current use of insulin E11.9 [facility] [place] [address] [place] [address] Nov, Viral rash B09 [facility] [place] [address] [facility] [id number] [address] [place] [address] Nov, Acute pain of left shoulder M25.512 and Cervicalgia M54.2 [place] [address] [place] [id number] [place] [address] Oct, Type 2 diabetes mellitus wit hout complication, without long-term current use of insulin E11.9 [facility] [place] [address] [address] [place] [id number] [address] [place] [id number] Oct, Sore throat J02.9 and Strep throat J02.0 [place] [address] [facility] [id number] [address] [place] [address] September, Type 2 diabetes mellitus wit hout complication, without long-term current use of insulin E11.9 and Low back pain M54.5 [place] [address] [facility] [id number] [address] [place] [id number] Aug, Uncontrolled type 2 diabetes mellitus without complication, without long-term current use of insulin E11.65 [place] [address] [place] [id number] [address] [place] [address] Aug, Dysuria R30.0 [place] [address] [address] Jul, Dysuria R30.0 [place] [address] [address] Jul, Uncontrolled type 2 diabetes mellitus without complication, without long-term current use of insulin E11.65 [place] [address] [address] Jun, Lumbago with sciatica, left side M54.42 ; Essential hypertension I10 ; Other chronic pain G89.29 and Type 2 diabetes mellitus without complication, without long-term current use of insulin E11.9 [place] [address] [address] May, Essential hypertension I10 a nd Type 2 diabetes mellitus without complication, without long-term current use of insulin E11.9 [facility] [address] [address] Apr, Lumbago with sciatica, left side M54.42 and Other chronic pain G89.29 [place] [address] [address] Apr, Polyuria R35.8 ; Polydipsia R63.1 ; Family history of diabetes mellitus Z83.3 and Essential hypertension I10 [place] [address] [address] Mar, [place] [address] [address] Feb, Coughing R05 and Hypertensio n, benign I10 [place] [address] [address] Feb, Hypertension, benign I10 [place] [address] [address] 29 Jan, 2016 Epigastric pain R10.13 and H ypertension, benign I10 [facility] [address] [facility] [id number] [address] [place] [id number] 26 Jan, 2016 Essential hypertension I10 ; Other chest pain R07.89 and Gastroesophageal reflux disease, esophagitis presence not specified K21.9 [facility] [address] [facility] [id number] [address] [place] [address] Apr, Essential hypertension I10 ; Cough R05 ; Obesity due to excess calories, unspecified obesity severity E66.09 ; FH: diabetes mellitus Z83.3 ; FH: hypertension Z82.49 and Alcohol use F10.99 [facility] [address] [facility] [id number] [address] [place] [phone] Mar, Cough R05 [facility] [address] [facility] [id number] [address] [place] [id number] 14 Aug, 2014 [facility] [address] [facility] [id number] [address] [place] [address] Aug, [facility] [address] [facility] [id number] [address] [place] [phone] Apr, [facility] [address] [facility] [id number] [address] [place] [phone] Apr, [facility] [address] [facility] [id number] [address] [place] [phone] Apr, [facility] [address] [facility] [id number] [address] [place] [id number] Apr, [facility] [address] [id number] [address] [place] [id number] Apr, [facility] [address] [facility] [id number] [address] [place] [id number] Apr, [facility] [address] [facility] [id number] [address] [place] [phone] Apr, [facility] [address] [id number] [address] [place] [phone] Apr, [facility] [address] [id number] [address] [place] [id number] Apr, [facility] [address] [id number] [address] [place] [phone] Apr, [facility] [address] [id number] [address] [place] [phone] Nov, [facility] [address] [id number] [address] [place] [phone] Oct, [facility] [address] [id number] [address] [place] [phone] Oct, [facility] [address] [id number] [address] [place] [phone] Mar, [facility] [address] [id number] [address] [place] [phone] Mar, [facility] [address] [id number] [address] [place] [phone] Feb, [facility] [address] [id number] [address] [place] [phone] Feb, [facility] [address] [id number] [address] [place] [phone] Nov, IMMUNIZATIONS No Known Immunizations SOCIAL HISTORY Never Assessed REASON FOR VISIT EMR-[facility] PLAN OF CARE VITAL SIGNS MEDICATIONS Unknown [...] - Cyst infection/addie sukumar 01/2018 Hospitalization History [facility] ER - UTI 03/2018
--- OUTSIDE RECORDS SUMMARY | 2019-09-20 21:51 | XMS REPORT ---
Author Author Demarco Atwood Doctor Organization [facility] Address Unknown Phone Unavailable Care Team Providers Care Copy Lathe Operator Name Role Phone Migration, Doctor Unavailable Unavailable PROBLEMS Type Condition ICD9-CM Code BMC37-BL Code Onset Dates Condition S tatus SNOMED Code Problem FH: hypertension Z82.49 Active 160 130899 Problem Obesity due to excess calories, unspecified obesity severi ty E66.09 Active 943285473 Problem FH: diabetes mellitus Z83.3 Active 648147362 Problem Hypertension, benign I10 Active 60097319 Problem Polydipsia R63.1 Active 83007934 Problem Lumbago with sciatica, left side M54.42 Active 807902247 Problem Controlled type 2 diabetes m ellitus without complication, without long- term current use of insulin E11.9 Active 146878547 Problem Essential hypertension I10 Active 59550203 Problem Nephrolithiasis N20.0 Active 9557 0007 Problem Alcohol use F10.99 Active 649123 Problem Other chronic pain G89.29 Active 8 2632472 Problem Type 2 diabetes mellitus wit hout complication, without long-term current use of insulin E11.9 Active 894005453 Problem Other chronic pain G89.29 Active 8 1011128 Problem Uncontrolled type 2 diabetes mellitus without complication, without long-term current use of insulin E11.65 Active 117491850 ALLERGIES No Information ENCOUNTERS Encounter Location Date Diagnosis [facility] [address] [facility] [id number] [address] [place] [phone] Oct, [facility] [address] [facility] [id number] [address] [place] [phone] September, [facility] [address] [facility] [id number] [address] [place] [phone] September, [facility] [address] [facility] [id number] [address] [place] [phone] Aug, [facility] [address] [id number] [address] [place] [phone] Jul, [facility] [address] [id number] [address] [place] [phone] Jun, Other chronic pain G89.29 [facility] [address] [id number] [address] [place] [phone] Jun, Other chronic pain G89.29 [facility] [address] [facility] [id number] [address] [place] [phone] Jun, [facility] [address] [id number] [address] [place] [phone] May, [facility] [address] [facility] [id number] [address] [place] [phone] Apr, [facility] [address] [facility] [id number] [address] [place] [phone] Mar, Essential hypertension I10 ; Type 2 diabetes mellitus without complication, without long-term current use of insulin E11.9 and Nephrolithiasis N20.0 [facility] [address] [facility] [id number] [address] [place] [phone] Mar, Controlled type 2 diabetes m ellitus without complication, without long-term current use of insulin E11.9 and Bronchitis J40 [place] [address] [facility] [id number] [address] [place] [phone] Feb, [facility] [address] [facility] [id number] [address] [place] [phone] 17 Jan, 2018 Sebaceous cyst L72.3 [facility] [address] [facility] [id number] [address] [place] [phone] Jan, [facility] [address] [facility] [id number] [address] [place] [phone] 15 Jan, 2018 Abscess of back L02.212 [facility] [address] [facility] [id number] [address] [place] [phone] 13 Jan, 2018 Sebaceous cyst L72.3 [place] [address] [facility] [id number] [address] [place] [phone] Jan, Essential hypertension I10 a nd Sebaceous cyst L72.3 [facility] [address] [facility] [id number] [address] [place] [phone] Jan, Cellulitis of back except bu ttock L03.312 [place] [address] [facility] [id number] [address] [place] [phone] Dec, Sebaceous cyst L72.3 [place] [address] [facility] [id number] [address] [place] [phone] Oct, Acute suppurative otitis med ia of left ear without spontaneous rupture of tympanic membrane, recurrence not specified H66.002 and Type 2 diabetes mellitus without complication, without long-term current use of insulin E11.9 [place] [address] [place] [id number] [address] [place] [phone] Jun, [place] [address] [place] [id number] [address] [place] [phone] Jun, [place] [address] [place] [id number] [address] [place] [address] Jun, Acute pain of left shoulder M25.512 [place] [address] [place] [id number] [address] [place] [phone] May, Acute pain of left shoulder M25.512 [place] [address] [facility] [id number] [address] [place] [address] Apr, Acute pain of left shoulder M25.512 [facility] [address] [facility] [id number] [address] [place] [phone] Mar, Acute non-recurrent frontal sinusitis J01.10 [place] [address] [facility] [id number] [address] [place] [phone] Mar, Controlled type 2 diabetes m ellitus without complication, without long-term current use of insulin E11.9 [place] [address] [place] [id number] [address] [place] [phone] Mar, Acute pain of left shoulder M25.512 [facility] [address] [place] [id number] [place] [phone] 18 Feb, 2017 [facility] [place] [address] [place] [id number] [place] [phone] 15 Feb, 2017 Burning with urination R30.0 and Acute cystitis N30.00 [facility] [address] [address] Feb, Acute pain of left shoulder M25.512 [place] [address] [address] 06 Jan, 2017 Acute pain of left shoulder M25.512 [place] [address] [address] Dec, Acute pain of left shoulder M25.512 [place] [address] [address] Nov, Essential hypertension I10 a nd Type 2 diabetes mellitus without complication, without long-term current use of insulin E11.9 [facility] [place] [address] [address] Nov, Viral rash B09 [facility] [place] [address] [address] Nov, Acute pain of left shoulder M25.512 and Cervicalgia M54.2 [place] [address] [place] [id number] [place] [phone] Oct, Type 2 diabetes mellitus wit hout complication, without long-term current use of insulin E11.9 [facility] [address] [place] [id number] [address] [place] [phone] Oct, Sore throat J02.9 and Strep throat J02.0 [place] [address] [address] September, Type 2 diabetes mellitus wit hout complication, without long-term current use of insulin E11.9 and Low back pain M54.5 [place] [address] [address] Aug, Uncontrolled type 2 diabetes mellitus without complication, without long-term current use of insulin E11.65 [place] [address] [address] Aug, Dysuria R30.0 [place] [address] [address] Jul, Dysuria R30.0 [place] [address] [address] Jul, Uncontrolled type 2 diabetes mellitus without complication, without long-term current use of insulin E11.65 [place] [address] [address] Jun, Lumbago with sciatica, left side M54.42 ; Essential hypertension I10 ; Other chronic pain G89.29 and Type 2 diabetes mellitus without complication, without long-term current use of insulin E11.9 [place] [address] [address] May, Essential hypertension I10 a nd Type 2 diabetes mellitus without complication, without long-term current use of insulin E11.9 [facility] [address] [address] Apr, Lumbago with sciatica, left side M54.42 and Other chronic pain G89.29 [place] [address] [address] Apr, Polyuria R35.8 ; Polydipsia R63.1 ; Family history of diabetes mellitus Z83.3 and Essential hypertension I10 [place] [address] [address] Mar, [place] [address] [facility] [id number] [address] [place] [phone] Feb, Coughing R05 and Hypertensio n, benign I10 [facility] [address] [facility] [id number] [address] [place] [phone] Feb, Hypertension, benign I10 [facility] [address] [facility] [id number] [address] [place] [phone] 29 Jan, 2016 Epigastric pain R10.13 and H ypertension, benign I10 [facility] [address] [facility] [id number] [address] [place] [phone] 26 Jan, 2016 Essential hypertension I10 ; Other chest pain R07.89 and Gastroesophageal reflux disease, esophagitis presence not specified K21.9 [facility] [address] [facility] [id number] [address] [place] [phone] Apr, Essential hypertension I10 ; Cough R05 ; Obesity due to excess calories, unspecified obesity severity E66.09 ; FH: diabetes mellitus Z83.3 ; FH: hypertension Z82.49 and Alcohol use F10.99 [facility] [address] [facility] [id number] [address] [place] [address] Mar, Cough R05 [facility] [address] [facility] [id number] [address] [place] [phone] 14 Aug, 2014 [facility] [address] [facility] [id number] [address] [place] [phone] Aug, [facility] [address] [place] [id number] [address] [place] [phone] Apr, [facility] [address] [facility] [id number] [address] [place] [phone] Apr, [facility] [address] [place] [id number] [address] [place] [phone] Apr, [facility] [address] [place] [id number] [address] [place] [phone] Apr, [facility] [address] [id number] [address] [place] [phone] Apr, [facility] [address] [id number] [address] [place] [phone] Apr, [facility] [address] [id number] [address] [place] [phone] Apr, [facility] [address] [id number] [address] [place] [phone] Apr, [facility] [address] [id number] [address] [place] [phone] Apr, [facility] [address] [id number] [address] [place] [phone] Apr, [facility] [address] [id number] [address] [place] [phone] Nov, [facility] [address] [id number] [address] [place] [phone] Oct, [facility] [address] [id number] [address] [place] [phone] Oct, [facility] [address] [id number] [address] [place] [phone] Mar, [facility] [address] [id number] [address] [place] [phone] Mar, [facility] [address] [id number] [address] [place] [phone] Feb, [facility] [address] [id number] [address] [place] [phone] Feb, [facility] [address] [id number] [address] [place] [phone] Nov, IMMUNIZATIONS No Known Immunizations SOCIAL HISTORY Never Assessed REASON FOR VISIT [place] [place] VITAL SIGNS MEDICATIONS Unknown [...] - Cyst infection/addie sukumar 01/2018 Hospitalization History [facility] ER - UTI 03/2018
[2019-09-20 22:02] LABS: BILIRUBIN,URINE NEGATIVE (NEGATIVE); CLARITY,URINE CLOUDY; COLOR,URINE YELLOW; GLUCOSE, URINE (UA) 3+ (NEGATIVE); KETONES,URINE NEGATIVE (NEGATIVE); LEUKOCYTE ESTERASE ,URINE 1+ (NEGATIVE); NITRITE,URINE POSITIVE (NEGATIVE); PROTEIN,URINE NEGATIVE (NEGATIVE)
--- NOTE | 2019-09-20 22:27 | ED GU-Male ---
General Chief Complaint: - Urinary Stated Complaint: UNABLE TO URINATE,PAIN Nursing Triage Note: INCREASED URINARY PAIN AND HESITATION WITH OCCASIONAL INCONTENCE Source: patient Exam Limitations: no limitations History of Present Illness Date Seen by Provider: September 20, 2019 Time Seen by Provider: 21:45 Initial Comments This 34-year-old gentleman presents to the emergency room with complaints of frequent urination, penile dysuria, urgency, and sensation of incomplete void after urination. He denies any abdominal or pelvic pain. He has able to produce a urine specimen on arrival. Review of his chart notes a history of numerous urinary tract infections and epididymitis. He is also been positive for chlamydia in the past. He reports being monogamous for the past few years. He is afebrile. He is diabetic and does not check his blood sugars at home. Review of his chart also notes a CT scan performed in 2018 revealed kidney stones and an enlarged prostate. He reports no further workup has been done to assess his prostate. Culture results from prior urinalysis demonstrate several different bacterial species. Allergies and Home Medications Allergies Coded Allergies: morphine (Verified Adverse Reaction, Intermediate, 09/13/16) MAKES HIM AGGRESSIVE Home Medications Amoxicillin 500 Mg Capsule, 1,000 MG PO TID Prescribed by: EMERSON CARBAJAL on 06/19/182128 Benzonatate 100 Mg Capsule, 1-2 TAB PO TID Prescribed by: TAMERA ALVARENGA on 03/16/18 231 Cefdinir 300 Mg Capsule, 300 MG PO BID Prescribed by: GAGANDEEP RIOS on 06/09/19 215 Ciprofloxacin HCl 500 Mg Tablet, 500 MG PO BID Prescribed by: TAMERA ALVARENGA on 04/17/18 0136 Ciprofloxacin HCl 500 Mg Tablet, 500 MG PO BID Prescribed by: JIGAR ANN on 09/20/19 2322 Doxycycline Monohydrate 100 Mg Capsule, 100 MG PO BID Prescribed by: TAMERA ALVARENGA on 03/16/18 231 Guaifenesin/Dextromethorphan 1 Each Tbmp.12hr, 1 EACH PO BID Prescribed by: TAMERA ALVARENGA on 03/16/182310 Lisinopril 40 Mg Tablet, 40 MG PO HS, (Reported) Metformin HCl 500 Mg Tablet, 500 MG PO BID WITH MEALS, (Reported) Ondansetron 8 Mg Tab.rapdis, 8 MG PO Q6H PRN for NAUSEA/VOMITING Prescribed by: EMERSON CARBAJAL on 06/19/182128 Ondansetron 4 Mg Tab.rapdis, 4 MG PO Q6H PRN for NAUSEA/VOMITING Prescribed by: GAGANDEEP RIOS on 06/09/192153 Oseltamivir Phosphate 75 Mg Cap, 75 MG PO BID Prescribed by: JIGAR ANN on 06/11/19 111 Tamsulosin HCl 0.4 Mg Cap, 0.4 MG PO DAILY Prescribed by: JIGAR ANN on 09/20/19 232 Patient Home Medication List Home Medication List Reviewed: Yes Review of Systems Review of Systems Constitutional: no symptoms reported EENTM: no symptoms reported Respiratory: no symptoms reported Cardiovascular: no symptoms reported Gastrointestinal: no symptoms reported Genitourinary: see HPI Musculoskeletal: no symptoms reported Skin: no symptoms reported Psychiatric/Neurological: No Symptoms Reported Endocrine: No Symptoms Reported Hematologic/Lymphatic: No Symptoms Reported Past Gphodsf-Bxgecs-Ylzgui Hx Past Med/Social Hx: Reviewed Nursing Past Med/Soc Hx Patient Social History Alcohol Use: Rarely Uses Number of Drinks Today: AA Alcohol Beverage of Choice: Beer Recreational Drug Use: No Type Used: Smokeless Tobacco Former Smoker, Quit: May 22, 2007 2nd Hand Smoke Exposure: No Recent Foreign Travel: No Contact w/Someone Who Travel: No Recent Infectious Disease Expo: No Recent Hopitalizations: No Physical Abuse: No Sexual Abuse: No Mistreated: No Fear: No Immunizations Up To Date Tetanus Booster (TDap): More than 5yrs Date of Pneumonia Vaccine: Jul 26, 2011 Seasonal Allergies Seasonal Allergies: No Past Medical History Surgeries: Yes Abdominal, Ear Surgery, Orthopedic Respiratory: Yes (LEFT CHEST TUBES X 2 SECONDARY TO TRAUMA) Cardiac: Yes Hypertension Neurological: No Reproductive Disorders: No Sexually Transmitted Disease: No HIV/AIDS: No Genitourinary: Yes Bladder Infection, Kidney Stones Gastrointestinal: Yes (SPELECTOMY SECONDARY TO TRAUMA. FATTY LIVER) Liver Disease/Jaundice, Hemorrhoids Musculoskeletal: Yes (LEFT ANKLE FX/ORIF; LEFT FOREARM FX/ORIF) Fractures Endocrine: Yes (OBESITY) Diabetes, Non-Insulin dep HEENT: No Cancer: No Psychosocial: No Integumentary: No Blood Disorders: No Adverse Reaction/Blood Tranf: No Family Medical History No Pertinent Family Hx Physical Exam Vital Signs Vital Signs - First Documented 09/20/19 21:55 Temp 36.8 Pulse 93 Resp 20 B/P (MAP) 159/101 (120) Pulse Ox 98 O2 Delivery Room Air Capillary Refill : Less Than 3 Seconds Height, Weight, BMI Height: 6'0" Weight: 280lbs. 0oz. 127.070083qx; 39.00 BMI Method:Stated General Appearance: WD/WN, no apparent distress, obese HEENT: normal ENT inspection Neck: normal inspection Cardiovascular: regular rate, rhythm, no edema, no murmur Respiratory: lungs clear, normal breath sounds, no respiratory distress, no accessory muscle use Gastrointestinal: normal bowel sounds, non tender, soft Rectal: tenderness, other (digital rectal exam was performed but only the very distal portion of the prostate could be palpated. Prostate appeared smooth and was mildly tender. Exam was incomplete due to inability to fully palpate the prostate.) Genital/Rectal: other (mild erythema of the anterior scrotum and on the glans. Testicles normal in morphology and nontender.) Extremities: normal inspection, no pedal edema Neurologic/Psychiatric: cuff stitcher II-XII nml as tested, no motor/sensory deficits, alert, normal mood/affect, oriented x 3 Skin: normal color, warm/dry Progress/Results/Core Measures Suspected Sepsis Recent Fever Within 48 Hours: No Infection Criteria Present: None New/Unexplained Altered Menta: No Sepsis Screen: No Definite Risk SIRS Temperature: Pulse: 93 Respiratory Rate: 20 Blood Pressure 159 /101 Mean: 120 Results/Orders Lab Results Laboratory Tests Test 09/20/19 21:47 09/20/19 22:03 Range/Units Urine Color YELLOW Urine Clarity CLOUDY Urine pH 6.0 5-9 Urine Specific [place] 1.020 1.016-1.022 Urine Protein NEGATIVE NEGATIVE Urine Glucose (UA) 3+ H NEGATIVE Urine Ketones NEGATIVE NEGATIVE Urine Nitrite POSITIVE H NEGATIVE Urine Bilirubin NEGATIVE NEGATIVE Urine Urobilinogen 0.2 < = 1.0 MG/DL Urine Leukocyte Esterase 1+ H NEGATIVE Urine RBC (Auto) 1+ H NEGATIVE Urine RBC 2-5 H /HPF Urine WBC >100 H /HPF Urine Crystals PRESENT H /LPF Urine Amorphous Sediment FEW WANG URATES H /LPF Urine Bacteria FEW H /HPF Urine Casts NONE /LPF Urine Mucus NEGATIVE /LPF Urine Culture Indicated YES Glucometer 231 H 70-110 MG/DL My Orders Orders - JIGAR HIGH MD Ua Culture If Indicated (09/20/19 21:45) Bladder Scan (09/20/19 21:45) Accucheck Stat ONCE (09/20/19 21:58) Urine Culture (09/20/19 21:47) Ceftriaxone For Im Use (Rocephin For Im (09/20/19 23:00) Lidocaine 1% Inj 20 Ml (Xylocaine 1% Inj (09/20/19 23:00) Azithromycin Tablet (Zithromax Tablet) (09/20/19 22:49) Chlamydia Trachomatis Urine (09/20/19 22:56) Neis Guillermo Dna Urine Test (09/20/19 22:56) Medications Given in ED Current Medications Medications Dose Ordered Sig/Radha Route Start Time Stop Time Status Last Admin Dose Admin Ceftriaxone Sodium 1,000 mg ONCE ONCE IM 09/20/19 23:00 09/20/19 23:01 DC 09/20/19 23:05 1,000 MG Lidocaine HCl 2.1 ml ONCE ONCE INJ 09/20/19 23:00 09/20/19 23:01 DC 09/20/19 23:04 2.1 ML Vital Signs/I&O 09/20/19 09/20/19 21:55 23:30 Temp 36.8 Pulse 93 93 Resp 20 20 B/P (MAP) 159/101 (120) 159/101 Pulse Ox 98 98 O2 Delivery Room Air Room Air Capillary Refill : Less Than 3 Seconds Blood Pressure Mean: 120 Point of Care Testing Finger Stick Blood Glucose: 231 Progress Note : Progress Note Patient was treated with Rocephin and azithromycin. Cipro was prescribed after reviewing prior urine cultures. Attempt at a prostate exam was not very successful as I could not palpate past the very distal edge of the prostate. This produced mild pain. Review of chart noted a prior CT scan showing a large prostate. I strongly encouraged the patient to follow-up with his primary care provider after treatment for this acute infection for further evaluation of his enlarged prostate. Post void residual was in the 160s on bladder scan. I also encouraged patient to tightly control his blood sugars has hyperglycemia may be contributing to his frequent urinary tract infections. Departure Impression Primary Impression: Urinary tract infection Qualified Codes: N39.0 - Urinary tract infection, site not specified Additional Impressions: Urinary retention Hyperglycemia Disposition: HOME, SELF-CARE Condition: Improved Departure-Patient Inst. Decision time for Depature: 22:56 Referrals: [facility]IEL[facility] (PCP) Primary Care Physician YINKA MADRIGAL (Family) Primary Care Physician Patient Instructions: Urinary Tract Infection, Adult (DC) Add. Discharge Instructions: Complete your antibiotics as prescribed. Start Flomax. Follow-up with your primary care provider on Monday or Monday. Review culture results. Discuss blood sugar management and further evaluation of your prostate because she had an enlarged prostate on prior CT scan. This is particularly important because you have repeated urinary tract infections that may be related to urinary retention and prostate problems. Do not have intercourse until the results of your urine cultures are known. Return to the emergency room if you have worsening symptoms. Please be sure to continue with your medications as prescribed and eat a low sugar, low carbohydrate diet. Drink plenty of water. You may take Tylenol and/or ibuprofen for pain. All discharge instructions reviewed with patient and/or family. Voiced understanding. Scripts Tamsulosin HCl (Flomax) 0.4 Mg Cap 0.4 MG PO DAILY, #30 CAP Prov: JIGAR HIGH MD 09/20/19 Ciprofloxacin HCl (Ciprofloxacin HCl) 500 Mg Tablet 500 MG PO BID, #14 TAB Prov: JIGAR HIGH MD 09/20/19 Work/School Note: Work Release Form Date Seen in the Emergency Department: September 20, 2019 Return to Work: September 22, 2019 Restrictions: No Restrictions Copy Copies To 1: REGI HOLT JOSHUA T MD September 20, 2019 22:27
[2019-09-20 22:28] LABS: WBC,URINE >100 /HPF
[2019-09-20 22:32] LABS: BACTERIA,URINE FEW /HPF
[2019-09-20 22:33] LABS: AMORPHOUS SEDIMENT,UR FEW AMOR URATES /LPF
[2019-09-20] MEDS ORDERED: AZITHROMYCIN 250 MG TAB (ZITHROMAX) PO STA (22:49)
[2019-09-20] MEDS ORDERED: cefTRIAXone 1,000 MG/2.86 ml vial (IM ONLY) IM ONE (23:00)
[2019-09-20] MEDS ORDERED: LIDOCAINE 1% INJ 20 ML 20 ML VIAL INJ ONE (23:00)
[2019-09-20] MEDS ORDERED: TMSL.4C PO (23:22)
[2019-09-20] MEDS ORDERED: CIPR500T4 PO (23:22)
[2019-09-20 23:30] VITALS: BP 159/101
== END 2019-09-20 23:32 | disposition home or self-care (01) ==
LOC: EDUNIT# 21:42 → ER 21:44
DX: N39.0 Urinary tract infection, site not specified (principal); E11.65 Type 2 diabetes mellitus with hyperglycemia; I10 Essential (primary) hypertension; E66.9 Obesity, unspecified; Z68.39 Body mass index [BMI] 39.0-39.9, adult; Z88.5 Allergy status to narcotic agent; Z79.84 Long term (current) use of oral hypoglycemic drugs; Z87.891 Personal history of nicotine dependence
CPT/HCPCS: 36415; 81000; 82962; 87088; 87491; 87591

== ENCOUNTER 2019-09-21 08:53 | Emergency (ER) | payer BC ==
[~2019-09-21] VITALS: Ht 182 cm; Wt 130.9 kg
[~2019-09-21 08:53] MED LIST changes: +CIPR500T4 PO; +TMSL.4C PO
[2019-09-21] MEDS ORDERED: LACTATED RINGERS 1,000 ML IV ONE (09:34)
[2019-09-21] MEDS ORDERED: KETOROLAC 30 MG/ML VIAL IVP STA (09:34)
[2019-09-21] MEDS ORDERED: NS IV 1000 ML 1,000 ML IV SCH (09:37)
[2019-09-21 09:38] LABS: BILIRUBIN,URINE NEGATIVE (NEGATIVE); CLARITY,URINE CLOUDY; COLOR,URINE YELLOW; GLUCOSE, URINE (UA) 3+ (NEGATIVE); KETONES,URINE NEGATIVE (NEGATIVE); LEUKOCYTE ESTERASE ,URINE 1+ (NEGATIVE); NITRITE,URINE NEGATIVE (NEGATIVE); PROTEIN,URINE TRACE (NEGATIVE)
--- NOTE | 2019-09-21 09:40 | NUR ---
PT REFUSES CATHETER. DR ALVARENGA NOTIFIED.
[2019-09-21] MEDS ORDERED: cefTRIAXone FOR IV USE 1,000 MG in WATER (STERILE) FOR INJECTION 10 ML IV ONE (09:45)
--- NOTE | 2019-09-21 09:49 | ED GU-Male ---
General Chief Complaint: - Urinary Stated Complaint: UNABLE TO URINATE Nursing Triage Note: ARRIVED VIA AMB TO ROOM 07. COMPLAINS OF NOT BEING ABLE TO PEE MUCH SINCE YESTERDAY. SEEN HIS DR YESTERDAY AND WAS GIVEN A SHOT OF ABX AND PRESCRIBED ABX WHICH HE HAS NOT FILLED YET. Source: patient, old records History of Present Illness Date Seen by Provider: September 21, 2019 Time Seen by Provider: 09:20 Initial Comments PT ARRIVES VIA POV FROM HOME C/O INABILITY TO URINATE SINCE LAST PM STATES HE HAS HAD PAIN/BURNING ON URINATION FOR "SEVERAL MONTHS" BUT NEVER SOUGHT CARE NO FEVER/SWEATS/CHILLS NO NAUSEA/VOMITING STATES NO ABDOMINAL PAIN OR BACK PAIN--THEN STATES "I AIN'T HURT THIS BAD SINCE I HAD KIDNEY STONES" --HAS NOT TAKEN ANYTHING FOR PAIN SEEN IN HER LAST PM FOR THIS PROBLEM--UA DONE, BUT NO OTHER TESTS, PER PT WAS GIVEN A SHOT OF ANTIBIOTICS AND GIVEN RX'S BUT HAS NOT PICKED THEM UP YET. PT HAS HISTORY OF FREQUENT UTI'S AND EPIDIDYMITIS--DENIES ANY PAIN OR SWELLING IN TESTICLES PT IS DIABETIC BUT DOES NOT CHECK BLOOD GLUCOSE, OR FOLLOW ANY DIET--HAS BEEN PRESCRIBED METFORMIN, BUT HAS NOT TAKEN IT FOR MONTHS ADDITIONALLY, HE IS SUPPOSED TO BE TAKING MEDICATION FOR HTN, BUT HAS ALSO NOT BEEN TAKING THAT. PCP: [facility] Allergies and Home Medications Allergies Coded Allergies: morphine (Verified Adverse Reaction, Intermediate, 09/13/16) MAKES HIM AGGRESSIVE Patient Home Medication List Home Medication List Reviewed: Yes Review of Systems Review of Systems Constitutional: no symptoms reported Respiratory: no symptoms reported Cardiovascular: no symptoms reported Gastrointestinal: no symptoms reported Genitourinary: see HPI Musculoskeletal: no symptoms reported Skin: no symptoms reported Psychiatric/Neurological: No Symptoms Reported Endocrine: No Symptoms Reported Hematologic/Lymphatic: No Symptoms Reported Past Ayfqoke-Ntxgkm-Yqgqyj Hx Past Med/Social Hx: Reviewed and Corrections made Patient Social History Alcohol Use: Regular Use Alcohol Beverage of Choice: Beer Recreational Drug Use: No Smoking Status: Former Smoker Type Used: Cigarettes, Smokeless Tobacco Former Smoker, Quit: May 22, 2007 2nd Hand Smoke Exposure: No Recent Foreign Travel: No Contact w/Someone Who Travel: No Recent Infectious Disease Expo: No Recent Hopitalizations: No Immunizations Up To Date Tetanus Booster (TDap): More than 5yrs Date of Pneumonia Vaccine: Jul 26, 2011 Seasonal Allergies Seasonal Allergies: No Past Medical History Surgeries: Yes (SEE BELOW) Abdominal, Ear Surgery, Orthopedic Respiratory: Yes (LEFT CHEST TUBES X 2 SECONDARY TO TRAUMA) Cardiac: Yes Hypertension Neurological: No Reproductive Disorders: No Sexually Transmitted Disease: No HIV/AIDS: No Genitourinary: Yes Bladder Infection, Kidney Stones Gastrointestinal: Yes (SPLENECTOMY SECONDARY TO TRAUMA. FATTY LIVER) Liver Disease/Jaundice, Hemorrhoids Musculoskeletal: Yes (LEFT ANKLE FX/ORIF; LEFT FOREARM FX/ORIF) Fractures Endocrine: Yes (OBESITY) Diabetes, Non-Insulin dep HEENT: No Cancer: No Psychosocial: No Integumentary: No Blood Disorders: No Adverse Reaction/Blood Tranf: No Family Medical History No Pertinent Family Hx PSH: -2010--SPLENECTOMY, LEFT CHEST TUBES X 2, AND LEFT FOREARM FRACTURE/ORIF--ALL SECONDARY TO TRAUMA -LEFT FOOT / ANKLE FRACTURES/ORIF -BILATERAL MYRINGOTOMY TUBES -MEATOTOMY CHILD Physical Exam Vital Signs Vital Signs - First Documented 09/21/19 09:15 Temp 36.6 Pulse 82 Resp 16 B/P (MAP) 157/111 (126) Pulse Ox 97 O2 Delivery Room Air Capillary Refill : Less Than 3 Seconds Height, Weight, BMI Height: 6'0" Weight: 280lbs. 0oz. 127.685008mo; 39.00 BMI Method:Stated General Appearance: WD/WN, no apparent distress, obese, other (LAYING OUTSTRETCHED, WALKS UPRIGHT AND MOVES WITHOUT DIFFICULTY. DOES NOT APPEAR TO BE IN ANY DISCOMFORT OR DISTRESS. ) Neck: normal inspection Cardiovascular: regular rate, rhythm, no murmur Respiratory: normal breath sounds, no respiratory distress, no accessory muscle use Gastrointestinal: normal bowel sounds, soft, tenderness (MILD SUPRAPUBIC TENDERNESS); No hernia, No mass; other (? DISTENDED BLADDER? 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 II-XII nml as tested, no motor/sensory deficits, alert, normal mood/affect, oriented x 3 Progress/Results/Core Measures Suspected Sepsis Recent Fever Within 48 Hours: No Infection Criteria Present: Documented Infection New/Unexplained Altered Menta: No Sepsis Screen: No Definite Risk SIRS Temperature: Pulse: 82 Respiratory Rate: 16 Laboratory Tests 09/21/19 09:40: White Blood Count 12.9H Blood Pressure 157 /111 Mean: 126 Laboratory Tests 09/21/19 09:40: Creatinine 0.91, Platelet Count 355, Total Bilirubin 0.5 Results/Orders Lab Results Laboratory Tests Test 09/21/19 09:25 09/21/19 09:40 Range/Units Urine Color YELLOW Urine Clarity CLOUDY Urine pH 6.0 5-9 Urine Specific [place] 1.025 H 1.016-1.022 Urine Protein TRACE H NEGATIVE Urine Glucose (UA) 3+ H NEGATIVE Urine Ketones NEGATIVE NEGATIVE Urine Nitrite NEGATIVE NEGATIVE Urine Bilirubin NEGATIVE NEGATIVE Urine Urobilinogen 0.2 < = 1.0 MG/DL Urine Leukocyte Esterase 1+ H NEGATIVE Urine RBC (Auto) 2+ H NEGATIVE Urine RBC NONE /HPF Urine WBC TNTC H /HPF Urine Squamous Epithelial Cells NONE /HPF Urine Crystals NONE /LPF Urine Bacteria LARGE H /HPF Urine Casts NONE /LPF Urine Mucus NEGATIVE /LPF Urine Culture Indicated YES Urine Opiates Screen NEGATIVE NEGATIVE Urine Oxycodone Screen NEGATIVE NEGATIVE Urine Methadone Screen NEGATIVE NEGATIVE Urine Propoxyphene Screen NEGATIVE NEGATIVE Urine Barbiturates Screen NEGATIVE NEGATIVE Ur Tricyclic Antidepressants Screen NEGATIVE NEGATIVE Urine Phencyclidine Screen NEGATIVE NEGATIVE Urine Amphetamines Screen NEGATIVE NEGATIVE Urine Methamphetamines Screen NEGATIVE NEGATIVE Urine Benzodiazepines Screen NEGATIVE NEGATIVE Urine Cocaine Screen NEGATIVE NEGATIVE Urine Cannabinoids Screen NEGATIVE NEGATIVE White Blood Count 12.9 H 4.3-11.0 10^3/uL Red Blood Count 5.01 4.35-5.85 10^6/uL Hemoglobin 15.2 13.3-17.7 G/DL Hematocrit 46 40-54 % Mean Corpuscular Volume 92 80-99 FL Mean Corpuscular Hemoglobin 30 25-34 PG Mean Corpuscular Hemoglobin Concent 33 32-36 G/DL Red Cell Distribution Width 13.4 10.0-14.5 % Platelet Count 355 130-400 10^3/uL Mean Platelet Volume 10.2 7.4-10.4 FL Neutrophils (%) (Auto) 50 42-75 % Lymphocytes (%) (Auto) 38 12-44 % Monocytes (%) (Auto) 10 0-12 % Eosinophils (%) (Auto) 2 0-10 % Basophils (%) (Auto) 0 0-10 % Neutrophils # (Auto) 6.5 1.8-7.8 X 10^3 Lymphocytes # (Auto) 4.8 H 1.0-4.0 X 10^3 Monocytes # (Auto) 1.3 H 0.0-1.0 X 10^3 Eosinophils # (Auto) 0.2 0.0-0.3 10^3/uL Basophils # (Auto) 0.0 0.0-0.1 10^3/uL Sodium Level 139 135-145 MMOL/L Potassium Level 4.1 3.6-5.0 MMOL/L Chloride Level 105 98-107 MMOL/L Carbon Dioxide Level 23 21-32 MMOL/L Anion Gap 11 5-14 MMOL/L Blood Urea Nitrogen 9 7-18 MG/DL Creatinine 0.91 0.60-1.30 MG/DL Estimat Glomerular Filtration Rate > 60 BUN/Creatinine Ratio 10 Glucose Level 239 H 70-105 MG/DL Calcium Level 9.2 8.5-10.1 MG/DL Corrected Calcium 9.1 8.5-10.1 MG/DL Total Bilirubin 0.5 0.1-1.0 MG/DL Aspartate Amino Transf (AST/SGOT) 29 5-34 U/L Alanine Aminotransferase (ALT/SGPT) 56 H 0-55 U/L Alkaline Phosphatase 95 40-136 U/L Total Protein 7.4 6.4-8.2 GM/DL Albumin 4.1 3.2-4.5 GM/DL Serum Alcohol < 10 <10 MG/DL My Orders Orders - TAMERA ALVARENGA DO Bladder Scan (09/21/19 09:22) Ua Culture If Indicated (09/21/19 09:22) Urine Culture (09/21/19 09:24) Ed Iv/Invasive Line Start (09/21/19 09:34) Ct Abd/Pelvis Wo(Kidney Stone) (09/21/19 09:34) Abdomen/Kub 1view (09/21/19 09:34) Cbc With Automated Diff (09/21/19 09:34) Comprehensive Metabolic Panel (09/21/19 09:34) Drug Screen Stat (Urine) (09/21/19 09:34) Ed Iv/Invasive Line Start (09/21/19 09:34) Lactated Ringers (Lr 1000 Ml Iv Solution (09/21/19 09:34) Ceftriaxone For Iv Use (Rocephin For I (09/21/19 09:45) Ketorolac Injection (Toradol Injection) (09/21/19 09:34) Ed Iv/Invasive Line Start (09/21/19 09:37) Ns Iv 1000 Ml (Sodium Chloride 0.9%) (09/21/19 09:37) Alcohol (09/21/19 09:51) Medications Given in ED Current Medications Medications Dose Ordered Sig/Radha Route Start Time Stop Time Status Last Admin Dose Admin Ceftriaxone Sodium 1000 mg/ Sterile Water 10 ml @ 200 mls/hr ONCE ONCE IV 09/21/19 09:45 09/21/19 09:47 DC 09/21/19 10:16 200 MLS/HR Vital Signs/I&O 09/21/19 09/21/19 09:15 11:25 Temp 36.6 Pulse 82 72 Resp 16 18 B/P (MAP) 157/111 (126) 157/113 Pulse Ox 97 96 O2 Delivery Room Air Capillary Refill : Less Than 3 Seconds Blood Pressure Mean: 126 Progress Note : Progress Note VOIDED 50-75 ML ON ARRIVAL, AND HAS BEEN INCONTINENT OF URINE--FRONT OF JEANS ARE SATURATED WITH URINE. BLADDER SCAN DONE, WHICH SHOWED > 600 ML POST VOID RESIDUAL ON ARRIVAL PT REFUSES SARABIA TO GO HOME WITH, LATER AGREES TO IN AND OUT CATH TO DRAIN BLADDER. PT ADVISED THAT THERE IS STRONG POSSIBILITY THAT HE MAY AGAIN NOT BE ABLE TO VOID AND ADVISED HIM TO RETURN TO ER AND SARABIA CATHETER WILL NEED TO BE PLACED AT THAT TIME AND LEFT IN UNTIL HE CAN SEE DR. MATHEWS. VERY DIFFICULT CATH--HAS SEVERE STRICTURE AT [facility]--ONLY ABLE TO PASS A FEMALE QUICK CATH, AND WITH A LITTLE DIFFICULTY. NO BLEEDING AND IMMEDIATE RETURN OF > 400 ML CLOUDY YELLOW URINE. SCARRING NOTED AT/AROUND [facility], WITH PT REPORTING PRIOR MEATOTOMY CHILD. Diagnostic Imaging Comments CT ABDOMEN/PELVIS--PER RADIOLOGIST REPORT AT 1042 IMPRESSION: 1. The right renal pelvis and right ureter are dilated but there is no evidence for obstructive calculus. This appearance may be secondary to edema of the ureterovesical junction on the right related to the recent passage of a calculus. Clinical follow-up is recommended. 2. There is no acute abnormality of the abdomen or pelvis noted otherwise. 3. The 1.8 x 2.3 cm rounded area of slightly increased density within left lobe of the liver is more likely due to normal liver parenchyma than to a parenchymal abnormality. Reviewed: Reviewed by Me Departure Impression Primary Impression: UTI (urinary tract infection) Additional Impressions: Urinary retention with incomplete bladder emptying Uncontrolled diabetes mellitus Non-compliance RIGHT HYDRONEPHROSIS AND HYDROURETER Urethral stricture in male Disposition: 01 HOME, SELF-CARE Condition: Stable Departure-Patient Inst. Referrals: [facility]/ (PCP) Primary Care Physician YINKA MADRIGAL (Family) Primary Care Physician FELISA MATHEWS MD Patient Instructions: DIABETES, Diabetes and Diet, Diabetes and Infections, Urinary Obstruction (DC), Urinary Retention (DC), Urinary Tract Infection, Adult (DC) Add. Discharge Instructions: LOTS OF CLEAR LIQUIDS CHECK YOUR BLOOD SUGAR AT LEAST 3 TIMES A DAY AND KEEP DIARY TAKE YOUR MEDICATIONS EXACTLY PRESCRIBED GET YOUR PRESCRIPTIONS FILLED AND TAKE THEM PRESCRIBED FOLLOW UP WITH DR. MATHEWS NEXT WEEK FOR FURTHER CARE All discharge instructions reviewed with patient and/or family. Voiced underst anding. TAMERA ALVARENGA DO September 21, 2019 09:49
[2019-09-21 09:52] LABS: BASOPHILS % (AUTO) 0 % (0-10); EOSINOPHILS # (AUTO) 0.2 10^3/uL (0.0-0.3); EOSINOPHILS % (AUTO) 2 % (0-10); HEMATOCRIT 46 % (40-54); HEMOGLOBIN 15.2 G/DL (13.3-17.7); LYMPHOCYTES # (AUTO) 4.8 X 10^3 (1.0-4.0); LYMPHOCYTES % (AUTO) 38 % (12-44); MEAN CORPUSCULAR HEMOGLOBIN 30 PG (25-34); MEAN CORPUSCULAR HGB CONC 33 G/DL (32-36); MEAN CORPUSCULAR VOLUME 92 FL (80-99); MEAN PLATELET VOLUME 10.2 FL (7.4-10.4); MONOCYTES # (AUTO) 1.3 X 10^3 (0.0-1.0); MONOCYTES % (AUTO) 10 % (0-12); NEUTROPHILS # (AUTO) 6.5 X 10^3 (1.8-7.8); NEUTROPHILS % (AUTO) 50 % (42-75); PLATELET COUNT 355 10^3/uL (130-400); RED CELL DISTRIBUTION WIDTH 13.4 % (10.0-14.5); WHITE BLOOD COUNT 12.9 10^3/uL (4.3-11.0)
[2019-09-21 10:04] LABS: AMPHETAMINE SCREEN, URINE NEGATIVE (NEGATIVE); BARBITURATE SCREEN URINE NEGATIVE (NEGATIVE); BENZODIAZEPINES SCREEN URINE NEGATIVE (NEGATIVE); CANNABINOID SCREEN, URINE NEGATIVE (NEGATIVE); COCAINE SCREEN URINE NEGATIVE (NEGATIVE); METHADONE STAT NEGATIVE (NEGATIVE); METHAMPHETAMINE SCREEN URINE S NEGATIVE (NEGATIVE); OPIATE SCREEN URINE NEGATIVE (NEGATIVE); OXYCODONE STAT NEGATIVE (NEGATIVE); PROPOXYPHENE STAT NEGATIVE (NEGATIVE); TRICYCLIC ANTIDEPRESSANTS SCRE NEGATIVE (NEGATIVE)
[2019-09-21 10:12] LABS: ALANINE AMINOTRANSFERASE 56 U/L (0-55); ALBUMIN 4.1 GM/DL (3.2-4.5); ALKALINE PHOSPHATASE 95 U/L (40-136); BILIRUBIN,TOTAL 0.5 MG/DL (0.1-1.0); BUN/CREATININE RATIO 10; CALCIUM 9.2 MG/DL (8.5-10.1); CARBON DIOXIDE 23 MMOL/L (21-32); CHLORIDE 105 MMOL/L (98-107); CREATININE SERUM 0.91 MG/DL (0.60-1.30); GFR ESTIMATED > 60; GLUCOSE 239 MG/DL (70-105); POTASSIUM 4.1 MMOL/L (3.6-5.0); SODIUM 139 MMOL/L (135-145); TOTAL PROTEIN 7.4 GM/DL (6.4-8.2)
[2019-09-21 10:12] LABS: BACTERIA,URINE LARGE /HPF; WBC,URINE TNTC /HPF
--- NOTE | 2019-09-21 10:40 | Diagnostic Imaging Report ---
PROCEDURE: CT urinary tract, rule out kidney stone. TECHNIQUE: Multiple contiguous axial images were obtained through the abdomen and pelvis without the use of intravenous contrast. Auto Exposure Controls were utilized during the CT exam to meet ALARA standards for radiation dose reduction. INDICATION: Right flank pain The previous CT abdomen/pelvis exam of 04/17/2018 failed to show any sign of obstruction of either collecting system. There was a 3 mm nonobstructive calculus within the left kidney. In the interval since the prior exam, however, dilatation of the right renal pelvis and right ureter have developed. However, there is no sign of an obstructive calculus. The dilated appearance of the right collecting system could be related to a recently passed calculus. Clinical follow-up is recommended. The small calculus within the inferior pole of the left kidney seen previously is again evident and does not appear to have changed significantly. There is still no sign of a solid renal mass. 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 There is a 1.8 x 2.3 cm rounded area of slightly increased density in the left lobe of the liver. This finding was present on the prior exam and has not changed significantly. This finding is of uncertain etiology but could be related to normal liver parenchyma spared from fatty metamorphosis. As noted on the prior exam the spleen is surgically absent. The pancreas, the adrenals, the aorta and inferior vena cava show no sign of an acute abnormality. The gallbladder is not well-distended and consequently difficult to assess. The stomach is not well distended either and difficult to assess. There is no pelvic mass or free fluid collection evident. There may be a few diverticula in the sigmoid and descending colon but there is no evidence for acute diverticulitis. The appendix was visualized and is not abnormally thickened. The urinary bladder is not fully distended. There is no definite bladder abnormality noted. The dense calcifications within the prostate gland seen previously are again evident and no different. The bone windows show no sign of a fracture or of a destructive lesion. The lung bases are clear. IMPRESSION: 1. The right renal pelvis and right ureter are dilated but there is no evidence for obstructive calculus. This appearance may be secondary to edema of the ureterovesical junction on the right related to the recent passage of a calculus. Clinical follow-up is recommended. 2. There is no acute abnormality of the abdomen or pelvis noted otherwise. 3. The 1.8 x 2.3 cm rounded area of slightly increased density within left lobe of the liver is more likely due to normal liver parenchyma than to a parenchymal abnormality. Dictated by: Dictated on workstation # [id number]
--- NOTE | 2019-09-21 10:47 | Diagnostic Imaging Report ---
EXAMINATION: Supine abdomen at 1014 AM INDICATION: Difficulty urinating Two supine views were obtained. There is gas in both the large and small bowel in a nonspecific fashion. There is no evidence for a bowel obstruction. The small nonobstructive calculus in the left kidney seen on the CT abdomen/pelvis exam performed prior to the study is again evident and no different. There is no other pathological calcification identified aside from prostatic calcifications. There is no mass or organomegaly. The osseous structures are intact. IMPRESSION: The bowel gas pattern is nonspecific. There is no acute abnormality noted. Dictated by: Dictated on workstation # [id number]
--- NOTE | 2019-09-21 11:06 | NUR ---
PATIENT DECLINED TO HAVE SARABIA PLACED WOULD ALLOW STRAIGHT CATH TO DRAIN BLDDER UNABLE TO PASS SARABIA BY DR ALVARENGA 15FR STRAIGHT CATH USED APX 400CC OF URINE RETURNED.
[2019-09-21 11:25] VITALS: BP 157/113
== END 2019-09-21 11:21 | disposition home or self-care (01) ==
LOC: EDUNIT# 08:53 → ER 08:55
DX: N13.6 Pyonephrosis (principal); E11.9 Type 2 diabetes mellitus without complications; E66.9 Obesity, unspecified; Z88.5 Allergy status to narcotic agent; Z79.84 Long term (current) use of oral hypoglycemic drugs; Z87.891 Personal history of nicotine dependence; Z68.39 Body mass index [BMI] 39.0-39.9, adult; Z91.14 Patient's other noncompliance with medication regimen
CPT/HCPCS: 36415; 74018; 74176; 80053; 80306; 80320; 81000; 85025; 87088

== ENCOUNTER 2019-11-04 19:33 | Emergency (ER) | payer BC ==
[~2019-11-04] VITALS: Ht 167.7 cm; Wt 129.3 kg
[2019-11-04] MEDS ORDERED: LACTATED RINGERS 1,000 ML IV SCH (19:46)
[2019-11-04] MEDS ORDERED: ACETAMINOPHEN 500 MG TAB (TYLENOL) ONE (19:50)
[2019-11-04 19:53] LABS: BASOPHILS % (AUTO) 0 % (0-10); EOSINOPHILS # (AUTO) 0.1 10^3/uL (0.0-0.3); EOSINOPHILS % (AUTO) 0 % (0-10); HEMATOCRIT 43 % (40-54); HEMOGLOBIN 14.2 G/DL (13.3-17.7); LYMPHOCYTES % (AUTO) 28 % (12-44); MEAN CORPUSCULAR HEMOGLOBIN 30 PG (25-34); MEAN CORPUSCULAR HGB CONC 33 G/DL (32-36); MEAN CORPUSCULAR VOLUME 90 FL (80-99); MEAN PLATELET VOLUME 10.3 FL (7.4-10.4); MONOCYTES # (AUTO) 2.2 X 10^3 (0.0-1.0); MONOCYTES % (AUTO) 15 % (0-12); NEUTROPHILS # (AUTO) 8.3 X 10^3 (1.8-7.8); NEUTROPHILS % (AUTO) 57 % (42-75); PLATELET COUNT 358 10^3/uL (130-400); RED CELL DISTRIBUTION WIDTH 12.9 % (10.0-14.5); WHITE BLOOD COUNT 14.5 10^3/uL (4.3-11.0)
--- NOTE | 2019-11-04 19:56 | ED General ---
General Chief Complaint: General Problems/Pain Stated Complaint: SOA,CP Source of Information: Patient Exam Limitations: No Limitations History of Present Illness Date Seen by Provider: Nov 04, 2019 Time Seen by Provider: 19:50 Initial Comments To Er with c/o general weakness and body aches, short of breath, diaphoresis, cough. Works at [employer] and was swabbed for COVID19 on Monday 3 days ago when the swabbed all staff members. He was not symptomatic at that time. He came down with symptoms on Monday 2 days ago. He also believes he has a bladder infection as he has had one before. Timing/Duration: 1-2 Days Severity: Moderate Associated Systoms: No Chest Pain; Cough, Diaphoresis, Fever/Chills, Weakness Allergies and Home Medications Allergies Coded Allergies: morphine (Verified Adverse Reaction, Intermediate, 09/13/16) MAKES HIM AGGRESSIVE Home Medications Cefuroxime Axetil 250 Mg Tablet, 250 MG PO BID Prescribed by: JESSICA PABON on 11/04/192015 Patient Home Medication List Home Medication List Reviewed: Yes Review of Systems Review of Systems Constitutional: see HPI, diaphoresis, weakness EENTM: see HPI Respiratory: see HPI, cough, short of breath Cardiovascular: no symptoms reported Genitourinary: no symptoms reported Musculoskeletal: no symptoms reported Skin: no symptoms reported Psychiatric/Neurological: No Symptoms Reported Past Iuqjbjk-Zwqfhj-Ngdihe Hx Patient Social History Alcohol Beverage of Choice: Beer Type Used: Cigarettes, Smokeless Tobacco Former Smoker, Quit: May 22, 2007 2nd Hand Smoke Exposure: No Recent Foreign Travel: No Contact w/Someone Who Travel: No Recent Hopitalizations: No Immunizations Up To Date Tetanus Booster (TDap): More than 5yrs Date of Pneumonia Vaccine: Jul 26, 2011 Seasonal Allergies Seasonal Allergies: No Past Medical History Surgeries: Yes (SEE BELOW) Abdominal, Ear Surgery, Orthopedic Respiratory: Yes (LEFT CHEST TUBES X 2 SECONDARY TO TRAUMA) Cardiac: Yes Hypertension Neurological: No Reproductive Disorders: No Sexually Transmitted Disease: No HIV/AIDS: No Genitourinary: Yes Bladder Infection, Kidney Stones Gastrointestinal: Yes (SPLENECTOMY SECONDARY TO TRAUMA. FATTY LIVER) Liver Disease/Jaundice, Hemorrhoids Musculoskeletal: Yes (LEFT ANKLE FX/ORIF; LEFT FOREARM FX/ORIF) Fractures Endocrine: Yes (OBESITY) Diabetes, Non-Insulin dep HEENT: No Cancer: No Psychosocial: No Integumentary: No Blood Disorders: No Adverse Reaction/Blood Tranf: No Family Medical History No Pertinent Family Hx PSH: -2010--SPLENECTOMY, LEFT CHEST TUBES X 2, AND LEFT FOREARM FRACTURE/ORIF--ALL SECONDARY TO TRAUMA -LEFT FOOT / ANKLE FRACTURES/ORIF -BILATERAL MYRINGOTOMY TUBES -MEATOTOMY CHILD Physical Exam Vital Signs Vital Signs - First Documented Capillary Refill : Height, Weight, BMI Height: 6'0" Weight: 280lbs. 0oz. 127.278574oz; 39.00 BMI Method:Stated General Appearance: No Apparent Distress, WD/WN, Obese, Other (diaphoretic. ) Eyes: Bilateral Eye Normal Inspection, Bilateral Eye PERRL, Bilateral Eye EOMI Neck: Full Range of Motion, Normal Inspection Respiratory: Normal Breath Sounds, No Accessory Muscle Use, No Respiratory Distress, Other (lungs clear, no respiratory distress, speaks in full sentences. O2 98% room air. ) Cardiovascular: Regular Rate, Rhythm, Normal Peripheral Pulses, Other (HR 100) Gastrointestinal: Non Tender, Soft Neurologic/Psychiatric: Alert, Oriented x3 Skin: Normal Color, Warm/Dry Progress/Results/Core Measures Suspected Sepsis SIRS Temperature: Pulse: Respiratory Rate: Laboratory Tests 11/04/19 19:40: White Blood Count 14.5H Blood Pressure / Mean: Laboratory Tests 11/04/19 19:40: Creatinine 1.03, INR Comment 1.0, Platelet Count 358, Total Bilirubin 0.3 Results/Orders Lab Results Laboratory Tests Test 11/04/19 19:40 11/04/19 20:17 Range/Units White Blood Count 14.5 H 4.3-11.0 10^3/uL Red Blood Count 4.74 4.35-5.85 10^6/uL Hemoglobin 14.2 13.3-17.7 G/DL Hematocrit 43 40-54 % Mean Corpuscular Volume 90 80-99 FL Mean Corpuscular Hemoglobin 30 25-34 PG Mean Corpuscular Hemoglobin Concent 33 32-36 G/DL Red Cell Distribution Width 12.9 10.0-14.5 % Platelet Count 358 130-400 10^3/uL Mean Platelet Volume 10.3 7.4-10.4 FL Neutrophils (%) (Auto) 57 42-75 % Lymphocytes (%) (Auto) 28 12-44 % Monocytes (%) (Auto) 15 H 0-12 % Eosinophils (%) (Auto) 0 0-10 % Basophils (%) (Auto) 0 0-10 % Neutrophils # (Auto) 8.3 H 1.8-7.8 X 10^3 Lymphocytes # (Auto) 4.0 1.0-4.0 X 10^3 Monocytes # (Auto) 2.2 H 0.0-1.0 X 10^3 Eosinophils # (Auto) 0.1 0.0-0.3 10^3/uL Basophils # (Auto) 0.0 0.0-0.1 10^3/uL Prothrombin Time 13.3 12.2-14.7 SEC INR Comment 1.0 0.8-1.4 Activated Partial Thromboplast Time 30 24-35 SEC Sodium Level 135 135-145 MMOL/L Potassium Level 3.2 L 3.6-5.0 MMOL/L Chloride Level 98 98-107 MMOL/L Carbon Dioxide Level 25 21-32 MMOL/L Anion Gap 12 5-14 MMOL/L Blood Urea Nitrogen 8 7-18 MG/DL Creatinine 1.03 0.60-1.30 MG/DL Estimat Glomerular Filtration Rate > 60 BUN/Creatinine Ratio 8 Glucose Level 260 H 70-105 MG/DL Calcium Level 9.7 8.5-10.1 MG/DL Corrected Calcium 9.8 8.5-10.1 MG/DL Total Bilirubin 0.3 0.1-1.0 MG/DL Aspartate Amino Transf (AST/SGOT) 24 5-34 U/L Alanine Aminotransferase (ALT/SGPT) 37 0-55 U/L Alkaline Phosphatase 79 40-136 U/L Lactate Dehydrogenase 187 125-220 U/L Troponin I < 0.028 <0.028 NG/ML C-Reactive Protein High Sensitivity 10.90 H 0.00-0.50 MG/DL Total Protein 7.6 6.4-8.2 GM/DL Albumin 3.9 3.2-4.5 GM/DL Urine Color YELLOW Urine Clarity CLOUDY Urine pH 6.0 5-9 Urine Specific [place] 1.010 L 1.016-1.022 Urine Protein NEGATIVE NEGATIVE Urine Glucose (UA) 3+ H NEGATIVE Urine Ketones NEGATIVE NEGATIVE Urine Nitrite NEGATIVE NEGATIVE Urine Bilirubin NEGATIVE NEGATIVE Urine Urobilinogen 0.2 < = 1.0 MG/DL Urine Leukocyte Esterase 2+ H NEGATIVE Urine RBC (Auto) 1+ H NEGATIVE Urine RBC RARE /HPF Urine WBC 25-50 H /HPF Urine Squamous Epithelial Cells RARE /HPF Urine Crystals NONE /LPF Urine Bacteria TRACE /HPF Urine Casts NONE /LPF Urine Mucus NEGATIVE /LPF Urine Culture Indicated YES My Orders Orders - JESSICA PABON APRN Vital Signs: Every 4 Hours (Or (11/04/19 19:46) Monitor-Rhythm Ecg Trace Only (11/04/19 19:46) Cbc With Automated Diff (11/04/19:46) Comprehensive Metabolic Panel ([birth year]/04/1945) Ferritin (11/04/19:46) LDH (11/04/19:46) Hs C Reactive Protein (11/04/19:46) Troponin I (11/04/19:46) Lactic Acid Analyzer (11/04/19:46) Protime With Inr (11/04/19:46) Partial Thromboplastin Time (11/04/19:46) Ekg Tracing (11/04/19:46) Chest 1 View, Ap/Pa Only (11/04/19 19:46) Lactated Ringers (Lr 1000 Ml Iv Solution (11/04/19 19:46) Acetaminophen Tablet/Caplet (Tylenol T (11/04/19 20:00) Ketorolac Injection (Toradol Injection) (11/04/19 20:00) Acetaminophen Tablet (Tylenol Tablet) (11/04/19 19:50) Acetaminophen Tablet (Tylenol Tablet) (11/04/19 20:00) Ua Culture If Indicated (11/04/19 20:19) Urine Culture (11/04/19 20:17) Medications Given in ED Current Medications Medications Dose Ordered Sig/Radha Route Start Time Stop Time Status Last Admin Dose Admin Acetaminophen 1,000 mg ONCE ONCE PO 11/04/19 20:00 11/04/19 20:01 DC 11/04/19 20:00 1,000 MG Ketorolac Tromethamine 15 mg ONCE ONCE IVP 11/04/19 20:00 11/04/19 20:01 DC 11/04/19 19:55 15 MG Vital Signs/I&O 11/04/19 11/04/19 19:33 19:33 Temp 37.1 Pulse 99 Resp 20 B/P (MAP) 154/105 (121) Pulse Ox 96 O2 Delivery Room Air Room Air Capillary Refill : Departure Communication (Admissions) will give rocephin here+rx amoxil given respiratory symptoms with hx of Splenectomy post trauma. Impression Primary Impression: Viral syndrome Additional Impressions: Suspected COVID19 UTI (urinary tract infection) Disposition: HOME, SELF-CARE Condition: Stable Departure-Patient Inst. Decision time for Depature: 19:53 Referrals: [facility] (PCP) Primary Care Physician YINKA MADRIGAL (Family) Primary Care Physician Patient Instructions: Viral Syndrome (DC), Urinary Tract Infection, Adult (DC) Add. Discharge Instructions: 1. Tylenol for aches and pains. Return to Er for any worsening. Antibiotics as directed. Go home and quarantine away from family and friends until COVID resul ts come back in 24-48 hours. All discharge instructions reviewed with patient and/or family. Voiced understanding. Scripts Cefuroxime Axetil (Cefuroxime) 250 Mg Tablet 250 MG PO BID, #10 TAB Prov: JESSICA PABON APRN 11/04/19 Work/School Note: Work Release Form Date Seen in the Emergency Department: Nov 04, 2019 Return to Work: Nov 08, 2019 JESSICA PABON APRN Nov 04, 2019 19:56
[2019-11-04] MEDS ORDERED: KETOROLAC 30 MG/ML VIAL IVP ONE (20:00)
[2019-11-04] MEDS ORDERED: ACETAMINOPHEN 325 MG TABLET PO ONE (20:00)
[2019-11-04] MEDS ORDERED: ACETAMINOPHEN 500 MG TAB (TYLENOL) PO ONE (20:00)
[2019-11-04 20:06] LABS: PROTHROMBIN TIME PATIENT 13.3 SEC (12.2-14.7)
[2019-11-04 20:15] LABS: ALANINE AMINOTRANSFERASE 37 U/L (0-55); ALBUMIN 3.9 GM/DL (3.2-4.5); ALKALINE PHOSPHATASE 79 U/L (40-136); BILIRUBIN,TOTAL 0.3 MG/DL (0.1-1.0); BUN/CREATININE RATIO 8; CALCIUM 9.7 MG/DL (8.5-10.1); CARBON DIOXIDE 25 MMOL/L (21-32); CHLORIDE 98 MMOL/L (98-107); CREATININE SERUM 1.03 MG/DL (0.60-1.30); GFR ESTIMATED > 60; GLUCOSE 260 MG/DL (70-105); POTASSIUM 3.2 MMOL/L (3.6-5.0); SODIUM 135 MMOL/L (135-145); TOTAL PROTEIN 7.6 GM/DL (6.4-8.2)
[2019-11-04] MEDS ORDERED: CEFU250T80 PO (20:16)
[2019-11-04 20:31] LABS: BILIRUBIN,URINE NEGATIVE (NEGATIVE); CLARITY,URINE CLOUDY; COLOR,URINE YELLOW; GLUCOSE, URINE (UA) 3+ (NEGATIVE); KETONES,URINE NEGATIVE (NEGATIVE); LEUKOCYTE ESTERASE ,URINE 2+ (NEGATIVE); NITRITE,URINE NEGATIVE (NEGATIVE); PROTEIN,URINE NEGATIVE (NEGATIVE)
[2019-11-04 20:38] LABS: RBC,URINE RARE /HPF
[2019-11-04 20:39] LABS: BACTERIA,URINE TRACE /HPF; SQUAMOUS EPITHELIAL CELL,UR RARE /HPF; WBC,URINE 25-50 /HPF
--- NOTE | 2019-11-04 20:51 | Diagnostic Imaging Report ---
INDICATION: Chest pain. Shortness of air. COMPARISON: 06/11/2019 FINDINGS: Single frontal view of the chest demonstrates mild enlargement of the cardiac silhouette. Pulmonary vasculature is within normal limits. Lungs show low inspiratory volumes, but are otherwise clear. No large pleural effusion or pneumothorax is seen. The visualized osseous structures show no acute abnormalities. IMPRESSION: 1. Mild enlargement of the cardiac silhouette. Findings are suspicious for cardiomegaly, but may be exaggerated by portable technique and low inspiratory volumes. 2. No evidence of focal infiltrate or failure. Dictated by: Dictated on workstation # [id number]
[2019-11-04] MEDS ORDERED: cefTRIAXone FOR IV USE 1,000 MG in WATER (STERILE) FOR INJECTION 10 ML IV ONE (21:15)
[2019-11-04 21:29] VITALS: BP 141/89
== END 2019-11-04 21:29 | disposition home or self-care (01) ==
LOC: EDUNIT# 19:33 → ER 19:35
DX: U07.1 COVID-19 (principal); B34.9 Viral infection, unspecified; N39.0 Urinary tract infection, site not specified; E11.9 Type 2 diabetes mellitus without complications; E66.9 Obesity, unspecified; Z88.5 Allergy status to narcotic agent; Z87.891 Personal history of nicotine dependence; Z68.42 Body mass index [BMI] 45.0-49.9, adult
CPT/HCPCS: 71045; 80053; 81000; 82728; 83615; 84484; 85025; 85610; 85730; 86141; 87077; 87088; 93005; 93041; 99284; U0002; 36415; 87186; 87635

== ENCOUNTER 2020-02-24 15:53 | Emergency (ER) | payer BC ==
[~2020-02-24] VITALS: Ht 182 cm; Wt 123.0 kg
[~2020-02-24 15:53] MED LIST changes: +CEFU250T80 PO
[2020-02-24] MEDS ORDERED: IOHEXOL 350 MG/ML 100 ML (OMNIPAQUE 350) VIAL IV ONE (16:30)
[2020-02-24] MEDS ORDERED: NS 100 ML (IVPB) BAG IV ONE (16:30)
[2020-02-24] MEDS ORDERED: HOLD METFORMIN - RECEIVED CONTRAST 20 ML VIAL IV SCH (16:30)
[2020-02-24] MEDS ORDERED: NS IV 1000 ML 1,000 ML IV SCH (16:30)
[2020-02-24 16:33] LABS: BILIRUBIN,URINE NEGATIVE (NEGATIVE); COLOR,URINE RED; GLUCOSE, URINE (UA) 3+ (NEGATIVE); KETONES,URINE NEGATIVE (NEGATIVE); LEUKOCYTE ESTERASE ,URINE NEGATIVE (NEGATIVE); NITRITE,URINE POSITIVE (NEGATIVE); PH,URINE 7.5 (5-9); PROTEIN,URINE 3+ (NEGATIVE)
[2020-02-24 16:47] LABS: BASOPHILS # (AUTO) 0.1 10^3/uL (0.0-0.1); BASOPHILS % (AUTO) 0 % (0-10); EOSINOPHILS # (AUTO) 0.1 10^3/uL (0.0-0.3); EOSINOPHILS % (AUTO) 1 % (0-10); HEMATOCRIT 42 % (40-54); HEMOGLOBIN 13.9 g/dL (13.3-17.7); LYMPHOCYTES # (AUTO) 3.3 10^3/uL (1.0-4.0); LYMPHOCYTES % (AUTO) 23 % (12-44); MEAN CORPUSCULAR HEMOGLOBIN 30 pg (25-34); MEAN CORPUSCULAR HGB CONC 33 g/dL (32-36); MEAN CORPUSCULAR VOLUME 89 fL (80-99); MEAN PLATELET VOLUME 10.3 fL (9.0-12.2); MONOCYTES # (AUTO) 1.2 10^3/uL (0.0-1.0); MONOCYTES % (AUTO) 9 % (0-12); NEUTROPHILS # (AUTO) 9.3 10^3/uL (1.8-7.8); NEUTROPHILS % (AUTO) 67 % (42-75); PLATELET COUNT 401 10^3/uL (130-400)
[2020-02-24 16:51] LABS: BACTERIA,URINE NEGATIVE /HPF; CLARITY,URINE MUCOUS; RBC,URINE TNTC /HPF
[2020-02-24 16:57] LABS: ALBUMIN 4.1 GM/DL (3.2-4.5)
[2020-02-24 16:58] LABS: CHLORIDE 97 MMOL/L (98-107); POTASSIUM 3.1 MMOL/L (3.6-5.0); SODIUM 135 MMOL/L (135-145)
[2020-02-24 16:59] LABS: CALCIUM 9.2 MG/DL (8.5-10.1)
[2020-02-24 17:00] LABS: GLUCOSE 297 MG/DL (70-105)
[2020-02-24 17:01] LABS: CARBON DIOXIDE 26 MMOL/L (21-32)
[2020-02-24 17:02] LABS: BILIRUBIN,TOTAL 0.4 MG/DL (0.1-1.0)
[2020-02-24 17:03] LABS: ALKALINE PHOSPHATASE 99 U/L (40-136)
[2020-02-24 17:04] LABS: CREATININE SERUM 1.34 MG/DL (0.60-1.30); GFR ESTIMATED > 60
[2020-02-24 17:05] LABS: BUN/CREATININE RATIO 7
[2020-02-24 17:07] LABS: ALANINE AMINOTRANSFERASE 21 U/L (0-55)
[2020-02-24 17:13] LABS: BAND NEUTROPHILS 0 %; BASOPHILS % (MANUAL) 0 %; EOSINOPHILS % (MANUAL) 0 %; LYMPHOCYTES % (MANUAL) 25 %; MONOCYTES % (MANUAL) 5 %; NEUTROPHILS % (MANUAL) 70 %; RBC MORPH NORMAL
[2020-02-24] MEDS ORDERED: cefTRIAXone FOR IV USE 1,000 MG in WATER (STERILE) FOR INJECTION 10 ML IV ONE (17:45)
--- NOTE | 2020-02-24 17:57 | Diagnostic Imaging Report ---
EXAMINATION: CT Abdomen Pelvis with and without intravenous contrast. TECHNIQUE: Precontrast acquisitions were acquired through the abdomen and pelvis. Multiple contiguous axial images were obtained through the abdomen and pelvis after the administration of intravenous contrast. All CT scans use one or more of the following dose optimizing techniques: automated exposure control, MA and/or KvP adjustment based on a patient size and exam type, or iterative reconstruction. HISTORY: Dysuria. Evaluate for renal stones. COMPARISON: 09/21/2019. FINDINGS: The heart is unremarkable. The included lung bases are clear. Nonobstructing renal calculi are seen in the inferior pole of the left kidney measuring 3 mm. No calculi are seen on the right. No evidence of bladder calculi. There is moderate right-sided hydroureteronephrosis with wall thickening of the ureter. Periureteral fat stranding is also noted on the right. No solid renal masses are seen. The urinary bladder is nondistended with concentric bladder wall thickening. Calcifications are noted within the prostate. There is hepatic steatosis. A hyperattenuating focus is seen in the left hepatic lobe measuring 2.6 x 2.5 cm. The gallbladder is decompressed. The portal vein is patent. 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 The pancreas and adrenal glands have a normal appearance. There is no pathologically enlarged mesenteric or retroperitoneal adenopathy. The bowel loops are nondilated. The appendix is visualized in the right lower quadrant and has a normal appearance. There is no free fluid or free air. No acute osseous abnormalities. There is no free air, loculated collection, or adenopathy in the pelvis. IMPRESSION: 1. Moderate right-sided hydroureteronephrosis without evidence of obstructing calculi or bladder calculi. There is generalized thickening of the right ureter with periureteral fat stranding. These findings may represent recently passed calculus. Associated delayed excretion of contrast is seen on the right. Recommend continued follow-up to ensure resolution of the dilated collecting system. 2. Nonobstructing calculus in the left kidney measuring 3 mm. No evidence of hydronephrosis on the left. 3. Hepatic steatosis. Hyperattenuating focus is seen in the left hepatic lobe favored to represent adenoma. Recommend attention on follow-up. 4. Absent spleen with tiny splenules in the left upper quadrant. This may represent sequelae of trauma. Dictated by: Dictated on workstation # [id number]
--- NOTE | 2020-02-24 17:58 | ED GU-Female ---
General Chief Complaint: - Urinary Stated Complaint: DIFFICULTY URINATING Nursing Triage Note: PT ARRIVES TO ED WITH C/O POSSIBLE KIDNEY STONES AND TROUBLE URINATING SINCE MONDAY. PT STATES THERE HAS BEEN SOME BLOOD IN HIS URINE WELL. PT SAYS USUALLY 1-2 TIMES A YEAR HE HAS TO COME TO ER TO GET HIS BLADDER DRAINED DUE TO KIDNEY STONES Nursing Sepsis Screen: No Definite Risk Source: patient Exam Limitations: no limitations History of Present Illness Date Seen by Provider: Feb 24, 2020 Time Seen by Provider: 16:30 Initial Comments To ER with bloody urine since this morning. Some mild right-sided abdominal pain. Timing/Duration: yesterday Severity/Quality: moderate Location: right flank Prior Genitourinary Problems: none Associated Symptoms: dysuria Allergies and Home Medications Allergies Coded Allergies: morphine (Verified Adverse Reaction, Intermediate, 09/13/16) MAKES HIM AGGRESSIVE Home Medications Cefdinir 300 Mg Capsule, 300 MG PO BID Prescribed by: JESSICA PABON on 02/24/201827 Cefuroxime Axetil 250 Mg Tablet, 250 MG PO BID Prescribed by: JESSICA PABON on 11/04/192015 Patient Home Medication List Home Medication List Reviewed: Yes Review of Systems Review of Systems Constitutional: see HPI; No chills, No fever EENTM: see HPI Respiratory: no symptoms reported Cardiovascular: no symptoms reported Genitourinary: no symptoms reported Musculoskeletal: no symptoms reported Skin: no symptoms reported Psychiatric/Neurological: No Symptoms Reported Endocrine: No Symptoms Reported Past Mrbhsib-Qvyzdt-Mbqcyq Hx Patient Social History Alcohol Use: Denies Use Alcohol Beverage of Choice: Beer Recreational Drug Use: No Type Used: Cigarettes, Smokeless Tobacco Former Smoker, Quit: May 22, 2007 2nd Hand Smoke Exposure: No Recent Foreign Travel: No Contact w/Someone Who Travel: No Recent Infectious Disease Expo: No Recent Hopitalizations: No Immunizations Up To Date Tetanus Booster (TDap): Unknown Date of Pneumonia Vaccine: Jul 26, 2011 Date of Influenza Vaccine: May 22, 2018 Seasonal Allergies Seasonal Allergies: No Past Medical History Surgeries: Yes (SEE BELOW) Abdominal, Ear Surgery, Orthopedic, Testicular Respiratory: Yes (LEFT CHEST TUBES X 2 SECONDARY TO TRAUMA) Cardiac: Yes Hypertension Neurological: No Reproductive Disorders: No Sexually Transmitted Disease: No HIV/AIDS: No Genitourinary: Yes Bladder Infection, Kidney Stones Gastrointestinal: Yes (SPLENECTOMY SECONDARY TO TRAUMA. FATTY LIVER) Liver Disease/Jaundice, Hemorrhoids Musculoskeletal: Yes (LEFT ANKLE FX/ORIF; LEFT FOREARM FX/ORIF) Fractures Endocrine: Yes (OBESITY) Diabetes, Non-Insulin dep HEENT: No Cancer: No Psychosocial: No Integumentary: No Blood Disorders: No Adverse Reaction/Blood Tranf: No Family Medical History No Pertinent Family Hx PSH: -2010--SPLENECTOMY, LEFT CHEST TUBES X 2, AND LEFT FOREARM FRACTURE/ORIF--ALL SECONDARY TO TRAUMA -LEFT FOOT / ANKLE FRACTURES/ORIF -BILATERAL MYRINGOTOMY TUBES -MEATOTOMY CHILD Physical Exam Vital Signs Vital Signs - First Documented 02/24/20 16:00 Temp 36.6 Pulse 109 Resp 18 B/P (MAP) 159/120 (133) Pulse Ox 97 O2 Delivery Room Air Capillary Refill : Less Than 3 Seconds Height, Weight, BMI Height: 6'0" Weight: 280lbs. 0oz. 127.027589kq; 37.00 BMI Method:Stated General Appearance: WD/WN, no apparent distress HEENT: PERRL/EOMI, normal ENT inspection Neck: non-tender, full range of motion Respiratory: normal breath sounds, no respiratory distress, no accessory muscle use Gastrointestinal: normal bowel sounds, non tender Extremities: normal range of motion, non-tender Neurologic/Psychiatric: alert, normal mood/affect, oriented x 3 Skin: normal color, warm/dry Progress/Results/Core Measures Suspected Sepsis Recent Fever Within 48 Hours: No Infection Criteria Present: None New/Unexplained Altered Menta: No Sepsis Screen: No Definite Risk SIRS Temperature: Pulse: 109 Respiratory Rate: 18 Laboratory Tests 02/24/20 16:27: White Blood Count 14.0H Blood Pressure 159 /120 Mean: 133 Laboratory Tests 02/24/20 16:27: Creatinine 1.34H, Platelet Count 401H, Total Bilirubin 0.4 Results/Orders Lab Results Laboratory Tests Test 02/24/20 16:21 02/24/20 16:27 Range/Units Urine Color RED H Urine Clarity MUCOUS Urine pH 7.5 5-9 Urine Specific [place] 1.020 1.016-1.022 Urine Protein 3+ H NEGATIVE Urine Glucose (UA) 3+ H NEGATIVE Urine Ketones NEGATIVE NEGATIVE Urine Nitrite POSITIVE H NEGATIVE Urine Bilirubin NEGATIVE NEGATIVE Urine Urobilinogen 0.2 < = 1.0 MG/DL Urine Leukocyte Esterase NEGATIVE NEGATIVE Urine RBC (Auto) 3+ H NEGATIVE Urine RBC TNTC H /HPF Urine WBC 5-10 H /HPF Urine Squamous Epithelial Cells NONE /HPF Urine Crystals NONE /LPF Urine Bacteria NEGATIVE /HPF Urine Casts NONE /LPF Urine Mucus LARGE H /LPF Urine Culture Indicated YES White Blood Count 14.0 H 4.3-11.0 10^3/uL Red Blood Count 4.66 4.30-5.52 10^6/uL Hemoglobin 13.9 13.3-17.7 g/dL Hematocrit 42 40-54 % Mean Corpuscular Volume 89 80-99 fL Mean Corpuscular Hemoglobin 30 25-34 pg Mean Corpuscular Hemoglobin Concent 33 32-36 g/dL Red Cell Distribution Width 13.2 10.0-14.5 % Platelet Count 401 H 130-400 10^3/uL Mean Platelet Volume 10.3 9.0-12.2 fL Immature Granulocyte % (Auto) 0 % Neutrophils (%) (Auto) 67 42-75 % Lymphocytes (%) (Auto) 23 12-44 % Monocytes (%) (Auto) 9 0-12 % Eosinophils (%) (Auto) 1 0-10 % Basophils (%) (Auto) 0 0-10 % Neutrophils # (Auto) 9.3 H 1.8-7.8 10^3/uL Lymphocytes # (Auto) 3.3 1.0-4.0 10^3/uL Monocytes # (Auto) 1.2 H 0.0-1.0 10^3/uL Eosinophils # (Auto) 0.1 0.0-0.3 10^3/uL Basophils # (Auto) 0.1 0.0-0.1 10^3/uL Immature Granulocyte # (Auto) 0.0 0.0-0.1 10^3/uL Neutrophils % (Manual) 70 % Lymphocytes % (Manual) 25 % Monocytes % (Manual) 5 % Eosinophils % (Manual) 0 % Basophils % (Manual) 0 % Band Neutrophils 0 % Blood Morphology Comment NORMAL Sodium Level 135 135-145 MMOL/L Potassium Level 3.1 L 3.6-5.0 MMOL/L Chloride Level 97 L 98-107 MMOL/L Carbon Dioxide Level 26 21-32 MMOL/L Anion Gap 12 5-14 MMOL/L Blood Urea Nitrogen 9 7-18 MG/DL Creatinine 1.34 H 0.60-1.30 MG/DL Estimat Glomerular Filtration Rate > 60 BUN/Creatinine Ratio 7 Glucose Level 297 H 70-105 MG/DL Calcium Level 9.2 8.5-10.1 MG/DL Corrected Calcium 9.1 8.5-10.1 MG/DL Total Bilirubin 0.4 0.1-1.0 MG/DL Aspartate Amino Transf (AST/SGOT) 14 5-34 U/L Alanine Aminotransferase (ALT/SGPT) 21 0-55 U/L Alkaline Phosphatase 99 40-136 U/L Total Protein 8.0 6.4-8.2 GM/DL Albumin 4.1 3.2-4.5 GM/DL My Orders Orders - JESSICA PABON APRN Ua Culture If Indicated (02/24/20 16:00) Neis Guillermo Dna Urine Test (02/24/20 16:00) Chlamydia Trachomatis Urine (02/24/20 16:00) Cbc With Automated Diff (02/24/20 16:17) Comprehensive Metabolic Panel (02/24/20 16:17) Ed Iv/Invasive Line Start (02/24/20 16:17) Ct Abdomen/Pelvis W Wo (02/24/20 16:17) Ns Iv 1000 Ml (Sodium Chloride 0.9%) (02/24/20 16:30) Iohexol Injection (Omnipaque 350 Mg/Ml 1 (02/24/20 16:30) Received Contrast (Hold Metformin- Contr (02/24/20 16:30) Ns (Ivpb) (Sodium Chloride 0.9% Ivpb Bag (02/24/20 16:30) Urine Culture (02/24/20 16:21) Manual Differential (02/24/20 16:27) Blood Culture (02/24/20 17:35) Lactic Acid Analyzer (02/24/20 17:35) Ceftriaxone For Iv Use (Rocephin For I (02/24/20 17:45) Phenazopyridine Tablet (Pyridium Tablet) (02/24/20 18:15) Medications Given in ED Current Medications Medications Dose Ordered Sig/Radha Route Start Time Stop Time Status Last Admin Dose Admin Iohexol 100 ml ONCE ONCE IV 02/24/20 16:30 02/24/20 16:36 DC 02/24/20 17:24 100 ML Sodium Chloride 100 ml ONCE ONCE IV 02/24/20 16:30 02/24/20 16:36 DC 02/24/20 17:24 100 ML Vital Signs/I&O 02/24/20 16:00 Temp 36.6 Pulse 109 Resp 18 B/P (MAP) 159/120 (133) Pulse Ox 97 O2 Delivery Room Air Capillary Refill : Less Than 3 Seconds Blood Pressure Mean: 133 Departure Communication (Admissions) CT findings are of right periurethral inflammation and edema. There is delayed contrast excretion on the right. Certainly these could be secondary to a recently passed stone but with his history of diabetes, nitrites in the urine, leukocytosis and tachycardia he needs to be admitted. Alternative diagnosis would include a distal ureteral stricture. I'll consult Dr. Lam. I discussed with the patient recommendation for admission. He states that he has to work, he has to be at [employer] tomorrow at 6 AM because no one can replace him. He refuses to stay and will sign out AGAINST MEDICAL ADVICE. He would agree to stay long enough to receive a dose of IV antibiotics in the ER. I will send in Omnicef 300 mg twice a day for 10 days. Impression Primary Impression: UTI (urinary tract infection) Additional Impression: Inflammation of ureter Disposition: AGAINST MEDICAL ADVICE Condition: Stable Admissions Decision to Admit/Date: Feb 24, 2020 Departure-Patient Inst. Referrals: [facility] (PCP) Primary Care Physician YINKA MADRIGAL (Family) Primary Care Physician Scripts Cefdinir (Cefdinir) 300 Mg Capsule 300 MG PO BID, #20 CAP Prov: JESSICA PABON APRN 02/24/20 JESSICA PABON APRN Feb 24, 2020 17:58
[2020-02-24] MEDS ORDERED: PHENAZOPYRIDINE 100 MG (PYRIDIUM) TABLET PO ONE (18:15)
[2020-02-24] MEDS ORDERED: CEFD300C3 PO (18:28)
[2020-02-24 19:00] VITALS: BP 139/85
--- NOTE | 2020-02-24 19:16 | NUR ---
PATIENT LEFT AMA BECAUSE HE WANTS TO GO TO WORK
== END 2020-02-24 19:12 | disposition left against medical advice (07) ==
LOC: EDUNIT# 15:53 → ER 15:54
DX: N39.0 Urinary tract infection, site not specified (principal); E66.9 Obesity, unspecified; Z88.5 Allergy status to narcotic agent; Z87.891 Personal history of nicotine dependence; Z68.37 Body mass index [BMI] 37.0-37.9, adult
CPT/HCPCS: 36415; 74178; 80053; 81000; 83605; 85007; 85027; 87040; 87077; 87088; 87491; 87591

== ENCOUNTER 2020-02-26 01:08 | Emergency (ER) | payer BC ==
[~2020-02-26] VITALS: Ht 182.8 cm; Wt 126.0 kg
[2020-02-26] MEDS ORDERED: NS IV 1000 ML 1,000 ML IV SCH ×2 (02:12→02:33)
[2020-02-26 02:22] LABS: BASOPHILS # (AUTO) 0.1 10^3/uL (0.0-0.1); BASOPHILS % (AUTO) 0 % (0-10); EOSINOPHILS # (AUTO) 0.6 10^3/uL (0.0-0.3); EOSINOPHILS % (AUTO) 5 % (0-10); HEMATOCRIT 39 % (40-54); LYMPHOCYTES # (AUTO) 3.7 10^3/uL (1.0-4.0); LYMPHOCYTES % (AUTO) 28 % (12-44); MEAN CORPUSCULAR HEMOGLOBIN 30 pg (25-34); MEAN CORPUSCULAR HGB CONC 33 g/dL (32-36); MEAN CORPUSCULAR VOLUME 90 fL (80-99); MEAN PLATELET VOLUME 10.7 fL (9.0-12.2); MONOCYTES # (AUTO) 1.4 10^3/uL (0.0-1.0); MONOCYTES % (AUTO) 11 % (0-12); NEUTROPHILS # (AUTO) 7.3 10^3/uL (1.8-7.8); NEUTROPHILS % (AUTO) 56 % (42-75); PLATELET COUNT 404 10^3/uL (130-400)
--- NOTE | 2020-02-26 02:22 | ED GU-Male ---
General Chief Complaint: - Urinary Stated Complaint: CAN'T URINATE Source: patient, old records History of Present Illness Date Seen by Provider: Feb 26, 2020 Time Seen by Provider: 01:55 Initial Comments PT ARRIVES VIA POV FROM HOME HAS HAD ONGOING PROBLEMS URINATING SINCE Monday02/23/20 MUCH PAIN ON URINATION, URGENCY, VERY SMALL AMOUNTS, URINE IS VERY DARK AND BLOODY AT TIMES C/O PAIN TO RLQ/RIGHT GROIN AND PENIS NO FEVER NO NAUSEA/VOMITING--HAS HAD DIARRHEA X 1 MONTH AFTER EATING AT [employer] NO BACK PAIN PT HAS HISTORY OF KIDNEY STONES PT IS ALSO DIABETIC AND HAS HISTORY OF HTN PT HAS BEEN SEEN HERE MULTIPLE TIMES FOR THIS COMPLAINT-HX OF FREQUENT UTI'S AND EPIDIDYMITIS WELL. NO PAIN OR SWELLING TO TESTICLES SEEN HERE 02/24/20 FOR THIS PROBLEM--HAD LAB AND CT DONE, AND WAS ADVISED THAT HE NEEDED TO BE ADMITTED, AND PT REFUSED-STATING HE HAD TO GO TO WORK. SIGNED OUT AMA. DID NOT ATTEMPT TO FOLLOW UP WITH ANYONE SINCE THEN, AND CAME HERE [facility] WAS GIVEN ROCEPHIN IN ER AND RX FOR OMNICEF FOR UTI TOOK 2 ALEVE AT 1930, WHICH HELPED PAIN. PCP: MARIAMA Allergies and Home Medications Allergies Coded Allergies: morphine (Verified Adverse Reaction, Intermediate, 09/13/16) MAKES HIM AGGRESSIVE Home Medications Cefdinir 300 Mg Capsule, 300 MG PO BID Prescribed by: JESSICA PABON on 02/24/201827 Cefuroxime Axetil 250 Mg Tablet, 250 MG PO BID Prescribed by: JESSICA PABON on 11/04/19 2016 Patient Home Medication List Home Medication List Reviewed: Yes Review of Systems Review of Systems Constitutional: no symptoms reported; No chills, No diaphoresis, No fever Respiratory: no symptoms reported Cardiovascular: no symptoms reported Gastrointestinal: see HPI, abdominal pain, diarrhea; No nausea, No vomiting Genitourinary: see HPI, burning, dysuria, frequency; denies flank pain; hematuria, pain, urgency Musculoskeletal: no symptoms reported; No back pain Skin: no symptoms reported Psychiatric/Neurological: No Symptoms Reported Endocrine: No Symptoms Reported Hematologic/Lymphatic: No Symptoms Reported Past Mutwkaz-Twuyux-Ydqvtr Hx Past Med/Social Hx: Reviewed and Corrections made Patient Social History Alcohol Beverage of Choice: Beer Type Used: Cigarettes, Smokeless Tobacco Former Smoker, Quit: May 22, 2007 2nd Hand Smoke Exposure: No Recent Foreign Travel: No Contact w/Someone Who Travel: No Recent Hopitalizations: No Immunizations Up To Date Tetanus Booster (TDap): Unknown Date of Pneumonia Vaccine: Jul 26, 2011 Date of Influenza Vaccine: May 22, 2018 Seasonal Allergies Seasonal Allergies: No Past Medical History Surgeries: Yes (SEE BELOW) Abdominal, Ear Surgery, Orthopedic Respiratory: Yes (LEFT CHEST TUBES X 2 SECONDARY TO TRAUMA) Cardiac: Yes Hypertension Neurological: No Reproductive Disorders: No Sexually Transmitted Disease: No HIV/AIDS: No Genitourinary: Yes (EPIDIDYMITIS; FREQUENT UTI'S) Bladder Infection, Kidney Stones Gastrointestinal: Yes (SPLENECTOMY SECONDARY TO TRAUMA. FATTY LIVER) Liver Disease/Jaundice, Hemorrhoids Musculoskeletal: Yes (LEFT ANKLE FX/ORIF; LEFT FOREARM FX/ORIF) Fractures Endocrine: Yes (OBESITY) Diabetes, Non-Insulin dep HEENT: No Cancer: No Psychosocial: No Integumentary: No Blood Disorders: No Adverse Reaction/Blood Tranf: No Family Medical History No Pertinent Family Hx SOCIAL HISTORY: -ETOH--REGULAR USE/DRINKS BEER DAILY -DRUGS--DENIES -SMOKING--QUIT SMOKING AND CHEWING TOBACCO PSH: -2010--SPLENECTOMY, LEFT CHEST TUBES X 2, AND LEFT FOREARM FRACTURE/ORIF--ALL SECONDARY TO TRAUMA -LEFT FOOT / ANKLE FRACTURES/ORIF -BILATERAL MYRINGOTOMY TUBES -MEATOTOMY CHILD LONG HISTORY OF NON-COMPLICANCE IN ALL ASPECTS OF CARE -DOES NOT CHECK BLOOD GLUCOSE OR FOLLOW DIET, AND FREQUENTLY DOES NOT TAKE DIABETIC MEDICATION -DOES NOT TAKE HIS PRESCRIBED BLOOD PRESSURE MEDICATIONS -DOES NOT FOLLOW UP WITH PCP INSTRUCTED FREQUENT ER VISITS FOR VARIOUS COMPLAINTS. Physical Exam Vital Signs Capillary Refill : Height, Weight, BMI Height: 6'0" Weight: 280lbs. 0oz. 127.139160gt; 37.00 BMI Method:Stated General Appearance: WD/WN, no apparent distress, obese, other (LAYING OUTSTRETCHED, DOES NOT APPEAR TO BE IN ANY DISCOMFORT OR DISTRESS. WALKS UPRIGHT AND MOVES WITHOUT DIFFICULTY. DIRTY/UNKEMPT/MALODOROUS) Cardiovascular: regular rate, rhythm, no murmur Respiratory: normal breath sounds, no respiratory distress, no accessory muscle use Gastrointestinal: normal bowel sounds, soft, tenderness (MILD SUPRAPUBIC TENDERNESS) Back: no CVA tenderness Extremities: normal inspection Neurologic/Psychiatric: glass washer II-XII nml as tested, no motor/sensory deficits, alert, normal mood/affect, oriented x 3 Skin: normal color, warm/dry; No rash Progress/Results/Core Measures Suspected Sepsis SIRS Temperature: Pulse: Respiratory Rate: Laboratory Tests 02/26/20 01:35: White Blood Count 13.0H Blood Pressure / Mean: Laboratory Tests 02/26/20 01:35: Creatinine 1.42H, Platelet Count 404H, Total Bilirubin 0.3 Results/Orders Lab Results Laboratory Tests Test 02/26/20 01:30 02/26/20 01:35 Range/Units Urine Color RED H Urine Clarity SL CLOUDY Urine pH 6.5 5-9 Urine Specific [place] 1.020 1.016-1.022 Urine Protein 3+ H NEGATIVE Urine Glucose (UA) 2+ H NEGATIVE Urine Ketones NEGATIVE NEGATIVE Urine Nitrite NEGATIVE NEGATIVE Urine Bilirubin NEGATIVE NEGATIVE Urine Urobilinogen 0.2 < = 1.0 MG/DL Urine Leukocyte Esterase 1+ H NEGATIVE Urine RBC (Auto) 3+ H NEGATIVE Urine RBC TNTC H /HPF Urine WBC 10-25 H /HPF Urine Squamous Epithelial Cells 0-2 /HPF Urine Crystals NONE /LPF Urine Bacteria FEW H /HPF Urine Casts NONE /LPF Urine Mucus SMALL H /LPF Urine Culture Indicated CULTURE PENDING White Blood Count 13.0 H 4.3-11.0 10^3/uL Red Blood Count 4.37 4.30-5.52 10^6/uL Hemoglobin 13.0 L 13.3-17.7 g/dL Hematocrit 39 L 40-54 % Mean Corpuscular Volume 90 80-99 fL Mean Corpuscular Hemoglobin 30 25-34 pg Mean Corpuscular Hemoglobin Concent 33 32-36 g/dL Red Cell Distribution Width 13.3 10.0-14.5 % Platelet Count 404 H 130-400 10^3/uL Mean Platelet Volume 10.7 9.0-12.2 fL Immature Granulocyte % (Auto) 0 % Neutrophils (%) (Auto) 56 42-75 % Lymphocytes (%) (Auto) 28 12-44 % Monocytes (%) (Auto) 11 0-12 % Eosinophils (%) (Auto) 5 0-10 % Basophils (%) (Auto) 0 0-10 % Neutrophils # (Auto) 7.3 1.8-7.8 10^3/uL Lymphocytes # (Auto) 3.7 1.0-4.0 10^3/uL Monocytes # (Auto) 1.4 H 0.0-1.0 10^3/uL Eosinophils # (Auto) 0.6 H 0.0-0.3 10^3/uL Basophils # (Auto) 0.1 0.0-0.1 10^3/uL Immature Granulocyte # (Auto) 0.0 0.0-0.1 10^3/uL Sodium Level 135 135-145 MMOL/L Potassium Level 3.2 L 3.6-5.0 MMOL/L Chloride Level 98 98-107 MMOL/L Carbon Dioxide Level 23 21-32 MMOL/L Anion Gap 14 5-14 MMOL/L Blood Urea Nitrogen 13 7-18 MG/DL Creatinine 1.42 H 0.60-1.30 MG/DL Estimat Glomerular Filtration Rate 57 BUN/Creatinine Ratio 9 Glucose Level 355 H 70-105 MG/DL Calcium Level 9.1 8.5-10.1 MG/DL Corrected Calcium 9.2 8.5-10.1 MG/DL Total Bilirubin 0.3 0.1-1.0 MG/DL Aspartate Amino Transf (AST/SGOT) 14 5-34 U/L Alanine Aminotransferase (ALT/SGPT) 18 0-55 U/L Alkaline Phosphatase 94 40-136 U/L Total Protein 7.4 6.4-8.2 GM/DL Albumin 3.9 3.2-4.5 GM/DL My Orders Orders - TAMERA ALVARENGA DO Ed Iv/Invasive Line Start (02/26/20 02:12) Monitor-Rhythm Ecg Trace Only (02/26/20 02:12) Cbc With Automated Diff (02/26/20 02:12) Comprehensive Metabolic Panel (02/26/20 02:12) Ua Culture If Indicated (02/26/20 02:12) Ed Iv/Invasive Line Start (02/26/20 02:12) Ns Iv 1000 Ml (Sodium Chloride 0.9%) (02/26/20 02:12) Bladder Scan (02/26/20 02:15) Ed Iv/Invasive Line Start (02/26/20 02:33) Ns Iv 1000 Ml (Sodium Chloride 0.9%) (02/26/20 02:33) Urine Culture (02/26/20 02:33) Ceftriaxone For Iv Use (Rocephin For I (02/26/20 03:15) Medications Given in ED Current Medications Medications Dose Ordered Sig/Radha Route Start Time Stop Time Status Last Admin Dose Admin Ceftriaxone Sodium 1000 mg/ Sterile Water 10 ml @ 200 mls/hr ONCE ONCE IV 02/26/20 03:15 02/26/20 03:17 DC 02/26/20 03:17 200 MLS/HR Vital Signs/I&O Capillary Refill : Progress Note : Progress Note PT VOIDED 100 ON ARRIVAL --VERY DARK URINE LATER BLADDER SCAN REVEALED 90 ML OF URINE IN BLADDER GIVEN IV FLUIDS AND ROCEPHIN AGAIN, HAVE RECOMMENDED ADMISSION DUE TO PERSISTENT INFECTION IN URINE, WITH INCREASED LEUKOCYTES IN URINE, INCREASED CREATININE AND ELEVATED BLOOD GLUCOSE, WELL PERSISTENT LEUKOCYTOSIS, IN ADDITION TO CONTINUED DIFFICULTY URINATING, AND HIS CONTINUED NON-COMPLIANCE IN ALL ASPECTS OF CARE AGAIN, PT REFUSES ADMIT--STATING HE NEEDS TO GO TO WORK. AMA PAPERS AGAIN SIGNED. PT STRONGLY URGED TO GET HIS PRESCRIPTION FOR ANTIBIOTIC FILLED AND FOLLOW UP WITH [facility] AND DR. MATHEWS THIS WEEK FOR FURTHER CARE. Departure Impression Primary Impression: Left against medical advice Additional Impressions: UTI (urinary tract infection) Renal insufficiency Uncontrolled diabetes mellitus Uncontrolled hypertension Non-compliance Disposition: AGAINST MEDICAL ADVICE Condition: Against Medical Advice Departure-Patient Inst. Referrals: [facility] (PCP) Primary Care Physician YINKA MADRIGAL (Family) Primary Care Physician Patient Instructions: Urinary Tract Infection, Adult (DC) Add. Discharge Instructions: GET YOUR PRESCRIPTION FOR ANTIBIOTIC FILLED ( OMNICEF) THIS MORNING FOLLOW [facility] F[facility]--CALL THIS MORNING TO MAKE APPOINTMENTS All discharge instructions reviewed with patient and/or family. Voiced understanding. TAMERA ALVARENGA DO Feb 26, 2020 02:22
[2020-02-26 02:23] LABS: ALBUMIN 3.9 GM/DL (3.2-4.5)
[2020-02-26 02:24] LABS: POTASSIUM 3.2 MMOL/L (3.6-5.0)
[2020-02-26 02:25] LABS: CALCIUM 9.1 MG/DL (8.5-10.1)
[2020-02-26 02:26] LABS: TOTAL PROTEIN 7.4 GM/DL (6.4-8.2)
[2020-02-26 02:28] LABS: BILIRUBIN,TOTAL 0.3 MG/DL (0.1-1.0)
[2020-02-26 02:30] LABS: CREATININE SERUM 1.42 MG/DL (0.60-1.30)
[2020-02-26 02:45] LABS: BILIRUBIN,URINE NEGATIVE (NEGATIVE); CLARITY,URINE SL CLOUDY; COLOR,URINE RED; GLUCOSE, URINE (UA) 2+ (NEGATIVE); KETONES,URINE NEGATIVE (NEGATIVE); LEUKOCYTE ESTERASE ,URINE 1+ (NEGATIVE); NITRITE,URINE NEGATIVE (NEGATIVE); PH,URINE 6.5 (5-9); PROTEIN,URINE 3+ (NEGATIVE)
[2020-02-26 02:49] LABS: BACTERIA,URINE FEW /HPF; RBC,URINE TNTC /HPF; SQUAMOUS EPITHELIAL CELL,UR 0-2 /HPF
[2020-02-26] MEDS ORDERED: cefTRIAXone FOR IV USE 1,000 MG in WATER (STERILE) FOR INJECTION 10 ML IV ONE (03:15)
--- NOTE | 2020-02-26 03:30 | NUR ---
PATIENT REFUSING ADMISSION RECCOMENDED. AGREES TO ALLOW ONE BAG OF IV FLUID AND ROCEPHIN. AMA PAPER TO BE SIGNED AT DISCHARGE PER DR ALVARENGA.
[2020-02-26 04:20] VITALS: BP 132/79
== END 2020-02-26 04:20 | disposition left against medical advice (07) ==
LOC: EDUNIT# 01:08 → ER 01:11
DX: N39.0 Urinary tract infection, site not specified (principal); N28.9 Disorder of kidney and ureter, unspecified; E11.9 Type 2 diabetes mellitus without complications; I10 Essential (primary) hypertension; E66.9 Obesity, unspecified; Z91.19 Patient's noncompliance with other medical treatment and regimen; Z88.5 Allergy status to narcotic agent; Z87.891 Personal history of nicotine dependence; Z68.37 Body mass index [BMI] 37.0-37.9, adult
CPT/HCPCS: 36415; 80053; 81000; 85025; 87088; 93041

== ENCOUNTER 2020-03-09 19:48 | Inpatient (IN) | payer BC ==
[~2020-03-09] VITALS: Ht 182.9 cm; Wt 128.5 kg
--- NOTE | 2020-03-09 20:30 | ED General ---
General Stated Complaint: CHEST PAIN;BODY ACHES;FEVER Source of Information: Patient Exam Limitations: No Limitations History of Present Illness Date Seen by Provider: Mar 09, 2020 Time Seen by Provider: 20:28 Initial Comments To ER with fever up to 102 since last night, body aches, cough. He has recently been treated for urinary tract infection, saw primary care and had another urine sample done after completion of antibiotics. He reports he had a persistent bladder infection last week and was given another round of antibiotics which she is finishing up today. His urine did show yeast. He had coronavirus and was admitted to the hospital for this back in October of this year. Timing/Duration: 1-2 Days Severity: Moderate Associated Systoms: Malaise Allergies and Home Medications Allergies Coded Allergies: morphine (Verified Adverse Reaction, Intermediate, 09/13/16) MAKES HIM AGGRESSIVE Home Medications Cefdinir 300 Mg Capsule, 300 MG PO BID Prescribed by: JESSICA PABON on 02/24/201827 Cefuroxime Axetil 250 Mg Tablet, 250 MG PO BID Prescribed by: JESSICA PABON on 11/04/192015 Patient Home Medication List Home Medication List Reviewed: Yes Review of Systems Review of Systems Constitutional: see HPI, chills EENTM: see HPI Respiratory: no symptoms reported Cardiovascular: no symptoms reported Genitourinary: no symptoms reported Musculoskeletal: no symptoms reported Skin: no symptoms reported Psychiatric/Neurological: No Symptoms Reported Hematologic/Lymphatic: No Symptoms Reported Immunological/Allergic: no symptoms reported Past Ewspzit-Rggwos-Flbozx Hx Patient Social History Alcohol Beverage of Choice: Beer Type Used: Cigarettes, Smokeless Tobacco Former Smoker, Quit: May 22, 2007 2nd Hand Smoke Exposure: No Recent Hopitalizations: No Immunizations Up To Date Tetanus Booster (TDap): Unknown Date of Pneumonia Vaccine: Jul 26, 2011 Date of Influenza Vaccine: May 22, 2018 Seasonal Allergies Seasonal Allergies: No Past Medical History Surgeries: Yes Abdominal, Ear Surgery, Orthopedic Respiratory: Yes (LEFT CHEST TUBES X 2 SECONDARY TO TRAUMA) Cardiac: Yes Hypertension Neurological: No Reproductive Disorders: No Sexually Transmitted Disease: No HIV/AIDS: No Genitourinary: Yes (EPIDIDYMITIS; FREQUENT UTI'S) Bladder Infection, Kidney Stones Gastrointestinal: Yes (SPLENECTOMY SECONDARY TO TRAUMA. FATTY LIVER) Liver Disease/Jaundice, Hemorrhoids Musculoskeletal: Yes (LEFT ANKLE FX/ORIF; LEFT FOREARM FX/ORIF) Fractures Endocrine: Yes (OBESITY) Diabetes, Non-Insulin dep HEENT: No Cancer: No Psychosocial: No Integumentary: No Blood Disorders: No Adverse Reaction/Blood Tranf: No Family Medical History No Pertinent Family Hx SOCIAL HISTORY: -ETOH--REGULAR USE/DRINKS BEER DAILY -DRUGS--DENIES -SMOKING--QUIT SMOKING AND CHEWING TOBACCO PSH: -2010--SPLENECTOMY, LEFT CHEST TUBES X 2, AND LEFT FOREARM FRACTURE/ORIF--ALL SECONDARY TO TRAUMA -LEFT FOOT / ANKLE FRACTURES/ORIF -BILATERAL MYRINGOTOMY TUBES -MEATOTOMY CHILD LONG HISTORY OF NON-COMPLICANCE IN ALL ASPECTS OF CARE -DOES NOT CHECK BLOOD GLUCOSE OR FOLLOW DIET, AND FREQUENTLY DOES NOT TAKE DIABETIC MEDICATION -DOES NOT TAKE HIS PRESCRIBED BLOOD PRESSURE MEDICATIONS -DOES NOT FOLLOW UP WITH PCP INSTRUCTED FREQUENT ER VISITS FOR VARIOUS COMPLAINTS. Physical Exam Vital Signs Vital Signs - First Documented 03/09/20 20:00 Temp 37.6 Pulse 125 Resp 18 B/P (MAP) 118/67 (84) Pulse Ox 99 O2 Delivery Room Air Capillary Refill : Height, Weight, BMI Height: 6'0" Weight: 280lbs. 0oz. 127.836856wg; 37.00 BMI Method:Stated General Appearance: No Apparent Distress, WD/WN Eyes: Bilateral Eye Normal Inspection, Bilateral Eye PERRL, Bilateral Eye EOMI Neck: Full Range of Motion, Normal Inspection Respiratory: Lungs Clear, Normal Breath Sounds, No Accessory Muscle Use, No Respiratory Distress Cardiovascular: Normal Peripheral Pulses, Tachycardia Gastrointestinal: Non Tender, Soft Extremity: Normal Capillary Refill, Normal Inspection Neurologic/Psychiatric: Alert, Oriented x3 Skin: Normal Color, Warm/Dry Focused Exam Lactate Level 03/09/20 20:47: Lactic Acid Level 1.74 Lactic Acid Level Laboratory Tests Test 03/09/20 20:47 Lactic Acid Level 1.74 MMOL/L (0.50-2.00) Progress/Results/Core Measures Suspected Sepsis SIRS Temperature: Pulse: Respiratory Rate: Laboratory Tests 03/09/20 20:35: White Blood Count 22.8H Blood Pressure / Mean: 03/09/20 20:47: Lactic Acid Level 1.74 Laboratory Tests 03/09/20 20:35: Creatinine 2.59H, INR Comment 1.3, Platelet Count 315, Total Bilirubin 0.3 Results/Orders Lab Results Laboratory Tests Test 03/09/20 20:35 03/09/20 20:47 Range/Units White Blood Count 22.8 H 4.3-11.0 10^3/uL Red Blood Count 4.44 4.30-5.52 10^6/uL Hemoglobin 13.3 13.3-17.7 g/dL Hematocrit 39 L 40-54 % Mean Corpuscular Volume 89 80-99 fL Mean Corpuscular Hemoglobin 30 25-34 pg Mean Corpuscular Hemoglobin Concent 34 32-36 g/dL Red Cell Distribution Width 13.4 10.0-14.5 % Platelet Count 315 130-400 10^3/uL Mean Platelet Volume 10.9 9.0-12.2 fL Immature Granulocyte % (Auto) 1 % Neutrophils (%) (Auto) 91 H 42-75 % Lymphocytes (%) (Auto) 3 L 12-44 % Monocytes (%) (Auto) 5 0-12 % Eosinophils (%) (Auto) 0 0-10 % Basophils (%) (Auto) 0 0-10 % Neutrophils # (Auto) 20.7 H 1.8-7.8 10^3/uL Lymphocytes # (Auto) 0.7 L 1.0-4.0 10^3/uL Monocytes # (Auto) 1.0 0.0-1.0 10^3/uL Eosinophils # (Auto) 0.1 0.0-0.3 10^3/uL Basophils # (Auto) 0.1 0.0-0.1 10^3/uL Immature Granulocyte # (Auto) 0.2 H 0.0-0.1 10^3/uL Prothrombin Time 16.1 H 12.2-14.7 SEC INR Comment 1.3 0.8-1.4 Urine Color YELLOW Urine Clarity CLOUDY Urine pH 5.5 5-9 Urine Specific [place] >=1.030 1.016-1.022 Urine Protein 2+ H NEGATIVE Urine Glucose (UA) 2+ H NEGATIVE Urine Ketones TRACE H NEGATIVE Urine Nitrite NEGATIVE NEGATIVE Urine Bilirubin NEGATIVE NEGATIVE Urine Urobilinogen 0.2 < = 1.0 MG/DL Urine Leukocyte Esterase 2+ H NEGATIVE Urine RBC (Auto) 2+ H NEGATIVE Urine RBC 2-5 H /HPF Urine WBC >100 H /HPF Urine Crystals NONE /LPF Urine Bacteria MODERATE H /HPF Urine Casts PRESENT /LPF Urine Granular Casts 5-10 H /LPF Urine Mucus NEGATIVE /LPF Urine Culture Indicated YES Sodium Level 129 L 135-145 MMOL/L Potassium Level 3.2 L 3.6-5.0 MMOL/L Chloride Level 93 L 98-107 MMOL/L Carbon Dioxide Level 20 L 21-32 MMOL/L Anion Gap 16 H 5-14 MMOL/L Blood Urea Nitrogen 34 H 7-18 MG/DL Creatinine 2.59 H 0.60-1.30 MG/DL Estimat Glomerular Filtration Rate 29 BUN/Creatinine Ratio 13 Glucose Level 401 *H 70-105 MG/DL Calcium Level 8.7 8.5-10.1 MG/DL Corrected Calcium 9.2 8.5-10.1 MG/DL Total Bilirubin 0.3 0.1-1.0 MG/DL Aspartate Amino Transf (AST/SGOT) 14 5-34 U/L Alanine Aminotransferase (ALT/SGPT) 18 0-55 U/L Alkaline Phosphatase 121 40-136 U/L Total Protein 7.2 6.4-8.2 GM/DL Albumin 3.4 3.2-4.5 GM/DL Beta-Hydroxybutyrate (Chem panel) 0.33 H 0.00-0.27 MMOL/L Procalcitonin 52.11 H <0.10 NG/ML Coronavirus 2019 (МАРИЯ) Negative Negative Lactic Acid Level 1.74 0.50-2.00 MMOL/L Micro Results Microbiology 03/09/20 Influenza Types A,B Antigen (JOHNNY) - Final, Complete My Orders Orders - JESSICA PABON APRN Chest 1 View, Ap/Pa Only (03/09/20 20:11) Cbc With Automated Diff (03/09/20 20:26) Comprehensive Metabolic Panel (03/09/20 20:26) Procalcitonin (Pct) (03/09/20 20:26) Protime With Inr (03/09/20 20:26) Ua Culture If Indicated (03/09/20 20:26) Influenza A And B Antigens (03/09/20 20:) Covid 19 Inhouse Test (03/09/20 20:26) Blood Culture (03/09/20 20:26) Lactic Acid Analyzer (03/09/20 20:26) Manual Differential (03/09/20 20:35) Ns Iv 1000 Ml (Sodium Chloride 0.9%) (03/09/20 21:15) Beta Hydroxybutyrate (03/09/20 21:21) Potassium Cl 10meq/50ml Ivpb (Kcl 10 Meq (03/09/20 21:30) Ns Iv 1000 Ml (Sodium Chloride 0.9%) (03/09/20 21:30) Fluconazole Tablet (Ed Only) (Diflucan T (03/09/20 21:45) Magnesium (03/09/20 21:37) Vital Signs/I&O 03/09/20 03/09/20 20:00 21:17 Temp 37.6 Pulse 125 110 Resp 18 18 B/P (MAP) 118/67 (84) 118/76 Pulse Ox 99 97 O2 Delivery Room Air Room Air Capillary Refill : Departure Impression Primary Impression: Renal insufficiency Additional Impressions: Uncontrolled diabetes mellitus Urinary tract infection Disposition: ADMITTED INPATIENT Condition: Stable Admissions Decision to Admit Reason: Admit from ER (General) Decision to Admit/Date: Mar 09, 2020 Time/Decision to Admit Time: 21:40 Departure-Patient Inst. Referrals: [facility] (PCP) Primary Care Physician YINKA MADRIGAL (Family) Primary Care Physician JESSICA PABON APRN Mar 09, 2020 20:29
--- NOTE | 2020-03-09 20:32 | Diagnostic Imaging Report ---
INDICATION: Chest pain EXAM: Portable chest at 8:22 PM FINDINGS: Heart size and pulmonary vascularity are normal. The lungs are clear. There are no effusions or pneumothoraces. IMPRESSION: Negative chest. Dictated by: Dictated on workstation # [id number]
[2020-03-09 20:46] LABS: BASOPHILS # (AUTO) 0.1 10^3/uL (0.0-0.1); BASOPHILS % (AUTO) 0 % (0-10); EOSINOPHILS # (AUTO) 0.1 10^3/uL (0.0-0.3); EOSINOPHILS % (AUTO) 0 % (0-10); HEMATOCRIT 39 % (40-54); HEMOGLOBIN 13.3 g/dL (13.3-17.7); LYMPHOCYTES # (AUTO) 0.7 10^3/uL (1.0-4.0); LYMPHOCYTES % (AUTO) 3 % (12-44); MEAN CORPUSCULAR HEMOGLOBIN 30 pg (25-34); MEAN CORPUSCULAR HGB CONC 34 g/dL (32-36); MEAN CORPUSCULAR VOLUME 89 fL (80-99); MEAN PLATELET VOLUME 10.9 fL (9.0-12.2); MONOCYTES % (AUTO) 5 % (0-12); NEUTROPHILS # (AUTO) 20.7 10^3/uL (1.8-7.8); NEUTROPHILS % (AUTO) 91 % (42-75); PLATELET COUNT 315 10^3/uL (130-400); WHITE BLOOD COUNT 22.8 10^3/uL (4.3-11.0)
[2020-03-09 20:49] LABS: BILIRUBIN,URINE NEGATIVE (NEGATIVE); CLARITY,URINE CLOUDY; COLOR,URINE YELLOW; GLUCOSE, URINE (UA) 2+ (NEGATIVE); KETONES,URINE TRACE (NEGATIVE); LEUKOCYTE ESTERASE ,URINE 2+ (NEGATIVE); NITRITE,URINE NEGATIVE (NEGATIVE); PH,URINE 5.5 (5-9); PROTEIN,URINE 2+ (NEGATIVE)
[2020-03-09 21:06] LABS: ALBUMIN 3.4 GM/DL (3.2-4.5)
[2020-03-09 21:07] LABS: POTASSIUM 3.2 MMOL/L (3.6-5.0)
[2020-03-09 21:08] LABS: CALCIUM 8.7 MG/DL (8.5-10.1); INR 1.3 (0.8-1.4); PROTHROMBIN TIME PATIENT 16.1 SEC (12.2-14.7)
[2020-03-09 21:09] LABS: TOTAL PROTEIN 7.2 GM/DL (6.4-8.2)
[2020-03-09 21:11] LABS: BILIRUBIN,TOTAL 0.3 MG/DL (0.1-1.0)
[2020-03-09 21:13] LABS: CREATININE SERUM 2.59 MG/DL (0.60-1.30)
[2020-03-09] MEDS ORDERED: NS IV 1000 ML 1,000 ML IV SCH ×2 (21:15→21:30)
--- NOTE | 2020-03-09 21:18 | NUR ---
Late entry: Pt arrives by POV with c/o body aches, fever, and chest wall pain that worsens with deep inspiration. Pt states that he was seen here a couple of wks ago for similar complaints and was supposed to be admitted for IV abx but left AMA. Pt states he had fever yesterday up to 102. Pt to monitor; ECG obtained; IV and labs started. Blood cultures x 2 obtained.
[2020-03-09 21:27] LABS: BACTERIA,URINE MODERATE /HPF; WBC,URINE >100 /HPF
[2020-03-09] MEDS: POTASSIUM CL 10MEQ/50ML IVPB 50 ML IV SCH ×2 (21:42→22:49)
[2020-03-09] MEDS ORDERED: FLUCONAZOLE 150 MG TABLET (ED ONLY) PO ONE (21:45)
[2020-03-09 21:56] LABS: EOSINOPHILS % (MANUAL) 1 %; LYMPHOCYTES % (MANUAL) 4 %; MONOCYTES % (MANUAL) 4 %; NEUTROPHILS % (MANUAL) 91 %; RBC MORPH NORMAL
--- NOTE | 2020-03-09 23:45 | NUR ---
2nd bag of potassium and NS infusing to ICU.
[2020-03-09] MEDS ORDERED: ACETAMINOPHEN 500 MG TAB (TYLENOL) ONE (23:53)
[2020-03-10] MEDS ORDERED: ACETAMINOPHEN 500 MG TAB (TYLENOL) PO PRN ×2 (00:15→00:30)
[2020-03-10] MEDS ORDERED: NS W/KCL 40 MEQ/L 1,000 ML IV SCH (00:15)
[2020-03-10] MEDS ORDERED: ONDANSETRON 4 MG/2 ML (SDV) Z0FRAN IV PRN (00:15)
[2020-03-10] MEDS ORDERED: PIPERACILLIN/TAZO 4.5 GM/NS 100 ML IV ONE ×2 (00:30)
[2020-03-10] MEDS ORDERED: PIPERACILLIN/TAZO 4.5 GM VIAL (ZOSYN) IV ONE ×2 (00:56→05:52)
[2020-03-10] MEDS ORDERED: NS (IVPB) 100 ML ONE ×2 (00:57→05:52)
[2020-03-10] MEDS: MAGNESIUM 1 GM/D5W 100 ML IVPB IV SCH ×2 (01:05→02:45)
[2020-03-10 03:15] LABS: BASOPHILS # (AUTO) 0.1 10^3/uL (0.0-0.1); BASOPHILS % (AUTO) 0 % (0-10); EOSINOPHILS # (AUTO) 0.1 10^3/uL (0.0-0.3); EOSINOPHILS % (AUTO) 1 % (0-10); HEMATOCRIT 37 % (40-54); HEMOGLOBIN 12.1 g/dL (13.3-17.7); LYMPHOCYTES # (AUTO) 0.6 10^3/uL (1.0-4.0); LYMPHOCYTES % (AUTO) 3 % (12-44); MEAN CORPUSCULAR HEMOGLOBIN 30 pg (25-34); MEAN CORPUSCULAR HGB CONC 33 g/dL (32-36); MEAN CORPUSCULAR VOLUME 90 fL (80-99); MEAN PLATELET VOLUME 11.1 fL (9.0-12.2); MONOCYTES # (AUTO) 0.8 10^3/uL (0.0-1.0); MONOCYTES % (AUTO) 5 % (0-12); NEUTROPHILS # (AUTO) 15.7 10^3/uL (1.8-7.8); NEUTROPHILS % (AUTO) 90 % (42-75); PLATELET COUNT 292 10^3/uL (130-400); WHITE BLOOD COUNT 17.5 10^3/uL (4.3-11.0)
[2020-03-10 03:27] LABS: ALBUMIN 2.8 GM/DL (3.2-4.5); POTASSIUM 3.1 MMOL/L (3.6-5.0)
[2020-03-10 03:31] LABS: BILIRUBIN,TOTAL 0.3 MG/DL (0.1-1.0)
[2020-03-10 03:33] LABS: CREATININE SERUM 2.44 MG/DL (0.60-1.30)
[2020-03-10] MEDS: HYDROcodone/APAP 5 MG/325 MG (LORTAB) TAB PO PRN (03:38)
[2020-03-10] MEDS ORDERED: inSUlin (REGULAR) HUMAN 1 UNIT/0.01 ML (CHARGE PER UNIT) SC ONE (04:00)
--- NOTE | 2020-03-10 04:50 | Pulmonary Consultation ---
History of Present Illness History of Present Illness Date Seen by Provider: Mar 10, 2020 Time Seen by Provider: 04:45 Date of Admission Allergies and Home Medications Allergies Coded Allergies: morphine (Verified Adverse Reaction, Intermediate, 09/13/16) MAKES HIM AGGRESSIVE Home Medications Cefdinir 300 Mg Capsule, 300 MG PO BID Prescribed by: JESSICA PABON on 02/24/20 1828 Cefuroxime Axetil 250 Mg Tablet, 250 MG PO BID Prescribed by: JESSICA PABON on 11/04/192015 Past Fwshjoo-Misvpy-Vgkjkc Hx Patient Social History Alcohol Use: Denies Use Number of Drinks Today: AA Alcohol Beverage of Choice: Beer Recreational Drug Use: No Smoking Status: Former Smoker Type Used: Cigarettes, Smokeless Tobacco Former Smoker, Quit: May 22, 2007 2nd Hand Smoke Exposure: No Recent Foreign Travel: No Contact w/Someone Who Travel: No Recent Infectious Disease Expo: No Recent Hopitalizations: No Physical Abuse: No Sexual Abuse: No Mistreated: No Fear: No Immunizations Up To Date Tetanus Booster (TDap): Unknown Date of Pneumonia Vaccine: Jul 26, 2011 Date of Influenza Vaccine: May 22, 2018 Seasonal Allergies Seasonal Allergies: No Past Medical History Surgeries: Yes Abdominal, Ear Surgery, Orthopedic Respiratory: Yes (LEFT CHEST TUBES X 2 SECONDARY TO TRAUMA) Cardiac: Yes Hypertension Neurological: No Reproductive Disorders: No Sexually Transmitted Disease: No HIV/AIDS: No Genitourinary: Yes (EPIDIDYMITIS; FREQUENT UTI'S) Bladder Infection, Kidney Stones Gastrointestinal: Yes (SPLENECTOMY SECONDARY TO TRAUMA. FATTY LIVER) Liver Disease/Jaundice, Hemorrhoids Musculoskeletal: Yes (LEFT ANKLE FX/ORIF; LEFT FOREARM FX/ORIF) Fractures Endocrine: Yes (OBESITY) Diabetes, Non-Insulin dep HEENT: No Cancer: No Psychosocial: No Integumentary: No Blood Disorders: No Adverse Reaction/Blood Tranf: No Family Medical History No Pertinent Family Hx SOCIAL HISTORY: -ETOH--REGULAR USE/DRINKS BEER DAILY -DRUGS--DENIES -SMOKING--QUIT SMOKING AND CHEWING TOBACCO PSH: -2010--SPLENECTOMY, LEFT CHEST TUBES X 2, AND LEFT FOREARM FRACTURE/ORIF--ALL SECONDARY TO TRAUMA -LEFT FOOT / ANKLE FRACTURES/ORIF -BILATERAL MYRINGOTOMY TUBES -MEATOTOMY CHILD LONG HISTORY OF NON-COMPLICANCE IN ALL ASPECTS OF CARE -DOES NOT CHECK BLOOD GLUCOSE OR FOLLOW DIET, AND FREQUENTLY DOES NOT TAKE DIABETIC MEDICATION -DOES NOT TAKE HIS PRESCRIBED BLOOD PRESSURE MEDICATIONS -DOES NOT FOLLOW UP WITH PCP INSTRUCTED FREQUENT ER VISITS FOR VARIOUS COMPLAINTS. Sepsis Event Evaluation Height, Weight, BMI Height: 6'0" Weight: 280lbs. 0oz. 127.216314ub; 37.36 BMI Method:Stated Exam Exam Vital Signs Date Time Temp Pulse Resp B/P (MAP) Pulse Ox O2 Delivery O2 Flow Rate FiO2 03/10/20 03:32 36.6 86 102/63 96 Room Air 03/10/20 01:00 111 03/10/20 00:00 36.9 108 106/57 96 Room Air 03/09/20 23:35 37.3 102 109/75 97 Room Air 03/09/20 21:17 110 18 118/76 97 Room Air 03/09/20 20:00 37.6 125 18 118/67 (84) 99 Room Air I & O 03/10/20 07:00 Intake Total 2420 ml Balance 2420 ml Height & Weight Height: 6'0" Weight: 280lbs. 0oz. 127.003754lu; 37.36 BMI Method:Stated General Appearance: No Apparent Distress, WD/WN Neck: Full Range of Motion, Normal Inspection Respiratory: Lungs Clear, Normal Breath Sounds, No Accessory Muscle Use, No Respiratory Distress Cardiovascular: Normal Peripheral Pulses, Tachycardia Capillary Refill: Less Than 3 Seconds Extremity: Normal Capillary Refill, Normal Inspection Neurologic/Psychiatric: Alert, Oriented x3 Skin: Normal Color, Warm/Dry Results Lab Laboratory Tests 03/09/20 20:35 03/10/20 02:53 Assessment/Plan Assessment/Plan UTI with sepsis -Zosyn -IVF -LA is normal -Check UDS ARF -IVF DM - Uncontrolled Hypokalemia -Replace EMILIANO STEELE DO Mar 10, 2020 04:50
[2020-03-10] MEDS ORDERED: POTASSIUM CL 10MEQ/50ML IVPB 0 ML IV ONE (05:00)
[2020-03-10] MEDS ORDERED: LACTATED RINGERS 1,000 ML IV SCH (05:00)
[2020-03-10 05:02] LABS: PHOSPHORUS 3.1 MG/DL (2.3-4.7)
[2020-03-10 05:04] LABS: MAGNESIUM 1.5 MG/DL (1.6-2.4)
[2020-03-10] MEDS ORDERED: LACTATED RINGERS 1,000 ML IV ONE (05:15)
[2020-03-10 05:18] LABS: AMPHETAMINE SCREEN, URINE NEGATIVE (NEGATIVE); BARBITURATE SCREEN URINE NEGATIVE (NEGATIVE); BENZODIAZEPINES SCREEN URINE NEGATIVE (NEGATIVE); CANNABINOID SCREEN, URINE NEGATIVE (NEGATIVE); COCAINE SCREEN URINE NEGATIVE (NEGATIVE); METHADONE STAT NEGATIVE (NEGATIVE); METHAMPHETAMINE SCREEN URINE S NEGATIVE (NEGATIVE); OPIATE SCREEN URINE NEGATIVE (NEGATIVE); OXYCODONE STAT NEGATIVE (NEGATIVE); PROPOXYPHENE STAT NEGATIVE (NEGATIVE); TRICYCLIC ANTIDEPRESSANTS SCRE NEGATIVE (NEGATIVE)
--- NOTE | 2020-03-10 05:24 | NUR ---
REPORT RECEIVED FROM TALAT HIGGINS. PATIENT TRANSFERRED TO ROOM 409 ON MED SURG AT 0600 VIA . TALAT LAMBERT BROUGHT PATIENT DOWN AT THIS TIME. PERSONAL BELONGINGS BROUGHT WITH PATIENT.
--- NOTE | 2020-03-10 05:24 | NUR ---
THIS RN GAVE REPORT TO TALAT TONEY. PATIENT MOVING TO 4TH FLOOR ROOM #409. FAUSTO RN, TRANSFERRING PATIENT TO ROOM AT THIS TIME.
[2020-03-10 06:16] VITALS: BP 116/75
[2020-03-10] MEDS: LACTATED RINGERS 1,000 ML IV SCH ×3 (06:37→18:09)
[2020-03-10] MEDS: PIPERACILLIN/TAZO 4.5 GM/NS 100 ML IV SCH ×4 (06:44→13:53)
[2020-03-10] MEDS: POTASSIUM CL 10MEQ/50ML IVPB 50 ML IV SCH ×2 (06:44→07:48)
[2020-03-10] MEDS: inSUlin ASPART (NovoLOG) 1 UNIT/0.01 ML (CHARGE PER UNIT) SC SCH ×4 (06:57→20:02)
[2020-03-10] MEDS ORDERED: KCL 20 MEQ TAB (K-DUR) PO SCH (07:00)
[2020-03-10] MEDS ORDERED: FLU QUADRIvalent (3YOA+) 60 mcg/0.5 ml 2020-21 (AFLURIA) IM ONE (07:00)
[2020-03-10] MEDS ORDERED: NS IV 500 ML 500 ML ONE (08:06)
[2020-03-10] MEDS ORDERED: NS IV 500 ML 500 ML IV SCH (08:15)
--- NOTE | 2020-03-10 08:56 | NUR ---
patient unable to tolerate IV potassium. patient switched to oral potassium at matching dosage per Dr jarrett
[2020-03-10] MEDS ORDERED: KCL 20 MEQ TAB (K-DUR) PO NR (09:00)
[2020-03-10] MEDS ORDERED: TR1C15 TOP (09:15)
[2020-03-10] MEDS ORDERED: METO50TA15 PO (09:15)
[2020-03-10] MEDS ORDERED: RT-ALBUINH INH (09:15)
[2020-03-10] MEDS ORDERED: PIOG30TA71 PO (09:15)
--- NOTE | 2020-03-10 09:28 | NUR ---
SPOKE WITH THE PT, WENT THRU THE EXT MED HISTORY AND CALLED [facility] TO COMPLETE THE MED REC ON 01-14-2020 THE FOLLOWING MEDICATIONS WERE FILLED, HOWEVER THE PT SAYS HE IS NO LONGER TAKING: METFORMIN 500MG #120 AMLODIPINE 10MG #30 CYMBALTA 60MG #30 ON 02-26-2020 PT FILLED CIPRO 500MG #20/10DS- PT SAID HE FINISHED THIS ANTIBIOTIC. WHEN I CALLED [facility] I WAS TOLD THEY FILLED CIPRO 500MG #20/ 10DS AGAIN YESTERDAY AFTER PT WAS SEEN AT THE WALK [facility] CLINIC BUT IT HAD NOT BEEN PICKED UP YET OTC: TYLENOL
[2020-03-10] MEDS ORDERED: ACET-2267 PO (09:32)
--- NOTE | 2020-03-10 10:06 | CONSULTATION REPORT ---
DATE OF SERVICE: 03/10/2020 ATTENDING PHYSICIAN: Bailey Reyes DO. SUMMARY: After reviewing the patient's record, interviewing him and examining him, this is a 34-year-old white man with recurrent urinary tract infection that sounds like prostatitis lower tract type symptoms with pain in the perineal area in the low back. They give him antibiotic, it clears; and then a month or two later it comes back. 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 His creatinine is elevated. His white count was elevated, but it is coming down. His UA was positive for infection. The culture grew E. coli, sensitivity pending. He is covered with IV antibiotic, seems to be improving. No imaging was evident on him per him. Physical exam and rectal exam was deferred at this point because of the acute phase. IMPRESSION: Acute prostatitis with on and off flareups of chronic prostatitis. PLAN: Continue present antibiotic until the final results of the culture to make sure there is no ESBL, keep the patient on total of 14 days of antibiotics between IV and p.o. I will see him back in my office in couple of weeks to work on the chronicity, work him up for prostate issues and full examination and PSA etc. Recommend a noncontrast CT scan of the abdomen and pelvis, follow his white count and creatinine as I am sure it is done and manage accordingly. The plan was fully explained to the patient. Job ID: [id number] DocumentID: [id number] Dictated Date: 03/10/2020 09:50:15 Rewinder Operator Date: 03/10/2020 10:05:45 Dictated By: FELISA MATHEWS MD
[2020-03-10] MEDS ORDERED: TRIAMCINOLONE 0.1% CR (KENALOG) 15 GM TUBE TOP PRN (10:15)
--- NOTE | 2020-03-10 11:21 | History & Physical-Hospitalist ---
History of Present Illness HPI/Chief Complaint CC: Back pain with fever HPI: This is a 34 yoWM clinic pt of [facility] who has a PMH of UTI two years ago and most recent at the start of the month, presented to the ER after completing Cipro with urinary complains with flank pain. He was found to have sepsis, elevated creatinine, and requirements for inpatient status. Blood cultures obtained which ultimately resulted with gram negative rods. Pt was placed on Zosyn, Dr. Lam was consulted, ordered CT without contrast and diagnosed with prostatitis. He will have aggressive IV fluid resuscitation along with antibiotics and will be monitored closely. Source: patient, RN/MD Exam Limitations: no limitations Date Seen 03/10/20 Time Seen by a Provider: 09:00 Attending Physician Bailey Reyes DO [facility] Referring Physician Date of Admission Mar 09, 2020 at 21:34 Home Medications & Allergies Home Medications Reviewed patient Home Medication Reconciliation performed by pharmacy medication reconciliations network support technician and/or nursing. Patients Allergies have been reviewed. Allergies Allergies Coded Allergies morphine (Verified Adverse Reaction, Intermediate, 09/13/16) MAKES HIM AGGRESSIVE Past Iklglqo-Eofflv-Czcicz Hx Past Med/Social Hx: Reviewed Nursing Past Med/Soc Hx, Reviewed and Corrections made Patient Social History Marrital Status: single Employed/Student: unemployed, retired Alcohol Use: Denies Use Alcohol Beverage of Choice: Beer Recreational Drug Use: No Smoking Status: Never a Smoker Former Smoker, Quit: May 22, 2007 Type Used: Cigarettes, Smokeless Tobacco 2nd Hand Smoke Exposure: No Recent Foreign Travel: No Contact w/other who traveled: No Recent Hopitalizations: No Recent Infectious Disease Expo: No Immunizations Up To Date Tetanus Booster (TDap): Unknown Date of Pneumonia Vaccine: Jul 26, 2011 Date of Influenza Vaccine: May 22, 2018 Seasonal Allergies Seasonal Allergies: No Past Medical History Surgeries: Abdominal, Ear Surgery, Orthopedic Cardiac: Hypertension Reproductive: No Sexually Transmitted Disease: No HIV/AIDS: No Genitourinary: Bladder Infection, Kidney Stones Gastrointestinal: Liver Disease/Jaundice, Hemorrhoids Musculoskeletal: Fractures Endocrine: Diabetes, Non-Insulin dep History of Blood Disorders: No Adverse Reaction to Blood Craig: No Family History No Pertinent Family Hx SOCIAL HISTORY: -ETOH--REGULAR USE/DRINKS BEER DAILY -DRUGS--DENIES -SMOKING--QUIT SMOKING AND CHEWING TOBACCO PSH: -2010--SPLENECTOMY, LEFT CHEST TUBES X 2, AND LEFT FOREARM FRACTURE/ORIF--ALL SECONDARY TO TRAUMA -LEFT FOOT / ANKLE FRACTURES/ORIF -BILATERAL MYRINGOTOMY TUBES -MEATOTOMY CHILD LONG HISTORY OF NON-COMPLICANCE IN ALL ASPECTS OF CARE -DOES NOT CHECK BLOOD GLUCOSE OR FOLLOW DIET, AND FREQUENTLY DOES NOT TAKE DIABETIC MEDICATION -DOES NOT TAKE HIS PRESCRIBED BLOOD PRESSURE MEDICATIONS -DOES NOT FOLLOW UP WITH PCP INSTRUCTED FREQUENT ER VISITS FOR VARIOUS COMPLAINTS. Review of Systems Constitutional: see HPI, dizziness, fever, malaise, weakness Genitourinary: decreased output, hesitancy Musculoskeletal: back pain Physical Exam Physical Exam Vital Signs Vital Signs - First Documented 03/09/20 03/11/20 20:00 01:25 Temp 37.6 Pulse 125 Resp 18 B/P (MAP) 118/67 (84) Pulse Ox 99 O2 Delivery Room Air O2 Flow Rate 2.00 Capillary Refill : Less Than 3 Seconds Height, Weight, BMI Height: 6'0" Weight: 280lbs. 0oz. 127.386047ak; 36.14 BMI Method:Stated General Appearance: No Apparent Distress, WD/WN, Chronically ill, Obese Eyes: Right Eye Normal Inspection, Right Eye PERRL HEENT: PERRL/EOMI, Normal ENT Inspection, Pharynx Normal, Moist Mucous Membranes Neck: Full Range of Motion, Normal Inspection, Non Tender Respiratory: Chest Non Tender, Lungs Clear, Normal Breath Sounds, No Accessory Muscle Use, No Respiratory Distress Cardiovascular: Regular Rate, Rhythm, No Edema, No Gallop, No JVD, No Murmur, Normal Peripheral Pulses Gastrointestinal: Normal Bowel Sounds, No Organomegaly, No Pulsatile Mass, Non Tender, Soft Back: Normal Inspection, No CVA Tenderness, No Vertebral Tenderness Extremity: Normal Capillary Refill, Normal Inspection, Normal Range of Motion, Non Tender, No Calf Tenderness, No Pedal Edema Neurologic/Psychiatric: Alert, Oriented x3, No Motor/Sensory Deficits, Normal Mood/Affect Skin: Normal Color, Warm/Dry Lymphatic: No Adenopathy Results Results/Procedures Labs Laboratory Tests 03/09/20 20:35 03/10/20 02:53 03/10/20 13:51 03/10/20 16:50 03/11/20 00:55 Patient resulted labs reviewed. Assessment/Plan Admission Diagnosis Assessment: Sepsis UTI Prostatitis Renal failure Diabetes Hypokalemia Plan: IV fluids IV antibiotics Urology consult Supportive care Admission Status: Inpatient Order (span 2 midnights) Reason for Inpatient Admission: uti with arf Diagnosis/Problems Diagnosis/Problems (1) Urinary tract infection Status: Acute (2) Renal insufficiency Status: Acute (3) Uncontrolled diabetes mellitus Status: Acute Clinical Quality Measures DVT/VTE Risk/Contraindication: Risk Factor Score Per Nursin RFS Level Per Nursing on Admit: 3=High BAILEY REYES DO Mar 10, 2020 11:21
--- NOTE | 2020-03-10 13:07 | NUR ---
RD ASSESSMENT PMHx: HTN; liver disease; DM PT INTERACTION: Pt was semi-awake and pleasant during nutrition assessment. Pt states current appetite is "a little better than it was," and was poor for the past 2d. Note PO intake 75% x1meal, per chart review. Pt states following a regular diet at home, and has no issues with chewing/swallowing food. Pt states recent issues with nausea and vomiting, but not constipation or diarrhea, and that his last BM was 03/10. Note pt not currently on bowel regimen per chart review. Pt states recent wt fluctuations "up and down" and is unsure of amounts/timeframe. Note recent 23# wt loss x5mon, per chart review. When asked about current level of DM management: "It was going good, but I stopped taking my meds because of stress and not feeling well." Note unable to determine recent HbA1c, per chart review. ABNORMAL NUTRITION-RELATED LAB VALUES LOW: Na 131; K 3.1; Cl 97; Ca 8.0; Pro 6.0; alb 2.8 HIGH: BUN 33; cr 2.44; glu 407 Est. kcal needs: 1825 kcal | 15 kcal/kg Est. Pro needs: 121 g Pro | 1.0 g Pro/kg PES STATEMENT: Inadequate oral intake (NI-2.1) related to loss of appetite | nausea | vomiting as evidenced by pt interview INTERVENTION: Continue with current diet order of CHO 60g/m diet. Pt may benefit from nutrition supplementation if PO intake declines. Encouraged pt to eat when able. Offered diet education on DM management, but pt declined. Will attempt to offer again prior to discharge. Will continue to follow and reassess as pt needs, intake, and status change. Alfonso Hdez, MS RD LD
[2020-03-10] MEDS: RT-ALBUTEROL SULF 2.5 MG/3 ML PRE-MIX VIAL INH PRN (13:14)
--- NOTE | 2020-03-10 14:09 | Diagnostic Imaging Report ---
PROCEDURE: CT abdomen and pelvis without contrast. TECHNIQUE: Multiple contiguous axial images were obtained through the abdomen and pelvis without the use of intravenous contrast. Auto Exposure Controls were utilized during the CT exam to meet ALARA standards for radiation dose reduction. INDICATION: Bilateral groin pain. FINDINGS: The recent CT abdomen/pelvis exam of 02/24/2020 noted hydronephrosis and hydroureter on the right but failed to show any evidence for an obstructive calculus. There is no abnormal dilatation of the left collecting system, although a small nonobstructive calculus was seen in the midportion of the left kidney. In the interval, since the prior exam however, mild hydronephrosis of the left kidney has developed. There is perinephric stranding about the kidney, consistent with mild edema/inflammation secondary to the obstruction. There is no evidence for an obstructive calculus however and the nonobstructive calculus within the left kidney seen previously is again evident and no different. The hydronephrosis and hydroureter of the right collecting system seen on the prior study is again evident and essentially no different. The bladder wall does seem thickened. This could be secondary to incomplete distention. The possibility of cystitis should also be considered. The prostate gland is not enlarged but there are diffuse calcifications throughout the prostate gland. There is no acute abnormality of the abdomen or pelvis noted, otherwise. As seen on the prior study, there is hepatomegaly with fatty metamorphosis. There is a small amount of radiopaque debris within the third portion of the duodenum. This may be related to ingested medication. The stomach itself is partially filled with fluid and difficult to assess. The spleen is surgically absent. The pancreas, the adrenals, the aorta, and the inferior vena cava show no sign of an acute abnormality. The gallbladder is contracted and difficult to evaluate. The lung bases are clear. The bone windows show no evidence for a fracture or for a destructive lesion. IMPRESSION: 1. In the interval, since the prior exam, mild hydroureter and hydronephrosis of the left kidney have developed. There is also perinephric stranding about the left kidney suggesting edema/inflammation. The hydronephrosis and hydroureter on the right seen previously are again evident and essentially no different. The bladder wall remains thickened. Whether this is due to incomplete distention or cystitis is not certain. 2. There is no acute abnormality of the abdomen or pelvis noted, otherwise. Dictated by: Dictated on workstation # [id number]
[2020-03-10 14:15] LABS: CALCIUM 8.4 MG/DL (8.5-10.1); CREATININE SERUM 2.36 MG/DL (0.60-1.30); POTASSIUM 3.5 MMOL/L (3.6-5.0)
--- NOTE | 2020-03-10 14:25 | Physical Therapy Progress Note ---
Therapy Progress Note Upon entry of the patient's room he is independently transferring lying-> EOB. Pt reports not feeling well and is extremely sweaty; pt then reaches behind him for a basin that he proceeds to vomit into. Pt is not seen by PT at this time, and will be attempted tomorrow. Nurses are present in the room throughout this interaction. POOL MALIK PT Mar 10, 2020 14:25
--- NOTE | 2020-03-10 16:10 | NUR ---
patient stated he's not feeling good at this time. BP ( 95/51), HR (113), temp (96.0F), blood sugar (173). patient is sweating and requested a fan. Dr. Reyes called, not answer, messaged waiting on a response/orders
[2020-03-10] MEDS ORDERED: NS IV 1000 ML 1,000 ML IV SCH (16:30)
--- NOTE | 2020-03-10 16:30 | NUR ---
Dr. Reyes orders for CBC, CMP, lactic acid, procalcitonin, 1liter bolus NS now. molding room supervisor notified of patient status by this RN as well and asked to evaluate patient on possible ICU transfer. current BP is 88/68 HR [address] 94% [address]. Reyes's medical student present in patient room and reported vitals to Dr. Reyes. no additional orders at this time
[2020-03-10] MEDS ORDERED: NS IV 1000 ML 1,000 ML ONE (16:37)
[2020-03-10 17:08] LABS: BASOPHILS # (AUTO) 0.1 10^3/uL (0.0-0.1); BASOPHILS % (AUTO) 0 % (0-10); EOSINOPHILS % (AUTO) 0 % (0-10); HEMATOCRIT 39 % (40-54); HEMOGLOBIN 12.6 g/dL (13.3-17.7); LYMPHOCYTES # (AUTO) 0.5 10^3/uL (1.0-4.0); LYMPHOCYTES % (AUTO) 2 % (12-44); MEAN CORPUSCULAR HEMOGLOBIN 30 pg (25-34); MEAN CORPUSCULAR HGB CONC 33 g/dL (32-36); MEAN CORPUSCULAR VOLUME 90 fL (80-99); MEAN PLATELET VOLUME 10.9 fL (9.0-12.2); MONOCYTES # (AUTO) 0.3 10^3/uL (0.0-1.0); MONOCYTES % (AUTO) 2 % (0-12); NEUTROPHILS # (AUTO) 19.1 10^3/uL (1.8-7.8); NEUTROPHILS % (AUTO) 95 % (42-75); PLATELET COUNT 243 10^3/uL (130-400)
[2020-03-10 17:16] LABS: ALBUMIN 2.8 GM/DL (3.2-4.5)
[2020-03-10 17:17] LABS: CALCIUM 8.3 MG/DL (8.5-10.1)
[2020-03-10 17:18] LABS: TOTAL PROTEIN 5.9 GM/DL (6.4-8.2)
[2020-03-10 17:20] LABS: BILIRUBIN,TOTAL 0.5 MG/DL (0.1-1.0)
[2020-03-10 17:22] LABS: CREATININE SERUM 2.36 MG/DL (0.60-1.30)
[2020-03-10] MEDS ORDERED: VANCOMYCIN INJECTION 1,000 MG in NS (IVPB) 250 ML IV SCH (17:30)
--- NOTE | 2020-03-10 17:36 | NUR ---
critical lactic acid of 2.[address] Reyes. patient to transfer to ICU 3 at this time. Additional orders for Meropenem 500mg IV Q6hrs and Vanc 1Gram IV X1 and consult EICU
[2020-03-10] MEDS ORDERED: VANCOMYCIN 2000 MG/NS 500 ML IVPB IV SCH ×2 (18:00)
--- NOTE | 2020-03-10 18:00 | NUR ---
report given to Celeste APPLICATIONS INTERN at this time, patient transferred up via bed
--- NOTE | 2020-03-10 18:03 | NUR ---
CR 2.36; CR CL ~59 (USED ADJ WT 94.9 KG); ACTUAL WT 120.9 KG; VANCO 2000 MG IV Q24H; TROUGH AFTER 2ND DOSE & PHARMACY WILL MONITER AND ADJUST PER CR FUNCTION
[2020-03-10] MEDS: MEROPENEM 500 MG in WATER (STERILE) FOR INJECTION 10 ML IV SCH ×2 (18:07→23:59)
--- NOTE | 2020-03-10 18:19 | NUR ---
1805 PT TO ROOM ICU 3 VIA BED REPORT RECEIVED PRIOR TO TRANSFER FROM TALAT HARRISON. PT AWAKE, ALERT, PT DENIES ANY CHEST PAIN DOES C/O OF PAIN WHEN THIS RN TOUCHED ABDOMEN, PT POINTED TO AREA AND ITS NOTED TO BE LOWER ABDOMEN, RATES THE PAIN AT 7 ON 0-10 SCALE. THIS RN NOTIFIED E-ICU OF PTS TRANSFER AND SPOKE TO . HE STATED " I WILL LOOK AT THE CHART AND PLACE ORDERS IF NEEDED."
[2020-03-10] MEDS: ACETAMINOPHEN 500 MG TAB (TYLENOL) PO PRN (18:29)
[2020-03-10 18:56] LABS: BAND NEUTROPHILS 2 %; EOSINOPHILS % (MANUAL) 1 %; LYMPHOCYTES % (MANUAL) 2 %; MONOCYTES % (MANUAL) 3 %; NEUTROPHILS % (MANUAL) 92 %; RBC MORPH NORMAL
--- NOTE | 2020-03-10 19:15 | NUR ---
Critical Lactic Acid lab result received from lab : 2.88. Primary nurses in report; results relayed to Celeste day RN and iliana Schumacher RN for patient.
[2020-03-10] MEDS: meTOprolol TARTRATE 50 MG (LOPRESSOR) TAB PO SCH (20:01)
[2020-03-10] MEDS ORDERED: WATER (STERILE) FOR INJECTION 10 ML ONE (23:52)
[2020-03-10] MEDS ORDERED: MEROPENEM 500 MG VIAL (MERREM) IV ONE (23:52)
[2020-03-11 01:23] LABS: POTASSIUM 3.8 MMOL/L (3.6-5.0)
[2020-03-11 01:24] LABS: CALCIUM 8.3 MG/DL (8.5-10.1)
[2020-03-11 01:29] LABS: CREATININE SERUM 2.91 MG/DL (0.60-1.30)
[2020-03-11 01:31] LABS: MAGNESIUM 1.6 MG/DL (1.6-2.4)
[2020-03-11 01:36] LABS: BASOPHILS # (AUTO) 0.2 10^3/uL (0.0-0.1); BASOPHILS % (AUTO) 1 % (0-10); EOSINOPHILS # (AUTO) 0.1 10^3/uL (0.0-0.3); EOSINOPHILS % (AUTO) 0 % (0-10); HEMATOCRIT 34 % (40-54); HEMOGLOBIN 11.3 g/dL (13.3-17.7); LYMPHOCYTES # (AUTO) 1.2 10^3/uL (1.0-4.0); LYMPHOCYTES % (AUTO) 5 % (12-44); MEAN CORPUSCULAR HEMOGLOBIN 30 pg (25-34); MEAN CORPUSCULAR HGB CONC 33 g/dL (32-36); MEAN CORPUSCULAR VOLUME 90 fL (80-99); MEAN PLATELET VOLUME 11.4 fL (9.0-12.2); MONOCYTES % (AUTO) 4 % (0-12); NEUTROPHILS # (AUTO) 24.7 10^3/uL (1.8-7.8); NEUTROPHILS % (AUTO) 90 % (42-75); PLATELET COUNT 219 10^3/uL (130-400); WHITE BLOOD COUNT 27.5 10^3/uL (4.3-11.0)
[2020-03-11] MEDS: LACTATED RINGERS 1,000 ML IV SCH ×4 (04:59→21:57)
[2020-03-11] MEDS ORDERED: WATER (STERILE) FOR INJECTION 10 ML ONE ×2 (05:02→11:09)
[2020-03-11] MEDS ORDERED: MEROPENEM 500 MG VIAL (MERREM) IV ONE ×2 (05:02→11:09)
[2020-03-11] MEDS: MEROPENEM 500 MG in WATER (STERILE) FOR INJECTION 10 ML IV SCH ×3 (05:19→20:35)
[2020-03-11] MEDS: inSUlin ASPART (NovoLOG) 1 UNIT/0.01 ML (CHARGE PER UNIT) SC SCH ×4 (05:31→20:35)
[2020-03-11] MEDS ORDERED: MAGNESIUM 1 GM/100 ML IVPB 100 ML IV SCH (06:00)
[2020-03-11] MEDS ORDERED: POTASSIUM CL 10MEQ/50ML IVPB 50 ML IV SCH (06:00)
[2020-03-11] MEDS ORDERED: KCL 20 MEQ TAB (K-DUR) PO SCH (06:00)
--- NOTE | 2020-03-11 06:00 | NUR ---
RECEIVED VERBAL ORDER FROM DR. STEELE TO GIVE ONLY 1 GR MAG D/T PATIENT'S BUN/CREAT LEVELS. UNABLE TO D/C SECOND BAG OF MAG.
--- NOTE | 2020-03-11 06:25 | Pulmonary Progress Note ---
Subjective Time Seen by a Provider: 06:20 Subjective/Events-last exam Pt transferred back to ICU secondary to acute worsening sepsis. Sepsis Event Evaluation Height, Weight, BMI Height: 6'0" Weight: 280lbs. 0oz. 127.078091xp; 36.14 BMI Method:Stated Focused Exam Lactate Level 03/10/20 20:48: Lactic Acid Level 2.35*H 03/10/20 22:49: Lactic Acid Level 2.57*H 03/11/20 00:55: Lactic Acid Level 1.97 Exam Exam Vital Signs Date Time Temp Pulse Resp B/P (MAP) Pulse Ox O2 Delivery O2 Flow Rate FiO2 03/11/20 05:00 92 123/82 91 Nasal Cannula 2.00 03/11/20 04:00 74 104/74 90 Nasal Cannula 2.00 03/11/20 03:00 85 109/82 91 Nasal Cannula 2.00 03/11/20 02:37 95 Nasal Cannula 2.00 03/11/20 02:00 81 132/92 91 Nasal Cannula 2.00 03/11/20 01:25 93 Nasal Cannula 2.00 03/11/20 01:20 85 Room Air 03/11/20 01:00 80 03/11/20 01:00 80 110/78 93 Room Air 03/11/20 00:00 89 99/68 Room Air 03/10/20 23:00 97 102/69 92 Room Air 03/10/20 22:00 103 105/60 95 Room Air 03/10/20 21:00 104 105/75 92 Room Air 03/10/20 21:00 95 Room Air 03/10/20 20:00 105 106/70 94 Room Air 03/10/20 19:24 36.4 03/10/20 19:00 116 03/10/20 19:00 116 103/64 94 Room Air 03/10/20 18:33 03/10/20 18:08 117 03/10/20 18:00 36.0 111 120/75 92 Room Air 03/10/20 17:45 120/75 Room Air 03/10/20 17:40 35.9 115 87/51 93 Room Air 03/10/20 16:40 115 88/68 94 Room Air 03/10/20 16:00 35.6 113 95/51 94 Room Air 03/10/20 15:55 35.8 110 94/52 94 Room Air 03/10/20 13:14 95 Room Air 03/10/20 12:12 37.7 100 109/59 94 Room Air 03/10/20 09:00 97 Room Air 03/10/20 08:00 36.2 88 102/64 97 Room Air I & O 03/11/20 07:00 Intake Total 4530 ml Output Total 1150 ml Balance 3380 ml Height & Weight Height: 6'0" Weight: 280lbs. 0oz. 127.630901jw; 36.14 BMI Method:Stated General Appearance: No Apparent Distress, WD/WN, Chronically ill, Obese HEENT: PERRL/EOMI, Normal ENT Inspection, Pharynx Normal, Moist Mucous Membranes Neck: Full Range of Motion, Normal Inspection, Non Tender Respiratory: Chest Non Tender, Lungs Clear, Normal Breath Sounds, No Accessory Muscle Use, No Respiratory Distress Cardiovascular: Regular Rate, Rhythm, No Edema, No Gallop, No JVD, No Murmur, Normal Peripheral Pulses Capillary Refill: Less Than 3 Seconds Extremity: Normal Capillary Refill, Normal Inspection, Normal Range of Motion, Non Tender, No Calf Tenderness, No Pedal Edema Neurologic/Psychiatric: Alert, Oriented x3, No Motor/Sensory Deficits, Normal Mood/Affect Skin: Normal Color, Warm/Dry Lymphatic: No Adenopathy Results Lab Laboratory Tests 03/09/20 20:35 03/10/20 02:53 03/10/20 13:51 03/10/20 16:50 03/11/20 00:55 Assessment/Plan Assessment/Plan UTI with sepsis With Ecoli -Currently on Merrem and Vanco -Will D/C Vanco and continue Merrem until cultures finalize. r/o ESBL -IVF -LA is normal -Check UDS Bacteremia with Ecoli Left renal hydronephrosis -Urology consulted Prostatitis ARF -IVF -Continue to monitor DM - Uncontrolled Hypokalemia -Replace EMILIANO STEELE DO Mar 11, 2020 06:25
[2020-03-11] MEDS: ACETAMINOPHEN 500 MG TAB (TYLENOL) PO PRN (06:45)
[2020-03-11] MEDS: MAGNESIUM 1 GM/100 ML IVPB 100 ML IV SCH ×2 (06:46→08:12)
--- NOTE | 2020-03-11 07:05 | Diagnostic Imaging Report ---
INDICATION: Short of air Upright portable chest shows mild cardiomegaly with no failure. The lungs are clear. There is no effusion or pneumothorax. IMPRESSION: No acute abnormality is seen with no significant change from 03/09/2019. Dictated by: Dictated on workstation # [id number]
[2020-03-11] MEDS: meTOprolol TARTRATE 50 MG (LOPRESSOR) TAB PO SCH ×2 (08:14→20:35)
--- NOTE | 2020-03-11 09:22 | Progress Note - Urology ---
Progress Note-Urology Progress Notes/Assess & Plan Progress/Assessment & Plan FEELING BETTER AFTER YESTERDAY INCIDENT. CT SHARED WITH PATIENT. UC&S PENDING KEEP SAME PLAN Final Diagnosis ACUTE PROSTATITIS WITH SEPSIS FELISA MATHEWS MD Mar 11, 2020 09:22
--- NOTE | 2020-03-11 10:42 | Physical Therapy Progress Note ---
Therapy Progress Note Follow up with nurse regarding PT orders as patient transferred from 4th to a higher level of care (ICU). Nurse reports pt is up ad carlos and PT is not indicated at this time. MIRACLE LAN PT Mar 11, 2020 10:42
[2020-03-11] MEDS: RT-ALBUTEROL SULF 2.5 MG/3 ML PRE-MIX VIAL INH PRN (12:02)
[2020-03-11] MEDS: HYDROcodone/APAP 5 MG/325 MG (LORTAB) TAB PO PRN (16:14)
[2020-03-12] VITALS: BP 144/82
[2020-03-12] MEDS: LACTATED RINGERS 1,000 ML IV SCH ×4 (03:53→23:12)
[2020-03-12 04:52] LABS: BASOPHILS # (AUTO) 0.1 10^3/uL (0.0-0.1); BASOPHILS % (AUTO) 0 % (0-10); EOSINOPHILS # (AUTO) 0.1 10^3/uL (0.0-0.3); EOSINOPHILS % (AUTO) 1 % (0-10); HEMATOCRIT 37 % (40-54); HEMOGLOBIN 12.2 g/dL (13.3-17.7); LYMPHOCYTES # (AUTO) 1.6 10^3/uL (1.0-4.0); LYMPHOCYTES % (AUTO) 8 % (12-44); MEAN CORPUSCULAR HEMOGLOBIN 29 pg (25-34); MEAN CORPUSCULAR HGB CONC 33 g/dL (32-36); MEAN CORPUSCULAR VOLUME 90 fL (80-99); MEAN PLATELET VOLUME 12.2 fL (9.0-12.2); MONOCYTES # (AUTO) 1.2 10^3/uL (0.0-1.0); MONOCYTES % (AUTO) 6 % (0-12); NEUTROPHILS # (AUTO) 16.2 10^3/uL (1.8-7.8); NEUTROPHILS % (AUTO) 84 % (42-75); PLATELET COUNT 231 10^3/uL (130-400); WHITE BLOOD COUNT 19.3 10^3/uL (4.3-11.0)
[2020-03-12 04:54] LABS: ALBUMIN 2.7 GM/DL (3.2-4.5); BILIRUBIN,TOTAL 0.4 MG/DL (0.1-1.0); CREATININE SERUM 2.08 MG/DL (0.60-1.30); TOTAL PROTEIN 6.3 GM/DL (6.4-8.2)
[2020-03-12] MEDS: inSUlin ASPART (NovoLOG) 1 UNIT/0.01 ML (CHARGE PER UNIT) SC SCH ×4 (04:59→20:53)
[2020-03-12] MEDS: MEROPENEM 500 MG in WATER (STERILE) FOR INJECTION 10 ML IV SCH ×3 (04:59→23:12)
--- NOTE | 2020-03-12 06:12 | Pulmonary Progress Note ---
Subjective Time Seen by a Provider: 06:11 Subjective/Events-last exam No complications noted. Sepsis Event Evaluation Height, Weight, BMI Height: 6'0" Weight: 280lbs. 0oz. 127.707687tj; 36.14 BMI Method:Stated Focused Exam Lactate Level 03/10/20 20:48: Lactic Acid Level 2.35*H 03/10/20 22:49: Lactic Acid Level 2.57*H 03/11/20 00:55: Lactic Acid Level 1.97 Exam Exam Vital Signs Date Time Temp Pulse Resp B/P (MAP) Pulse Ox O2 Delivery O2 Flow Rate FiO2 03/12/20 04:45 36.4 86 22 135/74 93 Nasal Cannula 3.00 03/12/20 03:20 Nasal Cannula 3.00 03/12/20 00:00 36.6 80 22 116/88 92 Nasal Cannula 5.00 03/11/20 21:00 92 Nasal Cannula 2.00 03/11/20 19:20 36.2 87 24 124/94 94 Nasal Cannula 2.50 03/11/20 15:28 36.4 85 20 121/84 92 Nasal Cannula 2.50 03/11/20 12:02 96 Nasal Cannula 2.00 03/11/20 12:00 36.2 64 22 94/59 96 Nasal Cannula 2.50 03/11/20 09:00 77 118/91 92 Nasal Cannula 2.00 03/11/20 09:00 92 Nasal Cannula 2.00 03/11/20 08:22 85 03/11/20 08:00 107/74 90 Nasal Cannula 2.00 03/11/20 07:00 109/73 89 Nasal Cannula 2.00 I & O 03/12/20 07:00 Intake Total 1200 ml Balance 1200 ml Height & Weight Height: 6'0" Weight: 280lbs. 0oz. 127.942469ky; 36.14 BMI Method:Stated General Appearance: No Apparent Distress, WD/WN, Chronically ill, Obese HEENT: PERRL/EOMI, Normal ENT Inspection, Pharynx Normal, Moist Mucous Membranes Neck: Full Range of Motion, Normal Inspection, Non Tender Respiratory: Chest Non Tender, Lungs Clear, Normal Breath Sounds, No Accessory Muscle Use, No Respiratory Distress Cardiovascular: Regular Rate, Rhythm, No Edema, No Gallop, No JVD, No Murmur, Normal Peripheral Pulses Capillary Refill: Less Than 3 Seconds Extremity: Normal Capillary Refill, Normal Inspection, Normal Range of Motion, Non Tender, No Calf Tenderness, No Pedal Edema Neurologic/Psychiatric: Alert, Oriented x3, No Motor/Sensory Deficits, Normal Mood/Affect Skin: Normal Color, Warm/Dry Lymphatic: No Adenopathy Results Lab Laboratory Tests 03/10/20 13:51 03/10/20 16:50 03/11/20 00:55 03/12/20 02:46 Assessment/Plan Assessment/Plan UTI with sepsis With Ecoli -Currently on Merrem and Vanco - continue Merrem until cultures finalize. r/o ESBL -IVF -LA is normal -Check UDS Bacteremia with Ecoli Left renal hydronephrosis -Urology consulted Prostatitis ARF -IVF -Continue to monitor DM - Uncontrolled Hypokalemia -Replace EMILIANO STEELE DO Mar 12, 2020 06:12
[2020-03-12] MEDS: HYDROcodone/APAP 5 MG/325 MG (LORTAB) TAB PO PRN ×2 (06:27→19:56)
[2020-03-12 06:53] LABS: PHOSPHORUS 3.1 MG/DL (2.3-4.7)
[2020-03-12 06:55] LABS: MAGNESIUM 1.9 MG/DL (1.6-2.4)
[2020-03-12] MEDS: meTOprolol TARTRATE 50 MG (LOPRESSOR) TAB PO SCH ×2 (09:16→19:56)
--- NOTE | 2020-03-12 09:20 | NUR ---
PT REFUSING TO WEAR NASAL CANNULA. PT STATES "I CAN'T BREATHE WITH IT ON." PT EDUCATED ON THE REASONING AND NEED FOR SUPPLEMENTAL OXYGEN. THIS RN WILL CONTINUE TO ATTEMPT TO APPLY SUPPLEMENTAL OXYGEN VIA NASAL CANNULA.
--- NOTE | 2020-03-12 10:10 | Progress Note - Urology ---
Progress Note-Urology Progress Notes/Assess & Plan Progress/Assessment & Plan UC SHOWED ESBL Final Diagnosis PROSTATITIS FELISA MATHEWS MD Mar 12, 2020 10:10
--- NOTE | 2020-03-12 11:51 | NUR ---
PT TRANSPORTED TO ROOM 403 VIA WHEELCHAIR BY THIS RN. PT ARRIVED TO ROOM 403 IN NO APPARENT DISTRESS, IV X2 INTACT. PT ORIENTED TO ROOM AND CALL LIGHT GIVEN TO PT. BEDSIDE REPORT GIVEN TO TALAT FUENTES AT THIS TIME.
--- NOTE | 2020-03-12 11:55 | Progress Note - Hospitalist ---
ASHLEY OCASIO MED STUDENT 03/12/20 1155: Subjective HPI/CC On Admission Date Seen by Provider: Mar 12, 2020 Time Seen by Provider: 11:53 CC: Back pain with fever HPI: This is a 34 yoWM clinic pt of [facility] who has a PMH of UTI two years ago and most recent at the start of the month, presented to the ER after completing Cipro with urinary complains with flank pain. He was found to have sepsis, elevated creatinine, and requirements for inpatient status. Blood cultures obtained which ultimately resulted with gram negative rods. Pt was placed on Zosyn, Dr. Lam was consulted, ordered CT without contrast and diagnosed with prostatitis. He will have aggressive IV fluid resuscitation along with antibiotics and will be monitored closely. Subjective/Events-last exam Patient reports that he has some low mid back pain that radiates a little to the right side. He has no other complaints today and was wanting to know when he can go home. Review of Systems General: No Chills, No Night Sweats, No Fatigue, No Malaise HEENT: No Head Aches, No Visual Changes Pulmonary: No Dyspnea, No Cough Cardiovascular: No: Chest Pain Gastrointestinal: No: Nausea, Vomiting, Abdominal Pain, Diarrhea, Constipation Genitourinary: No Dysuria, No Frequency, No Incontinence, No Hematuria Musculoskeletal: back pain Neurological: No: Weakness, Numbness, Confusion Focused Exam Lactate Level 03/10/20 20:48: Lactic Acid Level 2.35*H 03/10/20 22:49: Lactic Acid Level 2.57*H 03/11/20 00:55: Lactic Acid Level 1.97 Objective Exam Vital Signs Vital Signs Date Time Temp Pulse Resp B/P (MAP) Pulse Ox O2 Delivery O2 Flow Rate FiO2 03/12/20 11:16 37.3 83 20 147/96 90 Room Air 03/12/20 07:45 3.00 Capillary Refill : Less Than 3 Seconds General Appearance: No Apparent Distress, WD/WN HEENT: PERRL/EOMI, Normal ENT Inspection Neck: Full Range of Motion, Normal Inspection Respiratory: Chest Non Tender, Lungs Clear, Normal Breath Sounds, No Respiratory Distress Cardiovascular: Regular Rate, Rhythm, No Edema, No Murmur, Normal Peripheral Pulses Gastrointestinal: Normal Bowel Sounds, No Organomegaly, Non Tender, Soft Back: Normal Inspection, No CVA Tenderness Extremity: Normal Range of Motion, Non Tender, No Calf Tenderness Neurologic/Psychiatric: Alert, Oriented x3, Normal Mood/Affect Skin: Normal Color, Warm/Dry Results/Procedures Lab Laboratory Tests 03/12/20 02:46 Patient resulted labs reviewed. Assessment/Plan Assessment and Plan Assess & Plan/Chief Complaint Mr. Andrade is a 34 y/o M who was admitted for severe sepsis with ESBL and UTI culture grown E Coli. ESBL E Coli in blood/urine - Culture positive with susceptibilities to meropenam - IV meropenam started 03/10 - Continue IV antibiotics - With normal vital signs and clinical improvement can transition to 4th floor level of care to encourage ambulation SIMRAN - Cr normal in October 2019 - First abnormal Cr on Feb 23 when admitted for UTI - Trending down to 2.08 today from 2.36 - Likely related to bacteremia, pre-renal cause secondary to severe sepsis - Continue IVF and follow Cr trend Clinical Quality Measures DVT/VTE Risk/Contraindication: Risk Factor Score Per Nursin RFS Level Per Nursing on Admit: 3=High BAILEY RAMOS DO 03/12/202124: Subjective Subjective/Events-last exam Pt is much improved Moving down to 4th floor Creatinine 2.0 WC 19,000 ESBL noted on urine culture and blood. Maintained on Meropenem Pt eating and drinking and getting around pretty well Blood sugar is much improved Review of Systems General: Fatigue Objective Exam General Appearance: No Apparent Distress, WD/WN, Chronically ill Respiratory: Lungs Clear Cardiovascular: Regular Rate, Rhythm Assessment/Plan Assessment and Plan Assess & Plan/Chief Complaint Monitor closely Move to 4th Supervisory-Addendum Brief Verification & Attestation Participated in pt care: history, MDM, physical Personally performed: exam, history, MDM, supervision of care Care discussed with: Medical Student Procedures: n/a Results interpretation: Verified all documentation Verification and Attestation of Medical Student E/M Service A medical student performed and documented this service in my presence. I reviewed and verified all information documented by the medical student and made modifications to such information, when appropriate. I personally performed the physical exam and medical decision making. Bailey Ramos, Mar 12, 2020,21:24 ASHLEY OCASIO MED STUDENT Mar 12, 2020 11:55 BAILEY RAMOS DO Mar 12, 2020 21:25
--- NOTE | 2020-03-12 11:56 | Physician Query Clarification ---
PQ-Further Specificity Admission/Discharge Admission Date: Mar 09, 2020 at 21:34 Discharge Date: Dr. Reyes, The medical record reflects the following clinical scenario: History/Risk Factors: Sepsis Acute Renal Failure Clinical Findings: WBC 22.8, T 37.6, P 125, R 18, BP 118/67, Lactic acid 1.74 on arrival rising to 2.57 on 03/10. Creatinine 2.59 and eGFR 29. Treatment: IV fluids and IV Zosyn. Question: Can you further specify Sepsis per the clinical indicators above? Please document a response in the Progress Notes or Discharge Summary. 1. Sepsis with severe sepsis. 2. Sepsis (no severe sepsis). 3. Other, with explanation of the clinical findings. 4. Clinically undetermined, no explanation for the clinical findings. PHYSICIAN RESPONSE Can you specify per above: 2 Please remember a lack of response to the above will prompt a phone page by CDI/Coding staff. In responding to this query, please exercise your independent professional judgment. The purpose of this communication is to more accurately reflect the complexity of your patients condition. The fact that a question is asked does not imply that any particular answer is desired or expected. Thank you for your timely response to this clarification. Requestors name: Molly Gould CCS, CCDS. Phone # ext [phone] or [phone] THIS PHYSICIAN QUERY FORM IS A PERMANENT PART OF THE MEDICAL RECORD MOLLY GOULD Mar 12, 2020 11:56 ANGUS REYES DO Mar 12, 2020 20:55
[2020-03-12 12:00] VITALS: BP 145/91
[2020-03-12] MEDS ORDERED: MEROPENEM 500 MG in WATER (STERILE) FOR INJECTION 10 ML IV SCH (12:00)
[2020-03-12 15:31] VITALS: BP 143/84
[2020-03-12] MEDS ORDERED: TROUGH ORDER-PHARMACY XX NR (17:00)
[2020-03-12 19:24] VITALS: BP 161/78
[2020-03-12 23:35] VITALS: BP 139/83
[2020-03-12] MEDS: ACETAMINOPHEN 500 MG TAB (TYLENOL) PO PRN (23:38)
[2020-03-13] MEDS: LACTATED RINGERS 1,000 ML IV SCH (02:39)
[2020-03-13 03:57] VITALS: BP 141/84
[2020-03-13] MEDS: MEROPENEM 500 MG in WATER (STERILE) FOR INJECTION 10 ML IV SCH ×2 (05:32→11:11)
[2020-03-13 06:08] LABS: BASOPHILS # (AUTO) 0.1 10^3/uL (0.0-0.1); BASOPHILS % (AUTO) 0 % (0-10); EOSINOPHILS # (AUTO) 0.1 10^3/uL (0.0-0.3); EOSINOPHILS % (AUTO) 1 % (0-10); HEMATOCRIT 39 % (40-54); HEMOGLOBIN 12.9 g/dL (13.3-17.7); LYMPHOCYTES # (AUTO) 2.7 10^3/uL (1.0-4.0); LYMPHOCYTES % (AUTO) 19 % (12-44); MEAN CORPUSCULAR HEMOGLOBIN 29 pg (25-34); MEAN CORPUSCULAR HGB CONC 33 g/dL (32-36); MEAN CORPUSCULAR VOLUME 89 fL (80-99); MEAN PLATELET VOLUME 12.1 fL (9.0-12.2); MONOCYTES # (AUTO) 1.9 10^3/uL (0.0-1.0); MONOCYTES % (AUTO) 13 % (0-12); NEUTROPHILS # (AUTO) 9.1 10^3/uL (1.8-7.8); NEUTROPHILS % (AUTO) 65 % (42-75); PLATELET COUNT 232 10^3/uL (130-400)
[2020-03-13 06:10] LABS: ALBUMIN 2.7 GM/DL (3.2-4.5)
[2020-03-13 06:11] LABS: POTASSIUM 3.4 MMOL/L (3.6-5.0)
[2020-03-13 06:12] LABS: CALCIUM 9.1 MG/DL (8.5-10.1)
[2020-03-13 06:13] LABS: TOTAL PROTEIN 6.2 GM/DL (6.4-8.2)
[2020-03-13] MEDS: inSUlin ASPART (NovoLOG) 1 UNIT/0.01 ML (CHARGE PER UNIT) SC SCH ×2 (06:14→11:12)
[2020-03-13 06:15] LABS: BILIRUBIN,TOTAL 0.4 MG/DL (0.1-1.0)
[2020-03-13 06:17] LABS: CREATININE SERUM 1.68 MG/DL (0.60-1.30)
[2020-03-13 08:00] VITALS: BP 165/96
--- NOTE | 2020-03-13 09:11 | Progress Note - Urology ---
Progress Note-Urology Progress Notes/Assess & Plan Progress/Assessment & Plan DOING, LOOKING ADN FEELING MUCH BETTER. WE WILL SEE AT OFFICE IN 2 WEEKS Final Diagnosis ACUTE PROSTATITIS (RESOLVING) FELISA MATHEWS MD Mar 13, 2020 09:11
[2020-03-13] MEDS: meTOprolol TARTRATE 50 MG (LOPRESSOR) TAB PO SCH (09:34)
[2020-03-13] MEDS ORDERED: [UNRECOGNIZED DRUG - CODE] MC (11:45)
[2020-03-13] MEDS ORDERED: INSU100I14 SQ (11:45)
[2020-03-13] MEDS ORDERED: INSU100I29 SQ (11:45)
[2020-03-13] MEDS ORDERED: SULF1TAB35 PO (11:45)
[2020-03-13] MEDS ORDERED: LANC-659 MC (11:45)
[2020-03-13] MEDS ORDERED: NEED-474 MC (11:45)
[2020-03-13] MEDS ORDERED: ACHD5005 PO (11:45)
[2020-03-13] MEDS ORDERED: BLOO1EAC87 MC (11:45)
--- NOTE | 2020-03-13 11:46 | Discharge Summary ---
Discharge Summary Hospital Course Was the Problem List Reviewed?: Yes Problems/Dx: (1) Urinary tract infection Status: Acute (2) Renal insufficiency Status: Acute (3) Uncontrolled diabetes mellitus Status: Acute Hospital Course Date of Admission: Mar 09, 2020 at 21:34 Admission Diagnosis : Family Physician/Provider: Konstantin Rivera Date of Discharge: 03/13/20 Discharge Diagnosis: sepsis, UTI, ARF, DM OOC Hospital Course: Hospital Course: Pt had a lengthy hospital course for five days after he was admitted for UTI and sepsis required antibiotics regimen along with Dr. Lam consultation who reviewed his CT scan and ultrasound. Pt ultimately had a severe sepsis episode prompting transfer to the ICU with broaden antibiotic spectrum for ESBL with Meropenem and Vanc. Final urine culture and blood culture showed ESBL of the UTI and pt resumed IV fluids and had no concerns in the meantime. C reatinine decreased from 2.9 to 1.6 with good results and he was placed on Bactrim twice daily for ESBL for a full ten days and follow up with Dr. Lam also. He was started on insulin and those supplies were sent into [facility]. Labs and Pending Lab Test: Laboratory Tests 03/12/20 15:36: Glucometer 200H 03/12/20 20:01: Glucometer 229H 03/13/20 05:10: White Blood Count 14.0H, Red Blood Count 4.41, Hemoglobin 12.9L, Hematocrit 39L, Mean Corpuscular Volume 89, Mean Corpuscular Hemoglobin 29, Mean Corpuscular Hemoglobin Concent 33, Red Cell Distribution Width 14.2, Platelet Count 232, Mean Platelet Volume 12.1, Immature Granulocyte % (Auto) 2, Neutrophils (%) (Auto) 65, Lymphocytes (%) (Auto) 19, Monocytes (%) (Auto) 13H, Eosinophils (%) (Auto) 1, Basophils (%) (Auto) 0, Neutrophils # (Auto) 9.1H, Lymphocytes # (Auto) 2.7, Monocytes # (Auto) 1.9H, Eosinophils # (Auto) 0.1, Basophils # (Auto) 0.1, Immature Granulocyte # (Auto) 0.2H, Sodium Level 138, Potassium Level 3.4L, Chloride Level 101, Carbon Dioxide Level 27, Anion Gap 10, Blood Urea Nitrogen 27H, Creatinine 1.68H, Estimat Glomerular Filtration Rate 47, BUN/Creatinine Ratio 16, Glucose Level 150H, Calcium Level 9.1, Corrected Calcium 10.1, Total Bilirubin 0.4, Aspartate Amino Transf (AST/SGOT) 25, Alanine Aminotransferase (ALT/SGPT) 25, Alkaline Phosphatase 182H, Total Protein 6.2L, Albumin 2.7L 03/13/20 10:43: Glucometer 207H Microbiology 03/09/20 Blood Culture - Final, Complete Escherichia coli 03/09/20 Urine Culture - Final, Complete Escherichia coli 03/09/20 Influenza Types A,B Antigen (JOHNNY) - Final, Complete Home Meds Active Accu-Chek (Sub-Q Infusion Pump Accessory) 1 Each Each Each [facility] Advocate Lancets (Lancets) 1 Each Each Each [facility] Blood Glucose Meter (Blood-Glucose Meter) 1 Each Each Each [facility] Advocate Pen Mcleod (Mcleod, Insulin Disposable) 1 Each Dis.needle Each [facility] Novolog Flexpen (Insulin Aspart) 300 Units/3 Ml Solution 5 Units SQ AC Levemir Flextouch (Insulin Detemir) 100 Unit/1 Ml Insuln.pen 10 Unit SQ BID Bactrim Ds Tablet (Sulfamethoxazole/Trimethoprim) 1 Each Tablet 1 Each PO BID Reported Tylenol Extra Strength (Acetaminophen) 500 Mg Tablet 1,000 Mg PO Q8H PRN Triamcinolone Acetonide 0.1% Cream (Triamcinolone Acet) 15 Gm Cr 1 Applic TOP BID PRN Ventolin Hfa (Albuterol Sulfate) 1 Puff Puff 2 Puff INH Q4H PRN Pioglitazone HCl 30 Mg Tablet 30 Mg PO DAILY Metoprolol Tartrate 50 Mg Tablet 50 Mg PO BID Assessment/Pt Instructions [facility] 1 week Discharge Planning: <30 minutes discharge planning Discharge Physical Examination Vital Signs Vital Signs Date Time Temp Pulse Resp B/P (MAP) Pulse Ox O2 Delivery O2 Flow Rate FiO2 03/13/20 09:00 Room Air 03/13/20 08:00 37.0 88 22 165/96 (119) 95 03/13/20 07:30 2.00 General Appearance: No Apparent Distress, WD/WN, Chronically ill Respiratory: Lungs Clear Cardiovascular: Regular Rate, Rhythm Neurologic/Psychiatric: Alert, Oriented x3, No Motor/Sensory Deficits, Normal Mood/Affect Allergies: Coded Allergies: morphine (Verified Adverse Reaction, Intermediate, 09/13/16) MAKES HIM AGGRESSIVE Discharge Summary Date of Admission Mar 09, 2020 at 21:34 Date of Discharge Discharge Date: Mar 13, 2020 Admission Diagnosis Assessment: Sepsis UTI Prostatitis Renal failure Diabetes Hypokalemia Plan: IV fluids IV antibiotics Urology consult Supportive care Discharge Diagnosis Monitor closely Move to 4th (1) Urinary tract infection Status: Acute (2) Renal insufficiency Status: Acute (3) Uncontrolled diabetes mellitus Status: Acute Clinical Quality Measures DVT/VTE Risk/Contraindication: Risk Factor Score Per Nursin RFS Level Per Nursing on Admit: 3=High ANGUS RAMOS DO Mar 13, 2020 11:46
[2020-03-13 12:28] VITALS: BP 165/96
--- NOTE | 2020-03-13 14:14 | Progress Note ---
DANIEL STARK MED STUDENT 03/13/20 1414: Progress Note This is a 34 YO male with history of DM and recurrent UTI's who came to the ER on 03/09 for fever, body aches, and cough just as he was finishing Abx for bladder infection. Workup showed elevated creatinine, WBC's, glucose, and procalcitonin and urine was positive for bacteria, so pt was admitted for renal insufficiency, uncontrolled DM, and UTI. Pt was started on insulin for diabetes, meropenem for UTI, and heparin for DVT prophylaxis. Dr. Lam was consulted and after examining the pt, diagnosed him with prostatitis. He also recommended CT abdomen/pelvis, which showed hydronephrosis on the right that is unchanged from previous scan as well as new hydronephrosis on the left. Today, pt feels much improved over the course of his stay and would like to go home. Dr. Lam will see pt outpatient in 2 weeks. Pt will be discharged with Rx for Augmentin and insulin. BAILEY RAMOS DO 03/13/207: Supervisory-Addendum Brief Verification & Attestation Participated in pt care: history, MDM, physical Personally performed: exam, history, MDM, supervision of care Care discussed with: Medical Student Procedures: n/a Results interpretation: Verified all documentation Verification and Attestation of Medical Student E/M Service A medical student performed and documented this service in my presence. I reviewed and verified all information documented by the medical student and made modifications to such information, when appropriate. I personally performed the physical exam and medical decision making. Bailey Ramos, Mar 13, 2020,21:27 DANIEL STARK MED STUDENT Mar 13, 2020 14:14 BAILEY RAMOS DO Mar 13, 2020 21:27
== END 2020-03-13 12:30 | disposition home or self-care (01) | DRG 872 ==
LOC: EDUNIT# 19:48 → ER 19:49 → ICU 21:34 → CSD 23:36 → 4TH 03-10 06:00 → ICU 03-10 17:57 → CSD 03-11 10:39 → 4TH 03-12 11:59
PROVIDERS: ADMIT Internal Medicine; ATTEND Internal Medicine
DX: A41.51 Sepsis due to Escherichia coli [E. coli] (principal); N39.0 Urinary tract infection, site not specified; N41.0 Acute prostatitis; N17.9 Acute kidney failure, unspecified; N13.6 Pyonephrosis; E11.65 Type 2 diabetes mellitus with hyperglycemia; E87.6 Hypokalemia; I10 Essential (primary) hypertension; K76.0 Fatty (change of) liver, not elsewhere classified; K64.9 Unspecified hemorrhoids; E66.9 Obesity, unspecified; Z20.828 Contact with and (suspected) exposure to other viral communicable diseases; Z91.19 Patient's noncompliance with other medical treatment and regimen; Z87.442 Personal history of urinary calculi; Z68.37 Body mass index [BMI] 37.0-37.9, adult; Z86.19 Personal history of other infectious and parasitic diseases; Z90.81 Acquired absence of spleen; Z79.84 Long term (current) use of oral hypoglycemic drugs
CPT/HCPCS: 36415; 71045; 74176; 80048; 80053; 80306; 81000; 82010; 82962; 83036; 83605; 83735; 84100; 84145; 85007; 85025; 85027; 85610; 87040; 87077; 87088; 87181; 87184; 87186; 87635; 87804; 93005; 94640; 94760; 96360

== ENCOUNTER 2020-04-07 14:02 | Emergency (ER) | payer SELFPAY ==
[~2020-04-07] VITALS: Ht 182.8 cm; Wt 124.0 kg
[~2020-04-07 14:02] MED LIST changes: +ACET-2267 PO; +BLOO1EAC87 MC; +INSU100I14 SQ; +INSU100I29 SQ; +LANC-659 MC; +METO50TA15 PO; +NEED-474 MC; +PIOG30TA71 PO; +RT-ALBUINH INH; +TR1C15 TOP; +[UNRECOGNIZED DRUG - CODE] MC
[2020-04-07] MEDS ORDERED: ONDANSETRON 4 MG/2 ML (SDV) Z0FRAN IVP ONE (14:15)
[2020-04-07] MEDS ORDERED: NS IV 1000 ML 1,000 ML IV SCH (14:15)
--- NOTE | 2020-04-07 14:18 | ED General ---
General Stated Complaint: BLOOD WORK Source of Information: Patient Exam Limitations: No Limitations History of Present Illness Date Seen by Provider: Apr 07, 2020 Time Seen by Provider: 14:16 Initial Comments To ER with reports of nausea that began this morning. He went to the [facility] walk-in clinic and states that he was advised to come to the emergency room because he would get labs back quicker. Reports chills this morning. I admitted him roughly a month ago for UTI with sepsis secondary to E. coli. Timing/Duration: 1-2 Days Severity: Moderate Associated Systoms: Nausea/Vomiting Allergies and Home Medications Allergies Coded Allergies: morphine (Verified Adverse Reaction, Intermediate, 09/13/16) MAKES HIM AGGRESSIVE Home Medications Acetaminophen 500 Mg Tablet, 1,000 MG PO Q8H PRN for PAIN-MILD (1-4), (Reported) Albuterol Sulfate 1 Puff Puff, 2 PUFF INH Q4H PRN for SHORTNESS OF BREATH, (Reported) Hydrocodone/Acetaminophen 1 Each Tablet, 1 TAB PO Q4H PRN for PAIN-MODERATE (5- 7) Prescribed by: ANGUS RAMOS on 03/13/20 1145 Insulin Aspart 300 Units/3 Ml Solution, 5 UNITS SQ AC Prescribed by: ANGUS RAMOS on 03/13/20 1145 Insulin Detemir 100 Unit/1 Ml Insuln.pen, 10 UNIT SQ BID Prescribed by: ANGUS RAMOS on 03/13/20 1145 Metoprolol Tartrate 50 Mg Tablet, 50 MG PO BID, (Reported) Sulfamethoxazole/Trimethoprim 1 Each Tablet, 1 EACH PO BID Prescribed by: ANGUS RAMOS on 03/13/20 1145 Triamcinolone Acet 15 Gm Cr, 1 APPLIC TOP BID PRN for SKIN IRRITATION, (Reported) Patient Home Medication List Home Medication List Reviewed: Yes Review of Systems Review of Systems Constitutional: see HPI EENTM: see HPI Respiratory: no symptoms reported Cardiovascular: no symptoms reported Gastrointestinal: nausea, vomiting Genitourinary: no symptoms reported Musculoskeletal: see HPI Skin: no symptoms reported Psychiatric/Neurological: No Symptoms Reported Hematologic/Lymphatic: No Symptoms Reported Immunological/Allergic: no symptoms reported Past Nwdynws-Qyypvs-Lvuqog Hx Patient Social History Alcohol Beverage of Choice: Beer Type Used: Cigarettes, Smokeless Tobacco Former Smoker, Quit: May 22, 2007 2nd Hand Smoke Exposure: No Recent Foreign Travel: No Contact w/Someone Who Travel: No Recent Hopitalizations: No Immunizations Up To Date Tetanus Booster (TDap): Unknown Date of Pneumonia Vaccine: Jul 26, 2011 Date of Influenza Vaccine: May 22, 2018 Seasonal Allergies Seasonal Allergies: No Past Medical History Surgeries: Yes Abdominal, Ear Surgery, Orthopedic Respiratory: Yes (LEFT CHEST TUBES X 2 SECONDARY TO TRAUMA) Cardiac: Yes Hypertension Neurological: No Reproductive Disorders: No Sexually Transmitted Disease: No HIV/AIDS: No Genitourinary: Yes (EPIDIDYMITIS; FREQUENT UTI'S) Bladder Infection, Kidney Stones Gastrointestinal: Yes (SPLENECTOMY SECONDARY TO TRAUMA. FATTY LIVER) Liver Disease/Jaundice, Hemorrhoids Musculoskeletal: Yes (LEFT ANKLE FX/ORIF; LEFT FOREARM FX/ORIF) Fractures Endocrine: Yes (OBESITY) Diabetes, Non-Insulin dep HEENT: No Cancer: No Psychosocial: No Integumentary: No Blood Disorders: No Adverse Reaction/Blood Tranf: No Family Medical History No Pertinent Family Hx SOCIAL HISTORY: -ETOH--REGULAR USE/DRINKS BEER DAILY -DRUGS--DENIES -SMOKING--QUIT SMOKING AND CHEWING TOBACCO PSH: -2010--SPLENECTOMY, LEFT CHEST TUBES X 2, AND LEFT FOREARM FRACTURE/ORIF--ALL SECONDARY TO TRAUMA -LEFT FOOT / ANKLE FRACTURES/ORIF -BILATERAL MYRINGOTOMY TUBES -MEATOTOMY CHILD LONG HISTORY OF NON-COMPLICANCE IN ALL ASPECTS OF CARE -DOES NOT CHECK BLOOD GLUCOSE OR FOLLOW DIET, AND FREQUENTLY DOES NOT TAKE DIABETIC MEDICATION -DOES NOT TAKE HIS PRESCRIBED BLOOD PRESSURE MEDICATIONS -DOES NOT FOLLOW UP WITH PCP INSTRUCTED FREQUENT ER VISITS FOR VARIOUS COMPLAINTS. Physical Exam Vital Signs Vital Signs - First Documented 04/07/20 14:14 Temp 37.4 Pulse 123 Resp 18 B/P (MAP) 144/84 (104) Capillary Refill : Height, Weight, BMI Height: 6'0" Weight: 280lbs. 0oz. 127.448166zd; 36.14 BMI Method:Stated General Appearance: No Apparent Distress, WD/WN Eyes: Bilateral Eye Normal Inspection, Bilateral Eye PERRL, Bilateral Eye EOMI Neck: Full Range of Motion, Normal Inspection Respiratory: Normal Breath Sounds, No Accessory Muscle Use, No Respiratory Distress Cardiovascular: Regular Rate, Rhythm, Normal Peripheral Pulses Gastrointestinal: Normal Bowel Sounds, Non Tender, Soft Extremity: Normal Capillary Refill, Normal Inspection Neurologic/Psychiatric: Alert, Oriented x3 Skin: Normal Color, Warm/Dry Focused Exam Lactate Level 04/07/20 14:54: Lactic Acid Level 1.12 Lactic Acid Level Laboratory Tests Test 04/07/20 14:54 Lactic Acid Level 1.12 MMOL/L (0.50-2.00) Progress/Results/Core Measures Suspected Sepsis SIRS Temperature: Pulse: Respiratory Rate: Laboratory Tests 04/07/20 14:24: White Blood Count 25.2H Blood Pressure / Mean: 04/07/20 14:54: Lactic Acid Level 1.12 Laboratory Tests 04/07/20 14:24: Creatinine 1.57H, Platelet Count 397, Total Bilirubin 0.5 Results/Orders Lab Results Laboratory Tests Test 04/07/20 14:24 04/07/20 14:54 04/07/20 15:46 Range/Units White Blood Count 25.2 H 4.3-11.0 10^3/uL Red Blood Count 4.10 L 4.30-5.52 10^6/uL Hemoglobin 11.9 L 13.3-17.7 g/dL Hematocrit 36 L 40-54 % Mean Corpuscular Volume 87 80-99 fL Mean Corpuscular Hemoglobin 29 25-34 pg Mean Corpuscular Hemoglobin Concent 33 32-36 g/dL Red Cell Distribution Width 13.0 10.0-14.5 % Platelet Count 397 130-400 10^3/uL Mean Platelet Volume 10.0 9.0-12.2 fL Immature Granulocyte % (Auto) 1 % Neutrophils (%) (Auto) 91 H 42-75 % Lymphocytes (%) (Auto) 6 L 12-44 % Monocytes (%) (Auto) 3 0-12 % Eosinophils (%) (Auto) 0 0-10 % Basophils (%) (Auto) 0 0-10 % Neutrophils # (Auto) 22.8 H 1.8-7.8 10^3/uL Lymphocytes # (Auto) 1.4 1.0-4.0 10^3/uL Monocytes # (Auto) 0.7 0.0-1.0 10^3/uL Eosinophils # (Auto) 0.0 0.0-0.3 10^3/uL Basophils # (Auto) 0.1 0.0-0.1 10^3/uL Immature Granulocyte # (Auto) 0.2 H 0.0-0.1 10^3/uL Neutrophils % (Manual) 90 % Lymphocytes % (Manual) 5 % Monocytes % (Manual) 4 % Band Neutrophils 1 % Blood Morphology Comment NORMAL Sodium Level 131 L 135-145 MMOL/L Potassium Level 3.3 L 3.6-5.0 MMOL/L Chloride Level 95 L 98-107 MMOL/L Carbon Dioxide Level 21 21-32 MMOL/L Anion Gap 15 H 5-14 MMOL/L Blood Urea Nitrogen 12 7-18 MG/DL Creatinine 1.57 H 0.60-1.30 MG/DL Estimat Glomerular Filtration Rate 51 BUN/Creatinine Ratio 8 Glucose Level 210 H 70-105 MG/DL Calcium Level 8.9 8.5-10.1 MG/DL Corrected Calcium 9.2 8.5-10.1 MG/DL Total Bilirubin 0.5 0.1-1.0 MG/DL Aspartate Amino Transf (AST/SGOT) 14 5-34 U/L Alanine Aminotransferase (ALT/SGPT) 13 0-55 U/L Alkaline Phosphatase 128 40-136 U/L Total Protein 8.1 6.4-8.2 GM/DL Albumin 3.6 3.2-4.5 GM/DL Lactic Acid Level 1.12 0.50-2.00 MMOL/L Urine Color YELLOW Urine Clarity CLOUDY Urine pH 6.5 5-9 Urine Specific [place] <=1.005 1.016-1.022 Urine Protein TRACE H NEGATIVE Urine Glucose (UA) 3+ H NEGATIVE Urine Ketones NEGATIVE NEGATIVE Urine Nitrite NEGATIVE NEGATIVE Urine Bilirubin NEGATIVE NEGATIVE Urine Urobilinogen 0.2 < = 1.0 MG/DL Urine Leukocyte Esterase 2+ H NEGATIVE Urine RBC (Auto) 1+ H NEGATIVE Urine RBC 5-10 H /HPF Urine WBC 50-100 H /HPF Urine Crystals PRESENT H /LPF Urine Amorphous Sediment RARE WANG URATES H /LPF Urine Bacteria TRACE /HPF Urine Casts NONE /LPF Urine Mucus NEGATIVE /LPF Urine Culture Indicated YES My Orders Orders - JESSICA PABON APRN Blood Culture (04/07/20 14:15) Cbc With Automated Diff (04/07/20 14:15) Comprehensive Metabolic Panel (04/07/20 14:15) Ua Culture If Indicated (04/07/20 14:15) Ed Iv/Invasive Line Start (04/07/20 14:15) Lactic Acid Analyzer (04/07/20 14:15) Ns Iv 1000 Ml (Sodium Chloride 0.9%) (04/07/20 14:15) Ondansetron Injection (Zofran Injectio (04/07/20 14:15) Manual Differential (04/07/20 14:24) Meropenem (Merrem 500 Mg) (04/07/20 16:00) Ceftriaxone For Iv Use (Rocephin For I (04/07/20 16:00) Urine Culture (04/07/20 15:46) Medications Given in ED Current Medications Medications Dose Ordered Sig/Radha Route Start Time Stop Time Status Last Admin Dose Admin Ceftriaxone Sodium 1000 mg/ Sterile Water 10 ml @ 200 mls/hr ONCE ONCE IV 04/07/20 16:00 04/07/20 16:02 DC 04/07/20 16:28 200 MLS/HR Meropenem 500 mg/ Sterile Water 10 ml @ 200 mls/hr ONCE ONCE IV 04/07/20 16:00 04/07/20 16:02 DC 04/07/20 16:30 200 MLS/HR Ondansetron HCl 8 mg ONCE ONCE IVP 04/07/20 14:15 04/07/20 14:16 DC 04/07/20 14:38 8 MG Vital Signs/I&O 04/07/20 14:14 Temp 37.4 Pulse 123 Resp 18 B/P (MAP) 144/84 (104) Capillary Refill : Departure Communication (Admissions) Time/Spoke to Admitting Phy: 15:[address] Ramos, will admit. Based on recent urine C&S will empirically treat with meropenem. URINE CULTURE Final Verified 03/11/20- 1414Final RML Source: URINE / CLEAN CATCH Order Location: Emergency Room - [place] Organism 1 Escherichia coli >100,000/ML SUSCEPTIBILITY REPORTED 03/11 14:15 ESBL POSITIVE; SEE COMMENTS PRELIM RAPID ID TEST AT [facility] 03/10 07:25 RML CONFIRMED ID 03/10 18:05 ESBL producing strain of E coli, resistant to penicillins, cephalosporins, and aztreonam Resistant organism; contact precautions Esc coli INTERP AMPICILLIN R GENTAMICIN S CEFAZOLIN R CEFTRIAXONE R AMOX/CLAV R TRIMETH/SULFA S LEVOFLOXACIN R CIPROFLOXACIN R MEROPENEM S 1632-discussed labs and your infection with the patient and the need for hospitalization. He refuses to be admitted to the hospital. He states he has been antibiotics at home and was also given prednisone today by [facility]. I advised him to stop that, definitely take the antibiotics you are not sure what they are, perhaps there is updated culture and sensitivity. He states they were prescribed by Dr. Lam Impression Primary Impression: UTI (urinary tract infection) Qualified Codes: N30.00 - Acute cystitis without hematuria Additional Impression: Sepsis Qualified Codes: A41.9 - Sepsis, unspecified organism Disposition: 07 AGAINST MEDICAL ADVICE Condition: Against Medical Advice Admissions Decision to Admit Reason: Admit from ER (General) Decision to Admit/Date: Apr 07, 2020 Time/Decision to Admit Time: 15:58 Departure-Patient Inst. Referrals: [facility] (PCP) Primary Care Physician YINKA MADRIGAL (Family) Primary Care Physician JESSICA PABON APRN Apr 07, 2020 14:18
[2020-04-07 14:31] LABS: BASOPHILS # (AUTO) 0.1 10^3/uL (0.0-0.1); BASOPHILS % (AUTO) 0 % (0-10); EOSINOPHILS % (AUTO) 0 % (0-10); HEMATOCRIT 36 % (40-54); HEMOGLOBIN 11.9 g/dL (13.3-17.7); LYMPHOCYTES # (AUTO) 1.4 10^3/uL (1.0-4.0); LYMPHOCYTES % (AUTO) 6 % (12-44); MEAN CORPUSCULAR HEMOGLOBIN 29 pg (25-34); MEAN CORPUSCULAR HGB CONC 33 g/dL (32-36); MEAN CORPUSCULAR VOLUME 87 fL (80-99); MONOCYTES # (AUTO) 0.7 10^3/uL (0.0-1.0); MONOCYTES % (AUTO) 3 % (0-12); NEUTROPHILS # (AUTO) 22.8 10^3/uL (1.8-7.8); NEUTROPHILS % (AUTO) 91 % (42-75); PLATELET COUNT 397 10^3/uL (130-400); WHITE BLOOD COUNT 25.2 10^3/uL (4.3-11.0)
[2020-04-07 14:45] LABS: ALBUMIN 3.6 GM/DL (3.2-4.5); POTASSIUM 3.3 MMOL/L (3.6-5.0)
[2020-04-07 14:46] LABS: CALCIUM 8.9 MG/DL (8.5-10.1)
[2020-04-07 14:47] LABS: TOTAL PROTEIN 8.1 GM/DL (6.4-8.2)
[2020-04-07 14:49] LABS: BILIRUBIN,TOTAL 0.5 MG/DL (0.1-1.0)
[2020-04-07 14:51] LABS: CREATININE SERUM 1.57 MG/DL (0.60-1.30)
[2020-04-07 15:29] LABS: BAND NEUTROPHILS 1 %; LYMPHOCYTES % (MANUAL) 5 %; MONOCYTES % (MANUAL) 4 %; NEUTROPHILS % (MANUAL) 90 %
[2020-04-07 15:30] LABS: RBC MORPH NORMAL
[2020-04-07 15:51] LABS: BILIRUBIN,URINE NEGATIVE (NEGATIVE); CLARITY,URINE CLOUDY; COLOR,URINE YELLOW; GLUCOSE, URINE (UA) 3+ (NEGATIVE); KETONES,URINE NEGATIVE (NEGATIVE); LEUKOCYTE ESTERASE ,URINE 2+ (NEGATIVE); NITRITE,URINE NEGATIVE (NEGATIVE); PH,URINE 6.5 (5-9); PROTEIN,URINE TRACE (NEGATIVE)
[2020-04-07] MEDS ORDERED: cefTRIAXone FOR IV USE 1,000 MG in WATER (STERILE) FOR INJECTION 10 ML IV ONE (16:00)
[2020-04-07] MEDS ORDERED: MEROPENEM 500 MG in WATER (STERILE) FOR INJECTION 10 ML IV ONE (16:00)
[2020-04-07 16:24] LABS: AMORPHOUS SEDIMENT,UR RARE AMOR URATES /LPF; BACTERIA,URINE TRACE /HPF; WBC,URINE 50-100 /HPF
[2020-04-07 16:30] VITALS: BP 138/87
--- NOTE | 2020-04-07 16:33 | NUR ---
ADMISSION DISCUSSED WITH PATIENT BY Jose PABON APRN PATIENT DECLINED TO BE ADMITTED.
== END 2020-04-07 16:39 | disposition left against medical advice (07) ==
LOC: EDUNIT# 14:02 → ER 14:05
DX: N39.0 Urinary tract infection, site not specified (principal); A41.9 Sepsis, unspecified organism; E66.9 Obesity, unspecified; I10 Essential (primary) hypertension; Z68.36 Body mass index [BMI] 36.0-36.9, adult; Z87.891 Personal history of nicotine dependence; Z88.5 Allergy status to narcotic agent
CPT/HCPCS: 36415; 80053; 81000; 83605; 85007; 85027; 87040; 87088

== ENCOUNTER 2020-04-30 11:04 | Outpatient (RCR) | payer MEDICAID, OTHER ==
[2020-04-21] MEDS: cefTRIAXone 1,000 MG/SWFI 10 ML IV PUSH IV SCH ×2 (13:32)
[2020-04-21 13:45] VITALS: BP 144/98
[2020-04-22] MEDS: cefTRIAXone 1,000 MG/SWFI 10 ML IV PUSH IV SCH ×2 (13:13)
[2020-04-22 13:22] VITALS: BP 149/102
[2020-04-23] MEDS: cefTRIAXone 1,000 MG/SWFI 10 ML IV PUSH IV SCH ×2 (13:19)
[2020-04-23 13:25] VITALS: BP 162/94
[2020-04-24 12:54] VITALS: BP 162/94
[2020-04-24] MEDS: cefTRIAXone 1,000 MG/SWFI 10 ML IV PUSH IV SCH ×2 (12:54)
[2020-04-25] MEDS: cefTRIAXone 1,000 MG/SWFI 10 ML IV PUSH IV SCH ×2 (10:08)
[2020-04-25 10:10] VITALS: BP 173/94
[2020-04-26] MEDS: cefTRIAXone 1,000 MG/SWFI 10 ML IV PUSH IV SCH ×2 (10:02)
[2020-04-26 10:10] VITALS: BP 145/89
[2020-04-27 13:50] VITALS: BP 138/91
[2020-04-27] MEDS: cefTRIAXone 1,000 MG/SWFI 10 ML IV PUSH IV SCH ×2 (13:52)
[2020-04-28 12:30] VITALS: BP 139/95
[2020-04-28] MEDS: cefTRIAXone 1,000 MG/SWFI 10 ML IV PUSH IV SCH ×2 (12:34)
[2020-04-29] MEDS: cefTRIAXone 1,000 MG/SWFI 10 ML IV PUSH IV SCH ×2 (13:11)
[2020-04-29 13:18] VITALS: BP 133/83
[~2020-04-30] VITALS: Ht 182.8 cm
[2020-04-30] MEDS: cefTRIAXone 1,000 MG/SWFI 10 ML IV PUSH IV SCH ×2 (11:10)
[2020-04-30 11:15] VITALS: BP 136/93
== END 2020-04-30 11:15 | disposition home or self-care (01) ==
LOC: SDC 11:04
PROVIDERS: ATTEND Urology
DX: N41.9 Inflammatory disease of prostate, unspecified (principal)
CPT/HCPCS: 96374; 96376

== ENCOUNTER → 2020-08-04 | Outpatient (CLI) | payer MEDICAID ==
[~2020-08-04] MED LIST changes: -CIPR500T4 PO; +CIPR500T5 PO; -LISI10TA2; +LISI10TA25; -LISI40TA PO; +LISI40TA9 PO; +RT-ALBUTEROL SULF 2.5 MG/3 ML PRE-MIX VIAL INH ONE
== END ==
LOC: RT 09:49
PROVIDERS: ATTEND Nurse Practitioner Family
DX: R06.02 Shortness of breath (principal)
CPT/HCPCS: 94060; 94726; 94729

== ENCOUNTER 2020-09-29 05:05 | Emergency (ER) | payer MEDICAID ==
[~2020-09-29] VITALS: Ht 180.3 cm; Wt 123.8 kg
[~2020-09-29 05:05] MED LIST changes: -RT-ALBUTEROL SULF 2.5 MG/3 ML PRE-MIX VIAL INH ONE
[2020-09-29 05:32] LABS: BASOPHILS # (AUTO) 0.1 10^3/uL (0.0-0.1); BASOPHILS % (AUTO) 1 % (0-10); EOSINOPHILS # (AUTO) 0.4 10^3/uL (0.0-0.3); EOSINOPHILS % (AUTO) 4 % (0-10); HEMATOCRIT 42 % (40-54); HEMOGLOBIN 13.5 g/dL (13.3-17.7); LYMPHOCYTES # (AUTO) 4.4 10^3/uL (1.0-4.0); LYMPHOCYTES % (AUTO) 45 % (12-44); MEAN CORPUSCULAR HEMOGLOBIN 28 pg (25-34); MEAN CORPUSCULAR HGB CONC 32 g/dL (32-36); MEAN CORPUSCULAR VOLUME 88 fL (80-99); MEAN PLATELET VOLUME 9.6 fL (9.0-12.2); MONOCYTES # (AUTO) 0.8 10^3/uL (0.0-1.0); MONOCYTES % (AUTO) 8 % (0-12); NEUTROPHILS % (AUTO) 42 % (42-75); PLATELET COUNT 537 10^3/uL (130-400); WHITE BLOOD COUNT 9.7 10^3/uL (4.3-11.0)
[2020-09-29 05:47] LABS: POTASSIUM 3.8 MMOL/L (3.6-5.0)
[2020-09-29 05:48] LABS: CALCIUM 9.3 MG/DL (8.5-10.1)
[2020-09-29 05:49] LABS: TOTAL PROTEIN 7.6 GM/DL (6.4-8.2)
[2020-09-29 05:51] LABS: BILIRUBIN,TOTAL 0.4 MG/DL (0.1-1.0)
[2020-09-29 05:53] LABS: CREATININE SERUM 1.36 MG/DL (0.60-1.30)
[2020-09-29 05:56] LABS: MAGNESIUM 1.6 MG/DL (1.6-2.4)
[2020-09-29 06:06] LABS: PROTHROMBIN TIME PATIENT 13.3 SEC (12.2-14.7)
[2020-09-29] MEDS ORDERED: KETOROLAC 30 MG/ML VIAL IVP ONE (06:30)
--- NOTE | 2020-09-29 06:32 | ED Headache ---
General Chief Complaint: Head/Cervical Problems Stated Complaint: GÓMEZ Nursing Triage Note: Pt reports headache since 0930 yesterday morning. Denies vision changes, nausea/vomiting, fever. Last Tylenol 1500mg taken @ 1400, last Motrin 800mg taken @ 2000. Nursing Sepsis Screen: No Definite Risk Source: patient (TAMERA ALVARENGA DO) History of Present Illness Date Seen by Provider: September 29, 2020 Time Seen by Provider: 05:14 Initial Comments PT ARRIVES VIA POV FROM HOME C/O HEADACHE TO RIGHT CHEONDOISM SINCE 1000 AM YESTERDAY NOTHING WORSENS OR IMPROVES HEADACHE NO VISION OR HEARING CHANGES NO DIZZINESS NO NAUSEA/VOMITING NO PARESTHESIAS OR MOTOR DEFICITS NO NECK STIFFNESS OR PAIN STATES HE DOES NOT NORMALLY GET HEADACHES NO FEVER OR RECENT ILLNESS NO URI SYMPTOMS NO LOSS OF TASTE OR SMELL NO BODY ACHES NO SORE THROAT NO KNOWN SICK CONTACTS OR EXPOSURE TO COVID-19, NOR HAS HE BEEN VACCINATED FOR COVID-19 PT TOOK 3 TYLENOL 500 MG YESTERDAY AT 1400, AND 4 IBUPROFEN 200 MG AT 2000 LAST NIGHT--NO RELIEF OF HEADACHE HAS NOT TAKEN ANYTHING ELSE FOR PAIN PT IS DIABETIC, AND HAS HTN DOES NOT CHECK BLOOD SUGAR OR BLOOD PRESSURE, AND HAS NOT TAKEN ANY OF HIS MEDICATIONS FOR A FEW DAYS--STATES "I ALWAYS KEEP FORGETTING TO TAKE THEM" PT WITH LONG HISTORY OF NON-COMPLIANCE IN ALL ASPECTS OF CARE. PCP: [facility] (TAMERA ALVARENGA DO) Allergies and Home Medications Allergies Coded Allergies: morphine (Verified Adverse Reaction, Intermediate, 09/13/16) MAKES HIM AGGRESSIVE Home Medications Acetaminophen 500 Mg Tablet, 1,000 MG PO Q8H PRN for PAIN-MILD (1-4), (Reported) Albuterol Sulfate 1 Puff Puff, 2 PUFF INH Q4H PRN for SHORTNESS OF BREATH, (Reported) Hydrocodone/Acetaminophen 1 Each Tablet, 1 TAB PO Q4H PRN for PAIN-MODERATE (5- 7) Prescribed by: ANGUS RAMOS on 03/13/20 1145 Insulin Aspart 300 Units/3 Ml Solution, 5 UNITS SQ AC Prescribed by: ANGUS RAMOS on 03/13/20 1145 Insulin Detemir 100 Unit/1 Ml Insuln.pen, 10 UNIT SQ BID Prescribed by: ANGUS RAMOS on 03/13/20 114 Metoprolol Tartrate 50 Mg Tablet, 50 MG PO BID, (Reported) Sulfamethoxazole/Trimethoprim 1 Each Tablet, 1 EACH PO BID Prescribed by: ANGUS RAMOS on 03/13/20 1145 Triamcinolone Acet 15 Gm Cr, 1 APPLIC TOP BID PRN for SKIN IRRITATION, (Reported) Patient Home Medication List Home Medication List Reviewed: Yes (ESTELLA BAIG MD) Review of Systems Review of Systems Constitutional: no symptoms reported Eyes: No Symptoms Reported Ears, Nose, Mouth, Throat: no symptoms reported Respiratory: no symptoms reported Cardiovascular: no symptoms reported Gastrointestinal: no symptoms reported Genitourinary: no symptoms reported Musculoskeletal: no symptoms reported Skin: no symptoms reported Psychiatric/Neurological: See HPI, Headache (TAMERA ALVARENGA DO) Past Lwnywkg-Hiiivi-Pgsmld Hx Patient Social History Alcohol Use: Occasionally Uses Number of Drinks Today: AA Alcohol Beverage of Choice: Beer Smoking Status: Former Smoker Type Used: Cigarettes, Smokeless Tobacco Former Smoker, Quit: May 22, 2007 2nd Hand Smoke Exposure: No Recent Infectious Disease Expo: No Recent Hopitalizations: No (TAMERA ALVARENGA DO) Immunizations Up To Date Tetanus Booster (TDap): Unknown Date of Pneumonia Vaccine: Jul 26, 2011 Date of Influenza Vaccine: May 22, 2018 (TAMERA ALVARENGA DO) Seasonal Allergies Seasonal Allergies: No (TAMERA ALVARENGA DO) Past Medical History Surgeries: Yes (SPLENECTOMY; L ANKLE FX/ORIF; L FOREARM FX/ORIF) Abdominal, Ear Surgery, Orthopedic Respiratory: Yes (LEFT CHEST TUBES X 2 SECONDARY TO TRAUMA) Cardiac: Yes Hypertension Neurological: No Reproductive Disorders: No Sexually Transmitted Disease: No HIV/AIDS: No Genitourinary: Yes (EPIDIDYMITIS; FREQUENT UTI'S; RENAL INSUFFICIENCY) Bladder Infection, Kidney Stones Gastrointestinal: Yes (SPLENECTOMY SECONDARY TO TRAUMA. FATTY LIVER) Liver Disease/Jaundice, Hemorrhoids Musculoskeletal: Yes (LEFT ANKLE FX/ORIF; LEFT FOREARM FX/ORIF) Fractures Endocrine: Yes (OBESITY) Diabetes, Non-Insulin dep HEENT: No Cancer: No Psychosocial: No Integumentary: No Blood Disorders: No Adverse Reaction/Blood Tranf: No (TAMERA ALVARENGA DO) Family Medical History No Pertinent Family Hx SOCIAL HISTORY: -ETOH--REGULAR USE/DRINKS BEER DAILY -DRUGS--DENIES -SMOKING--QUIT SMOKING AND CHEWING TOBACCO PSH: -2010--SPLENECTOMY, LEFT CHEST TUBES X 2, AND LEFT FOREARM FRACTURE/ORIF--ALL SECONDARY TO TRAUMA -LEFT FOOT / ANKLE FRACTURES/ORIF -BILATERAL MYRINGOTOMY TUBES -MEATOTOMY CHILD LONG HISTORY OF NON-COMPLICANCE IN ALL ASPECTS OF CARE -DOES NOT CHECK BLOOD GLUCOSE OR FOLLOW DIET, AND FREQUENTLY DOES NOT TAKE DIABETIC MEDICATION -DOES NOT TAKE HIS PRESCRIBED BLOOD PRESSURE MEDICATIONS -DOES NOT FOLLOW UP WITH PCP INSTRUCTED FREQUENT ER VISITS FOR VARIOUS COMPLAINTS. (TAMERA ALVARENGA DO) Physical Exam Vital Signs Vital Signs - First Documented 09/29/20 05:14 Temp 36.4 Pulse 75 Resp 18 B/P (MAP) 145/97 (113) Pulse Ox 98 O2 Delivery Room Air (ESTELLA BAIG MD) Vital Signs Capillary Refill : Less Than 3 Seconds (TAMERA ALVARENGA DO) Height, Weight, BMI Height: 6'0" Weight: 280lbs. 0oz. 127.992928go; 38.00 BMI Method:Stated General Appearance: WD/WN, no apparent distress, other (SMILING, DOES NOT APPEAR TO BE IN ANY DISCOMFORT OR DISTRESS) HEENT: PERRL/EOMI, normal ENT inspection (POOR DENTITION), pharynx normal Neck: normal inspection Cardiovascular: regular rate, rhythm, no murmur Respiratory: normal breath sounds, no respiratory distress, no accessory muscle use Gastrointestinal: soft Extremities: normal inspection Psychiatric: alert, oriented x 3 [place] Nerves: normal hearing, normal speech, PERRL Coordination/Gait: normal gait Motor/Sensory: no motor deficit, no sensory deficit Skin: normal color, warm/dry (TAMERA ALVARENGA DO) Progress/Results/Core Measures Results/Orders Lab Results Laboratory Tests Test 09/29/20 05:25 Range/Units White Blood Count 9.7 4.3-11.0 10^3/uL Red Blood Count 4.75 4.30-5.52 10^6/uL Hemoglobin 13.5 13.3-17.7 g/dL Hematocrit 42 40-54 % Mean Corpuscular Volume 88 80-99 fL Mean Corpuscular Hemoglobin 28 25-34 pg Mean Corpuscular Hemoglobin Concent 32 32-36 g/dL Red Cell Distribution Width 14.2 10.0-14.5 % Platelet Count 537 H 130-400 10^3/uL Mean Platelet Volume 9.6 9.0-12.2 fL Immature Granulocyte % (Auto) 0 % Neutrophils (%) (Auto) 42 42-75 % Lymphocytes (%) (Auto) 45 H 12-44 % Monocytes (%) (Auto) 8 0-12 % Eosinophils (%) (Auto) 4 0-10 % Basophils (%) (Auto) 1 0-10 % Neutrophils # (Auto) 4.0 1.8-7.8 10^3/uL Lymphocytes # (Auto) 4.4 H 1.0-4.0 10^3/uL Monocytes # (Auto) 0.8 0.0-1.0 10^3/uL Eosinophils # (Auto) 0.4 H 0.0-0.3 10^3/uL Basophils # (Auto) 0.1 0.0-0.1 10^3/uL Immature Granulocyte # (Auto) 0.0 0.0-0.1 10^3/uL Prothrombin Time 13.3 12.2-14.7 SEC INR Comment 1.0 0.8-1.4 Activated Partial Thromboplast Time 29 24-35 SEC Sodium Level 138 135-145 MMOL/L Potassium Level 3.8 3.6-5.0 MMOL/L Chloride Level 102 98-107 MMOL/L Carbon Dioxide Level 22 21-32 MMOL/L Anion Gap 14 5-14 MMOL/L Blood Urea Nitrogen 18 7-18 MG/DL Creatinine 1.36 H 0.60-1.30 MG/DL Estimat Glomerular Filtration Rate 60 BUN/Creatinine Ratio 13 Glucose Level 276 H 70-105 MG/DL Calcium Level 9.3 8.5-10.1 MG/DL Corrected Calcium 9.3 8.5-10.1 MG/DL Magnesium Level 1.6 1.6-2.4 MG/DL Total Bilirubin 0.4 0.1-1.0 MG/DL Aspartate Amino Transf (AST/SGOT) 15 5-34 U/L Alanine Aminotransferase (ALT/SGPT) 20 0-55 U/L Alkaline Phosphatase 96 40-136 U/L Total Protein 7.6 6.4-8.2 GM/DL Albumin 4.0 3.2-4.5 GM/DL (ESTELLA BAIG MD) Medications Given in ED Current Medications Medications Dose Ordered Sig/Radha Route Start Time Stop Time Status Last Admin Dose Admin Ketorolac Tromethamine 30 mg ONCE ONCE IVP 09/29/20 06:30 09/29/20 06:31 DC 09/29/20 06:30 30 MG (ESTELLA BAIG MD) Vital Signs/I&O 09/29/20 09/29/20 09/29/20 05:14 05:50 06:48 Temp 36.4 36.4 Pulse 75 68 68 Resp 18 18 18 B/P (MAP) 145/97 (113) 153/95 (114) 156/96 (114) Pulse Ox 98 98 98 O2 Delivery Room Air Room Air Room Air (ESTELLA BAIG MD) Blood Pressure Mean: 114 Progress Progress Note : Progress Note GIVEN TORADOL FOR HEADACHE WITH IMPROVEMENT (TAMERA ALVARENGA DO) Diagnostic Imaging Comments CT HEAD--NO ACUTE PROCESS, PER RADIOLOGIST REPORT AT 0620 Reviewed: Reviewed by Me (TAMERA ALVARENGA DO) Departure Impression Primary Impression: Headache Additional Impressions: Uncontrolled diabetes mellitus HTN (hypertension) Non-compliance Chronic renal insufficiency Disposition: HOME, SELF-CARE Condition: Stable Departure-Patient Inst. Decision time for Depature: 06:20 (TAMERA ALVARENGA DO) Referrals: [facility] (PCP/Family) Primary Care Physician Patient Instructions: Headache, Adult (DC), DASH Diet, High Blood Pressure (DC), Diabetes Type 2 (DC) Add. Discharge Instructions: TAKE ALL OF YOUR MEDICATIONS EXACTLY PRESCRIBED AND DO NOT MISS DOSES TYLENOL 1 GRAM/ MOTRIN 600 MG 4 TIMES A DAY NEEDED FOR PAIN FOLLOW UP WITH YOUR DR IN 2-3 DAYS IF NO BETTER, RETURN TO ER IF WORSE All discharge instructions reviewed with patient and/or family. Voiced understanding. Work/School Note: Work Release Form Date Seen in the Emergency Department: September 29, 2020 Return to Work: September 30, 2020 TAMERA ALVARENGA DO September 29, 2020 06:32 ESTELLA BAIG MD September 29, 2020 06:50
[2020-09-29 06:48] VITALS: BP 156/96
--- NOTE | 2020-09-29 07:08 | Diagnostic Imaging Report ---
PROCEDURE: CT head wo r/o stroke. TECHNIQUE: Multiple contiguous axial images were obtained through the brain without the use of intravenous contrast. Auto Exposure Controls were utilized during the CT exam to meet ALARA standards for radiation dose reduction. INDICATION: Headache There is no mass, shift of the midline or hemorrhage to suggest an acute intracranial abnormality. The ventricles are not abnormally dilated and stable in size when compared to the prior exam of 06/11/2019. The bone windows show no evidence for a fracture or for a destructive lesion. The orbits are symmetrical and within normal limits. The sinuses are generally clear. IMPRESSION: 1. There is no evidence for an acute intracranial abnormality. 2. If clinical concern regarding an underlying abnormality persists, then MRI would be recommended for further study. 3. I agree with the [facility] interpretation of this exam. Dictated by: Dictated on workstation # [id number]
== END 2020-09-29 06:50 | disposition home or self-care (01) ==
LOC: EDUNIT# 05:05 → ER 05:08
DX: R51.9 Headache, unspecified (principal); E11.65 Type 2 diabetes mellitus with hyperglycemia; I10 Essential (primary) hypertension; N28.9 Disorder of kidney and ureter, unspecified; E66.9 Obesity, unspecified; Z88.5 Allergy status to narcotic agent; Z68.38 Body mass index [BMI] 38.0-38.9, adult; Z87.891 Personal history of nicotine dependence; Z91.19 Patient's noncompliance with other medical treatment and regimen; Z79.899 Other long term (current) drug therapy
CPT/HCPCS: 36415; 70450; 80053; 83735; 85025; 85610; 85730; 93041

== ENCOUNTER 2021-06-12 18:38 | Emergency (ER) | payer OTHER, MEDICAID ==
[~2021-06-12 18:38] MED LIST changes: +CYCL10TA25 PO; -CYCL10TA9 PO; +DOXY-311 PO; -DOXY100C2 PO; -DOXY100C42 PO; +DOXY100C5 PO; -SULF1TAB35 PO; +SULF1TAB38 PO
[2021-06-12 18:50] VITALS: BP 161/98
--- NOTE | 2021-06-12 19:11 | ED Upper Extremity ---
General Chief Complaint: Upper Extremity Stated Complaint: R ARM/SHOULDER PAIN Source: patient History of Present Illness Date Seen by Provider: Jun 12, 2021 Time Seen by Provider: 18:58 Initial Comments PT ARRIVES VIA POV C/O PAIN AROUND RIGHT SHOULDER SINCE YESTERDAY MORNING STATES HE JUST GOT BACK FROM VACATION IN [place] AND LITERALLY DROVE STRAIGHT TO ER WHEN HE ARRIVED IN [facility] HE DROVE A VEHICLE WITH NO POWER STEERING TO [place] AND BACK HOME PAIN BEGAN YESTERDAY MORNING SHORTLY AFTER HE STARTED DRIVING HOME NO DIRECT TRAUMA TO THE AREA PAIN IS ALL AROUND SHOULDER, IN TRAPEZIUS AREA AND AXILLA AREA PAIN IS WORSE WITH MOVING ARM NO RADIATION OF PAIN NO PARESTHESIAS OR MOTOR DEFICITS PT IS RIGHT HANDED NO PRIOR PROBLEMS WITH THIS SHOULDER/ARM PT HAS NOT TAKEN ANYTHING FOR PAIN AT ANY TIME WANTS A WORK NOTE FOR TOMORROW PCP: MARIAMA Allergies and Home Medications Allergies Coded Allergies: morphine (Verified Adverse Reaction, Intermediate, 09/13/16) MAKES HIM AGGRESSIVE Patient Home Medication List Home Medication List Reviewed: Yes Acetaminophen (Tylenol Extra Strength) 500 Mg Tablet, 1,000 MG PO Q8H PRN for PAIN-MILD (1-4), (Reported) Entered as Reported by: LIZETTE MOCK on 03/10/20 0932 Albuterol Sulfate (Ventolin Hfa) 1 Puff Puff, 2 PUFF INH Q4H PRN for SHORTNESS OF BREATH, (Reported) Entered as Reported by: LIZETTE MOCK on 03/10/20 0915 Blood-Glucose Meter (Blood Glucose Meter) 1 Each Each, EACH [facility], (DME) Prescribed by: ANGUS RAMOS on 03/13/20 1145 Hydrocodone/Acetaminophen (Hydrocodone-Acetamin 5-325 mg) 1 Each Tablet, 1 TAB PO Q4H PRN for PAIN-MODERATE (5-7) Prescribed by: ANGUS RAMOS on 03/13/20 1145 Insulin Aspart (Novolog Flexpen) 300 Units/3 Ml Solution, 5 UNITS SQ AC Prescribed by: ANGUS RAMOS on 03/13/20 1145 Insulin Detemir (Levemir Flextouch) 100 Unit/1 Ml Insuln.pen, 10 UNIT SQ BID Prescribed by: ANGUS RMAOS on 03/13/20 1145 Lancets (Advocate Lancets) 1 Each Each, EACH [facility], (DME) Prescribed by: ANGUS RAMOS on 03/13/20 114 Metoprolol Tartrate (Metoprolol Tartrate) 50 Mg Tablet, 50 MG PO BID, (Reported) Entered as Reported by: LIZETTE MOCK on 03/10/20 09 Naproxen (Naproxen) 500 Mg Tablet.dr, 500 MG PO BID Prescribed by: TAMERA ALVARENGA on 06/12/211914 Jewett, Insulin Disposable (Advocate Pen Jewett) 1 Each Dis.needle, EACH [facility], (DME) Prescribed by: ANGUS RAMOS on 03/13/20 114 Sub-Q Infusion Pump Accessory (Accu-Chek) 1 Each Each, EACH [facility], (DME) Prescribed by: ANGUS RAMOS on 03/13/20 114 Sulfamethoxazole/Trimethoprim (Bactrim Ds Tablet) 1 Each Tablet, 1 EACH PO BID Prescribed by: ANGUS RAMOS on 03/13/20 114 Triamcinolone Acet (Triamcinolone Acetonide 0.1% Cream) 15 Gm Cr, 1 APPLIC TOP BID PRN for SKIN IRRITATION, (Reported) Entered as Reported by: LIZETTE MOCK on 03/10/20 0915 Review of Systems Constitutional: no symptoms reported Respiratory: no symptoms reported Cardiovascular: no symptoms reported Musculoskeletal: see HPI Skin: no symptoms reported Psychiatric/Neurological: No Symptoms Reported Past Xbavceh-Pdajam-Uedxev Hx Immunizations Up To Date Tetanus Booster (TDap): Unknown Seasonal Allergies Seasonal Allergies: No Past Medical History Surgeries: Yes (SPLENECTOMY; L ANKLE FX/ORIF; L FOREARM FX/ORIF) Abdominal, Ear Surgery, Orthopedic Respiratory: Yes (LEFT CHEST TUBES X 2 SECONDARY TO TRAUMA) Cardiac: Yes Hypertension Neurological: No Reproductive Disorders: No Sexually Transmitted Disease: No HIV/AIDS: No Genitourinary: Yes (EPIDIDYMITIS; FREQUENT UTI'S; RENAL INSUFFICIENCY) Bladder Infection, Kidney Stones Gastrointestinal: Yes (SPLENECTOMY SECONDARY TO TRAUMA. FATTY LIVER) Liver Disease/Jaundice, Hemorrhoids Musculoskeletal: Yes (LEFT ANKLE FX/ORIF; LEFT FOREARM FX/ORIF) Fractures Endocrine: Yes (OBESITY) Diabetes, Non-Insulin dep HEENT: No Cancer: No Psychosocial: No Integumentary: No Blood Disorders: No Adverse Reaction/Blood Tranf: No Family Medical History No Pertinent Family Hx SOCIAL HISTORY: -ETOH--REGULAR USE/DRINKS BEER DAILY -DRUGS--DENIES -SMOKING--QUIT SMOKING AND CHEWING TOBACCO PSH: -2010--SPLENECTOMY, LEFT CHEST TUBES X 2, AND LEFT FOREARM FRACTURE/ORIF--ALL SECONDARY TO TRAUMA -LEFT FOOT / ANKLE FRACTURES/ORIF -BILATERAL MYRINGOTOMY TUBES -MEATOTOMY CHILD LONG HISTORY OF NON-COMPLICANCE IN ALL ASPECTS OF CARE -DOES NOT CHECK BLOOD GLUCOSE OR FOLLOW DIET, AND FREQUENTLY DOES NOT TAKE DIABETIC MEDICATION -DOES NOT TAKE HIS PRESCRIBED BLOOD PRESSURE MEDICATIONS -DOES NOT FOLLOW UP WITH PCP INSTRUCTED FREQUENT ER VISITS FOR VARIOUS COMPLAINTS. Physical Exam Vital Signs Vital Signs - First Documented 06/12/21 18:50 Temp 37.0 Pulse 93 Resp 18 B/P (MAP) 161/98 (119) Pulse Ox 98 O2 Delivery Room Air Capillary Refill : Height, Weight, BMI Height: 6'0" Weight: 280lbs. 0oz. 127.542837qp; 38.00 BMI Method:Stated General Appearance: WD/WN, no apparent distress Neck: non-tender, full range of motion, supple, normal inspection Cardiovascular: normal peripheral pulses, regular rate, rhythm, no murmur Respiratory: chest non-tender, normal breath sounds, no respiratory distress, no accessory muscle use Gastrointestinal: non tender, soft Back: normal inspection, no CVA tenderness, no vertebral tenderness Shoulder: bone tenderness; No deformity, No ecchymosis; limited ROM, pain, soft tissue tenderness; No swelling Elbow/Forearm: normal inspection, non-tender, no evidence of injury, normal ROM Wrist: Yes normal inspection, Yes non-tender, Yes no evidence of injury, Yes normal ROM Hand: normal inspection, non-tender, no evidence of injury, normal ROM Neurologic/Tendon: normal sensation, normal motor functions, normal tendon functions 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 No opaque loose body. No articular irregularity. IMPRESSION: No acute appearing abnormality. Reviewed: Reviewed by Me Departure Impression Primary Impression: Right shoulder strain Disposition: HOME, SELF-CARE Condition: Stable Departure-Patient Inst. Decision time for Depature: 19:14 Referrals: [facility] [place] ([place]Family) Primary Care Physician Patient Instructions: Overuse Injuries (DC), Using Cold for Pain, Using Heat for Pain Add. Discharge Instructions: ALTERNATE ICE AND HEAT TO SORE AREA AT 20 MINUTE INTERVALS FOLLOW UP WITH YOUR DR IN 1 WEEK IF NO BETTER All discharge instructions reviewed with patient and/or family. Voiced understanding. Scripts Naproxen (Naproxen) 500 Mg Tablet. 500 MG PO BID, #20 TAB Prov: TAMERA ALVARENGA DO 06/12/21 TAMERA ALVARENGA DO Jun 12, 2021 19:11
[2021-06-12] MEDS ORDERED: NAPR500T8 PO (19:15)
--- NOTE | 2021-06-12 19:15 | Diagnostic Imaging Report ---
INDICATION: Right shoulder pain. FINDINGS: Three-view right shoulder demonstrates no fracture, dislocation or joint separation. No opaque loose body. No articular irregularity. IMPRESSION: No acute appearing abnormality. Dictated by: Dictated on workstation # [id number]
[2021-06-12] MEDS ORDERED: RX-NAPROXEN (NAPROSYN) 250 MG TAB PPK#4 PO STA (19:16)
== END 2021-06-12 19:32 | disposition home or self-care (01) ==
LOC: EDUNIT# 18:38 → ER 18:41
DX: S46.911A Strain of unspecified muscle, fascia and tendon at shoulder and upper arm level, right arm, initial encounter (principal); I10 Essential (primary) hypertension; E11.9 Type 2 diabetes mellitus without complications; E66.9 Obesity, unspecified; Z68.38 Body mass index [BMI] 38.0-38.9, adult; X50.1XXA Overexertion from prolonged static or awkward postures, initial encounter
CPT/HCPCS: 73030

== ENCOUNTER 2021-06-15 08:15 | Emergency (ER) | payer OTHER, MEDICAID ==
[~2021-06-15] VITALS: Ht 182 cm; Wt 130.0 kg
[~2021-06-15 08:15] MED LIST changes: +NAPR500T8 PO
--- NOTE | 2021-06-15 08:52 | ED General ---
General Chief Complaint: General Problems/Pain Stated Complaint: R ARM/BACK PAIN,NECK SWOLLEN Nursing Triage Note: AMB TO ROOM WITH FEMALE WITH C/O R SHOULDER PAIN WAS SEEN IN ED ON 06/12 AND GIVEN A RX FOR NAPROXEN DID GET IT FILLED WAS SUPPOSE TO GO TO [facility].SAW [facility] YESTERDAY AND STARTED ON BACLOFEN REPORTS NOT ANY BETTER. FELLING LIKE AT TIMES HAS NUMBNESS IN R ARM. GOOD CMS ON ADMIT. Source of Information: Patient Exam Limitations: No Limitations (BRANDIN LEVY STUDENT) History of Present Illness Date Seen by Provider: Jun 15, 2021 Time Seen by Provider: 08:45 Initial Comments Patient is a 36yoM with history of poorly-controlled HTN, HLD, DM who presents with chief complaint of sudden onset neck pain beginning ~midnight. He complains of dysphagia and a cough producing foul sputum. He feels like "something is stuck in his throat and he can't get it up". There is fullness of neck on the right and he has pain on the right side extending to supraclavicular area. Pain is causing limited range of motion in neck. His is at bedside and states that his voice has changed, "much quieter and scratchy". He has not had fever, SOA, chills, N/V, ear pain or tooth pain. Patient says it does not feel like a sore throat because pain is deeper than that. He has tried Tylenol for pain relief, last dose 0200. Last meal was pizza yesterday evening and he had popsicles ~0200. He is hypertensive but resting in no distress upon exam O2 sat 95%. Patient was seen here three days ago for right shoulder pain secondary to overuse. Xray negative for fracture and patient sent home with Naproxen and instructions to rest and ice injury. Patient went to [facility] yesterday for continued right shoulder involving ribs and upper back. He was given a muscle relaxer but only took one dose because it made him feel "loopy". Main complaint today is for the new onset neck pain, not concerned about shoulder pain at the moment. Timing/Duration: 4-6 Hours Severity: Severe Modifying Factors: improves with Movement (BRANDIN LEVY STUDENT) Allergies and Home Medications Allergies Coded Allergies: morphine (Verified Adverse Reaction, Intermediate, 09/13/16) MAKES HIM AGGRESSIVE Patient Home Medication List Home Medication List Reviewed: Yes (ESTELLA JENKINS MD) Acetaminophen (Tylenol Extra Strength) 500 Mg Tablet, 1,000 MG PO Q8H PRN for PAIN-MILD (1-4), (Reported) Entered as Reported by: LIZETTE MOCK on 03/10/20 0932 Albuterol Sulfate (Ventolin Hfa) 1 Puff Puff, 2 PUFF INH Q4H PRN for SHORTNESS OF BREATH, (Reported) Entered as Reported by: LIZETTE MOCK on 03/10/20 0915 Blood-Glucose Meter (Blood Glucose Meter) 1 Each Each, EACH ACHS, (DME) Prescribed by: ANGUS RAMOS on 03/13/20 114 Hydrocodone/Acetaminophen (Hydrocodone-Acetamin 5-325 mg) 1 Each Tablet, 1 TAB PO Q4H PRN for PAIN-MODERATE (5-7) Prescribed by: ANGUS RAMOS on 03/13/20 114 Insulin Aspart (Novolog Flexpen) 300 Units/3 Ml Solution, 5 UNITS SQ AC Prescribed by: ANGUS RAMOS on 03/13/20 114 Insulin Detemir (Levemir Flextouch) 100 Unit/1 Ml Insuln.pen, 10 UNIT SQ BID Prescribed by: ANGUS RAMOS on 03/13/20 114 Lancets (Advocate Lancets) 1 Each Each, EACH ACHS, (DME) Prescribed by: ANGUS RAMOS on 03/13/20 114 Metoprolol Tartrate (Metoprolol Tartrate) 50 Mg Tablet, 50 MG PO BID, (Reported) Entered as Reported by: LIZETTE MOCK on 03/10/20 0915 Naproxen (Naproxen) 500 Mg Tablet.dr, 500 MG PO BID Prescribed by: TAMERA ALVARENGA on 06/12/211914 [place], Insulin Disposable (Advocate Pen [place]) 1 Each Dis.needle, EACH ACHS, (DME) Prescribed by: ANGUS RAMOS on 03/13/20 114 Sub-Q Infusion Pump Accessory (Accu-Chek) 1 Each Each, EACH ACHS, (DME) Prescribed by: ANGUS RAMOS on 03/13/20 114 Sulfamethoxazole/Trimethoprim (Bactrim Ds Tablet) 1 Each Tablet, 1 EACH PO BID Prescribed by: ANGUS RAMOS on 03/13/20 1145 Triamcinolone Acet (Triamcinolone Acetonide 0.1% Cream) 15 Gm Cr, 1 APPLIC TOP BID PRN for SKIN IRRITATION, (Reported) Entered as Reported by: LIZETTE MOCK on 03/10/20 0915 Review of Systems Review of Systems Constitutional: No chills, No diaphoresis, No fever EENTM: hoarseness, throat swelling; No blurred vision, No mouth pain, No nose congestion, No nose pain Respiratory: cough, phlegm (foul smelling); No stridor, No wheezing Cardiovascular: No edema Gastrointestinal: No constipation, No diarrhea, No hematemesis, No nausea, No vomiting Genitourinary: No dysuria, No frequency, No hematuria Musculoskeletal: joint pain (R shoulder into rib), muscle pain (right back muscalature) Skin: no symptoms reported Psychiatric/Neurological: No Symptoms Reported Hematologic/Lymphatic: No Symptoms Reported Immunological/Allergic: no symptoms reported (BRANDIN LEVY STUDENT) Past Hcxwiuw-Jltmgp-Tksyaq Hx Patient Social History Tobacco Use?: No Substance use?: No Alcohol Use?: No (BRANDIN LEVY STUDENT) Tobacco Use?: Yes Smokeless Tobacco Frequency: Current Everyday User (ESTELLA JENKINS MD) Immunizations Up To Date Tetanus Booster (TDap): Unknown First/Initial COVID19 Vaccinat: 08/18 Second COVID19 Vaccination Fredi: 09/15 (BRANDIN LEVY STUDENT) Seasonal Allergies Seasonal Allergies: No (BRANDIN LEVY) Past Medical History Surgeries: Yes (SPLENECTOMY; L ANKLE FX/ORIF; L FOREARM FX/ORIF) Abdominal, Ear Surgery, Orthopedic Respiratory: Yes (LEFT CHEST TUBES X 2 SECONDARY TO TRAUMA) Cardiac: Yes Hypertension Neurological: No Reproductive Disorders: No Sexually Transmitted Disease: No HIV/AIDS: No Genitourinary: Yes (EPIDIDYMITIS; FREQUENT UTI'S; RENAL INSUFFICIENCY) Bladder Infection, Kidney Stones Gastrointestinal: Yes (SPLENECTOMY SECONDARY TO TRAUMA. FATTY LIVER) Liver Disease/Jaundice, Hemorrhoids Musculoskeletal: Yes (LEFT ANKLE FX/ORIF; LEFT FOREARM FX/ORIF) Fractures Endocrine: Yes (OBESITY) Diabetes, Non-Insulin dep HEENT: No Cancer: No Psychosocial: No Integumentary: No Blood Disorders: No Adverse Reaction/Blood Tranf: No (BRANDIN LEVY STUDENT) Family Medical History No Pertinent Family Hx SOCIAL HISTORY: -ETOH--REGULAR USE/DRINKS BEER DAILY -DRUGS--DENIES -SMOKING--QUIT SMOKING AND CHEWING TOBACCO PSH: -2010--SPLENECTOMY, LEFT CHEST TUBES X 2, AND LEFT FOREARM FRACTURE/ORIF--ALL SECONDARY TO TRAUMA -LEFT FOOT / ANKLE FRACTURES/ORIF -BILATERAL MYRINGOTOMY TUBES -MEATOTOMY CHILD LONG HISTORY OF NON-COMPLICANCE IN ALL ASPECTS OF CARE -DOES NOT CHECK BLOOD GLUCOSE OR FOLLOW DIET, AND FREQUENTLY DOES NOT TAKE DIABETIC MEDICATION -DOES NOT TAKE HIS PRESCRIBED BLOOD PRESSURE MEDICATIONS -DOES NOT FOLLOW UP WITH PCP INSTRUCTED FREQUENT ER VISITS FOR VARIOUS COMPLAINTS. (BRANDIN LEVY STUDENT) Physical Exam Vital Signs Vital Signs - First Documented 06/15/21 06/15/21 08:29 15:09 Temp 37.3 Pulse 100 Resp 18 B/P (MAP) 166/110 (128) Pulse Ox 97 O2 Delivery Room Air (ESTELLA JENKINS MD) Vital Signs Capillary Refill : Less Than 3 Seconds (BRANDIN LEVY STUDENT) Height, Weight, BMI Height: 6'0" Weight: 280lbs. 0oz. 127.472351uz; 39.00 BMI Method:Stated General Appearance: No Apparent Distress, Obese HEENT: TMs Normal, Moist Mucous Membranes; No Tonsillar Exudate; Other (oral mucosa without ulcer or erythema. Odontia of top teeth. Intact teeth look without infection) Neck: No JVD; Limited Range of Motion, Lymphadenopathy (R), Tender Lateral, Other (fullness of right side of neck) Respiratory: No Chest Non Tender (supraclavicular tenderness); Lungs Clear, Normal Breath Sounds, No Accessory Muscle Use, No Respiratory Distress Cardiovascular: Regular Rate, Rhythm, No Edema, No JVD, Normal Peripheral Pulses Gastrointestinal: Normal Bowel Sounds, Non Tender, Soft Back: No CVA Tenderness, No Vertebral Tenderness Extremity: Normal Capillary Refill, Normal Inspection, Normal Range of Motion, Non Tender, No Calf Tenderness, No Pedal Edema Neurologic/Psychiatric: Alert, Oriented x3, No Motor/Sensory Deficits, Normal Mood/Affect, surveillance officer II-XII Norm as Tested Skin: Normal Color, Warm/Dry Lymphatic: No Adenopathy (BRANDIN LEVY Zentyal STUDENT) General Appearance: No Apparent Distress, WD/WN Eyes: Bilateral Eye Normal Inspection, Bilateral Eye PERRL, Bilateral Eye EOMI HEENT: Other (patient is edentulous upper; poor dentition lower. No tongue swelling; no submental induration. mas prominence of soft tissues in the posterior pharynx - unable to really visualize the posterior pharynx; "hot potato voice") Neck: Other (tender right neck from just below the right ear down the SCM on the right; supraclavicular fullness - no discrete lymphnodes palpable) Respiratory: Lungs Clear Cardiovascular: Regular Rate, Rhythm (not tachy) Neurologic/Psychiatric: Alert, Oriented x3, No Motor/Sensory Deficits, Normal Mood/Affect Skin: Normal Color, Warm/Dry (ESTELLA JENKINS MD) Progress/Results/Core Measures Suspected Sepsis SIRS Temperature: Pulse: 100 Respiratory Rate: 18 Laboratory Tests 06/15/21 09:26: White Blood Count 22.3H Blood Pressure 166 /110 Mean: 128 Laboratory Tests 06/15/21 09:26: Creatinine 1.48H, Platelet Count 419H, Total Bilirubin 0.5 (NORMANBRANDIN BUCIO Zentyal STUDENT) Results/Orders Lab Results Laboratory Tests Test 06/15/21 09:26 06/15/21 13:38 06/15/21 14:18 Range/Units White Blood Count 22.3 H 4.3-11.0 10^3/uL Red Blood Count 5.00 4.30-5.52 10^6/uL Hemoglobin 14.6 13.3-17.7 g/dL Hematocrit 45 40-54 % Mean Corpuscular Volume 90 80-99 fL Mean Corpuscular Hemoglobin 29 25-34 pg Mean Corpuscular Hemoglobin Concent 32 32-36 g/dL Red Cell Distribution Width 12.8 10.0-14.5 % Platelet Count 419 H 130-400 10^3/uL Mean Platelet Volume 10.4 9.0-12.2 fL Immature Granulocyte % (Auto) 1 % Neutrophils (%) (Auto) 83 H 42-75 % Lymphocytes (%) (Auto) 8 L 12-44 % Monocytes (%) (Auto) 8 0-12 % Eosinophils (%) (Auto) 1 0-10 % Basophils (%) (Auto) 0 0-10 % Neutrophils # (Auto) 18.5 H 1.8-7.8 10^3/uL Lymphocytes # (Auto) 1.8 1.0-4.0 10^3/uL Monocytes # (Auto) 1.7 H 0.0-1.0 10^3/uL Eosinophils # (Auto) 0.1 0.0-0.3 10^3/uL Basophils # (Auto) 0.1 0.0-0.1 10^3/uL Immature Granulocyte # (Auto) 0.2 H 0.0-0.1 10^3/uL Neutrophils % (Manual) 82 % Lymphocytes % (Manual) 6 % Monocytes % (Manual) 9 % Eosinophils % (Manual) 0 % Basophils % (Manual) 0 % Band Neutrophils 3 % Blood Morphology Comment NORMAL Sodium Level 132 L 135-145 MMOL/L Potassium Level 4.2 3.6-5.0 MMOL/L Chloride Level 99 98-107 MMOL/L Carbon Dioxide Level 19 L 21-32 MMOL/L Anion Gap 14 5-14 MMOL/L Blood Urea Nitrogen 12 7-18 MG/DL Creatinine 1.48 H 0.60-1.30 MG/DL Estimat Glomerular Filtration Rate 63 BUN/Creatinine Ratio 8 Glucose Level 419 *H 70-105 MG/DL Calcium Level 9.5 8.5-10.1 MG/DL Corrected Calcium 9.8 8.5-10.1 MG/DL Total Bilirubin 0.5 0.1-1.0 MG/DL Aspartate Amino Transf (AST/SGOT) 14 5-34 U/L Alanine Aminotransferase (ALT/SGPT) 16 0-55 U/L Alkaline Phosphatase 131 40-136 U/L C-Reactive Protein High Sensitivity 35.70 H 0.00-0.50 MG/DL Total Protein 7.7 6.4-8.2 GM/DL Albumin 3.6 3.2-4.5 GM/DL Influenza Type A (RT-PCR) Not Detected Not Detecte Influenza Type B (RT-PCR) Not Detected Not Detecte SARS-CoV-2 RNA (RT-PCR) Not Detected Not Detecte Glucometer 319 H 70-110 MG/DL (ESTELLA JENKINS MD) My Orders Orders - ESTELLA JENKINS MD Ed Iv/Invasive Line Start (06/15/21 09:10) Cbc With Automated Diff (06/15/21 09:10) Comprehensive Metabolic Panel (06/15/21 09:10) Hs C Reactive Protein (06/15/21 09:10) Chest 1 View, Ap/Pa Only (06/15/21 09:10) Manual Differential (06/15/21 09:26) Fentanyl Inj (Sublimaze Injection) (06/15/21 09:45) Ns Iv 1000 Ml (Sodium Chloride 0.9%) (06/15/21 10:00) Ct Neck (Soft Tissue) W (06/15/21 09:52) Iohexol Injection (Omnipaque 350 Mg/Ml 1 (06/15/21 10:15) Received Contrast (Hold Metformin- Contr (06/15/21 10:15) Ns (Ivpb) (Sodium Chloride 0.9% Ivpb Bag (06/15/21 10:15) Piperacillin Sodium/Tazobactam (Zosyn Vi (06/15/21 12:15) Dexamethasone Injection (Decadron Injec (06/15/21 12:07) Insulin (Regular) Human (Novolin R (Per (06/15/21 12:08) Fentanyl Inj (Sublimaze Injection) (06/15/21 13:15) Covid 19 Inhouse Test (06/15/21 13:24) Influenza A And B By Pcr (06/15/21 13:24) Isolation Central Supply Req (06/15/21 13:24) (ESTELLA JENKINS MD) Medications Given in ED Current Medications Medications Dose Ordered Sig/Radha Route Start Time Stop Time Status Last Admin Dose Admin Fentanyl Citrate 50 mcg ONCE ONCE IVP 06/15/21 09:45 06/15/21 09:46 DC 06/15/21 09:43 50 MCG Fentanyl Citrate 50 mcg ONCE ONCE IVP 06/15/21 13:15 06/15/21 13:16 DC 06/15/21 13:25 50 MCG Iohexol 100 ml ONCE ONCE IV 06/15/21 10:15 06/15/21 10:16 DC 06/15/21 10:32 75 ML Piperacillin Sod/ Tazobactam Sod 4.5 gm/Sodium Chloride 100 ml @ 200 mls/hr ONCE ONCE IV 06/15/21 12:15 06/15/21 12:44 DC 06/15/21 12:45 200 MLS/HR Sodium Chloride 100 ml ONCE ONCE IV 06/15/21 10:15 06/15/21 10:16 DC 06/15/21 10:32 80 ML (ESTELLA JENKINS MD) Vital Signs/I&O 06/15/21 06/15/21 06/15/21 08:29 15:09 16:00 Temp 37.3 Pulse 100 89 90 Resp 18 18 18 B/P (MAP) 166/110 (128) 155/94 119/71 Pulse Ox 97 95 98 O2 Delivery Room Air Room Air (ESTELLA JENKINS MD) Vital Signs/I&O Capillary Refill : Less Than 3 Seconds (BRANDIN LEVY MED STUDENT) Blood Pressure Mean: 128 Progress Note #1: Time: 12:48 Progress Note Still feels short of breath, requesting more pain medicine. Decadron given as well as some regular insulin. Giving him some Zosyn. Oxygen saturations are stable at this time. No stridor. Advised he and his the results of the CT studies will talk to ENT Progress Note #2: Time: 16:00 Progress Note Notified by nursing staff that the patient did not want to go to . I had spoken with Dr. De Los Santos, ENT at 1539 after hours of trying to get CT scan reports faxed/images sent and medical records to . She had accepted the patient in consult and recommended medical admission for further management of diabetes and hypertensive issues. She was agreeable with antibiotics and steroids. She did believe that the patient needed admission for further management and monitoring. I was able to obtain a medical bed however in the interim the patient stated that he would like to leave this facility AGAINST MEDICAL ADVICE. He states that he would prefer to be at a hospital more local to where he lives and advises that he wants to go to [facility] and wait in the waiting room at either [facility] or [facility]. I had a long discussion with him regarding the risks of leaving against medical of advice to include worsening of his kindra athing/infection, catastrophic airway closure, need for surgical airway, risk of . He was able to articulate all of this back to me. He states that he understands the risks of leaving. He states that he is very hungry and has not had anything since noon. I advised him that he needed to stay n.p.o. in case he had to have surgery. He wants to eat and stated that if another facility told him he needed surgery, he would just say "I didn't know". He is adamant about leaving this facility. I did obtain a bed at (they called back with acceptance actually as I am typing this). He is still speaking in a "hot potato" voice. He sounds rather hoarse. No respiratroy distress. I advised him that going to another facility and waiting in the waiting room could potentially also worsen his condition as he would have a significant delay in antibiotics and further treatment. Again he verbalized understanding but insisted on leaving AMA. (ESTELLA JENKINS MD) Diagnostic Imaging Diagonstic Imaging: Xray [facility] [place] [place] NAME: ROCIO MILANLES Harkins MED REC#: [id number] PT STATUS: REG ER : 1985 PHYSICIAN: ESTELLA JENKINS MD ADMIT DATE: 06/15/21/ER Draft Date of Exam:06/15/21 CHEST 1 VIEW, AP/PA ONLY INDICATION: Right shoulder pain. Occasional numbness and right arm.. TECHNIQUE: Single view chest 9:29 AM. CORRELATION STUDY: 03/11/2020 FINDINGS: Heart size enlarged. Vasculature overall within normal limits. The lungs are clear with no consolidating infiltrate. Unchanged elevated right diaphragm. There is no significant effusion or pneumothorax. IMPRESSION: 1. Negative for acute abnormality of the chest. Dictated on workstation # [id number] Dict: 06/15/21 0936 Trans: 06/15/21 0947 DO [id number] Interpreted by: SHANE MORGAN DO Electronically signed by: [facility] [place] NAME: KAREN MILAN [facility] REC#: [id number] PT STATUS: REG ER : 1985 PHYSICIAN: ESTELLA JENKINS MD ADMIT DATE: 06/15/21/ER Draft Date of Exam:06/15/21 CT NECK (SOFT TISSUE) W CLINICAL INDICATION: Patient with right supraclavicular swelling and arm numbness and odynophagia. Patient has "hot potato" voice. Patient was doing heavy moving approximately a week ago. EXAM: Axial CT scan of the neck soft tissue performed with 75 mL of Omnipaque 350 IV contrast. Sagittal and coronal reformatted images were created. Auto Exposure Controls were utilized during the CT exam to meet ALARA standards for radiation dose reduction. COMPARISON: CT angiogram of the head/neck dated 06/11/2019. FINDINGS: There is interval diffuse soft tissue swelling of the oropharynx, supraglottic larynx and upper hypopharyngeal region. The epiglottis is not significantly swollen. There is swelling of the bilateral aryepiglottic folds. There is severe narrowing of the oropharynx and supraglottic larynx region. There is enlargement of the bilateral palatine tonsils. There is no retrotonsillar abscess. There is soft tissue prominence of the soft palate/uvula noted which contributes to narrowing of the airway. There is soft tissue swelling and fat stranding in the right parapharyngeal fat at the level of the oropharynx. There is no drainable abscess seen. There is also soft tissue swelling involving the infrahyoid and suprahyoid strap muscles on the right with fluid seen between the thyroid gland and infrahyoid right strap muscle region. There is also fat stranding and swelling in the upper anterior mediastinum posterior to the manubrium likely extending from the upper neck inflammation. This area of fluid with convex border is seen anterior to the right thyroid lobe inferiorly and beneath the infrahyoid strap muscle measures roughly 2.2 cm x 4.7 cm by at least 4.2 cm in craniocaudal dimension. Given that this area has convex borders, unknown if this represents an abscess, but is suspected to be outside of the right thyroid lobe. There is inflammation of fat stranding adjacent to the region. Stable prominence of the posterior nasopharyngeal soft tissue. There is no prevertebral or retro-pharyngeal fluid collection or abscess. Visualized portions of the lower cavity, tongue, sublingual and submandibular regions are unremarkable. Salivary glands are unremarkable. Thyroid gland shows no other significant abnormality. There are multiple subcentimeter short axis lymph nodes involving both sides of the neck with the right-side more than left, likely reactive. Visualized upper lung brooks show mild consolidation anteriorly involving the right upper lobe. There is loss of lordosis of the cervical spine posture. Limited visualization of the intracranial structures is unremarkable. There is mild mucosal thickening involving both maxillary sinuses. There are bony defects involving the medial wall of the left orbit which is chronic. There is intraorbital fat extending slightly into the left ethmoid sinus region. IMPRESSION: 1: There is marked soft tissue swelling of the oropharynx, hypopharynx, and supraglottic larynx. There is no significant thickening of the epiglottis. There is enlargement of the bilateral palatine tonsils. Differential consideration includes infectious or inflammatory pharyngolaryngitis. Traumatic inflammation should also be excluded, but would be known by clinical history. There is associated severe airway narrowing in the region of the supraglottic larynx and level of the soft palate. There is soft tissue swelling and fluid along the right parapharyngeal fat along the right side of the neck extending all the way to the upper mediastinal region. There is fat stranding seen in the right side of the neck. 2: There is a fluid collection with convex borders seen posterior to the infrahyoid right strap muscles and anterior to the right thyroid lobe. If patient has infectious symptoms, an abscess may be considered. If patient has no infectious symptoms, then muscle injury of the infrahyoid right strap muscle may be considered with adjacent soft tissue swelling. It appears that this fluid collection is anterior to the right thyroid lobe causing mass effect, but is not from the right thyroid lobe. Prior CT angiogram showed no abnormality of the right thyroid gland on the prior study. 2: Reactive lymphadenopathy is noted. 3: There is no peritonsillar abscess, prevertebral fluid collection, or retropharyngeal fluid collection/abscess. There is no radiodense foreign object or soft tissue gas seen. Results of this report discussed were discussed with Dr. Shahrzad Jenkins via the telephone on 06/15/2021 at 1200 hours. Dictated on workstation # [id number] Dict: 06/15/21 1133 Trans: 06/15/21 1302 [facility] [id number] Interpreted by: ROLAND BACH MD Electronically signed by: (ESTELLA JENKINS MD) Departure Impression Primary Impression: Oropharynx infection Additional Impressions: Inflammatory disorder of mediastinum Noncompliance with diabetes treatment Hyperglycemia Disposition: 07 AGAINST MEDICAL ADVICE Condition: Against Medical Advice Transfer Transfer Reason: Exceeds level of care Transfer Progress Notes [address] De Los Sanots, ENT acceptsfor consult (ESTELLA JENKINS MD) Departure-Patient Inst. Referrals: [facility] (PCP/Family) Primary Care Physician Verification and Attestation of Medical Student E/M Service A medical student performed and documented this service in my presence. I reviewed and verified all information documented by the medical student and made modifications to such information, when appropriate. I personally performed the physical exam and medical decision making. Estella Jenkins, Jun 15, 2021,16:29 (ESTELLA JENKINS MD) BRANDIN LEVY MED STUDENT Jun 15, 2021 08:52 ESTELLA JENKINS MD Jun 15, 2021 11:35
[2021-06-15 09:31] LABS: BASOPHILS # (AUTO) 0.1 10^3/uL (0.0-0.1); BASOPHILS % (AUTO) 0 % (0-10); EOSINOPHILS # (AUTO) 0.1 10^3/uL (0.0-0.3); EOSINOPHILS % (AUTO) 1 % (0-10); HEMATOCRIT 45 % (40-54); HEMOGLOBIN 14.6 g/dL (13.3-17.7); LYMPHOCYTES # (AUTO) 1.8 10^3/uL (1.0-4.0); LYMPHOCYTES % (AUTO) 8 % (12-44); MEAN CORPUSCULAR HEMOGLOBIN 29 pg (25-34); MEAN CORPUSCULAR HGB CONC 32 g/dL (32-36); MEAN CORPUSCULAR VOLUME 90 fL (80-99); MEAN PLATELET VOLUME 10.4 fL (9.0-12.2); MONOCYTES # (AUTO) 1.7 10^3/uL (0.0-1.0); MONOCYTES % (AUTO) 8 % (0-12); NEUTROPHILS # (AUTO) 18.5 10^3/uL (1.8-7.8); NEUTROPHILS % (AUTO) 83 % (42-75); PLATELET COUNT 419 10^3/uL (130-400); WHITE BLOOD COUNT 22.3 10^3/uL (4.3-11.0)
[2021-06-15 09:39] LABS: ALBUMIN 3.6 GM/DL (3.2-4.5); POTASSIUM 4.2 MMOL/L (3.6-5.0)
[2021-06-15 09:41] LABS: CALCIUM 9.5 MG/DL (8.5-10.1)
[2021-06-15 09:42] LABS: TOTAL PROTEIN 7.7 GM/DL (6.4-8.2)
[2021-06-15 09:44] LABS: BILIRUBIN,TOTAL 0.5 MG/DL (0.1-1.0)
[2021-06-15 09:45] LABS: CREATININE SERUM 1.48 MG/DL (0.60-1.30)
[2021-06-15] MEDS ORDERED: fentaNYL INJ 100 MCG/2 ML AMP IVP ONE ×2 (09:45→13:15)
--- NOTE | 2021-06-15 09:48 | Diagnostic Imaging Report ---
INDICATION: Right shoulder pain. Occasional numbness and right arm.. TECHNIQUE: Single view chest 9:29 AM. CORRELATION STUDY: 03/11/2020 FINDINGS: Heart size enlarged. Vasculature overall within normal limits. The lungs are clear with no consolidating infiltrate. Unchanged elevated right diaphragm. There is no significant effusion or pneumothorax. IMPRESSION: 1. Negative for acute abnormality of the chest. Dictated by: Dictated on workstation # [id number]
[2021-06-15] MEDS ORDERED: NS IV 1000 ML 1,000 ML IV SCH (10:00)
[2021-06-15 10:06] LABS: BAND NEUTROPHILS 3 %; BASOPHILS % (MANUAL) 0 %; EOSINOPHILS % (MANUAL) 0 %; LYMPHOCYTES % (MANUAL) 6 %; MONOCYTES % (MANUAL) 9 %; NEUTROPHILS % (MANUAL) 82 %; RBC MORPH NORMAL
[2021-06-15] MEDS ORDERED: NS 100 ML (IVPB) BAG IV ONE (10:15)
[2021-06-15] MEDS ORDERED: IOHEXOL 350 MG/ML 100 ML (OMNIPAQUE 350) VIAL IV ONE (10:15)
[2021-06-15] MEDS ORDERED: HOLD METFORMIN - RECEIVED CONTRAST 20 ML VIAL IV SCH (10:15)
[2021-06-15] MEDS ORDERED: inSUlin (REGULAR) HUMAN 1 UNIT/0.01 ML (CHARGE PER UNIT) SC STA (12:08)
[2021-06-15] MEDS ORDERED: PIPERACILLIN SODIUM/TAZOBACTAM 4.5 GM in NS (IVPB) 100 ML IV ONE (12:15)
--- NOTE | 2021-06-15 13:03 | Diagnostic Imaging Report ---
CLINICAL INDICATION: Patient with right supraclavicular swelling and arm numbness and odynophagia. Patient has "hot potato" voice. Patient was doing heavy moving approximately a week ago. EXAM: Axial CT scan of the neck soft tissue performed with 75 mL of Omnipaque 350 IV contrast. Sagittal and coronal reformatted images were created. Auto Exposure Controls were utilized during the CT exam to meet ALARA standards for radiation dose reduction. COMPARISON: CT angiogram of the head/neck dated 06/11/2019. FINDINGS: There is interval diffuse soft tissue swelling of the oropharynx, supraglottic larynx and upper hypopharyngeal region. The epiglottis is not significantly swollen. There is swelling of the bilateral aryepiglottic folds. There is severe narrowing of the oropharynx and supraglottic larynx region. There is enlargement of the bilateral palatine tonsils. There is no retrotonsillar abscess. There is soft tissue prominence of the soft palate/uvula noted which contributes to narrowing of the airway. There is soft tissue swelling and fat stranding in the right parapharyngeal fat at the level of the oropharynx. There is no drainable abscess seen. There is also soft tissue swelling involving the infrahyoid and suprahyoid strap muscles on the right with fluid seen between the thyroid gland and infrahyoid right strap muscle region. There is also fat stranding and swelling in the upper anterior mediastinum posterior to the manubrium likely extending from the upper neck inflammation. This area of fluid with convex border is seen anterior to the right thyroid lobe inferiorly and beneath the infrahyoid strap muscle measures roughly 2.2 cm x 4.7 cm by at least 4.2 cm in craniocaudal dimension. Given that this area has convex borders, unknown if this represents an abscess, but is suspected to be outside of the right thyroid lobe. There is inflammation of fat stranding adjacent to the region. Stable prominence of the posterior nasopharyngeal soft tissue. There is no prevertebral or retro-pharyngeal fluid collection or abscess. Visualized portions of the lower cavity, tongue, sublingual and submandibular regions are unremarkable. Salivary glands are unremarkable. Thyroid gland shows no other significant abnormality. There are multiple subcentimeter short axis lymph nodes involving both sides of the neck with the right-side more than left, likely reactive. Visualized upper lung brooks show mild consolidation anteriorly involving the right upper lobe. There is loss of lordosis of the cervical spine posture. Limited visualization of the intracranial structures is unremarkable. There is mild mucosal thickening involving both maxillary sinuses. There are bony defects involving the medial wall of the left orbit which is chronic. There is intraorbital fat extending slightly into the left ethmoid sinus region. IMPRESSION: 1: There is marked soft tissue swelling of the oropharynx, hypopharynx, and supraglottic larynx. There is no significant thickening of the epiglottis. There is enlargement of the bilateral palatine tonsils. Differential consideration includes infectious or inflammatory pharyngolaryngitis. Traumatic inflammation should also be excluded, but would be known by clinical history. There is associated severe airway narrowing in the region of the supraglottic larynx and level of the soft palate. There is soft tissue swelling and fluid along the right parapharyngeal fat along the right side of the neck extending all the way to the upper mediastinal region. There is fat stranding seen in the right side of the neck. 2: There is a fluid collection with convex borders seen posterior to the infrahyoid right strap muscles and anterior to the right thyroid lobe. If patient has infectious symptoms, an abscess may be considered. If patient has no infectious symptoms, then muscle injury of the infrahyoid right strap muscle may be considered with adjacent soft tissue swelling. It appears that this fluid collection is anterior to the right thyroid lobe causing mass effect, but is not from the right thyroid lobe. Prior CT angiogram showed no abnormality of the right thyroid gland on the prior study. 2: Reactive lymphadenopathy is noted. 3: There is no peritonsillar abscess, prevertebral fluid collection, or retropharyngeal fluid collection/abscess. There is no radiodense foreign object or soft tissue gas seen. Results of this report discussed were discussed with Dr. Shahrzad Jenkins via the telephone on 06/15/2021 at 1200 hours. Dictated by: Dictated on workstation # [id number]
[2021-06-15 16:00] VITALS: BP 119/71
== END 2021-06-15 16:03 | disposition left against medical advice (07) ==
LOC: EDUNIT# 08:15 → ER 08:17
DX: J39.1 Other abscess of pharynx (principal); J98.59 Other diseases of mediastinum, not elsewhere classified; E11.65 Type 2 diabetes mellitus with hyperglycemia; E66.9 Obesity, unspecified; I10 Essential (primary) hypertension; Z91.19 Patient's noncompliance with other medical treatment and regimen; Z20.822 Contact with and (suspected) exposure to COVID-19; Z68.39 Body mass index [BMI] 39.0-39.9, adult
CPT/HCPCS: 36415; 70491; 71045; 80053; 82947; 85007; 85027; 86141; 87636

== ENCOUNTER 2022-01-05 08:16 | Emergency (ER) | payer OTHER, MEDICAID ==
[~2022-01-05] VITALS: Ht 175 cm; Wt 129.2 kg
--- NOTE | 2022-01-05 08:50 | ED Upper Extremity ---
General Chief Complaint: Upper Extremity Stated Complaint: L SHOULDER PAIN Nursing Triage Note: PT TO FT 1 WITH CC OF L SHOULDER PAIN SINCE YESTERDAY AM. DENIES INJURY. PT REPORTS TOOK TYNONAL FOR PAIN. PT A&OX4 Source: patient Exam Limitations: no limitations History of Present Illness Date Seen by Provider: Jan 05, 2022 Time Seen by Provider: 08:31 Initial Comments Here with report of left shoulder pain that he actually describes as near the shoulder blade. Onset yesterday that did respond to Tylenol yesterday and till this morning. Woke him up about 4:30 AM this morning and he took Tylenol at 5 AM but pain continues. He is post to go to work today. 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 Denies other injury or concern. Onset: yesterday Severity: moderate Method of Injury: unknown Modifying Factors: Improves With Immobilization; Worse With Movement Allergies and Home Medications Allergies Coded Allergies: morphine (Verified Adverse Reaction, Intermediate, 09/13/16) MAKES HIM AGGRESSIVE Patient Home Medication List Home Medication List Reviewed: Yes Acetaminophen (Tylenol Extra Strength) 500 Mg Tablet, 1,000 MG PO Q8H PRN for PAIN-MILD (1-4), (Reported) Entered as Reported by: LIZETTE MOCK on 03/10/20 0932 Albuterol Sulfate (Ventolin Hfa) 1 Puff Puff, 2 PUFF INH Q4H PRN for SHORTNESS OF BREATH, (Reported) Entered as Reported by: LIZETTE MOCK on 03/10/20 0915 Blood-Glucose Meter (Blood Glucose Meter) 1 Each Each, EACH [facility], (DME) Prescribed by: ANGUS RAMOS on 03/13/20 1145 Hydrocodone/Acetaminophen (Hydrocodone-Acetamin 5-325 mg) 1 Each Tablet, 1 TAB PO Q4H PRN for PAIN-MODERATE (5-7) Prescribed by: ANGUS RAMOS on 03/13/20 1145 Insulin Aspart (Novolog Flexpen) 300 Units/3 Ml Solution, 5 UNITS SQ AC Prescribed by: ANGUS RAMOS on 03/13/20 1145 Insulin Detemir (Levemir Flextouch) 100 Unit/1 Ml Insuln.pen, 10 UNIT SQ BID Prescribed by: ANGUS RAMOS on 03/13/20 1145 Lancets (Advocate Lancets) 1 Each Each, EACH [facility], (DME) Prescribed by: ANGUS RAMOS on 03/13/20 114 Metoprolol Tartrate (Metoprolol Tartrate) 50 Mg Tablet, 50 MG PO BID, (Reported) Entered as Reported by: LIZETTE MOCK on 03/10/20914 Naproxen (Naproxen) 500 Mg Tablet.dr, 500 MG PO BID Prescribed by: TAMERA ALVARENGA on 06/12/211914 [place], Insulin Disposable (Advocate Pen [place]) 1 Each Dis.needle, EACH [facility], (DME) Prescribed by: ANGUS RAMOS on 03/13/20 114 Sub-Q Infusion Pump Accessory (Accu-Chek) 1 Each Each, EACH [facility], (DME) Prescribed by: ANGUS RAMOS on 03/13/20 114 Sulfamethoxazole/Trimethoprim (Bactrim Ds Tablet) 1 Each Tablet, 1 EACH PO BID Prescribed by: ANGUS RAMOS on 03/13/20 114 Triamcinolone Acet (Triamcinolone Acetonide 0.1% Cream) 15 Gm Cr, 1 APPLIC TOP BID PRN for SKIN IRRITATION, (Reported) Entered as Reported by: LIZETTE MOCK on 03/10/20914 Review of Systems Constitutional: No chills, No fever Respiratory: No cough, No short of breath Cardiovascular: No chest pain, No palpitations Musculoskeletal: back pain, muscle stiffness Past Nocvmxw-Trumlv-Hvbhbg Hx Patient Social History Tobacco Use?: No Substance use?: No Alcohol Use?: No Pt feels they are or have been: No Immunizations Up To Date Tetanus Booster (TDap): Unknown First/Initial COVID19 Vaccinat: 08/18 Second COVID19 Vaccination Fredi: 09/15 Third COVID19 Vaccination Date: 08/18 Seasonal Allergies Seasonal Allergies: No Past Medical History Surgeries: Yes (SPLENECTOMY; L ANKLE FX/ORIF; L FOREARM FX/ORIF) Abdominal, Ear Surgery, Orthopedic Respiratory: Yes (LEFT CHEST TUBES X 2 SECONDARY TO TRAUMA) Cardiac: Yes Hypertension Neurological: No Reproductive Disorders: No Sexually Transmitted Disease: No HIV/AIDS: No Genitourinary: Yes (EPIDIDYMITIS; FREQUENT UTI'S; RENAL INSUFFICIENCY) Bladder Infection, Kidney Stones Gastrointestinal: Yes (SPLENECTOMY SECONDARY TO TRAUMA. FATTY LIVER) Liver Disease/Jaundice, Hemorrhoids Musculoskeletal: Yes (LEFT ANKLE FX/ORIF; LEFT FOREARM FX/ORIF) Fractures Endocrine: Yes (OBESITY) Diabetes, Non-Insulin dep HEENT: No Cancer: No Psychosocial: No Integumentary: No Blood Disorders: No Adverse Reaction/Blood Tranf: No Family Medical History Reviewed Nursing Family Hx No Pertinent Family Hx Physical Exam Vital Signs Vital Signs - First Documented 01/05/22 08:22 Temp 36.8 Pulse 89 Resp 16 B/P (MAP) 150/89 (109) Pulse Ox 98 O2 Delivery Room Air Capillary Refill : Less Than 3 Seconds Height, Weight, BMI Height: 6'0" Weight: 280lbs. 0oz. 127.925749pc; 42.00 BMI Method:Stated General Appearance: WD/WN, mild distress Cardiovascular: regular rate, rhythm, no murmur Respiratory: lungs clear, normal breath sounds Back: muscle spasm; No vertebral tenderness; other (Spasm noted between scapula and spine on left with point tenderness.) Neurologic/Psychiatric: alert, oriented x 3 Progress/Results/Core Measures Results/Orders Vital Signs/I&O 01/05/22 08:22 Temp 36.8 Pulse 89 Resp 16 B/P (MAP) 150/89 (109) Pulse Ox 98 O2 Delivery Room Air Blood Pressure Mean: 109 Progress Progress Note : Progress Note Seen and evaluated. Muscle spasm noted to area of rhomboids to left scapula. I was able to isolate using direct pressure and break spasm and patient was able to have some pain relief after that. No further indication for imaging or other laboratory evaluation. Discharged home with return precautions. Patient verbalized understanding instructions and agreement with plan. Departure Impression Primary Impression: Upper back pain on left side Disposition: 01 HOME, SELF-CARE Condition: Improved Departure-Patient Inst. Decision time for Depature: 08:55 Referrals: [facility] (PCP) Primary Care Physician ASHA MARAVILLA (Family) Primary Care Physician Patient Instructions: Muscle Strain (DC), Upper Back Pain (DC) Add. Discharge Instructions: All discharge instructions reviewed with patient and/or family. Voiced understanding. You may take Tylenol/acetaminophen 1000 mg every 6-8 hours as needed for pain. You may take ibuprofen 600 mg every 8 hours as needed for pain. You may use [id number] Icy Hot with lidocaine patches or cream, Aspercreme with lidocaine patches or cream, Salonpas with lidocaine patches or cream or similar items to area of concern per package directions. Follow-up with your doctor in a few days for recheck. Return for worse pain, fever, vomiting, weakness, breathing problems or other concerns as needed. Work/School Note: Work Release Form Date Seen in the Emergency Department: Jan 05, 2022 Return to Work: Jan 06, 2022 Restrictions: No Restrictions GAGANDEEP RIOS MD Jan 05, 2022 08:50
[2022-01-05 08:59] VITALS: BP 150/89
== END 2022-01-05 08:59 | disposition home or self-care (01) ==
LOC: EDUNIT# 08:16 → ER 08:19
DX: M54.6 Pain in thoracic spine (principal); M62.838 Other muscle spasm; E66.9 Obesity, unspecified; Z68.41 Body mass index [BMI] 40.0-44.9, adult
CPT/HCPCS: 99281

== ENCOUNTER 2022-06-21 21:00 | Emergency (ER) | payer OTHER, MEDICAID ==
[~2022-06-21] VITALS: Ht 177 cm; Wt 124.0 kg
[~2022-06-21 21:00] MED LIST changes: +ALBU8.5H6 IH; -DOXY-311 PO; +DOXY-444 PO; -RT-ALBUINH IH
[2022-06-21 22:06] VITALS: BP 155/101
[2022-06-22] MEDS ORDERED: SULF1TAB38 PO (04:18)
== END 2022-06-21 23:15 | disposition left against medical advice (07) ==
LOC: EDUNIT# 21:00 → ER 21:01
DX: M79.645 Pain in left finger(s) (principal); Z53.21 Procedure and treatment not carried out due to patient leaving prior to being seen by health care provider

== ENCOUNTER 2022-06-22 02:02 | Emergency (ER) | payer OTHER, MEDICAID ==
[~2022-06-22] VITALS: Ht 182.9 cm; Wt 124.7 kg
--- NOTE | 2022-06-22 02:35 | ED General ---
General Chief Complaint: Skin/Wound Problems Stated Complaint: LEFT MIDDLE FINGER SWOLLEN Nursing Triage Note: PT AMBULATES TO ROOM WITHOUT ASSISTANCE OF ER STAFF; PT A&OX4; PT REPORTS THAT HE BELIEVES HE MAY HAVE AN INGROWN NAIL; PT REPORTS CUTTING HIS FINGERNAIL ON HIS L MIDDLE FINGER SHORT AND NOW THE AREA IS RED AND VERY TENDER TO THE TOUCH; PT WAS SEEN AT [facility] AND PRESCRIBED AN ANTIBIOTIC BUT REPORTS PAIN HAS BECOME TOO SEVERE AND HE IS UNABLE TO SLEEP Source of Information: Patient Exam Limitations: No Limitations History of Present Illness Date Seen by Provider: Jun 22, 2022 Time Seen by Provider: 02:34 Allergies and Home Medications Allergies Coded Allergies: morphine (Verified Adverse Reaction, Intermediate, 09/13/16) MAKES HIM AGGRESSIVE Patient Home Medication List Acetaminophen (Tylenol Extra Strength) 500 Mg Tablet, 1,000 MG PO Q8H PRN for PAIN-MILD (1-4), (Reported) Entered as Reported by: LIZETTE MOCK on 03/10/20 0932 Albuterol Sulfate (Ventolin Hfa) 1 Puff Puff, 2 PUFF INH Q4H PRN for SHORTNESS OF BREATH, (Reported) Entered as Reported by: LIZETTE MOCK on 03/10/20 0915 Blood-Glucose Meter (Blood Glucose Meter) 1 Each Each, EACH ACHS, (DME) Prescribed by: ANGUS ARMOS on 03/13/20 114 Hydrocodone/Acetaminophen (Hydrocodone-Acetamin 5-325 mg) 1 Each Tablet, 1 TAB PO Q4H PRN for PAIN-MODERATE (5-7) Prescribed by: ANGUS RAMOS on 03/13/20 114 Insulin Aspart (Novolog Flexpen) 300 Units/3 Ml Solution, 5 UNITS SQ AC Prescribed by: ANGUS RAMOS on 03/13/20 114 Insulin Detemir (Levemir Flextouch) 100 Unit/1 Ml Insuln.pen, 10 UNIT SQ BID Prescribed by: ANGUS RAMOS on 03/13/20 114 Lancets (Advocate Lancets) 1 Each Each, EACH [facility], (DME) Prescribed by: ANGUS RAMOS on 03/13/20 1145 Metoprolol Tartrate (Metoprolol Tartrate) 50 Mg Tablet, 50 MG PO BID, (Reported) Entered as Reported by: LIZETTE MOCK on 03/10/20 0915 Naproxen (Naproxen) 500 Mg Tablet.dr, 500 MG PO BID Prescribed by: TAMERA ALVARENGA on 06/12/211914 [place], Insulin Disposable (Advocate Pen [place]) 1 Each Dis.needle, EACH [facility], (DME) Prescribed by: ANGUS RAMOS on 03/13/20 114 Sub-Q Infusion Pump Accessory (Accu-Chek) 1 Each Each, EACH [facility]CH[facility], (DME) Prescribed by: ANGUS RAMOS on 03/13/20 114 Sulfamethoxazole/Trimethoprim (Bactrim Ds Tablet) 1 Each Tablet, 1 EACH PO BID Prescribed by: ANGUS RAMOS on 03/13/20 114 Triamcinolone Acet (Triamcinolone Acetonide 0.1% Cream) 15 Gm Cr, 1 APPLIC TOP BID PRN for SKIN IRRITATION, (Reported) Entered as Reported by: LIZETTE MOCK on 03/10/20914 Past Kdrynoy-Tcakhy-Gqixrh Hx Patient Social History Tobacco Use?: No Smoking Status: Never a Smoker Smokeless Tobacco Frequency: Current Everyday User Use of E-Cig and/or Vaping dev: No Substance use?: No Alcohol Use?: No Pt feels they are or have been: No Immunizations Up To Date Tetanus Booster (TDap): Unknown Influenza Vaccine Up-to-Date: Yes; Up-to-Date First/Initial COVID19 Vaccinat: NOVEMBER 2020 Second COVID19 Vaccination Fredi: DECEMBER 2020 Third COVID19 Vaccination Date: 08/18 COVID19 Vaccine Director Of Graduate Admissions: DWNLD Seasonal Allergies Seasonal Allergies: No Past Medical History Surgeries: Yes (SPLENECTOMY; L ANKLE FX/ORIF; L FOREARM FX/ORIF) Abdominal, Ear Surgery, Orthopedic Respiratory: Yes (LEFT CHEST TUBES X 2 SECONDARY TO TRAUMA) Cardiac: Yes Hypertension Neurological: No Reproductive Disorders: No Sexually Transmitted Disease: No HIV/AIDS: No Genitourinary: Yes (EPIDIDYMITIS; FREQUENT UTI'S; RENAL INSUFFICIENCY) Bladder Infection, Kidney Stones Gastrointestinal: Yes (SPLENECTOMY SECONDARY TO TRAUMA. FATTY LIVER) Liver Disease/Jaundice, Hemorrhoids Musculoskeletal: Yes (LEFT ANKLE FX/ORIF; LEFT FOREARM FX/ORIF) Fractures Endocrine: Yes (OBESITY) Diabetes, Non-Insulin dep HEENT: No Cancer: No Psychosocial: No Integumentary: No Blood Disorders: No Adverse Reaction/Blood Tranf: No Family Medical History No Pertinent Family Hx Physical Exam Vital Signs Vital Signs - First Documented 06/22/22 02:10 Temp 36.7 Pulse 75 Resp 14 B/P (MAP) 150/80 (103) O2 Delivery Room Air Capillary Refill : Less Than 3 Seconds Height, Weight, BMI Height: 6'0" Weight: 280lbs. 0oz. 127.599933mh; 37.00 BMI Method:Stated Progress/Results/Core Measures Suspected Sepsis SIRS Temperature: Pulse: 75 Respiratory Rate: 14 Blood Pressure 150 /80 Mean: 103 Results/Orders Lab Results Laboratory Tests Test 06/22/22 02:49 Range/Units Glucometer 262 H 70-110 MG/DL My Orders Orders - JIGAR HIGH MD Sulfamethoxazole/Trimet Ds Tab (Bactrim (06/22/22 02:45) Lidocaine 1% Inj 20 Ml (Xylocaine 1% Inj (06/22/22 02:45) Accucheck Stat ONCE (06/22/22 02:42) Wound Culture (06/22/22 02:42) Medications Given in ED Current Medications Medications Dose Ordered Sig/Radha Route Start Time Stop Time Status Last Admin Dose Admin Lidocaine HCl 20 ml ONCE ONCE INJ 06/22/22 02:45 06/22/22 02:46 DC 06/22/22 02:52 20 ML Trimethoprim/ Sulfamethoxazole 1 ea ONCE ONCE PO 06/22/22 02:45 06/22/22 02:46 DC 06/22/22 02:51 1 EA Vital Signs/I&O 06/22/22 02:10 Temp 36.7 Pulse 75 Resp 14 B/P (MAP) 150/80 (103) O2 Delivery Room Air Capillary Refill : Less Than 3 Seconds Blood Pressure Mean: 103 Departure Impression Primary Impression: Abscess of finger Qualified Codes: L02.512 - Cutaneous abscess of left hand Additional Impression: Encounter for incision and drainage procedure Disposition: 01 HOME, SELF-CARE Condition: Improved Departure-Patient Inst. Decision time for Depature: 04:16 Referrals: [facility] (PCP) Primary Care Physician ASHA MARAVILLA (Family) Primary Care Physician Patient Instructions: Abscess Incision and Drainage Add. Discharge Instructions: Soaking your finger in warm soapy water frequently for the next couple of days should help it continue to drain. Cover with dressing as long as it is draining. You may treat pain with Tylenol and/or ibuprofen. Complete your prior antibiotic and start Bactrim as soon as possible. Complete the entire 10- day course of Bactrim, even if you are feeling better before the 10 days are over. Follow-up with your primary care provider after 48 hours to review culture results. Return to the emergency room if you have worsening symptoms or develop new symptoms such as fever. Try to tightly control your blood sugars over the next few days to help you recover from the infection. All discharge instructions reviewed with patient and/or family. Voiced understanding. Scripts Sulfamethoxazole/Trimethoprim (Bactrim Ds Tablet) 1 Each Tablet 1 EACH PO BID, #20 TAB Prov: JIGAR HIGH MD 06/22/22 JIGAR HIGH MD Jun 22, 2022 02:35
[2022-06-22] MEDS ORDERED: LIDOCAINE 1% INJ 20 ML VIAL INJ ONE (02:45)
[2022-06-22] MEDS ORDERED: TRIM/SULFAMETH 160/800 (SEPTRA DS) TAB PO ONE (02:45)
[2022-06-22] MEDS ORDERED: SULF1TAB38 PO (04:18)
[2022-06-22 04:25] VITALS: BP 142/81
== END 2022-06-22 04:25 | disposition home or self-care (01) ==
LOC: EDUNIT# 02:02 → ER 02:04
DX: L02.512 Cutaneous abscess of left hand (principal); Z48.03 Encounter for change or removal of drains; E66.9 Obesity, unspecified; Z68.37 Body mass index [BMI] 37.0-37.9, adult
CPT/HCPCS: 82947; 87070; 87077; 87205